=== PATIENT | female | born 1965 | race Caucasian/White ===

== ENCOUNTER 2016-02-23 12:15 | Outpatient (CLI) | payer MEDICAID | END 2016-02-23 12:16 | disposition home or self-care (01) | DX: N39.0 Urinary tract infection, site not specified (principal) ==

== ENCOUNTER 2016-03-12 09:00 | Outpatient (CLI) | payer MEDICAID | END 2016-03-12 09:01 | disposition home or self-care (01) | DX: R19.7 Diarrhea, unspecified (principal) ==

== ENCOUNTER 2016-03-29 09:50 | Outpatient (CLI) | payer MEDICAID | END 2016-03-29 09:51 | disposition home or self-care (01) | DX: R19.7 Diarrhea, unspecified (principal) ==

== ENCOUNTER 2016-04-09 | Outpatient (CLI) | payer MEDICAID | END 2016-04-09 16:16 | disposition home or self-care (01) ==

== ENCOUNTER 2016-05-24 15:11 | Outpatient (CLI) | payer MEDICAID | END 2016-05-24 15:12 | disposition critical access hospital (66) | DX: M54.5 Low back pain (principal) | CPT/HCPCS: A0425; A0427 ==

== ENCOUNTER 2016-05-24 15:50 | Emergency (ER) | payer MEDICAID ==
[2016-05-24] MEDS ORDERED: SODIUM CHLORIDE 0.9% 1,000 ML IV ONE (16:23)
[2016-05-24] MEDS ORDERED: HYDROmorphone 1 MG/ML SYRINGE IVP STA ×2 (16:37→18:06)
[2016-05-24] MEDS ORDERED: HYDROmorphone 1 MG/ML SYRINGE ONE ×2 (16:57→18:11)
[2016-05-24] MEDS ORDERED: IOPAMIDOL-300 100 ML VIAL IVP ONE (17:47)
== END 2016-05-24 19:57 | disposition home or self-care (01) ==
DX: M54.5 Low back pain (principal); G89.29 Other chronic pain; I10 Essential (primary) hypertension; E78.00 Pure hypercholesterolemia, unspecified; Z86.718 Personal history of other venous thrombosis and embolism; I48.92 Unspecified atrial flutter; J45.909 Unspecified asthma, uncomplicated; G47.30 Sleep apnea, unspecified; E11.9 Type 2 diabetes mellitus without complications; Z79.4 Long term (current) use of insulin; E03.9 Hypothyroidism, unspecified; M79.7 Fibromyalgia; Z79.82 Long term (current) use of aspirin; Z87.891 Personal history of nicotine dependence
CPT/HCPCS: 36415; 74177; 80053; 81001; 83605; 83690; 85025; 87077; 87086; 87181; 96374; 96376; 99284; J1170; Q9967

== ENCOUNTER 2016-05-24 19:57 | Outpatient (CLI) | payer MEDICAID | END 2016-05-24 19:58 | disposition home or self-care (01) | DX: Z74.01 Bed confinement status (principal) | CPT/HCPCS: A0425; A0428 ==

== ENCOUNTER 2016-06-04 15:45 | Outpatient (CLI) | payer MEDICAID | END 2016-06-04 15:46 | disposition home or self-care (01) | DX: Z51.5 Encounter for palliative care (principal); N39.0 Urinary tract infection, site not specified; B95.62 Methicillin resistant Staphylococcus aureus infection as the cause of diseases classified elsewhere; R21 Rash and other nonspecific skin eruption; G89.29 Other chronic pain; M54.89 Other dorsalgia; M35.9 Systemic involvement of connective tissue, unspecified; E24.2 Drug-induced Cushing's syndrome; T38.0X5S Adverse effect of glucocorticoids and synthetic analogues, sequela; M19.90 Unspecified osteoarthritis, unspecified site; N31.9 Neuromuscular dysfunction of bladder, unspecified; N30.90 Cystitis, unspecified without hematuria; Z93.3 Colostomy status; H91.90 Unspecified hearing loss, unspecified ear; R06.02 Shortness of breath; Z99.81 Dependence on supplemental oxygen; F32.9 Major depressive disorder, single episode, unspecified; F41.9 Anxiety disorder, unspecified; Z66 Do not resuscitate; Z79.891 Long term (current) use of opiate analgesic ==

== ENCOUNTER 2016-06-22 15:25 | Outpatient (CLI) | payer MEDICAID | END 2016-06-22 15:26 | disposition home or self-care (01) | DX: R19.7 Diarrhea, unspecified (principal); Z86.19 Personal history of other infectious and parasitic diseases ==

== ENCOUNTER 2016-06-26 13:29 | Outpatient (CLI) | payer MEDICAID | END 2016-06-26 13:30 | disposition critical access hospital (66) | LOC: EMS 13:29 | PROVIDERS: ATTEND Surgery | DX: R41.0 Disorientation, unspecified (principal); R53.81 Other malaise | CPT/HCPCS: A0425; A0427 ==

== ENCOUNTER 2016-06-26 14:08 | Emergency (ER) | payer MEDICAID ==
[2016-06-26] MEDS ORDERED: ONDANSETRON 4 MG/2 ML VIAL IVP STA (14:31)
[2016-06-26] MEDS ORDERED: SODIUM CHLORIDE 0.9% 1,000 ML IV ONE (14:31)
[2016-06-26] MEDS ORDERED: HYDROmorphone 1 MG/ML SYRINGE IVP STA (14:31)
[2016-06-26] MEDS ORDERED: HYDROmorphone 1 MG/ML SYRINGE ONE (14:42)
[2016-06-26] MEDS ORDERED: ONDANSETRON 4 MG/2 ML VIAL ONE (14:42)
[2016-06-26] MEDS ORDERED: IOPAMIDOL-300 100 ML VIAL IVP ONE (16:10)
== END 2016-06-26 18:39 | disposition home or self-care (01) ==
DX: A04.7 Enterocolitis due to Clostridium difficile (principal); M35.9 Systemic involvement of connective tissue, unspecified; T78.3XXA Angioneurotic edema, initial encounter; Z93.3 Colostomy status; Z90.49 Acquired absence of other specified parts of digestive tract; Z86.14 Personal history of Methicillin resistant Staphylococcus aureus infection; R19.09 Other intra-abdominal and pelvic swelling, mass and lump; R03.0 Elevated blood-pressure reading, without diagnosis of hypertension; E78.00 Pure hypercholesterolemia, unspecified; E11.9 Type 2 diabetes mellitus without complications; Z79.4 Long term (current) use of insulin; Z86.718 Personal history of other venous thrombosis and embolism; I48.92 Unspecified atrial flutter; J45.909 Unspecified asthma, uncomplicated; M54.9 Dorsalgia, unspecified; G89.29 Other chronic pain; Z74.01 Bed confinement status; Z79.52 Long term (current) use of systemic steroids; Z79.82 Long term (current) use of aspirin; Z87.891 Personal history of nicotine dependence
CPT/HCPCS: 74177; 80053; 83605; 83690; 85025; 96374; 96375; 99283; 99284; J1170; Q9967

== ENCOUNTER 2016-06-26 18:41 | Outpatient (CLI) | payer MEDICAID | END 2016-06-26 18:42 | disposition home or self-care (01) | LOC: EMS 18:41 | PROVIDERS: ATTEND Surgery | DX: R53.81 Other malaise (principal); R11.0 Nausea; Z74.01 Bed confinement status | CPT/HCPCS: A0425; A0428 ==

== ENCOUNTER 2016-07-21 06:40 | Outpatient (CLI) | payer MEDICAID | END 2016-07-21 06:41 | disposition critical access hospital (66) | LOC: EMS 06:40 | PROVIDERS: ATTEND Surgery | DX: R06.02 Shortness of breath (principal) | CPT/HCPCS: A0425; A0429 ==

== ENCOUNTER 2016-07-21 07:10 | Inpatient (IN) | payer MEDICAID ==
--- NOTE | 2016-07-21 07:15 | ED Physician Documentation ---
PD HPI DYSPNEA - Stated complaint Stated Complaint: SOA, ? PNA - History obtained from History obtained from: Patient, Family, EMS - History of Present Illness Timing - onset: Yesterday Timing - duration: Days (started with cough and dyspnea yesterday and is worse today, with thicker sputum. She is bedbound due to back fractures and thus has difficulty clearing sputum as is lying on back. She felt dypsnea with wheezing this morning and called EMS. Had nebulizer enroute and is breathing easier though still with congested cough, wheezing, and has sats at 88-89% RA. Prior records show sats of 97-99%.) Timing - details: Gradual onset, Still present Inciting event(s): URI (has had cough for past couple days, worsening.) Improved by: Inhaler/neb Associated symptoms: Cough Similar symptoms before: Has not had sx before Recently seen: Not recently seen Review of Systems Constitutional: denies: Fever, Chills Nose: denies: Rhinorrhea / runny nose, Congestion Throat: denies: Sore throat Cardiac: denies: Chest pain / pressure Respiratory: reports: Dyspnea, Cough, Wheezing GI: denies: Vomiting, Diarrhea : reports: Other (has indwelling nunes which is draining thick cloudy white.) Musculoskeletal: reports: Back pain (chronic, and is bedbound or wheelchair due to it. Has lift at home.). 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 LINE INSTALLER: section, Hysterectomy - Present Medications Home Medications: Ambulatory Orders Medication Instructions Recorded Confirmed Fenofibrate 160 mg PO DAILY 07/09/12 01/19/16 Levothyroxine [Synthroid] 100 mcg PO QDAC 07/09/12 01/19/16 Albuterol Sulfate 1 vial NEB Q6HR PRN 04/13/15 01/19/16 Aspirin [Aspir-Low] 81 mg ORAL DAILY 04/13/15 01/19/16 Atorvastatin Calcium 20 mg ORAL DAILY 04/13/15 01/19/16 Epinephrine [Epipen 2-Zachary] 1 syr IM ONCE PRN 04/13/15 01/19/16 Escitalopram Oxalate [Lexapro] 20 mg ORAL DAILY 04/13/15 01/19/16 Magnesium Oxide [Mag Ox] 400 mg ORAL QPM PRN 04/13/15 01/20/16 Methadone HCl 12.5 mg ORAL QID 04/13/15 01/19/16 Metoprolol Tartrate 25 mg ORAL BID 04/13/15 01/20/16 Oxycodone HCl 30 mg ORAL Q3HR PRN MDD 9 ml 04/13/15 01/19/16 Tolterodine [Detrol LA] 2 mg PO BID 04/13/15 01/19/16 Vitamin B Complex Vit C No.4 1 tab ORAL DAILY 04/13/15 01/19/16 [Super B Complex] Acetaminophen [Tylenol Extra 1,000 mg PO Q4H PRN 12/29/15 01/19/16 Strength] Albuterol Sulfate [Proair Hfa 2 puffs INH QID PRN 12/29/15 01/19/16 Inhaler] Calcium Carbonate [Tums (Calcium 750 mg PO QID tablet 12/29/15 01/19/16 Carbonate 500mg)] Diphenhydramine HCl 25 - 75 mg PO QPM PRN 12/29/15 01/20/16 Docusate Sodium 100 mg PO DAILY 12/29/15 01/19/16 Fluticasone [Flonase] 1 sprays AVIS BID 12/29/15 01/19/16 Insulin Lispro [Humalog] 2 unit SUBQ TIDWM 12/29/15 01/20/16 Metoclopramide [Reglan] 10 mg PO QID PRN 12/29/15 01/19/16 Multivitamin [Multiple Vitamins] 1 tab PO DAILY 12/29/15 01/19/16 Nystatin [Nystop] 1 applic TOP BID #15 bottle 12/29/15 01/19/16 Saccharomyces Boulardii [Florastor] 250 mg PO BID #20 capsule 12/29/15 01/19/16 Simethicone 180 mg PO DAILY 12/29/15 01/19/16 Sodium Chloride [Saline Mist] 1 spray NS TID PRN 12/29/15 01/19/16 Sumatriptan Succinate [Imitrex] 50 mg PO Q2H PRN MDD 100 MG 12/29/15 01/19/16 raNITIdine [Zantac] 300 mg PO QPM 01/20/16 01/20/16 Cetirizine [ZyrTEC] 20 mg PO DAILY tablet 01/21/16 Fluticasone [Flonase] 1 sprays AVIS BID bottle 01/21/16 Levofloxacin [Levaquin] 500 mg PO 10 #10 tablet 01/21/16 Pseudoephedrine [Sudafed] 30 mg PO BID #20 tablet 01/21/16 - Allergies Allergies/Adverse Reactions: Allergies Allergy/AdvReac Type Severity Reaction Status Date / Time latex Allergy Unknown Verified 07/21/16 07:26 nitrofurantoin AdvReac Intermediate Emesis Verified 07/21/16 07:26 macrocrystalline * [From Macrobid] - Social History Does the pt smoke?: No Smoking Status: Former smoker Does the pt drink ETOH?: Yes Does the pt have substance abuse?: No - Family History Family history: reports: Non contributory - Immunizations Immunizations are current?: Yes - POLST Patient has POLST: No PD ED PE NORMAL - Vitals Vital signs reviewed: Yes - General General: Alert and oriented X 3, Well developed/nourished - HEENT HEENT: Atraumatic, Ears normal, Pharynx benign - Neck Neck: Supple, no meningeal sign, No adenopathy, No JVD - Cardiac Cardiac: RRR (mild tachycardia), No murmur - Respiratory Respiratory: No: Clear bilaterally (diffuse mod wheezing but able to converse in sentences. No accessory muscle use. Some coarse sounds right side. ) - Abdomen Abdomen: Soft, Non tender, Other (colostomy right side draining normal appearing output. No redness of the skin. ) - Female Female : Deferred - Rectal Rectal: Deferred - Derm Derm: Normal color, Warm and dry - Extremities Extremities: No tenderness to palpate, No edema, No calf tenderness / cord - Neuro Neuro: Alert and oriented X 3, No motor deficit, No sensory deficit, Normal speech - Psych Psych: Normal mood Results - Vitals Vitals: Vital Signs - 24 hr 07/21/16 07/21/16 07/21/16 07:19 07:50 09:15 Temperature 36.7 C Heart Rate 108 H 95 94 Respiratory 18 16 15 Rate Blood Pressure 140/103 H O2 Saturation 89 L 07/21/16 09:26 Temperature Heart Rate Respiratory Rate Blood Pressure 129/86 H O2 Saturation Oxygen O2 Source Room air Oxygen Flow Rate 3 - Labs Labs: Laboratory Tests 07/21/16 07/21/16 07/21/16 07:33 07:45 07:45 WBC 12.2 H RBC 3.03 L Hgb 8.7 L Hct 28.2 L MCV 93.2 MCH 28.7 MCHC 30.8 L RDW 16.6 H Plt Count 290 MPV 9.0 Neut # 9.7 H Lymph # 1.5 [place]olls # 0.6 Eos # 0.3 Baso # 0.1 Absolute Nucleated RBC 0.00 Nucleated RBCs 0.0 Sodium 142 Potassium 4.2 Chloride 93 L Carbon Dioxide 40 H* Anion Gap 8.0 BUN 5 L Creatinine < 0.3 L Estimated GFR (MDRD) 234 Glucose 118 H Lactic Acid Calcium 9.2 Magnesium 1.7 Total Bilirubin 0.2 AST 34 ALT 34 Alkaline Phosphatase 38 L B-Natriuretic Peptide 53 Total Protein 5.6 L Albumin 2.8 L Globulin 2.8 Albumin/Globulin Ratio 1.0 Lipase 18 L Urine Color Urine Clarity Urine pH Ur Specific [place] Urine Protein Urine Glucose (UA) Urine Ketones Urine Occult Blood Urine Nitrite Urine Bilirubin Urine Urobilinogen Ur Leukocyte Esterase Urine RBC Urine WBC Urine WBC Clumps Ur Squamous Epith Cells Urine Bacteria Ur Microscopic Review Urine Culture Comments 07/21/16 07/21/16 07:45 08:43 WBC RBC Hgb Hct MCV MCH MCHC RDW Plt Count MPV Neut # Lymph # [place] # Eos # Baso # Absolute Nucleated RBC Nucleated RBCs Sodium Potassium Chloride Carbon Dioxide Anion Gap BUN Creatinine Estimated GFR (MDRD) Glucose Lactic Acid 1.3 Calcium Magnesium Total Bilirubin AST ALT Alkaline Phosphatase B-Natriuretic Peptide Total Protein Albumin Globulin Albumin/Globulin Ratio Lipase Urine Color YELLOW Urine Clarity CLOUDY Urine pH 6.5 Ur Specific [place] 1.020 Urine Protein TRACE Urine Glucose (UA) NEGATIVE Urine Ketones NEGATIVE Urine Occult Blood MODERATE H Urine Nitrite NEGATIVE Urine Bilirubin NEGATIVE Urine Urobilinogen 0.2 (NORMAL) Ur Leukocyte Esterase LARGE H Urine RBC 6-10 H Urine WBC >25 H Urine WBC Clumps PRESENT Ur Squamous Epith Cells NONE SEEN Urine Bacteria Many H Ur Microscopic Review INDICATED Urine Culture Comments INDICATED PD MEDICAL DECISION MAKING - ED course Complexity details: reviewed old records (recent c-diff but she says colostomy output is normal now. ), reviewed results, re-evaluated patient (after nebs, sats are 92% RA, still coarse sounds on right, mild wheezing. She feels less laboring breathing, and looks more relaxed breathing. Has yellowish sputum. I am concerned for sounding early pneumonia clinically, in steroid dependent woman , who is bedbound with comorbidities. ), considered differential (bedbound much of the time, with cough and wheeze. Concern for pneumonia, and consider aspiration. ), d/w patient, d/w organizational development consultant (Dr. Garcia) Departure - Departure Disposition: 66 [facility] DC/Xfer Clinical Impression: Steroid dependent, Hypoxemia Pneumonia Qualifiers: Pneumonia type: due to unspecified organism Laterality: right Lung location: unspecified part of lung Qualified Code(s): J18.9 - Pneumonia, unspecified organism Dyspnea Qualifiers: Dyspnea type: shortness of breath Qualified Code(s): R06.02 - Shortness of breath Condition: Stable Record reviewed to determine appropriate education?: Yes
[2016-07-21] MEDS ORDERED: SODIUM CHLORIDE 0.9% 1,000 ML IV ONE (07:33)
[2016-07-21] MEDS ORDERED: IPRATROPIUM/ALBUTEROL 3 ML NEB INH STA (07:33)
[2016-07-21] MEDS ORDERED: IPRATROPIUM/ALBUTEROL 3 ML NEB INH ONE (07:44)
--- NOTE | 2016-07-21 08:25 | XRAY Preliminary Report ---
Exam: XR Chest 1 View IMPRESSION: 1. Low inspiratory volume portable film without focal consolidation or airspace pulmonary edema. 2. Mediastinal prominence and nonspecific vascular and interstitial prominence are slightly increased . Vascular congestion not excluded. Limited mediastinal and cardiac assessment on portable chest x-ra bernadine ESCOBAR SITE ID: [id number]
--- NOTE | 2016-07-21 08:28 | XRAY Report ---
EXAM: CHEST RADIOGRAPHY EXAM DATE: 07/21/2016 08:09 AM. CLINICAL HISTORY: Cough/congestion. COMPARISON: 12/22/2015. TECHNIQUE: 1 view. FINDINGS: Lungs/Pleura: Low inspiratory volume. Mild bilateral nonspecific vascular and interstitial prominence . No focal opacities evident. No pleural effusion. No pneumothorax. Mediastinum: Unchanged prominence of cardiomediastinal silhouette. Low inspiratory volume, portable t echnique and patient body habitus may contribute to this prominence. Cardiomegaly and adenopathy or m ediastinal mass is not excluded. Other: None. IMPRESSION: 1. Low inspiratory volume portable film without focal consolidation or airspace pulmonary edema. 2. Mediastinal prominence and nonspecific vascular and interstitial prominence are slightly increased . Vascular congestion not excluded. Limited mediastinal and cardiac assessment on portable chest x-ra bernadine ESCOBAR Referring Provider Line: [phone] SITE ID: [id number]
[2016-07-21 08:33] LABS: BILIRUBIN,URINE NEGATIVE (NEGATIVE); PH,URINE 6.5 PH (5.0-7.5)
[2016-07-21 08:34] LABS: BASOPHILS # (AUTO) 0.1 10^3/uL (0.0-0.1); BASOPHILS % (AUTO) 0.6 %; EOSINOPHILS # (AUTO) 0.3 10^3/uL (0.0-0.7); EOSINOPHILS % (AUTO) 2.8 %; HCT - HEMATOCRIT 28.2 % (37.0-47.0); HGB - HEMOGLOBIN 8.7 g/dL (12.0-16.0); LYMPHOCYTES # (AUTO) 1.5 10^3/uL (1.5-3.5); LYMPHOCYTES % (AUTO) 12.3 %; MEAN CORPUSCULAR HEMOGLOBIN 28.7 pg (27.0-31.0); MEAN CORPUSCULAR HGB CONC 30.8 g/dL (32.0-36.0); MEAN CORPUSCULAR VOLUME 93.2 fL (81.0-99.0); MONOCYTES # (AUTO) 0.6 10^3/uL (0.0-1.0); MONOCYTES % (AUTO) 4.8 %; NEUTROPHILS # (AUTO) 9.7 10^3/uL (1.5-6.6); NEUTROPHILS % (AUTO) 79.5 %; RED BLOOD COUNT 3.03 10^6/uL (4.20-5.40); RED CELL DISTRIBUTION WIDTH 16.6 % (12.0-15.0); UNCORRECTED WHITE BLOOD COUNT 12.2 x10^3/uL; WHITE BLOOD COUNT 12.2 x10^3/uL (4.8-10.8)
[2016-07-21 08:35] LABS: UA w/ MICROSCOPIC CHARGE YES
[2016-07-21 08:57] LABS: BILIRUBIN,TOTAL 0.2 mg/dL (0.2-1.0); BUN - BLOOD UREA NITROGEN 5 mg/dL (6-20); CALCIUM 9.2 mg/dL (8.5-10.3); CARBON DIOXIDE - CO2 40 mmol/L (21-32); CHLORIDE 93 mmol/L (101-111); GLUCOSE 118 mg/dL (70-100); LIPASE 18 U/L (22-51); MAGNESIUM 1.7 mg/dL (1.7-2.8); POTASSIUM 4.2 mmol/L (3.5-5.0); SODIUM 142 mmol/L (135-145); TOTAL PROTEIN 5.6 g/dL (6.7-8.2)
[2016-07-21] MEDS ORDERED: ALBUTEROL NEB 2.5 MG/3 ML INH STA (08:57)
[2016-07-21 09:02] LABS: UR CULTURE IF IND INDICATED; WBC,URINE >25 /HPF (0-5)
[2016-07-21 09:09] LABS: CREATININE < 0.3 mg/dL (0.4-1.0); GFR - MDRD 234 (>89)
[2016-07-21] MEDS ORDERED: ALBUTEROL NEB 2.5 MG/3 ML INH ONE (09:14)
[2016-07-21] MEDS ORDERED: PIPERACILLIN/TAZOBACTAM 4.5 GM in SODIUM CHLORIDE 0.9% MINIBAG 100 ML IV STA (09:23)
[2016-07-21] MEDS ORDERED: methylPREDNISolone SUCCINATE 125 MG/2 ML VIAL IVP STA (09:23)
[2016-07-21] MEDS ORDERED: methylPREDNISolone SUCCINATE 125 MG/2 ML VIAL IVP ONE (09:49)
[2016-07-21 10:16] LABS: ABG ANALYSIS TIME 1015; ABG BASE EXCESS 11.9 mmol/L (-2.0-3.0); ABG HCO3 38.4 mmol/L (22.0-26.0); ABG PO2 73 mmHg (80-100)
[2016-07-21 10:17] LABS: ABG O2 DEVICE NASAL CANNULA; ABG OXYGEN SATURATION 95 % (94-98); ABG SITE OF DRAW RIGHT RADIAL; ALLEN TEST POSITIVE
[2016-07-21 10:25] LABS: ABG PCO2 63 mmHg (34-45); ABG TCO2 40.3 MMOL/L (21.0-29.0)
[2016-07-21] MEDS ORDERED: ACETAMINOPHEN 325 MG TABLET PO PRN (11:42)
[2016-07-21] MEDS ORDERED: ONDANSETRON 4 MG/2 ML VIAL IVP PRN (11:42)
[2016-07-21] MEDS ORDERED: SODIUM CHLORIDE 0.65% NASAL SPRAY NAS PRN (11:47)
[2016-07-21] MEDS ORDERED: CYANOCOBALAMIN 1,000 MCG/ML VIAL IM SCH (12:15)
[2016-07-21] MEDS: oxyCODONE 10 MG/0.5 ML SYRINGE PO PRN ×4 (12:35→22:21)
[2016-07-21 12:48] LABS: GLUCOSE,FASTING 111 mg/dL (70-100); IRON 14 ug/dL (28-170); TOTAL IRON BINDING CAPACITY 295 ug/dL (250-450); TRANSFERRIN 211 mg/dL (192-382)
[2016-07-21] MEDS ORDERED: METHADONE 5 MG TABLET PO SCH (13:00)
[2016-07-21 13:02] LABS: FERRITIN 13.6 ng/mL (11.0-306.8)
[2016-07-21 13:23] LABS: IMMATURE RETIC FRACTION 0.56; RED BLOOD COUNT 2.85 10^6/uL (4.20-5.40)
[2016-07-21] MEDS: SODIUM CHLORIDE 0.9% 1,000 ML IV SCH (13:45)
[2016-07-21] MEDS: ENOXAPARIN 40 MG/0.4 ML SYRINGE SUBQ SCH (13:47)
[2016-07-21] MEDS: MULTIVITAMIN TABLET PO SCH (13:48)
[2016-07-21] MEDS: SACCHAROMYCES BOULARDII 250 MG CAPSULE PO SCH ×2 (13:48→20:44)
[2016-07-21] MEDS: TOLTERODINE LA 2 MG CAPSULE PO SCH ×2 (13:48→20:45)
[2016-07-21] MEDS: CALCIUM CARBONATE CHEW 500 MG TABLET PO SCH ×3 (13:49→20:45)
[2016-07-21] MEDS: INSULIN ASPART 300 UNIT/3 ML PEN SUBQ SCH ×5 (13:49→20:43)
[2016-07-21] MEDS ORDERED: MAGNESIUM SULFATE 2 GRAM 50 ML IV SCH (14:00)
[2016-07-21] MEDS: SODIUM CHLORIDE FLUSH 0.9% 10 ML SYRINGE IVP SCH ×2 (14:06→18:33)
[2016-07-21] MEDS: VANCOMYCIN 125 MG CAPSULE PO SCH ×2 (14:50→19:35)
[2016-07-21] MEDS: methylPREDNISolone SUCCINATE 40 MG/ML VIAL IVP SCH ×2 (14:51→20:43)
[2016-07-21] MEDS ORDERED: IRON SUCROSE 200 MG in SODIUM CHLORIDE 0.9% 100ML 100 ML IV ONE (15:00)
[2016-07-21] MEDS: IPRATROPIUM/ALBUTEROL 3 ML NEB INH PRN ×2 (15:51→23:33)
[2016-07-21] MEDS: PANTOPRAZOLE 40 MG VIAL IVP SCH (17:09)
[2016-07-21] MEDS: diphenhydrAMINE 25 MG CAPSULE PO SCH ×2 (17:10→20:45)
--- NOTE | 2016-07-21 18:23 | HISTORY & PHYSICAL EXAMINATION ---
DATE OF ADMISSION: 07/21/2016 PRIMARY CARE PROVIDER: Dr. Haylee Rosario. CHIEF COMPLAINT: Shortness of breath, cough, and upper chest pain. HISTORY OF PRESENT ILLNESS: The patient is a 51-year-old morbidly obese female with multiple significant comorbidities with unspecified autoimmune connective tissue disorder with recurrent angioedema, [place] type syndrome from steroids, morbid obesity, chronic back pain, bilateral mastoiditis, severe osteoarthritis , neurogenic bladder with interstitial cystitis, colostomy, who presented with shortness of breath and generalized weakness and malaise and possible aspiration pneumonia. The patient states that the cough and shortness of breath started to worsen yesterday and today the symptoms have become severe with much thicker sputum. Since the patient is bedbound due to multiple back fractures, she has difficulty cleaning her sputum while lying on her back. She stated she had shortness of breath and heard herself wheezing this morning, so she called EMS. She did receive nebulizer treatments with EMS on the way to the ER. Her sats were noted to be between 88 and 89% on room air. The patient states she has been using her inhaler and home nebs as prescribed with no resolution. She states the cough has become worse. She has continued to eat her meals while laying down even though she continues to have a significant cough. She states that the pain in her chest feels like someone is stabbing her with a knife which goes straight through the middle of her back when she coughs. She denies fever or chills, sore throat, chest pain or pressure. She reports wheezing, productive cough and shortness of breath with a cough. She has had no vomiting or diarrhea. She does have an indwelling Oseguera catheter that is draining thick, cloudy and white. She states her back pain has been chronic. She is bed bound and wheelchair bound. She does have a home lift. She has a colostomy bag which was placed yesterday, new bag that has noted stool. She was just recently diagnosed with C difficile. She is on a special diet due to her autoimmune disorder. She is not allowed to have gluten or dairy. She takes multiple medications at home. Upon evaluation in the ER, she was found to be significantly congested, did have mild wheezing with expiration. She states she had been around her nephew recently who was sick with an upper respiratory infection, but was not sure whether he had been formally diagnosed. She was tachycardic and oxygen saturation was 89% on room air. She was afebrile. She will be admitted for further evaluation for shortness of breath and possible aspiration pneumonia. ALLERGIES 1. LATEX. 2. NITROFURANTOIN. 3. MACROCRYSTALLINE. MEDICATIONS 1. Fenofibrate. 2. Synthroid. 3. Albuterol. 4. Aspirin 81 mg. 5. Atorvastatin. 6. Calcium 20 mg. 7. EpiPen 2 pack. 8. Lexapro 20 mg daily. 9. Magnesium oxide 400 mg at night. 10. Methadone HCL 12.5 mg q.i.d. 11. Metoprolol tartrate 25 mg oral b.i.d. 12. Oxycodone HCL 30 mg q.3h. p.r.n.. 13. Detrol-LA 2 mg p.o. b.i.d. 14. Vitamin B complex with vitamin C. 15. Tylenol Extra Strength q.4h. p.r.n. 16. ProAir HFA inhaler two puffs q.i.d. p.r.n. 17. Tums 750 mg p.o. q.i.d. 19. Colace 100 mg p.o. daily. 20. Flonase. 21. Insulin lispro, Humalog 2 units subcutaneously 3 times a day with meals. 22. Reglan 10 mg p.o. q.i.d. p.r.n. 23. Multivitamin 1 tab p.o. daily. 24. Nystatin. 25. Florastor 250 mg p.o. b.i.d.. 26. Simethicone 180 mg p.o. daily. 27. Imitrex 50 mg p.o. q.2h. p.r.n. for migraines. 28. Zantac. 29. Zyrtec. 30. Flonase. 31. Sudafed. PAST MEDICAL HISTORY: Hypertension, high cholesterol, history of deep venous thromboses, atrial flutter, murmur, asthma, type 2 diabetes, hypothyroidism, GERD, indwelling Oseguera catheter with chronic bladder infections, chronic hearing loss and history of depression, anxiety, PTSD, claustrophobia, eating disorder, OCD, chronic back pain, fibromyalgia, osteoporosis, diverticulitis, headache, migraines, sleep apnea with CPAP use, colonoscopy, osteoporosis. PAST SURGICAL HISTORY: , colostomy bag, spine surgery, cholecystectomy , hysterectomy and indwelling Oseguera catheter. FAMILY HISTORY: The patient has hypertension and diabetes on both sides of her family. She also has autoimmune disorders. PAST SOCIAL HISTORY: The patient does have alcohol periodically. She is a former smoker, does not use illicit drugs, but is on methadone and chronic pain medication. Her daughter Meron is her POA. REVIEW OF SYSTEMS: The 10 systems have been reviewed and is negative with exception as discussed in the HPI prior. PHYSICAL EXAMINATION CONSTITUTIONAL: The patient is alert, no acute distress. EYES: Pupils equal, round and react to light and accommodation. Conjunctivae and sclerae was nonicteric, not injected. ENT: Nares are patent, oropharynx with no masses, exudates or lesions. Mucous membranes are moist. The patient does present with a productive cough. NECK: Supple. No thyromegaly. No adenopathy. RESPIRATORY: Breath sounds are clear with diffuse moderate wheezing but able to converse in sentences, coarse sounds on the right side, otherwise no retractions or nasal flaring. CARDIOVASCULAR: Tachycardic rate. No gallops, murmurs or rubs. Normal PMI. No JVD. GASTROINTESTINAL: Abdomen is obese, soft. Colostomy to the right side draining normal brown stool. SKIN: Dry, intact. No guarding or rebound. GENITOURINARY: Indwelling Oseguera noted, otherwise no CVA tenderness or masses palpated. NEUROLOGICAL: She is alert, GCS 15. No sensory deficit. Normal speech. PSYCHIATRIC: Flat affect, cooperative and no suicide ideation. MUSCULOSKELETAL AND EXTREMITIES: No cyanosis. Pulses are palpable on bilateral lower extremities. No edema to lower extremities, no calf tenderness. SKIN: Normal color, warm, dry, intact. HEMATOLOGIC: No active bleeding. She is hemodynamically stable. LYMPHATICS: No cervical or axillary lymphadenopathy noted. LABORATORY DATA: I personally reviewed all laboratory and diagnostic data in the medical records and the results are as follows for 07/21/2016. Sodium 142, potassium is 4.2, chloride is 93, carbon dioxide 40, BUN 5, creatinine less than 0.3, glucose is 118, calcium 9.2, magnesium 1.7, total protein 5.6. BNP is 53, alkaline phosphatase is 36. Lipase 18. WBC is 12.2, hemoglobin 8.7, hematocrit 28.2, urinalysis is positive for leukocyte esterase, moderate occult blood, negative nitrites, trace of protein, multiple bacteria and white blood cells. DIAGNOSTICS: Personally reviewed the chest x-ray for 07/21/2016/. Impression shows low inspiratory volume on a portable film without focal consolidation or airspace pulmonary edema, possibility for aspiration pneumonia; however, no confirmed infiltrate, vascular congestion is not excluded. ASSESSMENT AND PLAN 1. Acute dyspnea with productive cough secondary to possible aspiration pneumonia with autoimmune angioedema. 2. Morbid obesity with BMI greater than 40, with chronic steroid usage. 3. Type 2 diabetes with complications. 4. Mixed hyperlipidemia with type 2 diabetes. 5. Obstructive sleep apnea with CPAP use. 6. Chronic back pain secondary to osteoporosis with chronic multiple fractures of the spinal column. 7. Chronic Fibromyalgia. 8. Hypertensive heart disease without congestive heart failure. 9. Hypothyroidism, acquired. 10. Gastroesophageal reflux disease. 11. Chronic bladder infection with retention and chronic indwelling Oseguera catheter. 12. Right-sided colostomy with recent diagnosis of c.dif. PLAN 1. Admit the patient inpatient with respiratory therapy support. The patient was given antibiotic Levaquin in the ER. Sputum culture requested, supplemental oxygen at 2 liters nasal cannula, steroids to continue. The patient does take steroids at home on a daily basis; however, unsure of the amounts. At this time she was placed on methylprednisolone 40 mg t.i.d. Continue with DuoNeb treatments p.r.n. q.4h. We will encourage coughing and deep breathing with incentive spirometry. The head of the bed elevated at 30 degrees if the patient can tolerate. continue methadone and give Fentanyl q.4h IV prn for pain. Continue on p.r.n. pain medication of oxycodone oral 2. Continue on Synthroid medication. Thyroid panel has been requested. 3. Continue on atorvastatin for hyperlipidemia. Lipid profile requested. 4. Continue on his Lexapro for depression and monitor mental health status. 5. Hold Magnesium oxide. The patient was given IV magnesium sulfate. Will continue to monitor electrolytes. 6. Continue metoprolol tartrate for hypertension. Telemetry monitoring. 7. Continue on Tylenol for fever. Continue on Benadryl at night for sleep and insomnia. 8. Continue on Humalog on sliding scale insulin for diabetes management with diabetic diet. The patient does have a diet that is gluten and dairy free, to continue. 9. Continue multivitamin for supplemental nutritional support. 10. Continue on Reglan for nausea. 11. Continue on Zyrtec and Flonase for inflammation and nasal congestion. 12. Continue on Imitrex p.r.n. for migraines as needed. 13. Continue on aspirin therapy home dosage for cardiac support. 14. Continue on fenofibrate for hyperlipidemia. 15. Physical and occupational therapy support to help with moving and sitting up in bed. The patient does use wheelchair at home; however, due to her size will be difficult to get her up and at least sitting in a wheelchair for part of the day. We will continue to monitor for pain and treat as needed. The patient has been counseled on the importance of sitting up when eating to avoid worsening lung compliance and to avoid aspiration. 16. Deep venous thrombosis prophylaxis with Lovenox and SCDs. Time spent on the admission assessment and education was approximately 60 minutes. STATUS: The patient is a FULL CODE STATUS with request for no extra ordinary measures with POLST present; per past notes she did have a POLST form on file, which was DO NOT ATTEMPT RESUSCITATION, BUT FULL TREATMENT IF she has any angioedema or in anaphylactic shock. This was discussed at bedside with the patient. She does request that all measures to be taken to help bring her angioedema under control; however, does not want any extravagant means taken should she be intubated. She does have a durable power of estate attorney, which is her daughter, Meron, who is her main caregiver at home. JOB #: [id number] EXT JOB #:[id number] DARA
[2016-07-21] MEDS: fentaNYL 100 MCG/2 ML VIAL IVP PRN ×2 (18:31→21:04)
[2016-07-21] MEDS: ALPRAZolam 0.25 MG TABLET PO PRN (18:32)
[2016-07-21] MEDS: diazePAM 5 MG TABLET PO PRN (19:35)
[2016-07-21] MEDS ORDERED: SUMAtriptan 6 MG/0.5 ML VIAL SUBQ ONE ×2 (19:51→20:15)
[2016-07-21] MEDS: NYSTATIN POWDER 15 GM TOP SCH (20:42)
[2016-07-21] MEDS: FLUTICASONE NASAL SPRAY NAS SCH (20:42)
[2016-07-21] MEDS: PSEUDOEPHEDRINE 30 MG TABLET PO SCH (20:45)
[2016-07-21] MEDS: METOPROLOL TARTRATE 25 MG TABLET PO SCH (20:46)
[2016-07-21] MEDS: DOXEPIN 25 MG CAPSULE PO SCH (20:46)
[2016-07-21] MEDS: guaiFENesin 600 MG TABLET PO SCH (20:46)
[2016-07-21] MEDS ORDERED: LORazepam 2 MG/ML SYRINGE IVP SCH (23:21)
[2016-07-21] MEDS ORDERED: ZOLPIDEM 5 MG TABLET PO PRN (23:21)
[2016-07-22] MEDS: METHADONE 5 MG TABLET PO SCH ×5 (00:49→20:05)
[2016-07-22] MEDS: SODIUM CHLORIDE 0.9% 1,000 ML IV SCH ×2 (00:50→09:38)
[2016-07-22] MEDS: VANCOMYCIN 125 MG CAPSULE PO SCH ×4 (02:18→20:06)
[2016-07-22] MEDS: oxyCODONE 10 MG/0.5 ML SYRINGE PO PRN ×5 (02:31→20:07)
[2016-07-22] MEDS: LEVOTHYROXINE 100 MCG TABLET PO SCH (06:28)
[2016-07-22] MEDS: SODIUM CHLORIDE FLUSH 0.9% 10 ML SYRINGE IVP SCH ×3 (06:28→20:13)
[2016-07-22] MEDS: PANTOPRAZOLE 40 MG VIAL IVP SCH ×2 (06:28→15:59)
[2016-07-22] MEDS: methylPREDNISolone SUCCINATE 40 MG/ML VIAL IVP SCH ×3 (06:28→21:21)
[2016-07-22 06:30] LABS: BILIRUBIN,TOTAL < 0.2 mg/dL (0.2-1.0); BUN - BLOOD UREA NITROGEN 6 mg/dL (6-20); CALCIUM 8.3 mg/dL (8.5-10.3); CARBON DIOXIDE - CO2 31 mmol/L (21-32); CHLORIDE 99 mmol/L (101-111); CREATININE 0.3 mg/dL (0.4-1.0); GFR - MDRD 234 (>89); GLUCOSE 157 mg/dL (70-100); INR 1.1 (0.8-1.2); POTASSIUM 3.3 mmol/L (3.5-5.0); PT - PROTHROMBIN TIME 12.7 secs (9.9-12.6); SODIUM 138 mmol/L (135-145); TOTAL PROTEIN 5.1 g/dL (6.7-8.2)
[2016-07-22 06:36] LABS: CHOL/HDL RATIO 3.4 (<4.4); CHOLESTEROL 144 mg/dL; HDL CHOLESTEROL 42 mg/dL; LDL/HDL RATIO 1.7 (<4.4); TRIGLYCERIDES 148 mg/dL; VLDL CHOLESTEROL 30 mg/dL
--- NOTE | 2016-07-22 08:04 | PROVIDER PROGRESS NOTE ---
Assessment/Plan - Problem List (1) Dyspnea and respiratory abnormalities Assessment/Plan: ACute with hypoxemia and hypercarbia with compensation and with underlying autoimmune angioedema. continue on RT treatments and supplemental oxygen as prescribed. monitor oxygen saturation. ABG daily and continue on home respratory therapy treatments. encourage cough and pulmonary toilet daily (2) Hypokalemia due to loss of potassium Assessment/Plan: acute. continue with potassium supplmentation and recheck electrolytes with daily lab draw. (3) Elevated C-reactive protein (CRP) Assessment/Plan: acute. continue with steroids IV and monitor for additinal edema and wheezing in lungs. (4) Clostridium difficile colitis Assessment/Plan: acute. patient has colostomy bag and receiving vanco PO and to continue. contact precautions (5) Morbid obesity with BMI of 40.0-44.9, adult Assessment/Plan: chronic. probably due to steroid usage and underlying autoimmune disease. continue with lowfat and low calorie diabetic diet. 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 continue with methadone and oxycontin home dosage. patient had significant last night and was given fentanyl IV. will continue as needed. PT and OT assistance daily (7) Colostomy care Assessment/Plan: chronic. nursing to assist for colostomy care and drainage. patient has been taught how to care for bag at home. C Diff precautions (8) Anemia due to chronic illness Assessment/Plan: chronic. will get iron studies and treat. continue to monitor hemoglobin with daily lab draws. continue on supplemental oxygen. iron level was 14. gave venofer IV - Current Meds Current Meds: Current Medications Generic Name Dose Route Start Last Admin Trade Name Freq PRN Reason Stop Dose Admin Acetaminophen 650 mg 07/21/16 11:42 07/21/16 14:50 Tylenol PO 650 mg Q4HR PRN Administration Pain 1 to 4 Albuterol/Ipratropium 3 ml 07/21/16 12:06 07/21/16 23:33 Duoneb INH 3 ml RTQID PRN Administration Shortness of Air/Wheezing Alprazolam 0.5 mg 07/21/16 17:59 07/21/16 18:32 Xanax PO 0.5 mg BID PRN Administration Anxiety Calcium Carbonate/Glycine 750 mg 07/21/16 13:00 07/21/16 20:45 Tums PO 750 mg QID JAVIER Administration Diazepam 5 mg 07/21/16 18:00 07/21/16 19:35 Valium PO 5 mg QID PRN Administration Spasms Diphenhydramine HCl 50 mg 07/21/16 17:00 07/21/16 20:45 Benadryl PO 50 mg HS JAVIER Administration Doxepin HCl 25 mg 07/21/16 21:00 07/21/16 20:46 Sinequan PO 25 mg QPM JAVIER Administration Enoxaparin Sodium 40 mg 07/21/16 12:00 07/21/16 13:47 Lovenox SUBQ 40 mg DAILY JAVIER Administration Fluticasone Propionate 1 sprays 07/21/16 21:00 07/21/16 20:42 Flonase AVIS 1 spr BID JAVIER Administration Guaifenesin 600 mg 07/21/16 21:00 07/21/16 20:46 Mucinex PO 600 mg BID JAVIER Administration Levofloxacin 150 mls @ 100 mls/hr 07/21/16 11:00 07/21/16 13:47 Levaquin 750 Mg/150 Ml IV 100 mls/hr Q24H JAVIER Administration Sodium Chloride 1,000 mls @ 100 mls/hr 07/21/16 12:00 07/22/16 00:50 Normal Saline 0.9% IV 100 mls/hr .Q10H JAVIER Administration Insulin Aspart 2 unit 07/21/16 12:00 07/21/16 17:11 Novolog SUBQ 2 unit TIDWM JAVIER Administration Insulin Aspart 1 - 5 unit 07/21/16 12:00 07/21/16 20:43 Novolog SUBQ 1 unit 0800,1200,1700,2100 JAVIER Administration Protocol Levothyroxine Sodium 100 mcg 07/22/16 07:00 07/22/16 06:28 Synthroid PO 100 mcg QDAC JAVIER Administration Methadone HCl 12.5 mg 07/21/16 23:45 07/22/16 00:49 PO 12.5 mg QID JAVIER Administration Methylprednisolone 40 mg 07/21/16 14:00 07/22/16 06:28 Solu-Medrol (40mg Vial) IVP 40 mg TID JAVIER Administration Metoprolol Tartrate 25 mg 07/21/16 21:00 07/21/16 20:46 Lopressor PO 25 mg BID JAVIER Administration Multivitamins 1 tab 07/21/16 13:00 07/21/16 13:48 Theragran PO 1 tab DAILYWM JAVIER Administration Nystatin 1 applic 07/21/16 21:00 07/21/16 20:42 Nystop TOP 1 applic BID JAVIER Administration Oxycodone HCl 30 mg 07/21/16 11:47 07/22/16 06:29 Roxicodone Oral Soln PO 30 mg Q3HR PRN Administration breakthrough pain Pantoprazole Sodium 40 mg 07/21/16 16:00 07/22/16 06:28 Protonix IVP 40 mg BIDAC JAVIER Administration Pseudoephedrine HCl 30 mg 07/21/16 21:00 07/21/16 20:45 Sudafed PO 30 mg BID JAVIER Administration Ranitidine HCl 300 mg 07/21/16 21:00 07/21/16 20:45 Zantac PO 300 mg QPM JAVIER Administration Saccharomyces Boulardii 250 mg 07/21/16 12:00 07/21/16 20:44 Florastor PO 250 mg BID JAVIER Administration Sodium Chloride 10 ml 07/21/16 14:00 07/22/16 06:28 Normal Saline Flush 0.9% IVP 10 ml Q8HR JAVIER Administration Tolterodine Tartrate 2 mg 07/21/16 12:00 07/21/16 20:45 Detrol La PO 2 mg BID JAVIER Administration Vancomycin HCl 125 mg 07/21/16 14:00 07/22/16 02:18 Vancocin PO 125 mg Q6H JAVIER Administration - Lab Result Lab results reviewed: Yes Fish Bone Diagrams: 07/21/16 07:45 07/22/16 05:55 Other Lab Results: Abnormal Lab Results 07/21/16 07/21/16 07/21/16 07:45 07:45 07:45 WBC 12.2 x10^3/uL H x10^3/uL (4.8-10.8) RBC 3.03 10^6/uL L 10^6/uL (4.20-5.40) Hgb 8.7 g/dL L g/dL (12.0-16.0) Hct 28.2 % L % (37.0-47.0) MCHC 30.8 g/dL L g/dL (32.0-36.0) RDW 16.6 % H % (12.0-15.0) Neut # 9.7 10^3/uL H 10^3/uL (1.5-6.6) PT ABG pCO2 ABG pO2 ABG HCO3 ABG Total CO2 ABG Base Excess Potassium Chloride 93 mmol/L L mmol/L (101-111) Carbon Dioxide 40 mmol/L H* mmol/L (21-32) BUN 5 mg/dL L mg/dL (6-20) Creatinine < 0.3 mg/dL L mg/dL (0.4-1.0) Glucose 118 mg/dL H mg/dL (70-100) Fasting Glucose Calcium Iron % Saturation Total Bilirubin Alkaline Phosphatase 38 IU/L L IU/L (42-121) C-Reactive Protein Total Protein 5.6 g/dL L g/dL (6.7-8.2) Albumin 2.8 g/dL L g/dL (3.2-5.5) HDL Cholesterol Lipase 18 U/L L U/L (22-51) Urine Occult Blood MODERATE H (NEGATIVE) Ur Leukocyte Esterase LARGE H (NEGATIVE) Urine RBC 6-10 /HPF H /HPF (0-5) Urine WBC >25 /HPF H /HPF (0-5) Urine Bacteria Many /HPF H /HPF (None Seen) 07/21/16 07/21/16 07/21/16 07:45 10:05 13:05 WBC RBC 2.85 10^6/uL L 10^6/uL (4.20-5.40) Hgb Hct MCHC RDW Neut # PT ABG pCO2 63 mmHg H* mmHg (34-45) ABG pO2 73 mmHg L mmHg (80-100) ABG HCO3 38.4 mmol/L H mmol/L (22.0-26.0) ABG Total CO2 40.3 MMOL/L H* MMOL/L (21.0-29.0) ABG Base Excess 11.9 mmol/L H mmol/L (-2.0-3.0) Potassium Chloride Carbon Dioxide BUN Creatinine Glucose Fasting Glucose 111 mg/dL H mg/dL (70-100) Calcium Iron 14 ug/dL L ug/dL (28-170) % Saturation 5 % L % (20-50) Total Bilirubin Alkaline Phosphatase C-Reactive Protein Total Protein Albumin HDL Cholesterol Lipase Urine Occult Blood Ur Leukocyte Esterase Urine RBC Urine WBC Urine Bacteria 07/21/16 07/22/16 07/22/16 16:45 05:55 05:55 WBC RBC Hgb Hct MCHC RDW Neut # PT 12.7 secs H secs (9.9-12.6) ABG pCO2 ABG pO2 ABG HCO3 ABG Total CO2 ABG Base Excess Potassium 3.3 mmol/L L mmol/L (3.5-5.0) Chloride 99 mmol/L L mmol/L (101-111) Carbon Dioxide BUN Creatinine 0.3 mg/dL L mg/dL (0.4-1.0) Glucose 157 mg/dL H mg/dL (70-100) Fasting Glucose Calcium 8.3 mg/dL L mg/dL (8.5-10.3) Iron % Saturation Total Bilirubin < 0.2 mg/dL L mg/dL (0.2-1.0) Alkaline Phosphatase 32 IU/L L IU/L (42-121) C-Reactive Protein 19.6 mg/dL H mg/dL (0-1.0) Total Protein 5.1 g/dL L g/dL (6.7-8.2) Albumin 2.5 g/dL L g/dL (3.2-5.5) HDL Cholesterol Lipase Urine Occult Blood Ur Leukocyte Esterase Urine RBC Urine WBC Urine Bacteria 07/22/16 05:55 WBC RBC Hgb Hct MCHC RDW Neut # PT ABG pCO2 ABG pO2 ABG HCO3 ABG Total CO2 ABG Base Excess Potassium Chloride Carbon Dioxide BUN Creatinine Glucose Fasting Glucose Calcium Iron % Saturation Total Bilirubin Alkaline Phosphatase C-Reactive Protein Total Protein Albumin HDL Cholesterol 42 mg/dL L mg/dL (60 - ) Lipase Urine Occult Blood Ur Leukocyte Esterase Urine RBC Urine WBC Urine Bacteria - EKG Results EKG Interpreted Independently: No - Additional Planning Condition/Complexity: Improved My Orders: My Active Orders 07/21/16 11:00 levoFLOXacin 750 MG/150 ML [Levaquin 750 mg/150 ml] 150 ml IV Q24H 07/21/16 11:42 Acetaminophen [Tylenol] 650 mg PO Q4HR PRN Ondansetron Inj [Zofran Inj] 4 mg IVP Q6HR PRN Sodium Chloride Flush 0.9% [Normal Saline Flush 0.9%] 10 ml IVP PRN PRN 07/21/16 11:43 Activity Orders [RC] Routine IO [RC] IOSHIFT Initiate Bowel Care Protocol [RC] QSHIFT Initiate Flu Vaccine Screening [RC] .once Initiate Line Care Protocol [RC] QSHIFT Initiate Personal Care Protoco [RC] QSHIFT Initiate Pneumonia Vaccine Scr [RC] .once Oxygen Therapy [RC] Routine Vital Signs [RC] Q8HR Code Status [OTHERS] Routine Condition of Patient [OTHERS] Routine DVT Prophylaxis [OTHERS] Routine 07/21/16 11:45 Telemetry- [RC] Routine Nutrition Consult [CONS] Routine 07/21/16 11:46 SCDs [RC] QSHIFT Evaluate and Treat OT [OT] Routine Evaluate and Treat PT [PT] Routine 07/21/16 11:47 Sodium Chloride 0.65% [[place]] 1 sprays AVIS TID PRN oxyCODONE ORAL SOLN [Roxicodone Oral Soln] 30 mg PO Q3HR PRN 07/21/16 11:54 Blood Glucose Checks - Eating [RC] 0800,1200,1700,2100 Initiate Hypoglycemia Protocol [RC] .protocol Initiate Hypoglycemia Protocol [RC] .protocol 07/21/16 11:57 GRAM STAIN [RM] Routine 07/21/16 12:00 Enoxaparin [Lovenox] 40 mg SUBQ DAILY Insulin Aspart [NovoLOG] 1 - 5 unit SUBQ 0800,1200,1700,2100 Insulin Aspart [NovoLOG] 2 unit SUBQ TIDWM Saccharomyces Boulardii [Florastor] 250 mg PO BID Sodium Chloride 0.9% [Normal Saline 0.9%] 1,000 ml IV 100 mls/hr Tolterodine [Detrol LA] 2 mg PO BID 07/21/16 12:01 Arterial Blood Gases - RT [RC] .ONCE 07/21/16 12:06 Nebulizer/MDI Tx. [RC] .qidprn Ipratropium/Albuterol [Duoneb] 3 ml INH RTQID PRN 07/21/16 13:00 Calcium Carbonate [Tums] 750 mg PO QID Multivitamin [Theragran] 1 tab PO DAILYWM 07/21/16 13:05 CULTURE, BLOOD (NOTE DRAW #) [RM] Routine 07/21/16 14:00 Sodium Chloride Flush 0.9% [Normal Saline Flush 0.9%] 10 ml IVP Q8HR Vancomycin [Vancocin] 125 mg PO Q6H methylPREDNISolone SUCCINATE [SOLU-Medrol (40MG VIAL)] 40 mg IVP TID 07/21/16 16:00 Pantoprazole [Protonix] 40 mg IVP BIDAC 07/21/16 17:00 diphenhydrAMINE [Benadryl] 50 mg PO HS 07/21/16 17:59 ALPRAZolam [Xanax] 0.5 mg PO BID PRN 07/21/16 18:00 diazePAM [Valium] 5 mg PO QID PRN 07/21/16 21:00 Doxepin [SINEquan] 25 mg PO QPM Fluticasone [Flonase] 1 sprays AVIS BID Metoprolol Tartrate [Lopressor] 25 mg PO BID Nystatin [Nystop] 1 applic TOP BID Pseudoephedrine [Sudafed] 30 mg PO BID guaiFENesin [Mucinex] 600 mg PO BID raNITIdine [Zantac] 300 mg PO QPM 07/21/16 Dinner Carb-controlled Diet [DIET] 07/22/16 05:00 CUL, RESPIRATORY [RM] 07/22/16 06:05 ABG - ARTERIAL BLOOD GAS [BG] DAILYLAB 07/22/16 07:00 Levothyroxine [Synthroid] 100 mcg PO QDAC 07/22/16 08:00 MAGNESIUM [CHEM] Stat 07/22/16 09:00 Aspirin Chewable [[place] Aspirin] 81 mg PO DAILY Cetirizine [ZyrTEC] 20 mg PO DAILY Escitalopram [Lexapro] 20 mg PO DAILY Fenofibrate [Tricor] 144 mg PO DAILY Polyethylene Glycol 3350 [Miralax] 17 gm PO DAILY Potassium Chloride [K-Dur] 40 meq PO DAILYWM hydrOXYzine PAMOATE [Vistaril] 100 mg PO DAILY 07/23/16 05:00 PHOSPHORUS [CHEM] DAILYLAB 07/24/16 05:00 CBC - COMP BLD CT W/AUTO DIFF [HEME] DAILYLAB Consult/Specialty: OT, PT Plan Discussed with:: Patient, Case Management Time Spent: 31-60 minutes Additional Planning Notes: Patient will need an additional 24-48 hours of treatment inpatient since she is needing IV medications with high risk for toxicity. She is needing respiratory therapy support and pallative care consultation has been ordered. Subjective - Subjective Patient Reports: Resting Comfortably, No Complaints (patient states shortness of breath better and willing to sit up more with pain medications and valium for anxiety), Shortness of Breath Nursing Reports: Pain, Shortness of Breath Objective Vital Signs: Vital Signs - 24 hr 07/21/16 07/21/16 07/21/16 10:58 12:15 15:39 Temperature 37.2 C 37.5 C Heart Rate 90 Heart Rate [ 87 Brachial] Heart Rate [ 88 Radial] Respiratory 20 17 Rate Blood Pressure 114/72 Blood Pressure 109/74 154/73 H [Right Radial artery] O2 Saturation 93 96 98 07/21/16 07/21/16 07/21/16 16:00 20:46 21:24 Temperature 36.9 C Heart Rate 96 Heart Rate [ 86 Brachial] Heart Rate [ Radial] Respiratory 20 18 Rate Blood Pressure 122/72 Blood Pressure 115/67 [Right Radial artery] O2 Saturation 97 07/21/16 07/22/16 07/22/16 23:35 00:08 07:40 Temperature 36.8 C 36.7 C Heart Rate 76 Heart Rate [ 72 64 Brachial] Heart Rate [ Radial] Respiratory 18 18 18 Rate Blood Pressure Blood Pressure 132/78 H 127/73 [Right Radial artery] O2 Saturation 93 93 Oxygen O2 Source CPAP I&O (Last 24 Hrs): Intake and Output Totals x24h 07/20/16 07/21/16 07/22/16 23:59 23:59 23:59 Intake Total 1277 200 Output Total 2200 1200 Balance -923 -1000 General: Alert, Oriented x3, Cooperative, No acute distress HEENT: PERRLA, Mucous membr. moist/pink Neck: Supple, No JVD, No thyromegaly Lymphatic: no adenopathy Neuro: Alert, CN 2-12 Grossly Intact, Oriented Times 3 Cardiovascular: Regular rate, Normal S1, Normal S2, No murmurs Respiratory: Chest non-tender, No respiratory distress, Other (diminished with mild bronchial in upper lobes) Abdomen: Normal bowel sounds, No tenderness, No masses Genitourinary: No Bleeding Rectal: Stool - Heme NEG Extremities: No clubbing, No cyanosis, Normal pulses Skin: No rashes, No breakdown, No significant lesion - Results Results: Laboratory Results WBC 12.2 x10^3/uL (4.8-10.8) H 07/21/16 07:45 RBC 2.85 10^6/uL (4.20-5.40) L 07/21/16 13:05 Hgb 8.7 g/dL (12.0-16.0) L 07/21/16 07:45 Hct 28.2 % (37.0-47.0) L 07/21/16 07:45 MCV 93.2 fL (81.0-99.0) 07/21/16 07:45 MCH 28.7 pg (27.0-31.0) 07/21/16 07:45 MCHC 30.8 g/dL (32.0-36.0) L 07/21/16 07:45 RDW 16.6 % (12.0-15.0) H 07/21/16 07:45 Plt Count 290 10^3/uL (130-450) 07/21/16 07:45 MPV 9.0 fL (7.9-10.8) 07/21/16 07:45 Reticulocyte % (Auto) 2.25 % (0.5-2.3) 07/21/16 13:05 Neut # 9.7 10^3/uL (1.5-6.6) H 07/21/16 07:45 Lymph # 1.5 10^3/uL (1.5-3.5) 07/21/16 07:45 [place] # 0.6 10^3/uL (0.0-1.0) 07/21/16 07:45 Eos # 0.3 10^3/uL (0.0-0.7) 07/21/16 07:45 Baso # 0.1 10^3/uL (0.0-0.1) 07/21/16 07:45 Absolute Nucleated RBC 0.00 x10^3/uL 07/21/16 07:45 Nucleated RBCs 0.0 /100WBC 07/21/16 07:45 ESR 28 mm/Hr (0-30) 07/21/16 16:45 Absolute Retic 0.064 10^6/uL (0.020-0.110) 07/21/16 13:05 PT 12.7 secs (9.9-12.6) H 07/22/16 05:55 INR 1.1 (0.8-1.2) 07/22/16 05:55 Bld Gas Analysis Time 1015 07/21/16 10:05 Sample Site RIGHT RADIAL 07/21/16 10:05 ABG pH 7.40 (7.35-7.45) 07/21/16 10:05 ABG pCO2 63 mmHg (34-45) H* 07/21/16 10:05 ABG pO2 73 mmHg (80-100) L 07/21/16 10:05 ABG HCO3 38.4 mmol/L (22.0-26.0) H 07/21/16 10:05 ABG Total CO2 40.3 MMOL/L (21.0-29.0) H* 07/21/16 10:05 ABG O2 Saturation 95 % (94-98) 07/21/16 10:05 ABG Base Excess 11.9 mmol/L (-2.0-3.0) H 07/21/16 10:05 Babar Test POSITIVE 07/21/16 10:05 O2 Delivery Device NASAL CANNULA 07/21/16 10:05 O2 Liters/Min 2.00 LPM 07/21/16 10:05 Sodium 138 mmol/L (135-145) 07/22/16 05:55 Potassium 3.3 mmol/L (3.5-5.0) L 07/22/16 05:55 Chloride 99 mmol/L (101-111) L 07/22/16 05:55 Carbon Dioxide 31 mmol/L (21-32) 07/22/16 05:55 Anion Gap 8.0 (6-13) 07/22/16 05:55 BUN 6 mg/dL (6-20) 07/22/16 05:55 Creatinine 0.3 mg/dL (0.4-1.0) L 07/22/16 05:55 Estimated GFR (MDRD) 234 (>89) 07/22/16 05:55 Glucose 157 mg/dL (70-100) H 07/22/16 05:55 Fasting Glucose 111 mg/dL (70-100) H 07/21/16 07:45 Lactic Acid 1.3 mmol/L (0.5-2.2) 07/21/16 08:43 Calcium 8.3 mg/dL (8.5-10.3) L 07/22/16 05:55 Magnesium 1.7 mg/dL (1.7-2.8) 07/21/16 07:45 Iron 14 ug/dL (28-170) L 07/21/16 07:45 TIBC 295 ug/dL (250-450) 07/21/16 07:45 % Saturation 5 % (20-50) L 07/21/16 07:45 Transferrin 211 mg/dL (192-382) 07/21/16 07:45 Ferritin 13.6 ng/mL (11.0-306.8) 07/21/16 07:45 Total Bilirubin < 0.2 mg/dL (0.2-1.0) L 07/22/16 05:55 AST 25 IU/L (10-42) 07/22/16 05:55 ALT 31 IU/L (10-60) 07/22/16 05:55 Alkaline Phosphatase 32 IU/L (42-121) L 07/22/16 05:55 Lactate Dehydrogenase 164 IU/L (91-225) 07/21/16 07:45 C-Reactive Protein 19.6 mg/dL (0-1.0) H 07/21/16 16:45 B-Natriuretic Peptide 53 pg/mL (5-100) 07/21/16 07:33 Total Protein 5.1 g/dL (6.7-8.2) L 07/22/16 05:55 Albumin 2.5 g/dL (3.2-5.5) L 07/22/16 05:55 Globulin 2.6 g/dL (2.1-4.2) 07/22/16 05:55 Albumin/Globulin Ratio 1.0 (1.0-2.2) 07/22/16 05:55 Triglycerides 148 mg/dL (-149) 07/22/16 05:55 Cholesterol 144 mg/dL (-199) 07/22/16 05:55 LDL Cholesterol, Calc 72 mg/dL (-129) 07/22/16 05:55 VLDL Cholesterol 30 mg/dL 07/22/16 05:55 HDL Cholesterol 42 mg/dL (60-) L 07/22/16 05:55 LDL/HDL Ratio 1.7 (<4.4) 07/22/16 05:55 Cholesterol/HDL Ratio 3.4 (<4.4) 07/22/16 05:55 Lipase 18 U/L (22-51) L 07/21/16 07:45 Vitamin B12 470 pg/mL (180-914) 07/21/16 07:45 TSH 0.60 uIU/mL (0.34-5.60) 07/21/16 16:45 Urine Color YELLOW 07/21/16 07:45 Urine Clarity CLOUDY (CLEAR) 07/21/16 07:45 Urine pH 6.5 PH (5.0-7.5) 07/21/16 07:45 Ur Specific [place] 1.020 (1.002-1.030) 07/21/16 07:45 Urine Protein TRACE mg/dL (NEGATIVE) 07/21/16 07:45 Urine Glucose (UA) NEGATIVE mg/dL (NEGATIVE) 07/21/16 07:45 Urine Ketones NEGATIVE mg/dL (NEGATIVE) 07/21/16 07:45 Urine Occult Blood MODERATE (NEGATIVE) H 07/21/16 07:45 Urine Nitrite NEGATIVE (NEGATIVE) 07/21/16 07:45 Urine Bilirubin NEGATIVE (NEGATIVE) 07/21/16 07:45 Urine Urobilinogen 0.2 (NORMAL) E.U./dL (NORMAL) 07/21/16 07:45 Ur Leukocyte Esterase LARGE (NEGATIVE) H 07/21/16 07:45 Urine RBC 6-10 /HPF (0-5) H 07/21/16 07:45 Urine WBC >25 /HPF (0-5) H 07/21/16 07:45 Urine WBC Clumps PRESENT 07/21/16 07:45 Ur Squamous Epith Cells NONE SEEN (<= Few) 07/21/16 07:45 Urine Bacteria Many /HPF (None Seen) H 07/21/16 07:45 Ur Microscopic Review INDICATED 07/21/16 07:45 Urine Culture Comments INDICATED 07/21/16 07:45 Influenza A (Rapid) Negative (Negative) 07/21/16 10:37 Influenza B (Rapid) Negative (Negative) 07/21/16 10:37 Influenza Types A,B Ag - 07/21/16 10:37 - Procedures Procedures: Procedures INSERTION OF INFUSION DEV INTO INF VENA CAVA, PERC APPROACH (12/22/15) TRANSFUSE NONAUT RED BLOOD CELLS IN PERIPH VEIN, PERC (12/22/15)
[2016-07-22] MEDS: hydrOXYzine PAMOATE 25 MG CAPSULE PO SCH (09:00)
[2016-07-22] MEDS: ESCITALOPRAM 10 MG TABLET PO SCH (09:03)
[2016-07-22] MEDS: ALPRAZolam 0.25 MG TABLET PO PRN (09:05)
[2016-07-22] MEDS: TOLTERODINE LA 2 MG CAPSULE PO SCH ×2 (09:05→20:06)
[2016-07-22] MEDS: ASPIRIN CHEW 81 MG TABLET PO SCH (09:06)
[2016-07-22] MEDS: CETIRIZINE 10 MG TABLET PO SCH (09:08)
[2016-07-22] MEDS: METOPROLOL TARTRATE 25 MG TABLET PO SCH ×2 (09:10→20:06)
[2016-07-22] MEDS: FENOFIBRATE 48 MG TABLET PO SCH (09:11)
[2016-07-22] MEDS: PSEUDOEPHEDRINE 30 MG TABLET PO SCH ×2 (09:12→20:06)
[2016-07-22] MEDS: guaiFENesin 600 MG TABLET PO SCH ×2 (09:12→20:06)
[2016-07-22] MEDS: MULTIVITAMIN TABLET PO SCH (09:12)
[2016-07-22] MEDS: POTASSIUM CHLORIDE 20 MEQ TABLET PO SCH (09:13)
[2016-07-22] MEDS: SACCHAROMYCES BOULARDII 250 MG CAPSULE PO SCH ×2 (09:14→20:05)
[2016-07-22] MEDS: CALCIUM CARBONATE CHEW 500 MG TABLET PO SCH ×4 (09:14→20:12)
[2016-07-22] MEDS: FLUTICASONE NASAL SPRAY NAS SCH ×2 (09:15→20:08)
[2016-07-22] MEDS: ENOXAPARIN 40 MG/0.4 ML SYRINGE SUBQ SCH (09:16)
[2016-07-22] MEDS: INSULIN ASPART 300 UNIT/3 ML PEN SUBQ SCH ×7 (09:18→20:10)
[2016-07-22] MEDS: POLYETHYLENE GLYCOL 3350 17 GM PACKET PO SCH (09:19)
[2016-07-22 09:22] LABS: ABG BASE EXCESS 4.2 mmol/L (-2.0-3.0); ABG HCO3 28.6 mmol/L (22.0-26.0); ABG OXYGEN SATURATION 90 % (94-98); ABG PCO2 42 mmHg (34-45); ABG PH 7.45 (7.35-7.45); ABG PO2 57 mmHg (80-100); ABG SITE OF DRAW RIGHT RADIAL; ABG TCO2 29.9 MMOL/L (21.0-29.0); ALLEN TEST POSITIVE
[2016-07-22 09:23] LABS: ABG ROOM AIR YES
[2016-07-22] MEDS: NYSTATIN POWDER 15 GM TOP SCH ×2 (09:23→20:08)
[2016-07-22] MEDS: IPRATROPIUM/ALBUTEROL 3 ML NEB INH PRN (09:27)
[2016-07-22] MEDS ORDERED: oxyCODONE 30 MG TABLET PO PRN (10:51)
[2016-07-22] MEDS ORDERED: fentaNYL 100 MCG/2 ML VIAL IVP SCH (11:33)
[2016-07-22] MEDS ORDERED: diazePAM INJ 5 MG/ML SYRINGE IVP ONE (11:35)
[2016-07-22 11:59] LABS: BASOPHILS % (AUTO) 1.7 %; HCT - HEMATOCRIT 24.1 % (37.0-47.0); HGB - HEMOGLOBIN 7.7 g/dL (12.0-16.0); LYMPHOCYTES % (AUTO) 5.1 %; MEAN CORPUSCULAR HEMOGLOBIN 29.1 pg (27.0-31.0); MEAN CORPUSCULAR HGB CONC 31.8 g/dL (32.0-36.0); MEAN CORPUSCULAR VOLUME 91.6 fL (81.0-99.0); MEAN PLATELET VOLUME 9.5 fL (7.9-10.8); MONOCYTES % (AUTO) 5.2 %; RED BLOOD COUNT 2.63 10^6/uL (4.20-5.40); RED CELL DISTRIBUTION WIDTH 16.3 % (12.0-15.0)
[2016-07-22 12:40] LABS: BAND NEUTROPHILS % (MANUAL) 8 %; LYMPHOCYTES % (MANUAL) 5 %; NEUTROPHILS % (MANUAL) 77 %
[2016-07-22 12:41] LABS: NP AUTO DIFFERENTIAL? YES; NP MAN DIFFERENTIAL? NO; PLATELET MORPHOLOGY 1+ GIANT PLATELETS (NORMAL)
[2016-07-22] MEDS ORDERED: FUROSEMIDE 20 MG/2 ML VIAL IVP PRN (12:56)
[2016-07-22] MEDS ORDERED: diphenhydrAMINE INJ 50 MG/ML VIAL IVP ONE (12:57)
[2016-07-22] MEDS: cefTRIAXone 2 GM in SODIUM CHLORIDE 0.9% MINIBAG 100 ML IV SCH (14:24)
[2016-07-22] MEDS ORDERED: diphenhydrAMINE INJ 50 MG/ML VIAL IVP SCH (16:00)
[2016-07-22] MEDS: diphenhydrAMINE 25 MG CAPSULE PO SCH (20:05)
[2016-07-22] MEDS: DOXEPIN 25 MG CAPSULE PO SCH (20:06)
[2016-07-22 23:33] LABS: HCT - HEMATOCRIT 32.3 % (37.0-47.0); HGB - HEMOGLOBIN 10.3 g/dL (12.0-16.0)
[2016-07-23] MEDS: oxyCODONE 10 MG/0.5 ML SYRINGE PO PRN ×4 (00:41→20:04)
[2016-07-23] MEDS: VANCOMYCIN 125 MG CAPSULE PO SCH ×4 (02:30→20:05)
[2016-07-23] MEDS: SODIUM CHLORIDE 0.9% 1,000 ML IV SCH ×3 (02:30→23:34)
[2016-07-23 05:52] LABS: BILIRUBIN,TOTAL 0.6 mg/dL (0.2-1.0); CALCIUM 8.9 mg/dL (8.5-10.3); CREATININE 0.4 mg/dL (0.4-1.0); POTASSIUM 3.7 mmol/L (3.5-5.0); TOTAL PROTEIN 5.5 g/dL (6.7-8.2)
[2016-07-23] MEDS: LEVOTHYROXINE 100 MCG TABLET PO SCH (06:19)
[2016-07-23] MEDS: methylPREDNISolone SUCCINATE 40 MG/ML VIAL IVP SCH ×3 (06:19→16:13)
[2016-07-23] MEDS: PANTOPRAZOLE 40 MG VIAL IVP SCH ×2 (06:19→16:12)
[2016-07-23] MEDS: SODIUM CHLORIDE FLUSH 0.9% 10 ML SYRINGE IVP SCH ×3 (06:19→20:39)
[2016-07-23] MEDS: INSULIN ASPART 300 UNIT/3 ML PEN SUBQ SCH ×7 (07:55→20:32)
[2016-07-23] MEDS: cefTRIAXone 2 GM in SODIUM CHLORIDE 0.9% MINIBAG 100 ML IV SCH (07:55)
[2016-07-23] MEDS: METHADONE 5 MG TABLET PO SCH ×4 (07:57→20:04)
[2016-07-23] MEDS: ESCITALOPRAM 10 MG TABLET PO SCH (07:58)
[2016-07-23] MEDS: FENOFIBRATE 48 MG TABLET PO SCH (07:59)
[2016-07-23] MEDS: METOPROLOL TARTRATE 25 MG TABLET PO SCH ×2 (07:59→20:05)
[2016-07-23] MEDS: hydrOXYzine PAMOATE 25 MG CAPSULE PO SCH (08:00)
[2016-07-23] MEDS: PSEUDOEPHEDRINE 30 MG TABLET PO SCH ×2 (08:01→20:05)
[2016-07-23] MEDS: CETIRIZINE 10 MG TABLET PO SCH (08:02)
[2016-07-23] MEDS: MULTIVITAMIN TABLET PO SCH (08:02)
[2016-07-23] MEDS: TOLTERODINE LA 2 MG CAPSULE PO SCH ×2 (08:02→20:06)
[2016-07-23] MEDS: ASPIRIN CHEW 81 MG TABLET PO SCH (08:02)
[2016-07-23] MEDS: POTASSIUM CHLORIDE 20 MEQ TABLET PO SCH (08:03)
[2016-07-23] MEDS: SACCHAROMYCES BOULARDII 250 MG CAPSULE PO SCH ×2 (08:03→20:05)
[2016-07-23] MEDS: guaiFENesin 600 MG TABLET PO SCH ×2 (08:03→20:08)
[2016-07-23] MEDS: CALCIUM CARBONATE CHEW 500 MG TABLET PO SCH ×4 (08:04→20:04)
[2016-07-23] MEDS: FLUTICASONE NASAL SPRAY NAS SCH ×2 (08:04→20:06)
[2016-07-23] MEDS: NYSTATIN POWDER 15 GM TOP SCH ×2 (08:06→20:09)
[2016-07-23] MEDS: ENOXAPARIN 40 MG/0.4 ML SYRINGE SUBQ SCH (08:08)
[2016-07-23] MEDS: POLYETHYLENE GLYCOL 3350 17 GM PACKET PO SCH (08:08)
--- NOTE | 2016-07-23 08:42 | PROVIDER PROGRESS NOTE ---
Assessment/Plan - Problem List (1) Staph aureus infection Assessment/Plan: acute. Respiratory sputum grew out staph aureus. 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 patient did have a small spike in the WBC last night. This could be from infection as well as from the transfusion. will treat with Zyvox IV empirically and monitor WBC tomorrow. monitor for fever and changes in status (2) Anemia due to chronic illness Assessment/Plan: improving. patient hemoglobin now at 10.3. will continue to monitor CBC with daily labs. will start on ferrous sulfate 325mg po BID. (3) Dyspnea and respiratory abnormalities Assessment/Plan: ongoing, improving. continue with respiratory therapy treatments and taper steroids today to oral. patient will hope to go home in morning. continue with supplemental oxygen (4) Hypokalemia due to loss of potassium Assessment/Plan: resolved. continue to monitor electrolytes with daily lab draws (5) Elevated C-reactive protein (CRP) Assessment/Plan: improving. continue with steroids but taper and transition to oral (6) Clostridium difficile colitis Assessment/Plan: stable.continue with oral vanco. (7) Morbid obesity with BMI of 40.0-44.9, adult Assessment/Plan: chronic. continue with low calorie and low fat carb diet. encourage ambulation (8) Chronic pain disorder Assessment/Plan: chronic. stable. continue with home dosing of methadone and oxycodone with fentanyl PRN (9) Colostomy care Assessment/Plan: stable. continue with care and education for patient provided as needed - Current Meds Current Meds: Current Medications Generic Name Dose Route Start Last Admin Trade Name Freq PRN Reason Stop Dose Admin Acetaminophen 650 mg 07/21/16 11:42 07/21/16 14:50 Tylenol PO 650 mg Q4HR PRN Administration Pain 1 to 4 Albuterol/Ipratropium 3 ml 07/21/16 12:06 07/22/16 09:27 Duoneb INH 3 ml RTQID PRN Administration Shortness of Air/Wheezing Alprazolam 0.5 mg 07/21/16 17:59 07/22/16 09:05 Xanax PO 0.5 mg BID PRN Administration Anxiety Aspirin 81 mg 07/22/16 09:00 07/23/16 08:02 [facility] Aspirin PO 81 mg DAILY JAVIER Administration Calcium Carbonate/Glycine 750 mg 07/21/16 13:00 07/23/16 08:04 Tums PO 750 mg QID JAVIER Administration Cetirizine HCl 20 mg 07/22/16 09:00 07/23/16 08:02 Zyrtec PO 20 mg DAILY JAVIER Administration Diazepam 5 mg 07/21/16 18:00 07/21/16 19:35 Valium PO 5 mg QID PRN Administration Spasms Diphenhydramine HCl 50 mg 07/21/16 17:00 07/22/16 20:05 Benadryl PO 50 mg HS JAVIER Administration Doxepin HCl 25 mg 07/21/16 21:00 07/22/16 20:06 Sinequan PO 25 mg QPM JAVIER Administration Enoxaparin Sodium 40 mg 07/21/16 12:00 07/23/16 08:08 Lovenox SUBQ 40 mg DAILY JAVIER Administration Escitalopram Oxalate 20 mg 07/22/16 09:00 07/23/16 07:58 Lexapro PO 20 mg DAILY JAVIER Administration Fenofibrate 144 mg 07/22/16 09:00 07/23/16 07:59 Tricor PO 144 mg DAILY JAVIER Administration Fluticasone Propionate 1 sprays 07/21/16 21:00 07/23/16 08:04 Flonase AVIS 1 spr BID JAVIER Administration Furosemide 20 mg 07/22/16 12:56 07/22/16 19:03 Lasix Inj 20mg Vial IVP 07/23/16 19:00 20 mg ONCE PRN Administration Between units Guaifenesin 600 mg 07/21/16 21:00 07/23/16 08:03 Mucinex PO 600 mg BID JAVIER Administration Hydroxyzine Pamoate 100 mg 07/22/16 09:00 07/23/16 08:00 Vistaril PO 100 mg DAILY JAVIER Administration Levofloxacin 150 mls @ 100 mls/hr 07/21/16 11:00 07/22/16 11:54 Levaquin 750 Mg/150 Ml IV 100 mls/hr Q24H JAVIER Administration Sodium Chloride 1,000 mls @ 100 mls/hr 07/21/16 12:00 07/23/16 02:30 Normal Saline 0.9% IV 100 mls/hr .Q10H JAVIER Administration Ceftriaxone Sodium 2 gm/ 100 mls @ 200 mls/hr 07/22/16 13:19 07/23/16 07:55 Sodium Chloride IV 200 mls/hr DAILY JAVIER Administration Insulin Aspart 2 unit 07/21/16 12:00 07/23/16 07:55 Novolog SUBQ 2 unit TIDWM JAVIER Administration Insulin Aspart 1 - 5 unit 07/21/16 12:00 07/23/16 08:08 Novolog SUBQ Not Given 0800,1200,1700,2100 [facility] Protocol Levothyroxine Sodium 100 mcg 07/22/16 07:00 07/23/16 06:19 Synthroid PO 100 mcg QDAC JAVIER Administration Methadone HCl 12.5 mg 07/21/16 23:45 07/23/16 07:57 PO 12.5 mg QID JAVIER Administration Methylprednisolone 40 mg 07/21/16 14:00 07/23/16 06:19 Solu-Medrol (40mg Vial) IVP 40 mg TID JAVIER Administration Metoprolol Tartrate 25 mg 07/21/16 21:00 07/23/16 07:59 Lopressor PO 25 mg BID JAVIER Administration Multivitamins 1 tab 07/21/16 13:00 07/23/16 08:02 Theragran PO 1 tab DAILYWM JAVIER Administration Nystatin 1 applic 07/21/16 21:00 07/23/16 08:06 Nystop TOP 1 applic BID JAVIER Administration Oxycodone HCl 30 mg 07/21/16 11:47 07/23/16 06:37 Roxicodone Oral Soln PO 30 mg Q3HR PRN Administration breakthrough pain Pantoprazole Sodium 40 mg 07/21/16 16:00 07/23/16 06:19 Protonix IVP 40 mg BIDAC JAVIER Administration Polyethylene Glycol 17 gm 07/22/16 09:00 07/23/16 08:08 Miralax PO Not Given DAILY JAVIER Potassium Chloride 40 meq 07/22/16 09:00 07/23/16 08:03 K-Dur PO 40 meq DAILYWM JAVIER Administration Pseudoephedrine HCl 30 mg 07/21/16 21:00 07/23/16 08:01 Sudafed PO 30 mg BID JAVIER Administration Ranitidine HCl 300 mg 07/21/16 21:00 07/22/16 20:05 Zantac PO 300 mg QPM JAVIER Administration Saccharomyces Boulardii 250 mg 07/21/16 12:00 07/23/16 08:03 Florastor PO 250 mg BID JAVIER Administration Sodium Chloride 10 ml 07/21/16 14:00 07/23/16 06:19 Normal Saline Flush 0.9% IVP 10 ml Q8HR JAVIER Administration Tolterodine Tartrate 2 mg 07/21/16 12:00 07/23/16 08:02 Detrol La PO 2 mg BID JAVIER Administration Vancomycin HCl 125 mg 07/21/16 14:00 07/23/16 08:03 Vancocin PO 125 mg Q6H JAVIER Administration - Lab Result Lab results reviewed: Yes Fish Bone Diagrams: 07/23/16 12:05 07/23/16 05:05 Other Lab Results: Abnormal Lab Results 07/21/16 07/21/16 07/21/16 07:45 07:45 07:45 WBC 12.2 x10^3/uL H x10^3/uL (4.8-10.8) RBC 3.03 10^6/uL L 10^6/uL (4.20-5.40) Hgb 8.7 g/dL L g/dL (12.0-16.0) Hct 28.2 % L % (37.0-47.0) MCHC 30.8 g/dL L g/dL (32.0-36.0) RDW 16.6 % H % (12.0-15.0) Neut # 9.7 10^3/uL H 10^3/uL (1.5-6.6) Metamyelocytes % Myelocytes % Neutrophils # (Manual) Lymphocytes # (Manual) PT ABG pCO2 ABG pO2 ABG HCO3 ABG Total CO2 ABG O2 Saturation ABG Base Excess Potassium Chloride 93 mmol/L L mmol/L (101-111) Carbon Dioxide 40 mmol/L H* mmol/L (21-32) BUN 5 mg/dL L mg/dL (6-20) Creatinine < 0.3 mg/dL L mg/dL (0.4-1.0) Glucose 118 mg/dL H mg/dL (70-100) Fasting Glucose Calcium Iron % Saturation Total Bilirubin Alkaline Phosphatase 38 IU/L L IU/L (42-121) C-Reactive Protein Total Protein 5.6 g/dL L g/dL (6.7-8.2) Albumin 2.8 g/dL L g/dL (3.2-5.5) HDL Cholesterol Lipase 18 U/L L U/L (22-51) Urine Occult Blood MODERATE H (NEGATIVE) Ur Leukocyte Esterase LARGE H (NEGATIVE) Urine RBC 6-10 /HPF H /HPF (0-5) Urine WBC >25 /HPF H /HPF (0-5) Urine Bacteria Many /HPF H /HPF (None Seen) Crossmatch IS Only 07/21/16 07/21/16 07/21/16 07:45 10:05 13:05 WBC RBC 2.85 10^6/uL L 10^6/uL (4.20-5.40) Hgb Hct MCHC RDW Neut # Metamyelocytes % Myelocytes % Neutrophils # (Manual) Lymphocytes # (Manual) PT ABG pCO2 63 mmHg H* mmHg (34-45) ABG pO2 73 mmHg L mmHg (80-100) ABG HCO3 38.4 mmol/L H mmol/L (22.0-26.0) ABG Total CO2 40.3 MMOL/L H* MMOL/L (21.0-29.0) ABG O2 Saturation ABG Base Excess 11.9 mmol/L H mmol/L (-2.0-3.0) Potassium Chloride Carbon Dioxide BUN Creatinine Glucose Fasting Glucose 111 mg/dL H mg/dL (70-100) Calcium Iron 14 ug/dL L ug/dL (28-170) % Saturation 5 % L % (20-50) Total Bilirubin Alkaline Phosphatase C-Reactive Protein Total Protein Albumin HDL Cholesterol Lipase Urine Occult Blood Ur Leukocyte Esterase Urine RBC Urine WBC Urine Bacteria Crossmatch IS Only 07/21/16 07/22/16 07/22/16 16:45 05:52 05:55 WBC 11.0 x10^3/uL H x10^3/uL (4.8-10.8) RBC 2.63 10^6/uL L 10^6/uL (4.20-5.40) Hgb 7.7 g/dL L g/dL (12.0-16.0) Hct 24.1 % L % (37.0-47.0) MCHC 31.8 g/dL L g/dL (32.0-36.0) RDW 16.3 % H % (12.0-15.0) Neut # Metamyelocytes % 2 % H % ( - 0) Myelocytes % 3 % H % ( - 0) Neutrophils # (Manual) 9.4 10^3/uL H 10^3/uL (1.5-6.6) Lymphocytes # (Manual) 0.6 10^3/uL L 10^3/uL (1.5-3.5) PT ABG pCO2 ABG pO2 ABG HCO3 ABG Total CO2 ABG O2 Saturation ABG Base Excess Potassium 3.3 mmol/L L mmol/L (3.5-5.0) Chloride 99 mmol/L L mmol/L (101-111) Carbon Dioxide BUN Creatinine 0.3 mg/dL L mg/dL (0.4-1.0) Glucose 157 mg/dL H mg/dL (70-100) Fasting Glucose Calcium 8.3 mg/dL L mg/dL (8.5-10.3) Iron % Saturation Total Bilirubin < 0.2 mg/dL L mg/dL (0.2-1.0) Alkaline Phosphatase 32 IU/L L IU/L (42-121) C-Reactive Protein 19.6 mg/dL H mg/dL (0-1.0) Total Protein 5.1 g/dL L g/dL (6.7-8.2) Albumin 2.5 g/dL L g/dL (3.2-5.5) HDL Cholesterol Lipase Urine Occult Blood Ur Leukocyte Esterase Urine RBC Urine WBC Urine Bacteria Crossmatch IS Only 07/22/16 07/22/16 07/22/16 05:55 05:55 09:08 WBC RBC Hgb Hct MCHC RDW Neut # Metamyelocytes % Myelocytes % Neutrophils # (Manual) Lymphocytes # (Manual) PT 12.7 secs H secs (9.9-12.6) ABG pCO2 ABG pO2 57 mmHg L mmHg (80-100) ABG HCO3 28.6 mmol/L H mmol/L (22.0-26.0) ABG Total CO2 29.9 MMOL/L H MMOL/L (21.0-29.0) ABG O2 Saturation 90 % L % (94-98) ABG Base Excess 4.2 mmol/L H mmol/L (-2.0-3.0) Potassium Chloride Carbon Dioxide BUN Creatinine Glucose Fasting Glucose Calcium Iron % Saturation Total Bilirubin Alkaline Phosphatase C-Reactive Protein Total Protein Albumin HDL Cholesterol 42 mg/dL L mg/dL (60 - ) Lipase Urine Occult Blood Ur Leukocyte Esterase Urine RBC Urine WBC Urine Bacteria Crossmatch IS Only 07/22/16 07/22/16 07/23/16 13:57 23:24 05:05 WBC RBC Hgb 10.3 g/dL L g/dL (12.0-16.0) Hct 32.3 % L % (37.0-47.0) MCHC RDW Neut # Metamyelocytes % Myelocytes % Neutrophils # (Manual) Lymphocytes # (Manual) PT ABG pCO2 ABG pO2 ABG HCO3 ABG Total CO2 ABG O2 Saturation ABG Base Excess Potassium Chloride Carbon Dioxide 34 mmol/L H mmol/L (21-32) BUN Creatinine Glucose 126 mg/dL H mg/dL (70-100) Fasting Glucose Calcium Iron % Saturation Total Bilirubin Alkaline Phosphatase 37 IU/L L IU/L (42-121) C-Reactive Protein Total Protein 5.5 g/dL L g/dL (6.7-8.2) Albumin 2.7 g/dL L g/dL (3.2-5.5) HDL Cholesterol Lipase Urine Occult Blood Ur Leukocyte Esterase Urine RBC Urine WBC Urine Bacteria Crossmatch IS Only See Detail - EKG Results EKG Interpreted Independently: No - Additional Planning Condition/Complexity: Improved My Orders: My Active Orders 07/22/16 09:00 Aspirin Chewable [[place] Aspirin] 81 mg PO DAILY Cetirizine [ZyrTEC] 20 mg PO DAILY Escitalopram [Lexapro] 20 mg PO DAILY Fenofibrate [Tricor] 144 mg PO DAILY Polyethylene Glycol 3350 [Miralax] 17 gm PO DAILY Potassium Chloride [K-Dur] 40 meq PO DAILYWM hydrOXYzine PAMOATE [Vistaril] 100 mg PO DAILY 07/22/16 09:57 CUL, RESPIRATORY [RM] 07/22/16 10:51 oxyCODONE [Roxicodone] 30 mg PO Q3HR PRN 07/22/16 11:36 Message to Nursing [RC] QSHIFT 07/22/16 12:56 Transfuse RBCs Leukoreduced [RC] ONCE FUROSEMIDE INJ 20mg VIAL [LASIX INJ 20mg VIAL] 20 mg IVP ONCE PRN 07/22/16 13:19 cefTRIAXone [Rocephin] 2 gm Sodium Chloride 0.9% Minibag [Normal Saline 0.9% Minibag] 100 ml IV DAILY 07/22/16 13:57 RBC, LEUKOREDUCED Stat TYPE AND SCREEN Stat 07/24/16 05:00 CBC - COMP BLD CT W/AUTO DIFF [HEME] DAILYLAB Consult/Specialty: OT, PT, Pulmonary Plan Discussed with:: Patient, Case Management (Patient will plan to go home tomorrow. She was seen by Haylee Rosario for pallative care today. She will stay one more night since she had a bump in her WBC and respiratory culture grew out staph aureus. waiting on S/S. She is high risk due to her comorbid conditions and still requiring IV medications with risk for toxicity) Time Spent: 31-60 minutes Subjective - Subjective Patient Reports: Feeling Better, Resting Comfortably, No Complaints Nursing Reports: Pain (in back with some spasms when sitting up to eat) Objective Vital Signs: Vital Signs - 24 hr 07/22/16 07/22/16 07/22/16 09:29 16:30 20:23 Temperature 36.8 C 36.4 C L Heart Rate 78 Heart Rate [ Brachial] Heart Rate [ 75 63 Radial] Respiratory 22 24 16 Rate Blood Pressure 149/71 H 152/80 H [Right Radial artery] O2 Saturation 95 95 07/23/16 07/23/16 07/23/16 00:37 02:07 05:35 Temperature 36.7 C 36.7 C Heart Rate 61 Heart Rate [ 66 91 Brachial] Heart Rate [ Radial] Respiratory 18 16 16 Rate Blood Pressure 143/75 H 134/78 H [Right Radial artery] O2 Saturation 94 94 Oxygen O2 Source Nasal cannula I&O (Last 24 Hrs): Intake and Output Totals x24h 07/21/16 07/22/16 07/23/16 23:59 23:59 23:59 Intake Total 1277 4230 200 Output Total 2200 5650 1400 Balance -923 -1420 -1200 General: Alert, Oriented x3, Cooperative, No acute distress HEENT: PERRLA, Mucous membr. moist/pink Neck: Supple, No JVD, No thyromegaly Lymphatic: no adenopathy Neuro: Alert, CN 2-12 Grossly Intact Cardiovascular: Normal S1, Normal S2, No murmurs Respiratory: Chest non-tender, No respiratory distress, Other (diminished in bases otherwise clear) Abdomen: Soft, No tenderness, No hepatospenomegaly, No masses Extremities: No clubbing, No cyanosis, No edema, Normal pulses, No tenderness/ swelling Skin: No rashes, No breakdown, No significant lesion - Results Results: Laboratory Results WBC 11.0 x10^3/uL (4.8-10.8) H 07/22/16 05:52 RBC 2.63 10^6/uL (4.20-5.40) L 07/22/16 05:52 Hgb 10.3 g/dL (12.0-16.0) L 07/22/16 23:24 Hct 32.3 % (37.0-47.0) L 07/22/16 23:24 MCV 91.6 fL (81.0-99.0) 07/22/16 05:52 MCH 29.1 pg (27.0-31.0) 07/22/16 05:52 MCHC 31.8 g/dL (32.0-36.0) L 07/22/16 05:52 RDW 16.3 % (12.0-15.0) H 07/22/16 05:52 Plt Count 276 10^3/uL (130-450) 07/22/16 05:52 MPV 9.5 fL (7.9-10.8) 07/22/16 05:52 Reticulocyte % (Auto) 2.25 % (0.5-2.3) 07/21/16 13:05 Neut # Not Reportable 07/22/16 05:52 Lymph # Not Reportable 07/22/16 05:52 [place] # Not Reportable 07/22/16 05:52 Eos # Not Reportable 07/22/16 05:52 Baso # Not Reportable 07/22/16 05:52 Absolute Nucleated RBC Not Reportable 07/22/16 05:52 Band Neuts % (Manual) 8 % (0-10) 07/22/16 05:52 Metamyelocytes % 2 % (-0) H 07/22/16 05:52 Myelocytes % 3 % (-0) H 07/22/16 05:52 Neutrophils # (Manual) 9.4 10^3/uL (1.5-6.6) H 07/22/16 05:52 Lymphocytes # (Manual) 0.6 10^3/uL (1.5-3.5) L 07/22/16 05:52 Monocytes # (Manual) 0.6 10^3/uL (0.0-1.0) 07/22/16 05:52 Nucleated RBCs 1 % 07/22/16 05:52 Platelet Morphology 1+ GIANT PLATELETS (NORMAL) 07/22/16 05:52 RBC Morph Micro Appear 1+ ANISOCYTOSIS (NORMAL) 1+ POLYCHROMASIA (NORMAL) 07/22/16 05:52 RBC Morph Micro Appear 1+ ANISOCYTOSIS (NORMAL) 1+ POLYCHROMASIA (NORMAL) 07/22/16 05:52 ESR 28 mm/Hr (0-30) 07/21/16 16:45 Absolute Retic 0.064 10^6/uL (0.020-0.110) 07/21/16 13:05 PT 12.7 secs (9.9-12.6) H 07/22/16 05:55 INR 1.1 (0.8-1.2) 07/22/16 05:55 Bld Gas Analysis Time 0907/22/16 09:08 Sample Site RIGHT RADIAL 07/22/16 09:08 ABG pH 7.45 (7.35-7.45) 07/22/16 09:08 ABG pCO2 42 mmHg (34-45) 07/22/16 09:08 ABG pO2 57 mmHg (80-100) L 07/22/16 09:08 ABG HCO3 28.6 mmol/L (22.0-26.0) H 07/22/16 09:08 ABG Total CO2 29.9 MMOL/L (21.0-29.0) H 07/22/16 09:08 ABG O2 Saturation 90 % (94-98) L 07/22/16 09:08 ABG Base Excess 4.2 mmol/L (-2.0-3.0) H 07/22/16 09:08 Babar Test POSITIVE 07/22/16 09:08 Room Air YES 07/22/16 09:08 O2 Delivery Device NASAL CANNULA 07/21/16 10:05 O2 Liters/Min 2.00 LPM 07/21/16 10:05 Sodium 145 mmol/L (135-145) 07/23/16 05:05 Potassium 3.7 mmol/L (3.5-5.0) 07/23/16 05:05 Chloride 105 mmol/L (101-111) 07/23/16 05:05 Carbon Dioxide 34 mmol/L (21-32) H 07/23/16 05:05 Anion Gap 6.0 (6-13) 07/23/16 05:05 BUN 8 mg/dL (6-20) 07/23/16 05:05 Creatinine 0.4 mg/dL (0.4-1.0) 07/23/16 05:05 Estimated GFR (MDRD) 168 (>89) 07/23/16 05:05 Glucose 126 mg/dL (70-100) H 07/23/16 05:05 Fasting Glucose 111 mg/dL (70-100) H 07/21/16 07:45 Lactic Acid 1.3 mmol/L (0.5-2.2) 07/21/16 08:43 Calcium 8.9 mg/dL (8.5-10.3) 07/23/16 05:05 Phosphorus 3.0 mg/dL (2.5-4.6) 07/23/16 05:05 Magnesium 1.9 mg/dL (1.7-2.8) 07/22/16 05:52 Iron 14 ug/dL (28-170) L 07/21/16 07:45 TIBC 295 ug/dL (250-450) 07/21/16 07:45 % Saturation 5 % (20-50) L 07/21/16 07:45 Transferrin 211 mg/dL (192-382) 07/21/16 07:45 Ferritin 13.6 ng/mL (11.0-306.8) 07/21/16 07:45 Total Bilirubin 0.6 mg/dL (0.2-1.0) 07/23/16 05:05 AST 25 IU/L (10-42) 07/23/16 05:05 ALT 34 IU/L (10-60) 07/23/16 05:05 Alkaline Phosphatase 37 IU/L (42-121) L 07/23/16 05:05 Lactate Dehydrogenase 164 IU/L (91-225) 07/21/16 07:45 C-Reactive Protein 19.6 mg/dL (0-1.0) H 07/21/16 16:45 B-Natriuretic Peptide 53 pg/mL (5-100) 07/21/16 07:33 Total Protein 5.5 g/dL (6.7-8.2) L 07/23/16 05:05 Albumin 2.7 g/dL (3.2-5.5) L 07/23/16 05:05 Globulin 2.8 g/dL (2.1-4.2) 07/23/16 05:05 Albumin/Globulin Ratio 1.0 (1.0-2.2) 07/23/16 05:05 Triglycerides 148 mg/dL (-149) 07/22/16 05:55 Cholesterol 144 mg/dL (-199) 07/22/16 05:55 LDL Cholesterol, Calc 72 mg/dL (-129) 07/22/16 05:55 VLDL Cholesterol 30 mg/dL 07/22/16 05:55 HDL Cholesterol 42 mg/dL (60-) L 07/22/16 05:55 LDL/HDL Ratio 1.7 (<4.4) 07/22/16 05:55 Cholesterol/HDL Ratio 3.4 (<4.4) 07/22/16 05:55 Lipase 18 U/L (22-51) L 07/21/16 07:45 Vitamin B12 470 pg/mL (180-914) 07/21/16 07:45 TSH 0.60 uIU/mL (0.34-5.60) 07/21/16 16:45 Urine Color YELLOW 07/21/16 07:45 Urine Clarity CLOUDY (CLEAR) 07/21/16 07:45 Urine pH 6.5 PH (5.0-7.5) 07/21/16 07:45 Ur Specific [place] 1.020 (1.002-1.030) 07/21/16 07:45 Urine Protein TRACE mg/dL (NEGATIVE) 07/21/16 07:45 Urine Glucose (UA) NEGATIVE mg/dL (NEGATIVE) 07/21/16 07:45 Urine Ketones NEGATIVE mg/dL (NEGATIVE) 07/21/16 07:45 Urine Occult Blood MODERATE (NEGATIVE) H 07/21/16 07:45 Urine Nitrite NEGATIVE (NEGATIVE) 07/21/16 07:45 Urine Bilirubin NEGATIVE (NEGATIVE) 07/21/16 07:45 Urine Urobilinogen 0.2 (NORMAL) E.U./dL (NORMAL) 07/21/16 07:45 Ur Leukocyte Esterase LARGE (NEGATIVE) H 07/21/16 07:45 Urine RBC 6-10 /HPF (0-5) H 07/21/16 07:45 Urine WBC >25 /HPF (0-5) H 07/21/16 07:45 Urine WBC Clumps PRESENT 07/21/16 07:45 Ur Squamous Epith Cells NONE SEEN (<= Few) 07/21/16 07:45 Urine Bacteria Many /HPF (None Seen) H 07/21/16 07:45 Ur Microscopic Review INDICATED 07/21/16 07:45 Urine Culture Comments INDICATED 07/21/16 07:45 Influenza A (Rapid) Negative (Negative) 07/21/16 10:37 Influenza B (Rapid) Negative (Negative) 07/21/16 10:37 Influenza Types A,B Ag - 07/21/16 10:37 Blood Type A POSITIVE 07/22/16 13:57 Antibody Screen NEGATIVE 07/22/16 13:57 Crossmatch IS Only See Detail 07/22/16 13:57 - Procedures Procedures: Procedures INSERTION OF INFUSION DEV INTO INF VENA CAVA, PERC APPROACH (12/22/15) TRANSFUSE NONAUT RED BLOOD CELLS IN PERIPH VEIN, PERC (12/22/15)
[2016-07-23 12:17] LABS: BASOPHILS % (AUTO) 0.4 %; HCT - HEMATOCRIT 32.1 % (37.0-47.0); HGB - HEMOGLOBIN 10.2 g/dL (12.0-16.0); LYMPHOCYTES % (AUTO) 6.6 %; MEAN CORPUSCULAR HEMOGLOBIN 28.7 pg (27.0-31.0); MEAN CORPUSCULAR HGB CONC 31.7 g/dL (32.0-36.0); MEAN CORPUSCULAR VOLUME 90.5 fL (81.0-99.0); MEAN PLATELET VOLUME 8.8 fL (7.9-10.8); MONOCYTES % (AUTO) 5.5 %; NEUTROPHILS % (AUTO) 87.5 %; RED BLOOD COUNT 3.55 10^6/uL (4.20-5.40); RED CELL DISTRIBUTION WIDTH 16.4 % (12.0-15.0); UNCORRECTED WHITE BLOOD COUNT 13.5 x10^3/uL; WHITE BLOOD COUNT 13.5 x10^3/uL (4.8-10.8)
[2016-07-23 12:52] LABS: BAND NEUTROPHILS % (MANUAL) 3 %; LYMPHOCYTES % (MANUAL) 8 %; NEUTROPHILS % (MANUAL) 79 %; NP AUTO DIFFERENTIAL? YES; NP MAN DIFFERENTIAL? NO; PLATELET ESTIMATE, MANUAL NORMAL (130-450,000) (NORMAL); PLATELET MORPHOLOGY NORMAL APPEARANCE (NORMAL); TOTAL CELLS COUNTED 100
[2016-07-23] MEDS ORDERED: VANCOMYCIN INJ 2 GM in SODIUM CHLORIDE 0.9% 500 ML IV SCH (16:00)
[2016-07-23] MEDS: LINEZOLID 600 MG/300 ML 300 ML IV SCH (16:09)
[2016-07-23] MEDS: SODIUM CHLORIDE FLUSH 0.9% 10 ML SYRINGE IVP PRN (16:13)
[2016-07-23] MEDS: diazePAM 5 MG TABLET PO PRN (16:13)
[2016-07-23] MEDS: DOXEPIN 25 MG CAPSULE PO SCH (20:05)
[2016-07-23] MEDS: diphenhydrAMINE 25 MG CAPSULE PO SCH (20:05)
[2016-07-24] MEDS: VANCOMYCIN 125 MG CAPSULE PO SCH ×3 (01:21→13:14)
[2016-07-24] MEDS: oxyCODONE 10 MG/0.5 ML SYRINGE PO PRN ×3 (01:22→13:13)
[2016-07-24] MEDS: SODIUM CHLORIDE 0.9% 1,000 ML IV SCH ×2 (01:26→10:55)
[2016-07-24] MEDS: diazePAM 5 MG TABLET PO PRN ×2 (01:33→08:13)
[2016-07-24] MEDS: methylPREDNISolone SUCCINATE 40 MG/ML VIAL IVP SCH ×2 (06:04→13:14)
[2016-07-24] MEDS: SODIUM CHLORIDE FLUSH 0.9% 10 ML SYRINGE IVP SCH ×2 (06:04→13:14)
[2016-07-24] MEDS: PANTOPRAZOLE 40 MG VIAL IVP SCH (06:04)
[2016-07-24] MEDS: LINEZOLID 600 MG/300 ML 300 ML IV SCH (06:04)
[2016-07-24] MEDS: SODIUM CHLORIDE FLUSH 0.9% 10 ML SYRINGE IVP PRN (06:08)
[2016-07-24] MEDS: LEVOTHYROXINE 100 MCG TABLET PO SCH (06:21)
[2016-07-24 06:37] LABS: BASOPHILS % (AUTO) 0.4 %; HCT - HEMATOCRIT 33.6 % (37.0-47.0); HGB - HEMOGLOBIN 10.7 g/dL (12.0-16.0); LYMPHOCYTES % (AUTO) 10.5 %; MEAN CORPUSCULAR HGB CONC 31.8 g/dL (32.0-36.0); MEAN CORPUSCULAR VOLUME 91.1 fL (81.0-99.0); MEAN PLATELET VOLUME 8.5 fL (7.9-10.8); MONOCYTES % (AUTO) 8.4 %; NEUTROPHILS % (AUTO) 80.7 %; RED BLOOD COUNT 3.69 10^6/uL (4.20-5.40); UNCORRECTED WHITE BLOOD COUNT 13.1 x10^3/uL; WHITE BLOOD COUNT 13.1 x10^3/uL (4.8-10.8)
[2016-07-24 06:51] LABS: BILIRUBIN,TOTAL 0.3 mg/dL (0.2-1.0); CALCIUM 8.9 mg/dL (8.5-10.3); CREATININE 0.3 mg/dL (0.4-1.0); POTASSIUM 3.7 mmol/L (3.5-5.0); TOTAL PROTEIN 5.3 g/dL (6.7-8.2)
[2016-07-24 06:59] LABS: BAND NEUTROPHILS % (MANUAL) 7 %; LYMPHOCYTES % (MANUAL) 7 %; NEUTROPHILS % (MANUAL) 78 %; TOTAL CELLS COUNTED 100
[2016-07-24 07:00] LABS: NP AUTO DIFFERENTIAL? YES; NP MAN DIFFERENTIAL? NO; PLATELET ESTIMATE, MANUAL NORMAL (130-450,000) (NORMAL); PLATELET MORPHOLOGY NORMAL APPEARANCE (NORMAL)
[2016-07-24] MEDS: POTASSIUM CHLORIDE 20 MEQ TABLET PO SCH (08:07)
[2016-07-24] MEDS: hydrOXYzine PAMOATE 25 MG CAPSULE PO SCH (08:07)
[2016-07-24] MEDS: PSEUDOEPHEDRINE 30 MG TABLET PO SCH (08:08)
[2016-07-24] MEDS: CALCIUM CARBONATE CHEW 500 MG TABLET PO SCH ×2 (08:08→13:14)
[2016-07-24] MEDS: SACCHAROMYCES BOULARDII 250 MG CAPSULE PO SCH (08:09)
[2016-07-24] MEDS: CETIRIZINE 10 MG TABLET PO SCH (08:09)
[2016-07-24] MEDS: TOLTERODINE LA 2 MG CAPSULE PO SCH (08:09)
[2016-07-24] MEDS: ESCITALOPRAM 10 MG TABLET PO SCH (08:09)
[2016-07-24] MEDS: FENOFIBRATE 48 MG TABLET PO SCH (08:09)
[2016-07-24] MEDS: ASPIRIN CHEW 81 MG TABLET PO SCH (08:09)
[2016-07-24] MEDS: METHADONE 5 MG TABLET PO SCH ×2 (08:10→13:13)
[2016-07-24] MEDS: MULTIVITAMIN TABLET PO SCH (08:10)
[2016-07-24] MEDS: guaiFENesin 600 MG TABLET PO SCH (08:10)
[2016-07-24] MEDS: FLUTICASONE NASAL SPRAY NAS SCH (08:11)
[2016-07-24] MEDS: METOPROLOL TARTRATE 25 MG TABLET PO SCH (08:12)
[2016-07-24] MEDS: NYSTATIN POWDER 15 GM TOP SCH (08:14)
[2016-07-24] MEDS: POLYETHYLENE GLYCOL 3350 17 GM PACKET PO SCH (08:14)
[2016-07-24] MEDS: ENOXAPARIN 40 MG/0.4 ML SYRINGE SUBQ SCH (08:14)
[2016-07-24] MEDS: INSULIN ASPART 300 UNIT/3 ML PEN SUBQ SCH ×4 (08:18→13:14)
--- NOTE | 2016-07-24 13:26 | Discharge Plan ---
Discharge Plan Disposition: Home Health Service Condition: Stable Prescriptions: Levofloxacin [Levaquin] 500 mg PO DAILY #5 tablet diazePAM [Valium] 5 mg PO QID PRN #10 tablet PRN Reason: Spasms Linezolid [Zyvox] 600 mg PO BID #20 tablet Diet: Diabetic Activity Restrictions: Activity as Tolerated Shower Restrictions: No Driving Restrictions: No Assistance Devices: Wheelchair Weight Bearing: as tolerated Instruction Topics: Protection Respiratory Why Need, Pneumonia Additional Instructions or Follow Up instructions: Please followup with your primary care provider within 1 week of discharge. Take all home medication as prescribed and make changes with your PCP. You have been given a prescription for Zyvox and Levaquin antibiotics. Take as prescribed and finish course of treatment. Continue to eat a heart healthy diabetic diet and limit caffeine. drink alot of water. Sit upright as much as possible so you do not aspirate when eating and drinking. Activity should be as tolerated. Please get out of bed as you can tolerate. moving will help your mood and depression and lessen your pain Take pain medications as needed Get sleep at night 7-8 hours and use your CPAP. Return to the ER if your symptoms worsen or you become more short of breath or have chest pain Follow-Up Care: Home Health - PT, Home Health - OT No Smoking: If you smoke, Please STOP! Call for help.
--- NOTE | 2016-07-24 14:38 | DISCHARGE SUMMARY ---
DATE OF ADMISSION: 07/21/2016 DATE OF DISCHARGE: 07/24/2016 DISCHARGING PROVIDER: Stacey Estrada APRN ADMITTING DIAGNOSIS: Acute hypoxia with possible pneumonia, unspecified organism. DISCHARGE DIAGNOSES 1. Acute respiratory failure with hypoxia secondary to methicillin-resistant staph aureus pneumonia of bilateral lower lobes of the lung. 2. Morbid obesity with body mass index greater than 40. 3. [place] syndrome with excessive steroid usage. 4. Anemia due to chronic illness. 5. Hypokalemia, due to loss of potassium. 6. Elevated C-reactive protein with steroid usage. 7. Clostridium difficile colitis. 8. Chronic pain disorder with multiple fractures to the spinal column. 9. Colostomy care. PROCEDURES: Chest x-ray, which shows vascular edema and no infiltrates. CONSULTATIONS: Physical and Occupational Therapy. HOSPITAL COURSE AND TREATMENT: The patient is a 51-year-old morbidly obese female who presented to the ER with a cough and shortness of breath that she had for several days that worsened and became thick with sputum. The patient has chronic back fractures and is not able to sit up or ambulate. She is bed- bound. She has been eating most of her meals lying down and started to have worsening of symptoms after eating breakfast one day. The patient is also homebound, taken care of by her daughter. The patient had significant wheezing at the time of evaluation in the ER. Her oxygen saturation was at 88% to 89% room air. She had similar symptoms before in the past and has been seen by palliative care with Haylee Rosario. She has had multiple upper respiratory infections as well as productive cough recently over the last several days. The patient was evaluated at bedside on request of the ER provider for possible admission for possible aspiration pneumonia. She does have a chronic history of MRSA as well and needed to be ruled out for possible MRSA infection. The patient did admit to overall general malaise and weakness, fever and some chills. She was admitted with possible sepsis, respiratory failure with hypoxia , with pneumonia to the lower bases. The patient was a former smoker, which could have contributed to this as well. Over the course of her treatment, she was provided care by Physical and Occupational Therapy to help to get the patient up out of bed into her motorized wheelchair. The patient was encouraged to sit up as much as possible in order to eat, so as to not continue to have problems with her breathing nor to aspirate. She is on multiple medications, specifically for pain, including methadone and OxyContin. She did have hyperglycemia and was put on insulin and diabetic diet because of the steroid usage. She continued on the majority of her home medications that have been prescribed. She is on a probiotic, Florastor , which continued. She is on Synthroid for her hypothyroidism, which did continue. She is on supplements, vitamin B and C, which continued. She continued on her inhalers by Respiratory Therapy, and also was placed on CPAP at night for her sleep apnea. For her hypertension, she continued on metoprolol. For her hyperlipidemia, she continued on fenofibrate, aspirin therapy and atorvastatin. For her incontinence of urine, she continued on Detrol. She was also given diazepam and Benadryl to help with sleep and anxiety. She was given IV magnesium for low magnesium level, which was improved on the day of discharge. She continued on steroid treatment for the upper respiratory illness and for her autoimmune angioedema. She continued on Reglan and Zofran for nausea. SHE HAS MULTIPLE ALLERGIES INCLUDING SEASONAL, and she did continue on Zyrtec and Flonase. She was found to have a sputum that grew out methicillin-resistant staphylococcus aureus, she was placed on Zyvox, given it IV for the first day and then continued on oral after that. She grew out pseudomonas in her urine, which she does have a Oseguera, and she continued on Levaquin. She also has a colostomy bag to the right upper quadrant of her abdomen in which she tested positive for C difficile recently and did continue on vancomycin oral. She will be discharged home with family, breathing much better, vital signs were stable. She will be going home with S unit. Her vital signs at discharge were 36.9, heart rate 86, blood pressure 102/64, respirations are 18. She was satting 96% on 2 liters nasal cannula. She does use oxygen at home. AMBULATORY MEDICATIONS AT TIME OF DISCHARGE 1. OxyContin. 2. Acyclovir. 3. Aspirin. 4. Atorvastatin. 5. Calcium. 6. Benadryl. 7. Detrol-LA. 8. Diazepam. 9. Colace. 10. Epi-Pen. 11. Doxepin. 12. Fenofibrate. 13. Guaifenesin. 14. Hydroxyzine pamoate. 15. Imitrex. 16. Imodium. 17. Magnesium oxide. 18. Lexapro. 19. Methadone. 20. Methylprednisolone. 21. Metoprolol. 22. Multivitamin. 23. Nexium. 24. Potassium. 25. Albuterol sulfate. 26. Reglan. 27. Simethicone. 28. B complex. 29. Synthroid. 30. Tylenol Extra Strength. 31. Vancomycin p.o. 125 q.6h. 32. Zantac. 33. DuoNebs. 34. Flonase. 35. Florastor. 36. Levaquin 500 mg p.o. daily. 37. Nystatin. 38. Calcium carbonate. 39. Tums. 40. Sudafed. 41. Zyrtec. 42. Zyvox 600 mg p.o. b.i.d. PHYSICAL EXAMINATION CONSTITUTIONAL: The patient was alert, in no acute distress. EYES: Pupils are equal, round and react to light and accommodation. Conjunctivae and sclerae was nonicteric, not injected. ENT: Nares are patent. No nasal discharge. Oropharynx with no masses, exudates or lesions. Mucous membranes were moist. NECK: Enlarged but supple. No thyromegaly. CARDIOVASCULAR: S1, S2 noted. No gallops, murmurs or rubs. RESPIRATORY: Breath sounds were diminished at bases but no wheezes, rhonchi, or crackles noted. NEUROLOGIC: She was alert. Cranial nerves 2 through 7 grossly intact. Sensory was intact. SKIN: Warm, dry, intact noted with some redness and erythema around the base of the neck and on the pannus. Colostomy bag noted on abdomen. GASTROINTESTINAL: Abdomen was obese with colostomy bag. Otherwise no guarding or rebound. Bowel sounds noted. MUSCULOSKELETAL/EXTREMITIES: No cyanosis. Pulses were palpable. She was able to move upper and lower extremities. Slight tremor noted, which is chronic. PSYCHIATRIC: Pleasant mood. Behavior was appropriate. She had a normal affect. HEMATOLOGIC: No active bleeding. The patient was hemodynamically stable. LYMPHATICS: No cervical, axillary or supraclavicular lymphadenopathy was noted. INSTRUCTIONS FOR DISCHARGE AND FOLLOWUP 1. Activity: To be as tolerated. She is bed-bound, encouraged to get up into the motorized wheelchair as much as possible. This will help improve her mood and decrease depression. She understands she is to get 7-8 hours of sleep at night and take rest breaks as needed. Continue to use CPAP at night. 2. Diet: The patient is to follow a cardiac, noninflammatory diet. She verbally understood that she is to avoid sodas and drink more water throughout the day. She is to decrease her carbohydrate intake and continue to follow a noninflammatory diet with no gluten and no dairy. 3. Followup: The patient verbally understood she is to follow up with her primary care provider within 1 week of discharge. She understands she is to take all home medications that have been prescribed to her. She understands she is to return to the ER if symptoms worsen or she develops chest pain or shortness of breath, and she is to call 911. The patient is to go home with S with daughter. The patient verbally understood all instructions that were given to her by nursing and hospitalist staff, and she will be safely discharged home with family. Vital signs were stable at time of discharge. 4. Status: The patient remains an ATTEMPT RESUSCITATION status. Time spent on discharge instructions, planning and education was 50 minutes. JOB #: [id number] EXT JOB #:[id number] DARA
[2016-07-24 17:38] VITALS: BP 146/74
== END 2016-07-24 15:30 | disposition home health service (06) | DRG 189 ==
LOC: EDUNIT# → ED 07:10 → MS 10:37
PROVIDERS: ADMIT Nurse Practitioner; ATTEND Nurse Practitioner
PROC: 30233N1 Transfusion of Nonautologous Red Blood Cells into Peripheral Vein, Percutaneous Approach (ICD-10-PCS; principal; 2016-07-22)
DX: J96.01 Acute respiratory failure with hypoxia (principal); J15.212 Pneumonia due to Methicillin resistant Staphylococcus aureus; Z68.41 Body mass index [BMI] 40.0-44.9, adult; E24.9 Cushing's syndrome, unspecified; A04.7 Enterocolitis due to Clostridium difficile; M35.8 Other specified systemic involvement of connective tissue; I48.92 Unspecified atrial flutter; N39.0 Urinary tract infection, site not specified; B96.5 Pseudomonas (aeruginosa) (mallei) (pseudomallei) as the cause of diseases classified elsewhere; E66.01 Morbid (severe) obesity due to excess calories; D63.8 Anemia in other chronic diseases classified elsewhere; E09.40 Drug or chemical induced diabetes mellitus with neurological complications with diabetic neuropathy, unspecified; E87.6 Hypokalemia; R79.82 Elevated C-reactive protein (CRP); N31.9 Neuromuscular dysfunction of bladder, unspecified; N39.498 Other specified urinary incontinence; G89.29 Other chronic pain; F41.9 Anxiety disorder, unspecified; F32.9 Major depressive disorder, single episode, unspecified; E83.42 Hypomagnesemia; I10 Essential (primary) hypertension; H70.93 Unspecified mastoiditis, bilateral; M19.90 Unspecified osteoarthritis, unspecified site; J45.909 Unspecified asthma, uncomplicated; K21.9 Gastro-esophageal reflux disease without esophagitis; E03.9 Hypothyroidism, unspecified; G47.00 Insomnia, unspecified; H91.90 Unspecified hearing loss, unspecified ear; F43.10 Post-traumatic stress disorder, unspecified; F50.9 Eating disorder, unspecified; F40.240 Claustrophobia; F42.9 Obsessive-compulsive disorder, unspecified; M79.7 Fibromyalgia; M81.0 Age-related osteoporosis without current pathological fracture; G43.909 Migraine, unspecified, not intractable, without status migrainosus; G47.33 Obstructive sleep apnea (adult) (pediatric); E78.2 Mixed hyperlipidemia; Z93.3 Colostomy status; Z74.01 Bed confinement status; Z87.891 Personal history of nicotine dependence; T38.0X5D Adverse effect of glucocorticoids and synthetic analogues, subsequent encounter; Z87.440 Personal history of urinary (tract) infections; Z86.718 Personal history of other venous thrombosis and embolism; Z87.828 Personal history of other (healed) physical injury and trauma; Z79.4 Long term (current) use of insulin; Z79.891 Long term (current) use of opiate analgesic; Z79.51 Long term (current) use of inhaled steroids; Z79.82 Long term (current) use of aspirin; Z79.899 Other long term (current) drug therapy
CPT/HCPCS: 36415; 36600; 71010; 80053; 80061; 81001; 81003; 82607; 82728; 82803; 82947; 83540; 83605; 83615; 83690; 83735; 83880; 84100; 84443; 84466; 85014; 85018; 85025; 85044; 85610; 85651; 86140; 86850; 86900; 86901; 86920; 87040; 87070; 87077; 87086; 87205; 87275; 87276; 94640; 96361; 96365; 96366; 96375; 99284

== ENCOUNTER 2016-07-24 16:22 | Outpatient (CLI) | payer MEDICAID | END 2016-07-24 16:23 | disposition home or self-care (01) | LOC: EMS 16:22 | PROVIDERS: ATTEND Surgery | DX: J96.01 Acute respiratory failure with hypoxia (principal) | CPT/HCPCS: A0425; A0428 ==

== ENCOUNTER 2016-07-31 15:30 | Outpatient (CLI) | payer MEDICAID ==
--- NOTE | 2016-08-01 06:44 | CONSULTATION NOTE ---
DATE OF CONSULTATION: 07/31/2016 00:00:00 REQUESTING PROVIDER: Janes Galarza. TIME OF VISIT: 15:30 to 16:15. The patient is seen in her home setting secondary to considerable and taxing effort for the patient t o leave the home as she is mostly bedbound. She is at times able to be transported in her wheelchair via van, though this is often with an exacerbation of pain. EXAM LIMITATIONS: Currently daughter is not available for visit. BRIEF HISTORY OF PRESENT ILLNESS: This is a 51-year-old woman has a long and complex medical history including autoimmune disorders, connective tissue disease, acquired angioedema and fibromyalgia who h as been on high-dose steroids for decades with the sequela of [place] syndrome, severe osteoarthritis , multiple recurring vertebral compression fractures. She does have a neurogenic bladder with a diagn osis of interstitial cystitis and an ongoing indwelling catheter. Recent hospitalization on 7 to 07/24/2016 for her acute respiratory failure with hypoxia secondary to methicillin resistant sta ph aureus pneumonia of bilateral lower lobes of the lung. She was started on Zyvox which she was cont inued on at home though with a few day delays secondary to insurance issues. She also had anemia and received 2 units of blood and hypokalemic with potassium replacement. Previously on 07/17/2016 she wa s started on vancomycin after she had suspected C difficile and was unable to tolerate Flagyl over previous weekend. The patient presents today actually as looking fairly well. She reports that antibiotics seems to hav e helped her sinusitis, her mastoiditis, her ear pain. She is breathing well. Her lungs are diminishe d but clear, no further cough. She did have some difficulty with her recent catheterization change. I suspect it may be because of the size of the catheter. Her urine looks clear, dark yellow in color. Her bowel output his firmed up from her colostomy, it is back to baseline, which is somewhat of a timmy porsha paste and no signs or symptoms of bleeding, but still is somewhat dark in color related to iron s upplementation, but again this is her baseline. No tarry or concern for bleeding. She did go ahead an d followup for her Rituxan yesterday at [facility]. She is feeling some fatigue both fr om her trip and her treatment. Her biggest side effects with this is some low grade fever, chills, an d nausea. SYMPTOM BURDEN: She continues to have chronic pain related to degeneration of her spine. She identifi es it as a thick band across her mid thoracic area. She also has pain and pressure up around her neck attributed to her Tompkins hump and she has ongoing spasms radiating down her lower back and hip area . She continues to rate her pain at a 10/10. She does best with her breakthrough pain medication sche duled on a regular basis, and does feel at this point in time though she is still quite painful, it i s acceptable in the context of weighing the benefits of confusion and sedation and pain relief. She i s using a total of 50 methadone in 24 hours, as well as her oxycodone a total of 9 mLs. She is presen ting with some mild nausea today. No vomiting. She does have overwhelming fatigue. Her depression is improved. She does have intermittent anxiety though this appears to be improved as well and continues to worry about her current quality of life, as well as being a burden on others. MEDICATION ALLERGIES: 1. MACROBID. 2. LATEX. 3. GLUTENS. MEDICATION LIST: 1. Lidocaine 2% topical jelly 1 Application with each urinary catheterization change. 2. Loperamide 2 mg 1-2 tabs p.r.n. up to 8 tabs in 24 hours. 3. Vitamin D3 2000 units daily. 4. Super B complex plus C 150 mg. 1 tab daily. 5. Detrol long-acting 2 mg extended release 1 capsule b.i.d. 6. Simethicone 180 mg capsules, 1 tab daily p.r.n. 7. Oxycodone 30 mg/mL 1.5 mL up to 9 mL in 24 hours. 8. Multivitamin with iron daily. 9. Metoprolol tartrate 25 mg half tab b.i.d. 10. Reglan 10 mg. 1 tab up to four times a day. 11. Magnesium oxide 400 mg daily. 12. Synthroid 100 mcg daily. 13. Hydroxyzine pamoate 100 mg 1 cap daily. 14. Flonase allergy relief 50 mcg. 1 spray b.i.d.. 15. Ferrous fumarate 89 mg. 1 tab daily. 16. Fenofibrate 160 mg daily. 17. Lexapro 20 mg daily. 18. EpiPen injected as needed for angioedema. 19. Doxepin 25 mg daily. 20. Docusate sodium 100 mg daily p.r.n. 21. Diazepam 5 mg every 6 hours as needed for muscle spasm. 22. Cinnamon bark 1000 mg daily. 23. Atorvastatin 20 mg daily. 24. Aspirin 81 mg daily. 25. Albuterol sulfate 90 mcg 2 puffs q.4h. p.r.n.. 26. Acyclovir 200 mg 1 tab b.i.d. 27. Methylprednisolone 4 mg titrate angioedema symptoms. 28. Calcium carbonate 500 mg four times a day. 29. Diphenhydramine 25 mg 4 tabs at bedtime p.r.n.. 30. Imitrex 50 mg up to 9 times a month. 31. Guaifenesin 400 mg 1 tab b.i.d. p.r.n. 32. Potassium gluconate 1 tab daily. 33. Methadone 10 mg 1-1/4 tab 4 times a day. 34. Vancomycin 125 mg capsule 1 capsule by mouth every 6 hours 4 times a day. 35. Zyvox 600 mg b.i.d. for 10 days. 36. Zyrtec 10 mg 2 tabs daily. 37. Florastor 250 mg 1 capsule b.i.d.. 38. Pantoprazole 40 mg 1 tab b.i.d. 39. Nystatin 1000 grams powder 1 application b.i.d.. CODE STATUS: POLST FORM DO NOT ATTEMPT RESUSCITATION, BUT FULL TREATMENT IF SHE HAS ANGIOEDEMA OR ROMMEL PHYLACTIC SHOCK SHE WANTS SYMPTOMS TO BE UNDER CONTROL, AT END OF LIFE SHE WANTS TO FOCUS ON COMFO RT MEASURES AND HAVE A PEACEFUL . HER DURABLE POWER OF RAILWAYS ASSISTANT IS MERON ROSAS, HER DAUGHTER, HER CELL PHONE IS [phone]. PLEASE SEE PALLIATIVE CARE DISCUSSION. SOCIAL HISTORY: Continues to have significant financial stressors. Her daughter, Meron, who is a [employer] worker, as well as the DPOA, there is also a grandson in the home. She is currently finishing [employer] for [employer] so the patient has been home for longer periods of time by herself. She does have [employer] . REVIEW OF SYSTEMS: GENERAL: Overall, she is easily overwhelmed. Her symptom burden continues to increase. She does have some intermittent confusion. She does recognize her decline. HEENT today, her hearing is much improved. She had never followed up with ENT. She has known mastitis and intermittent infusions. She is unable to lay flat and is unable to sit up and does eat and drink lying down. CARDIOVASCULAR: She has been using her CPAP. She has not had any further atrial flutter or chest disc omfort. RESPIRATORY: She is on continuous oxygen. Denies increased shortness of breath, or cough. GENITOURINARY: She has an indwelling catheter. Reports increased pain with changing the last few time s. She thinks they use an 18-Moz[place]ican. I will followup and have them use a smaller catheter. I did tell her she may have some leaking in transitioning. MUSCULOSKELETAL: Continues to have spasms back, neck, hands and feet. SKIN: She does have residual hematoma on her left "love handle." Her skin is dry and concern about ba thing. Does complain of increased itchiness and dry skin and sweating on her back. NEUROLOGIC: She does have numbness and tingling in both her upper and lower extremities. She reports increasing difficulty with short-term memory, some of her old memories are starting to fade, as well. She does recognize she has some intermittent confusion, but feels like this has improved since [facility] admits. She continues to have intermittent migraines and perceives herself as having inter mittent fibromyalgia flares that impact her neurologic status. GASTROINTESTINAL: The patient continues to have low-grade nausea, attributes this to her Rituxan dos ing. She has had no vomiting. Her colostomy output is gelling up, is darker color with her iron suppl ements. Hoping to clear her of C. difficile. PSYCHIATRIC: She does struggle with depression, though, she feels this is better, that she is finding more moments of estefany and does have intermittent anxiety. ENDOCRINE: She has a history of diabetes. HEMATOLOGIC/IMMUNOLOGIC: She did receive blood transfusions on her latest admit. Her last labs on dis charge included a hematocrit of 33.6, and her white count remained elevated at 13.1. She continues to have recurrent pneumonia and recognizes that is likely her demise, as far as ongoing infections. PHYSICAL EXAMINATION: GENERAL APPEARANCE: She has better color today, has a severe cushingoid appearance. HEENT: She has new glasses. No oral candidiasis. Her hearing is improved today. RESPIRATORY: Breath sounds are clear. She does have some difficulty taking deep breaths related to he r habitus. She is wearing her oxygen. CARDIOVASCULAR: Her pulse is 77. Her blood pressure 102/64. ABDOMEN: Quite flat. Active bowel tones. Does have multiple layers of skin folds. SKIN: As noted above. She does have a hematoma on her left side about the size of a hand print. She h as multiple keratoses and darkened skin spots on her back. No bleeding. EXTREMITIES: She is much more comfortable with her legs propped on her pillow. She does have limited range of motion. We were able to turn her back and forth to remove the sling, though it does cause he r increased pain and distress. She does have contractures in her shoulders, hips and ankles and feet. WHO IS PRESENT, PALLIATIVE CARE DISCUSSION: Myself, the patient, Jaleesa Ramon , the other nurse olesyati ta. She is able to reflect that she is feeling much more vulnerable particularly after latest hos pitalization and getting sick as she is, she does recognize that most likely her end of life event wi ll be infections. She recognizes this year has been with much more complications and that she is gett ing close to end of life and is very curious about how best to create a good legacy for her children as far as facing it front on. She is both hopeful that she would be able to at home with the supp ort of hospice, but is aware that given the acuity of her and complexity of her autoimmune system and comorbidities, that she may end up dying in the hospital. When she can no longer recognize her famil y or is perceived to be in prolonging suffering, she would like to be let go. We did discuss what tong sotomayor would bring to the table as far as support, visiting nurses, increased bathing support, able to support Meron as far as "being the 911," but it would need to be when her goals aligned as far as no further return to the hospital and focusing on comfort measures only, and not on prolonging quantity of life, but improving quality of life. She does feel like she is getting closer to this decision, b ut remains quite hesitant, as she wants to be there for her daughter. She also finds herself reflectalysa avery on the responsibility of keeping at home and a house over her head. IMPRESSION: This remains again a very complex 51-year-old woman with progressive autoimmune disease w ith increasing sequela related to her Clyde's, compression fractures, recurrent pneumonia and recur rent anemia of chronic disease. She is starting to recognize her ongoing decline and ways best to man age this in the future to meet her goals. RECOMMENDATIONS/COUNSELING DONE: 1. Methicillin resistant staph aureus pneumonia bilateral lower lobes of the lung. She has improved f airly dramatically on the Zyvox. She still has a few days left yet. She is tolerating it with just so me mild nausea though she has had chemotherapy, the Rituxan, as well. She is not showing any signs of candidiasis, which is her normal, and is pleased with resolution of her sinus infection and ear infe ction. 2. Interstitial cystitis: Does appear that she is quite sensitive to her current size of Oseguera cathet er. Will followup with home health and encourage them to use a smaller size [place]. The patient is pu shing fluids, as her urine looks good. 3. Clostridium difficile, currently on treatment. In discussing her situation previous to her hospita l admit, the agreement had been to recheck her Clostridium difficile after she finished treatment and antibiotics after 2-3 weeks. 4. Acute on chronic pain. Her acute pain from her travels is somewhat improved, but continues with he r chronic pain syndrome secondary to sequela of her compression fractures. Reviewed weighing benefits and burdens of further titration and at this point in time she wants to stay focused and to discuss in the future if she continues to decline that the home health nurse would help them adjust medicatio ns appropriately and she certainly would be able to titrate up without the concern of finding a adi ce. ADVANCED CARE PLANNING: It remains quite a difficult situation both for her daughter and the patient herself. She is starting to reflect on how she might want things to go as her end of life nears. Coun seling done as far as providing information on hospice, goals of care and resources available. TIME SPENT: Forty-five minutes with greater than 50% of this done in counseling and coordination of c are, weighing benefits and burdens of her current opioid use, looking towards the future as far as go als of care, treatment or no treatment, transitioning to hospice and considering a in the home setting. 17:9:00 JOB #: [id number] EXT JOB #:[id number]
== END 2016-07-31 15:31 | disposition home or self-care (01) ==
LOC: PC 15:30
PROVIDERS: ATTEND Nurse Practitioner Adult Health
DX: Z51.5 Encounter for palliative care (principal); J15.212 Pneumonia due to Methicillin resistant Staphylococcus aureus; N30.10 Interstitial cystitis (chronic) without hematuria; B96.89 Other specified bacterial agents as the cause of diseases classified elsewhere; G89.4 Chronic pain syndrome; M79.7 Fibromyalgia; Z87.828 Personal history of other (healed) physical injury and trauma; M35.8 Other specified systemic involvement of connective tissue; Z74.01 Bed confinement status; N31.9 Neuromuscular dysfunction of bladder, unspecified; Z93.3 Colostomy status; E24.2 Drug-induced Cushing's syndrome; T38.0X5S Adverse effect of glucocorticoids and synthetic analogues, sequela; M47.9 Spondylosis, unspecified; M40.202 Unspecified kyphosis, cervical region; Z66 Do not resuscitate
CPT/HCPCS: 99349

== ENCOUNTER 2016-08-24 11:30 | Outpatient (CLI) | payer MEDICAID ==
[2016-08-24 13:33] LABS: BILIRUBIN,URINE NEGATIVE (NEGATIVE)
[2016-08-24 14:14] LABS: UR CULTURE IF IND INDICATED; WBC,URINE >25 /HPF (0-5)
== END 2016-08-24 11:31 | disposition home or self-care (01) ==
LOC: LAB.R 11:30
PROVIDERS: ATTEND Family Medicine
DX: N39.0 Urinary tract infection, site not specified (principal)
CPT/HCPCS: 81001; 87077; 87086

== ENCOUNTER 2016-08-28 12:20 | Outpatient (CLI) | payer MEDICAID | END 2016-08-28 12:21 | disposition critical access hospital (66) | LOC: EMS 12:20 | PROVIDERS: ATTEND Surgery | DX: R50.9 Fever, unspecified (principal); R53.1 Weakness | CPT/HCPCS: A0425; A0427 ==

== ENCOUNTER 2016-08-28 12:44 | Inpatient (IN) | payer MEDICAID ==
[2016-08-28 13:34] LABS: BASOPHILS % (AUTO) 0.8 %; EOSINOPHILS % (AUTO) 2.4 %; HCT - HEMATOCRIT 33.7 % (37.0-47.0); HGB - HEMOGLOBIN 10.7 g/dL (12.0-16.0); LYMPHOCYTES % (AUTO) 17.3 %; MEAN CORPUSCULAR HEMOGLOBIN 30.3 pg (27.0-31.0); MEAN CORPUSCULAR HGB CONC 31.8 g/dL (32.0-36.0); MEAN CORPUSCULAR VOLUME 95.3 fL (81.0-99.0); MEAN PLATELET VOLUME 8.9 fL (7.9-10.8); MONOCYTES % (AUTO) 11.4 %; NEUTROPHILS % (AUTO) 68.1 %; RED BLOOD COUNT 3.54 10^6/uL (4.20-5.40); RED CELL DISTRIBUTION WIDTH 17.2 % (12.0-15.0); UNCORRECTED WHITE BLOOD COUNT 9.5 x10^3/uL; WHITE BLOOD COUNT 9.5 x10^3/uL (4.8-10.8)
--- NOTE | 2016-08-28 13:44 | ED Physician Documentation ---
History of Present Illness - Stated complaint Stated Complaint: LETHARGIC - Chief complaint Chief Complaint: General - History obtained from History obtained from: Patient (unable to give history), Family (daughter), EMS - History of Present Illness Timing: Today - Additonal information Additional information: has been on abx for UTI (cipro) for 4 days. Increasing weakness over the past 24 hours. Family states that she has not been eating and drinking very much for the past 2-3 days. Has not been able to use her lift at home. Is fully bedbound. Family states that she has not had fevers. Review of Systems Unable to obtain: AMS Constitutional: denies: Fever GI: denies: Vomiting, Diarrhea Skin: denies: Rash Neurologic: denies: Seizure PD PAST MEDICAL HISTORY - Past Medical History Cardiovascular: Arrhythmia, Other Respiratory: Asthma, Pneumonia, Sleep apnea, CPAP use Neuro: TIA, Seizure disorder Endocrine/Autoimmune: Type 2 diabetes, HyPOthyroidism, Other GI: Other SHAFT TENDER: None : Retention, Chronic bladder infection, Indwelling catheter HEENT: Chronic hearing loss Psych: Depression, Anxiety Musculoskeletal: Osteoporosis Derm: Other - Past Surgical History Past Surgical History: Yes General: Cholecystectomy Ortho: Spine surgery, Other /SHAFT TENDER: section, Hysterectomy - Present Medications Home Medications: Ambulatory Orders Medication Instructions Recorded Confirmed Fenofibrate 160 mg PO DAILY 07/09/12 08/28/16 Aspirin [Aspir-Low] 81 mg ORAL DAILY 04/13/15 08/28/16 Atorvastatin Calcium 20 mg PO QPM 04/13/15 08/28/16 Epinephrine [Epipen 2-Zachary] 1 syr IM ONCE PRN 04/13/15 08/28/16 Escitalopram Oxalate [Lexapro] 20 mg PO DAILY 04/13/15 08/28/16 Methadone HCl 12.5 mg PO QID 04/13/15 08/28/16 Metoprolol Tartrate 12.5 mg ORAL BID 04/13/15 08/28/16 Oxycodone HCl 30 mg ORAL Q3HR PRN MDD 9 ml 04/13/15 08/28/16 Tolterodine [Detrol LA] 2 mg PO BID 04/13/15 08/28/16 Vitamin B Complex Vit C No.4 1 tab ORAL DAILY 04/13/15 08/28/16 [Super B Complex] Acetaminophen [Tylenol Extra 1,000 mg PO Q4H PRN 12/29/15 08/28/16 Strength] Albuterol Sulfate [Proair Hfa 2 puffs INH Q6H PRN 12/29/15 08/28/16 Inhaler] Calcium Carbonate [Tums (Calcium 750 mg PO QID tablet 12/29/15 08/28/16 Carbonate 500mg)] Diphenhydramine HCl 25 - 75 mg PO PRN PRN 12/29/15 08/28/16 Docusate Sodium 100 mg PO DAILY PRN 12/29/15 08/28/16 Insulin Lispro [Humalog] 2 unit SUBQ PRN PRN 12/29/15 08/28/16 Metoclopramide [Reglan] 10 mg PO QID PRN 12/29/15 08/28/16 Multivitamin [Multiple Vitamins] 1 tab PO DAILY 12/29/15 08/28/16 Simethicone 180 mg PO DAILY 12/29/15 08/28/16 Sodium Chloride [Saline Mist] 1 spray NS TID PRN 12/29/15 08/28/16 Sumatriptan Succinate [Imitrex] 50 mg PO Q2H PRN MDD 100 MG 12/29/15 08/28/16 Cetirizine [ZyrTEC] 20 mg PO DAILY tablet 01/21/16 08/28/16 Acyclovir 200 mg PO BID 07/21/16 08/28/16 Diazepam [Diazepam] 5 mg PO QID PRN 07/21/16 08/28/16 Doxepin HCl 25 mg PO QPM 07/21/16 08/28/16 Esomeprazole Magnesium [Nexium] 40 mg PO QDAC 07/21/16 08/28/16 Guaifenesin 400 mg PO QID 07/21/16 08/28/16 Hydroxyzine Pamoate 100 mg PO DAILY 07/21/16 08/28/16 Loperamide [Imodium] 2 - 4 mg PO PRN PRN MDD 16 MG 07/21/16 08/28/16 Magnesium Oxide [Mag Ox] 400 mg PO DAILY 07/21/16 08/28/16 Methylprednisolone 4 mg PO BIDWM 07/21/16 08/28/16 Potassium Gluconate 99 mg PO DAILY 07/21/16 08/28/16 Vancomycin HCl 125 mg PO Q6H 07/21/16 08/28/16 diphenhydrAMINE [Benadryl] 50 mg PO HS 07/21/16 08/28/16 Albuterol 2.5 mg INH Q6H PRN 08/28/16 08/28/16 Fluticasone [Flonase] 1 sprays AVIS BID 08/28/16 08/28/16 Naproxen Sodium [Aleve] 440 mg PO QID 08/28/16 08/28/16 Nystatin [Nystop] 1 applic TOP BID 08/28/16 08/28/16 Ranitidine HCl [Zantac] 300 mg PO BID 08/28/16 08/28/16 - Allergies Allergies/Adverse Reactions: Allergies Allergy/AdvReac Type Severity Reaction Status Date / Time latex Allergy Unknown Verified 07/21/16 07:26 nitrofurantoin AdvReac Intermediate Emesis Verified 07/21/16 07:26 macrocrystalline * [From Macrobid] - Social History Does the pt smoke?: No Smoking Status: Never smoker Does the pt drink ETOH?: Yes Does the pt have substance abuse?: No - Immunizations Immunizations are current?: Yes - POLST Patient has POLST: No PD ED PE NORMAL - Vitals Vital signs reviewed: Yes - General General: Other (obese female) - HEENT HEENT: PERRL, Moist mucous membranes - Neck Neck: Supple, no meningeal sign - Cardiac Cardiac: RRR - Respiratory Respiratory: No respiratory distress, Clear bilaterally - Abdomen Abdomen: Soft, Other (diffusely TTP. no peritoneal signs. no signs of infection around the ostomy) - Derm Derm: Warm and dry - Neuro Neuro: Other (follows commands) Results - Vitals Vitals: Vital Signs - 24 hr 08/28/16 08/28/16 08/28/16 12:54 13:04 14:36 Temperature 36.7 C Heart Rate 87 87 76 Respiratory 18 18 18 Rate Blood Pressure 109/80 115/69 111/66 O2 Saturation 95 93 93 Oxygen O2 Source Nasal cannula - Labs Labs: Laboratory Tests 08/28/16 08/28/16 08/28/16 13:07 13:07 13:07 WBC 9.5 RBC 3.54 L Hgb 10.7 L Hct 33.7 L MCV 95.3 MCH 30.3 MCHC 31.8 L RDW 17.2 H Plt Count 301 MPV 8.9 Neut # Not Reportable Lymph # Not Reportable [facility] # Not Reportable Eos # Not Reportable Baso # Not Reportable Absolute Nucleated RBC Not Reportable Total Counted 100 Band Neuts % (Manual) 9 Metamyelocytes % 2 H Neutrophils # (Manual) 6.7 H Lymphocytes # (Manual) 1.5 Monocytes # (Manual) 0.8 Eosinophils # (Manual) 0.3 Nucleated RBCs Not Reportable Differential Comment MANUAL DIFFERENTIAL WBC Morphology 1+ VACUOLATION Platelet Estimate NORMAL (130-450,000) Platelet Morphology NORMAL APPEARANCE RBC Morph Micro Appear 1+ HYPOCHROMASIA Sodium 145 Potassium 3.4 L Chloride 97 L Carbon Dioxide 40 H* Anion Gap 8.0 BUN 9 Creatinine 0.3 L Estimated GFR (MDRD) 234 Glucose 84 Glycated Hemoglobin Estim Average Glucose Lactic Acid 0.8 Calcium 8.4 L Total Bilirubin 0.4 AST 61 H ALT 71 H Alkaline Phosphatase 35 L Total Protein 5.7 L Albumin 3.3 Globulin 2.4 Albumin/Globulin Ratio 1.4 Lipase 16 L Urine Color Urine Clarity Urine pH Ur Specific [place] Urine Protein Urine Glucose (UA) Urine Ketones Urine Occult Blood Urine Nitrite Urine Bilirubin Urine Urobilinogen Ur Leukocyte Esterase Urine RBC Urine WBC Urine WBC Clumps Ur Squamous Epith Cells Urine Bacteria Urine Casts Urine Mucus Ur Microscopic Review Urine Culture Comments 08/28/16 08/28/16 13:17 14:05 WBC RBC Hgb Hct MCV MCH MCHC RDW Plt Count MPV Neut # Lymph # [place] # Eos # Baso # Absolute Nucleated RBC Total Counted Band Neuts % (Manual) Metamyelocytes % Neutrophils # (Manual) Lymphocytes # (Manual) Monocytes # (Manual) Eosinophils # (Manual) Nucleated RBCs Differential Comment WBC Morphology Platelet Estimate Platelet Morphology RBC Morph Micro Appear Sodium Potassium Chloride Carbon Dioxide Anion Gap BUN Creatinine Estimated GFR (MDRD) Glucose Glycated Hemoglobin 5.3 Estim Average Glucose 105 H Lactic Acid Calcium Total Bilirubin AST ALT Alkaline Phosphatase Total Protein Albumin Globulin Albumin/Globulin Ratio Lipase Urine Color YELLOW Urine Clarity CLEAR Urine pH 7.0 Ur Specific [place] >=1.030 H Urine Protein TRACE Urine Glucose (UA) NEGATIVE Urine Ketones TRACE Urine Occult Blood TRACE-INTA Urine Nitrite NEGATIVE Urine Bilirubin NEGATIVE Urine Urobilinogen 0.2 (NORMAL) Ur Leukocyte Esterase TRACE H Urine RBC 0-5 Urine WBC >25 H Urine WBC Clumps PRESENT Ur Squamous Epith Cells RARE Squamous Urine Bacteria Few Urine Casts 0-2 Fine Granular Urine Mucus Marked Strands Ur Microscopic Review INDICATED Urine Culture Comments INDICATED - Rads (name of study) cxr Radiology: Prelim report reviewed, EMP read contemporaneously, See rad report ( Limited examination secondary to patient body habitus. There is no cardiomegaly. Pulmonary vasculature is plethoric. No obvious focal infiltrate. No evidence of pneumothorax. ) CT abd/pelvis Radiology: Prelim report reviewed, EMP read contemporaneously, See rad report ( Stable mild cardiomegaly. Cholelithiasis. . Stable nonspecific wall thickening medial cecum with a stable 1.8 x 1.5 x 1.2 cm spiculated lesion/node in the adjacent mesentery. Differential is between malignant versus inflammatory process. ) PD MEDICAL DECISION MAKING - ED course Complexity details: reviewed old records, reviewed results, re-evaluated patient , considered differential, d/w family, d/w call center support consultant ED course: Patient is a 51-year-old female who presents to the emergency department with increasing weakness and altered mental status over the past few days. Has been being treated with ciprofloxacin for a UTI, does have a chronic catheter in place, unclear if this is colonization? No fever or white blood cell count elevation here. She does appear dehydrated and was given IV fluids. Did have some abdominal tenderness on examination today CT scan was performed without acute findings, though there does appear to be a spiculated mass that is stable from May and June of this year. Patient is also on palliative care at this time, they are discussing hospice. Given her change in mental status, I feel it is reasonable to place her in the hospital for further care to see if she improves and is able to return home. Discussed the case with Dr. Benitez, hospitalist who accepts This document was made in part using voice recognition software. While efforts are made to proofread this document, sound alike and grammatical errors may occur. Departure - Departure Disposition: 66 [facility] DC/Xfer Clinical Impression: Dehydration Altered mental status Qualifiers: Altered mental status type: unspecified Qualified Code(s): R41.82 - Altered mental status, unspecified Condition: Stable Discharge Date/Time: 08/28/16 16:31
[2016-08-28] MEDS ORDERED: SODIUM CHLORIDE 0.9% 1,000 ML IV ONE ×2 (13:45)
[2016-08-28 13:55] LABS: BAND NEUTROPHILS % (MANUAL) 9 %; EOSINOPHILS % (MANUAL) 3 %; LYMPHOCYTES % (MANUAL) 16 %; NEUTROPHILS % (MANUAL) 62 %; TOTAL CELLS COUNTED 100
[2016-08-28 13:57] LABS: NP AUTO DIFFERENTIAL? YES; NP MAN DIFFERENTIAL? NO; PLATELET ESTIMATE, MANUAL NORMAL (130-450,000) (NORMAL); PLATELET MORPHOLOGY NORMAL APPEARANCE (NORMAL); WBC MORPHOLOGY (MULTIPLE) 1+ VACUOLATION (NORMAL)
[2016-08-28 14:09] LABS: ALBUMIN/GLOBULIN RATIO 1.4 (1.0-2.2); BILIRUBIN,TOTAL 0.4 mg/dL (0.2-1.0); CALCIUM 8.4 mg/dL (8.5-10.3); CREATININE 0.3 mg/dL (0.4-1.0); POTASSIUM 3.4 mmol/L (3.5-5.0); TOTAL PROTEIN 5.7 g/dL (6.7-8.2)
[2016-08-28 14:18] LABS: BILIRUBIN,URINE NEGATIVE (NEGATIVE); UA w/ MICROSCOPIC CHARGE YES
[2016-08-28 14:26] LABS: UR CULTURE IF IND INDICATED; WBC,URINE >25 /HPF (0-5)
--- NOTE | 2016-08-28 15:39 | XRAY Report ---
EXAM: CHEST RADIOGRAPHY EXAM DATE: 08/28/2016 03:08 PM. CLINICAL HISTORY: Confusion. COMPARISON: 12/22/2015. TECHNIQUE: 1 view. FINDINGS: Lungs/Pleura: Lung volumes are low. Pulmonary vasculature is plethoric. No clear evidence of focal in filtrate. No large effusion or pneumothorax. Mediastinum: There is cardiomegaly. Superior mediastinal opacity may reflect prominent cervical vascu lature accentuated on this lordotic film. Other: None. IMPRESSION: Limited examination secondary to patient body habitus. There is no cardiomegaly. Pulmonar y vasculature is plethoric. No obvious focal infiltrate. No evidence of pneumothorax. [facility] Referring Provider Line: [phone] SITE ID: [id number]
--- NOTE | 2016-08-28 15:39 | XRAY Preliminary Report ---
Exam: XR Chest 1 View IMPRESSION: Limited examination secondary to patient body habitus. There is cardiomegaly. Pulmonary v asculature is plethoric. No obvious focal infiltrate. No evidence of pneumothorax. [facility] SITE ID: [id number]
[2016-08-28] MEDS ORDERED: diphenhydrAMINE 25 MG CAPSULE PO PRN (15:49)
[2016-08-28] MEDS ORDERED: PROCHLORPERAZINE 10 MG/2 ML VIAL IVP PRN (15:59)
--- NOTE | 2016-08-28 16:51 | CT Preliminary Report ---
Exam: CT Abdomen/Pelvis W/ IMPRESSION: 1. Stable mild primary. 2. Cholelithiasis. 3. Stable nonspecific wall thickening medial cecum with a stable 1.8 x 1.5 x 1.2 cm spiculated lesion /node in the adjacent mesentery. Differential is between malignant versus inflammatory process. [facility] SITE ID: [id number]
[2016-08-28 16:56] LABS: VBG PH 7.338 (7.31-7.41)
--- NOTE | 2016-08-28 17:02 | CT Report ---
EXAM: CT ABDOMEN AND PELVIS EXAM DATE: 08/28/2016 04:07 PM. CLINICAL HISTORY: Abdominal pain. COMPARISONS: 06/26/2016. 05/24/2016. TECHNIQUE: Routine helical CT imaging was performed through the abdomen and pelvis. IV contrast: 100 mL Isovue 300. Enteric contrast: No. Reconstructions: Coronal and sagittal. In accordance with CT protocol optimization, one or more of the following dose reduction techniques w ere utilized for this exam: automated exposure control, adjustment of mA and/or KV based on patient s ize, or use of iterative reconstructive technique. FINDINGS: Lung Bases: Stable mild cardiomegaly. Liver: Fatty infiltration. Gallbladder/Bile Ducts: Tiny gallstones. Normal caliber gallbladder. No biliary duct dilatation. Spleen: Normal. Pancreas: Normal. Adrenal Glands: Normal. Kidneys: Normal. No masses or hydronephrosis. Peritoneal Cavity/Bowel: Partial colectomy with right lower quadrant colostomy. Large and small bowel normal caliber. Diverticula off the colon. Stable 1.8 x 1.5 x 1.2 cm intermediate density spiculated lesion anterior to the cecum and terminal i leum, axial image 69 coronal image 23. Stable 8-15 mm nodular wall thickening medial aspect of the ce cum. Appendix not visualized. No free air nor free fluid. Pelvic Organs: No free fluid. Oseguera catheter within the decompressed urinary bladder. No adnexal mass lesions. Vasculature: No aneurysms or other significant abnormality. Bones: No significant abnormality. Other: None. IMPRESSION: 1. Stable mild cardiomegaly. 2. Cholelithiasis. 3. Stable nonspecific wall thickening medial cecum with a stable 1.8 x 1.5 x 1.2 cm spiculated lesion /node in the adjacent mesentery. Differential is between malignant versus inflammatory process. [facility] Referring Provider Line: [phone] SITE ID: [id number]
--- NOTE | 2016-08-28 17:20 | HISTORY & PHYSICAL EXAMINATION ---
Chief Complaint - Chief Complaint Chief Complaint: generalized weakness History of Present Illness - Admitted From Admitted From:: emergency department - History Obtained From Records Reviewed: yes History obtained from: patient and patient's daughter Exam Limitations: none - History of Present Illness HPI Comment/Other: Patient is a 51-year-old female with a past medical history significant for unspecified autoimmune connective tissue disorder that results in recurrent angioedema, morbid obesity, Clyde's syndrome, type II diabetes, hyperlipidemia , GERD, osteoporosis, multiple compression fractions with an acute pain, fibromyalgia, neurogenic bladder with chronic indwelling Nunes catheter, recurrent UTIs, colostomy placed for complications of diverticulitis and small bowel obstruction, migraines, depression, anxiety, OCD, claustrophobia, obstructive sleep apnea on CPAP at home oxygen, asthma, hypothyroidism, chronic anemia and history of DVT who presented to the emergency department with a chief complaint of generalized weakness. The patient was hospitalized here at [facility] just one month earlier she was discharged on 2016 after hospitalization for acute respiratory failure with hypoxia secondary to MRSA pneumonia of the bilateral lower lobes and C. difficile colitis. The patient has since been home and continue treatment for C. difficile which she states she's continued on vancomycin since the hospitalization. The patient states that she was in her normal state of health until just a few days ago when she began having increasing generalized weakness, fevers, decreased by mouth intake and increasing abdominal pain. She states that she thought she was just getting the flu however today her daughter called 911 as the patient was becoming increasingly lethargic and was barely able to get out of bed. The patient states the abdominal pain is mostly in right side near her colostomy she denies any increased output from the colostomy bag, diarrhea or nausea and vomiting. The patient denies any chest pain, shortness of air, orthopnea or PND. The patient was seen by her primary care physician 4 days ago and was diagnosed with a UTI at that time her urinalysis revealed Pseudomonas and she was placed on ciprofloxacin. The patient however has not had any improvement in symptoms despite being on Cipro for the last 3 days. On presentation to the emergency department the patient was afebrile, blood pressure was borderline low and vital signs were otherwise within normal limits. Initially the patient was quite lethargic and difficult to arouse but after she received some IV fluids and antibiotics she became more alert and was able to answer most of my questions although she would dose off at times. The patient's lab work did not reveal any leukocytosis she had a mild hypokalemia and mildly elevated liver enzymes otherwise her labs were within normal limits. The patient's urinalysis continued to show leukocyte Estrace and greater than 25 WBCs with a few bacteria. The patient was quite tender on examination of her abdomen therefore the emergency room physician ordered a CT of her abdomen and pelvis which revealed cholelithiasis with a stable nonspecific wall thickening of the medial cecum which was concerning for malignancy versus inflammatory process. The patient was admitted to the hospital for acute encephalopathy likely secondary to worsening urinary tract infection. Review of Systems - Constitutional Constitutional: reports: Fatigue, Fever, Chills, Weakness, Poor appetite. denies: Diaphoresis, Night sweats, Weight gain, Weight loss - Eyes Eyes: denies: Pain, Irritation, Amaurosis, Blurred vision, Spots in vision, Vision loss, Dipolpia - Ears, Nose & Throat Ears, Nose & Throat: denies: Ear pain, Hearing loss, Hearing aids, Tinnitus, Vertigo, Nasal pain, Nasal discharge, Nasal obstruction, Nasal congestion, Sore throat, Hoarseness - Cardiovascular Cariovascular: denies: Irregular heart rate, Palpitations, Chest pain, Lightheadedness, Syncope, Exertional dyspnea, Decr. exercise tolerance, Orthopnea - Respiratory Respiratory: denies: Cough, Sputum production, Wheezing, Orthopnea, SOB at rest , SOB with exertion, Pleuritic pain - Gastrointestinal Gastrointestinal: reports: Abdominal pain, Poor appetite. denies: Abdominal distention, Constipation, Diarrhea, Change in bowel habits, Black stools, Bloody stools, Nausea, Vomiting, Bile emesis, Oliver blood emesis, Coffee grounds emesis - Genitourinary Genitourinary: denies: Dysuria, Frequency, Urgency, Flank pain - Musculoskeletal Musculoskeletal: reports: Back pain. denies: Muscle pain, Muscle aches, Stiffness, Limited range of motion, Muscle weakness, Joint pain, Joint swelling - Integumentary Integumentary: denies: Rash, Pruritis, Lesions, Dryness, Nail changes - Neurological Neurological: reports: General weakness. denies: Focal weakness, Headache, Dizziness, Numbness, Slurred speech - Psychiatric Psychiatric: denies: Depression, Anxiety - Endocrine Endocrine: denies: Polyuria, Polydypsia, Intolerance to cold, Intolerance to heat - Hematologic/Lymphatic Hematologic/Lymphatic: reports: Recurrent infections. denies: Lymphadenopathy History - Past Medical History Cardiovascular: reports: Arrhythmia, Other Respiratory: reports: Asthma, Pneumonia, Sleep apnea, CPAP use Neuro: reports: TIA, Seizure disorder Endocrine/Autoimmune: reports: Type 2 diabetes, HyPOthyroidism, Other GI: reports: Other BANK VAULT ATTENDANT: reports: None : reports: Retention, Chronic bladder infection, Indwelling catheter HEENT: reports: Chronic hearing loss Psych: reports: Depression, Anxiety Musculoskeletal: reports: Osteoporosis Derm: reports: Other MRSA Hx?: Yes Other Past Medical History: unspecified autoimmune connective tissue disorder that results in recurrent angioedema, morbid obesity, Sumner's syndrome, type II diabetes, hyperlipidemia, GERD, osteoporosis, multiple compression fractions with an acute pain, fibromyalgia, neurogenic bladder with chronic indwelling Nunes catheter, recurrent UTIs, colostomy placed for complications of diverticulitis and small bowel obstruction, migraines, depression, anxiety, OCD , claustrophobia, obstructive sleep apnea on CPAP at home oxygen, asthma, hypothyroidism, chronic anemia and history of DVT - Past Surgical History General: reports: Cholecystectomy Ortho: reports: Spine surgery, Other /BANK VAULT ATTENDANT: reports: section, Hysterectomy - Family & Social History Family History Comment/Other: Both her parents have of unknown illnesses. Both of her sons have behavioral health issues. Her daughter is healthy and she has one sister who is healthy. There is no family history of autoimmune disease, diabetes, cancer. Living arrangement: At home Living Situation: With family Social History Notes: The patient is and is on disability. The patient lives with her daughter who is detrained audie provider. She has 2 sons that live nearby. Patient is not smoke tobacco drink alcohol or use any illicit drug. - Substance History Use: Uses substance without health or social issues: NONE Abuse: Recurrent use of substance despite neg consequences: NONE Dependence: Experiences withdrawal or developed tolerances: NONE - POLST Patient has POLST: No POLST Status: DNR Meds/Allgy - Home Medications Home Medications: Ambulatory Orders Medication Instructions Recorded Confirmed Fenofibrate 160 mg PO DAILY 07/09/12 08/28/16 Aspirin [Aspir-Low] 81 mg ORAL DAILY 04/13/15 08/28/16 Atorvastatin Calcium 20 mg PO QPM 04/13/15 08/28/16 Epinephrine [Epipen 2-Zachary] 1 syr IM ONCE PRN 04/13/15 08/28/16 Escitalopram Oxalate [Lexapro] 20 mg PO DAILY 04/13/15 08/28/16 Methadone HCl 12.5 mg PO QID 04/13/15 08/28/16 Metoprolol Tartrate 12.5 mg ORAL BID 04/13/15 08/28/16 Oxycodone HCl 30 mg ORAL Q3HR PRN MDD 9 ml 04/13/15 08/28/16 Tolterodine [Detrol LA] 2 mg PO BID 04/13/15 08/28/16 Vitamin B Complex Vit C No.4 1 tab ORAL DAILY 04/13/15 08/28/16 [Super B Complex] Acetaminophen [Tylenol Extra 1,000 mg PO Q4H PRN 12/29/15 08/28/16 Strength] Albuterol Sulfate [Proair Hfa 2 puffs INH Q6H PRN 12/29/15 08/28/16 Inhaler] Calcium Carbonate [Tums (Calcium 750 mg PO QID tablet 12/29/15 08/28/16 Carbonate 500mg)] Diphenhydramine HCl 25 - 75 mg PO PRN PRN 12/29/15 08/28/16 Docusate Sodium 100 mg PO DAILY PRN 12/29/15 08/28/16 Insulin Lispro [Humalog] 2 unit SUBQ PRN PRN 12/29/15 08/28/16 Metoclopramide [Reglan] 10 mg PO QID PRN 12/29/15 08/28/16 Multivitamin [Multiple Vitamins] 1 tab PO DAILY 12/29/15 08/28/16 Simethicone 180 mg PO DAILY 12/29/15 08/28/16 Sodium Chloride [Saline Mist] 1 spray NS TID PRN 12/29/15 08/28/16 Sumatriptan Succinate [Imitrex] 50 mg PO Q2H PRN MDD 100 MG 12/29/15 08/28/16 Cetirizine [ZyrTEC] 20 mg PO DAILY tablet 01/21/16 08/28/16 Acyclovir 200 mg PO BID 07/21/16 08/28/16 Diazepam [Diazepam] 5 mg PO QID PRN 07/21/16 08/28/16 Doxepin HCl 25 mg PO QPM 07/21/16 08/28/16 Esomeprazole Magnesium [Nexium] 40 mg PO QDAC 07/21/16 08/28/16 Guaifenesin 400 mg PO QID 07/21/16 08/28/16 Hydroxyzine Pamoate 100 mg PO DAILY 07/21/16 08/28/16 Loperamide [Imodium] 2 - 4 mg PO PRN PRN MDD 16 MG 07/21/16 08/28/16 Magnesium Oxide [Mag Ox] 400 mg PO DAILY 07/21/16 08/28/16 Methylprednisolone 4 mg PO BIDWM 07/21/16 08/28/16 Potassium Gluconate 99 mg PO DAILY 07/21/16 08/28/16 Vancomycin HCl 125 mg PO Q6H 07/21/16 08/28/16 diphenhydrAMINE [Benadryl] 50 mg PO HS 07/21/16 08/28/16 Albuterol 2.5 mg INH Q6H PRN 08/28/16 08/28/16 Fluticasone [Flonase] 1 sprays AVIS BID 08/28/16 08/28/16 Naproxen Sodium [Aleve] 440 mg PO QID 08/28/16 08/28/16 Nystatin [Nystop] 1 applic TOP BID 08/28/16 08/28/16 Ranitidine HCl [Zantac] 300 mg PO BID 08/28/16 08/28/16 - Allergies Allergies/Adverse Reactions: Allergies Allergy/AdvReac Type Severity Reaction Status Date / Time latex Allergy Unknown Verified 07/21/16 07:26 nitrofurantoin AdvReac Intermediate Emesis Verified 07/21/16 07:26 macrocrystalline * [From Macrobid] Exam - Vital Signs Reviewed Vital Signs: Yes Vital Signs: Vital Signs x48h Temp Pulse Resp BP Pulse Ox 08/28/16 16:53 37.2 C 81 16 107/75 92 - Physical Exam General Appearance: positive: Lethargic (Easily arousable), Other (Morbidly obese) Eyes Bilateral: positive: Normal inspection, PERRL, EOMI, No lid inflammation, Conjunctivae nml, No scleral icterus ENT: positive: ENT inspection nml, Pharynx nml, Dry mucous membranes. negative : Purulent nasal drainage, Pharyngeal erythema, Oral lesions Neck: positive: Nml inspection, Thyroid nml, No JVD, Trachea midline. negative : Thyromegaly, Lymphadenopathy (R), Lymphadenopathy (L), Carotid bruit, Tracheal deviation Respiratory: positive: Chest non-tender, No respiratory distress, Breath sounds nml. negative: Wheezes, Rales, Rhonchi Cardiovascular: positive: Regular rate & rhythm, No murmur, No gallop Peripheral Pulses: positive: 2+ Abdomen: positive: Tenderness (Diffuse, with guarding, no rebound.), Guarding, Other (Colostomy bag with formed stools). negative: Rebound, Hepatomegaly, Mass Back: positive: Nml inspection. negative: CVA tenderness (R), CVA tenderness (L ) Skin: positive: No rash, Warm. negative: Cyanosis, Pallor Extremities: positive: Non-tender, Full ROM, Nml appearance, Pedal edema. negative: Joint swelling Neurologic/Psychiatric: positive: Oriented x3, CN's nml (2-12), Motor nml, Sensation nml, Other (Drowsy) Conclusion/Plan - Problem List (1) Acute encephalopathy Conclusion/Plan: Likely secondary to UTI but could also be contribution from opioids as patient is on methadone and oxycodone at home, she could also have hypercapnea given the opioids in conjunction with history of JALYN and likely OHS. Will get ABG and hold opioids from now Treat UTI with IV abx and IVFs Monitor closely (2) UTI (urinary tract infection) Conclusion/Plan: Patient has indwelling nunes catheter with recurrent UTIs Presented with generalized weakness, fevers, chills, decreased appetite, abdominal pain and lethargy Was placed on cipro as an outpatient for pseudomonas UTI (cipro can also cause encephalopathy) Does not appear to be improving with cipro and was getting worse UA still positive Plan: Change nunes catheter IV cefepime Await repeat cx IVFs Qualifiers: Urinary tract infection type: site unspecified Hematuria presence: without hematuria Qualified Code(s): N39.0 - Urinary tract infection, site not specified (3) Abdominal pain Conclusion/Plan: Mostly tenderness which is diffuse CT abd pelvis negative aside from chronic finding of medial cecum wall thickening which is non specific and could represent inflammation vs malignancy Unlikely to be cause of pain Likely pain from UTI Patient has formed stools in colostomy Does not appear to have active signs of c diff Will monitor closely Give pain meds once mentation is better (4) Hypokalemia Conclusion/Plan: Replace K Chronic (5) Chronic pain Conclusion/Plan: Patient has chronic compression fx secondary to osteoporosis from chronic steroids and is on methadone and oxycodone at home Given her presentation with encephalopathy will hold narcotics till encehpalopathy clears before restarting Restart home meds once more alert and awake Qualifiers: Chronic pain type: chronic pain syndrome Qualified Code(s): G89.4 - Chronic pain syndrome (6) Clostridium difficile colitis Conclusion/Plan: She has been treated with PO vanco for over 1 month now and was still taking vanco at home does not know her stop date She appears to have well formed stools and no longer has signs of c diff Will stop vancomycin (7) Diabetes Conclusion/Plan: History of diabetes likely secondary to medical terminologist steroid use Place on sliding scale insulin Check HbA1C DM diet Qualifiers: Diabetes mellitus type: type 2 (8) JALYN on CPAP Conclusion/Plan: Continue home CPAP Get ABG to rule out possible hypercapnea as cause of encephalopathy (9) Prophylactic use of low molecular weight heparin for venous thromboembolism Conclusion/Plan: Place on lovenox while hospitalized - Lab Results Lab results reviewed: Yes Fish Bones: 08/28/16 13:07 08/28/16 13:07 Other Lab Results: Laboratory Results WBC 9.5 x10^3/uL (4.8-10.8) 08/28/16 13:07 RBC 3.54 10^6/uL (4.20-5.40) L 08/28/16 13:07 Hgb 10.7 g/dL (12.0-16.0) L 08/28/16 13:07 Hct 33.7 % (37.0-47.0) L 08/28/16 13:07 MCV 95.3 fL (81.0-99.0) 08/28/16 13:07 MCH 30.3 pg (27.0-31.0) 08/28/16 13:07 MCHC 31.8 g/dL (32.0-36.0) L 08/28/16 13:07 RDW 17.2 % (12.0-15.0) H 08/28/16 13:07 Plt Count 301 10^3/uL (130-450) 08/28/16 13:07 MPV 8.9 fL (7.9-10.8) 08/28/16 13:07 Neut # Not Reportable 08/28/16 13:07 Lymph # Not Reportable 08/28/16 13:07 Edgar # Not Reportable 08/28/16 13:07 Eos # Not Reportable 08/28/16 13:07 Baso # Not Reportable 08/28/16 13:07 Absolute Nucleated RBC Not Reportable 08/28/16 13:07 Total Counted 100 08/28/16 13:07 Band Neuts % (Manual) 9 % (0-10) 08/28/16 13:07 Metamyelocytes % 2 % (-0) H 08/28/16 13:07 Neutrophils # (Manual) 6.7 10^3/uL (1.5-6.6) H 08/28/16 13:07 Lymphocytes # (Manual) 1.5 10^3/uL (1.5-3.5) 08/28/16 13:07 Monocytes # (Manual) 0.8 10^3/uL (0.0-1.0) 08/28/16 13:07 Eosinophils # (Manual) 0.3 10^3/uL (0-0.7) 08/28/16 13:07 Nucleated RBCs Not Reportable 08/28/16 13:07 Differential Comment MANUAL DIFFERENTIAL 08/28/16 13:07 WBC Morphology 1+ VACUOLATION (NORMAL) 08/28/16 13:07 Platelet Estimate NORMAL (130-450,000) (NORMAL) 08/28/16 13:07 Platelet Morphology NORMAL APPEARANCE (NORMAL) 08/28/16 13:07 RBC Morph Micro Appear 2+ STOMATOCYTES (NORMAL) 1+ ANISOCYTOSIS (NORMAL) 1+ POLYCHROMASIA (NORMAL) 1+ BASO STIPPLING (NORMAL) 1+ HYPOCHROMASIA (NORMAL) 08/28/16 13:07 RBC Morph Micro Appear 2+ STOMATOCYTES (NORMAL) 1+ ANISOCYTOSIS (NORMAL) 1+ POLYCHROMASIA (NORMAL) 1+ BASO STIPPLING (NORMAL) 1+ HYPOCHROMASIA (NORMAL) 08/28/16 13:07 RBC Morph Micro Appear 2+ STOMATOCYTES (NORMAL) 1+ ANISOCYTOSIS (NORMAL) 1+ POLYCHROMASIA (NORMAL) 1+ BASO STIPPLING (NORMAL) 1+ HYPOCHROMASIA (NORMAL) 08/28/16 13:07 RBC Morph Micro Appear 2+ STOMATOCYTES (NORMAL) 1+ ANISOCYTOSIS (NORMAL) 1+ POLYCHROMASIA (NORMAL) 1+ BASO STIPPLING (NORMAL) 1+ HYPOCHROMASIA (NORMAL) 08/28/16 13:07 RBC Morph Micro Appear 2+ STOMATOCYTES (NORMAL) 1+ ANISOCYTOSIS (NORMAL) 1+ POLYCHROMASIA (NORMAL) 1+ BASO STIPPLING (NORMAL) 1+ HYPOCHROMASIA (NORMAL) 08/28/16 13:07 VBG pH 7.338 (7.31-7.41) 08/28/16 16:12 VBG pCO2 77.4 mmHg (41-51) H 08/28/16 16:12 VBG pO2 200.0 mmHg (25-47) H 08/28/16 16:12 VBG HCO3 41.6 mmol/L (23-28) H 08/28/16 16:12 VBG Total CO2 44.0 mmol/L (24-29) H 08/28/16 16:12 VBG O2 Saturation 100.0 % (60-80) H 08/28/16 16:12 VBG Base Excess 16.0 mmol/L (-2 - +2) H 08/28/16 16:12 Sodium 145 mmol/L (135-145) 08/28/16 13:07 Potassium 3.4 mmol/L (3.5-5.0) L 08/28/16 13:07 Chloride 97 mmol/L (101-111) L 08/28/16 13:07 Carbon Dioxide 40 mmol/L (21-32) H* 08/28/16 13:07 Anion Gap 8.0 (6-13) 08/28/16 13:07 BUN 9 mg/dL (6-20) 08/28/16 13:07 Creatinine 0.3 mg/dL (0.4-1.0) L 08/28/16 13:07 Estimated GFR (MDRD) 234 (>89) 08/28/16 13:07 Glucose 84 mg/dL (70-100) 08/28/16 13:07 Lactic Acid 0.8 mmol/L (0.5-2.2) 08/28/16 13:07 Calcium 8.4 mg/dL (8.5-10.3) L 08/28/16 13:07 Total Bilirubin 0.4 mg/dL (0.2-1.0) 08/28/16 13:07 AST 61 IU/L (10-42) H 08/28/16 13:07 ALT 71 IU/L (10-60) H 08/28/16 13:07 Alkaline Phosphatase 35 IU/L (42-121) L 08/28/16 13:07 Total Protein 5.7 g/dL (6.7-8.2) L 08/28/16 13:07 Albumin 3.3 g/dL (3.2-5.5) 08/28/16 13:07 Globulin 2.4 g/dL (2.1-4.2) 08/28/16 13:07 Albumin/Globulin Ratio 1.4 (1.0-2.2) 08/28/16 13:07 Lipase 16 U/L (22-51) L 08/28/16 13:07 Urine Color YELLOW 08/28/16 14:05 Urine Clarity CLEAR (CLEAR) 08/28/16 14:05 Urine pH 7.0 PH (5.0-7.5) 08/28/16 14:05 Ur Specific [place] >=1.030 (1.002-1.030) H 08/28/16 14:05 Urine Protein TRACE mg/dL (NEGATIVE) 08/28/16 14:05 Urine Glucose (UA) NEGATIVE mg/dL (NEGATIVE) 08/28/16 14:05 Urine Ketones TRACE mg/dL (NEGATIVE) 08/28/16 14:05 Urine Occult Blood TRACE-INTA (NEGATIVE) 08/28/16 14:05 Urine Nitrite NEGATIVE (NEGATIVE) 08/28/16 14:05 Urine Bilirubin NEGATIVE (NEGATIVE) 08/28/16 14:05 Urine Urobilinogen 0.2 (NORMAL) E.U./dL (NORMAL) 08/28/16 14:05 Ur Leukocyte Esterase TRACE (NEGATIVE) H 08/28/16 14:05 Urine RBC 0-5 /HPF (0-5) 08/28/16 14:05 Urine WBC >25 /HPF (0-5) H 08/28/16 14:05 Urine WBC Clumps PRESENT 08/28/16 14:05 Ur Squamous Epith Cells RARE Squamous (<= Few) 08/28/16 14:05 Urine Bacteria Few /HPF (None Seen) 08/28/16 14:05 Urine Casts 0-2 Fine Granular /LPF 08/28/16 14:05 Urine Mucus Marked Strands 08/28/16 14:05 Ur Microscopic Review INDICATED 08/28/16 14:05 Urine Culture Comments INDICATED 08/28/16 14:05 - Diagnostic Imaging Results Diagnostic Imaging Results: positive: Final report reviewed - EKG Results EKG Interpreted Independently: Yes Issues/Core Measures - Anticipated LOS Anticipated Stay Length: 2 or more midnights - DVT/VTE - Prophylaxis VTE/DVT Prophylaxis med ordered at admit?: Yes
[2016-08-28] MEDS: INSULIN ASPART 300 UNIT/3 ML PEN SUBQ SCH ×2 (17:36→20:56)
[2016-08-28 18:31] LABS: ABG ANALYSIS TIME 1755; ABG PH 7.39 (7.35-7.45)
[2016-08-28 18:32] LABS: ABG HCO3 40.9 mmol/L (22.0-26.0)
[2016-08-28 18:33] LABS: ABG O2 DEVICE NASAL CANNULA; ABG SITE OF DRAW LEFT BRACHIAL; ALLEN TEST POSITIVE
[2016-08-28 18:35] LABS: ABG PCO2 68 mmHg (34-45)
[2016-08-28] MEDS: CALCIUM CARBONATE CHEW 500 MG TABLET PO SCH ×2 (18:52→20:58)
[2016-08-28] MEDS: methylPREDNISolone 4 MG TABLET PO SCH (18:52)
[2016-08-28] MEDS: CEFEPIME 2 GM in SODIUM CHLORIDE 0.9% MINIBAG 100 ML IV SCH (18:52)
[2016-08-28 19:17] LABS: HEMOGLOBIN A1C 0.39 g/dL
[2016-08-28] MEDS ORDERED: HALOPERIDOL 5 MG/ML VIAL IM ONE (19:51)
[2016-08-28] MEDS ORDERED: HALOPERIDOL 5 MG/ML VIAL ONE (19:53)
[2016-08-28] MEDS ORDERED: HALOPERIDOL 5 MG/ML VIAL IM SCH ×2 (20:08→20:51)
[2016-08-28] MEDS ORDERED: HALOPERIDOL 5 MG/ML VIAL IM STA (20:28)
[2016-08-28] MEDS: NYSTATIN POWDER 15 GM TOP SCH (20:57)
[2016-08-28] MEDS: SODIUM CHLORIDE FLUSH 0.9% 10 ML SYRINGE IVP SCH (20:57)
[2016-08-28] MEDS: METOPROLOL TARTRATE 25 MG TABLET PO SCH (20:58)
[2016-08-28] MEDS: ATORVASTATIN 10 MG TABLET PO SCH (20:58)
[2016-08-28] MEDS: TOLTERODINE LA 2 MG CAPSULE PO SCH (20:58)
[2016-08-28] MEDS: FLUTICASONE NASAL SPRAY NAS SCH (20:58)
[2016-08-28] MEDS: ACYCLOVIR 200 MG CAPSULE PO SCH (20:58)
[2016-08-28] MEDS: FAMOTIDINE 20 MG/50 ML 50 ML IV SCH (22:51)
[2016-08-28] MEDS: SODIUM CHLORIDE 0.9% 1,000 ML IV SCH (22:51)
[2016-08-28] MEDS: ACETAMINOPHEN 325 MG TABLET PO PRN (23:57)
[2016-08-29] MEDS: diazePAM 5 MG TABLET PO PRN ×2 (01:33→08:23)
[2016-08-29] MEDS: CEFEPIME 2 GM in SODIUM CHLORIDE 0.9% MINIBAG 100 ML IV SCH ×2 (05:39→19:01)
[2016-08-29] MEDS: SODIUM CHLORIDE FLUSH 0.9% 10 ML SYRINGE IVP SCH ×3 (05:52→20:56)
[2016-08-29 06:28] LABS: BASOPHILS # (AUTO) 0.1 10^3/uL (0.0-0.1); BASOPHILS % (AUTO) 0.6 %; EOSINOPHILS # (AUTO) 0.2 10^3/uL (0.0-0.7); EOSINOPHILS % (AUTO) 2.1 %; HCT - HEMATOCRIT 29.7 % (37.0-47.0); HGB - HEMOGLOBIN 9.5 g/dL (12.0-16.0); LYMPHOCYTES # (AUTO) 1.5 10^3/uL (1.5-3.5); LYMPHOCYTES % (AUTO) 15.8 %; MEAN CORPUSCULAR HEMOGLOBIN 30.5 pg (27.0-31.0); MEAN CORPUSCULAR HGB CONC 32.1 g/dL (32.0-36.0); MEAN CORPUSCULAR VOLUME 95.2 fL (81.0-99.0); MEAN PLATELET VOLUME 8.7 fL (7.9-10.8); MONOCYTES # (AUTO) 0.8 10^3/uL (0.0-1.0); MONOCYTES % (AUTO) 8.6 %; NEUTROPHILS % (AUTO) 72.9 %; RED BLOOD COUNT 3.12 10^6/uL (4.20-5.40); RED CELL DISTRIBUTION WIDTH 16.7 % (12.0-15.0); UNCORRECTED WHITE BLOOD COUNT 9.6 x10^3/uL; WHITE BLOOD COUNT 9.6 x10^3/uL (4.8-10.8)
[2016-08-29 06:43] LABS: ALBUMIN/GLOBULIN RATIO 1.4 (1.0-2.2); BILIRUBIN,TOTAL 0.5 mg/dL (0.2-1.0); BUN - BLOOD UREA NITROGEN 7 mg/dL (6-20); CALCIUM 8.3 mg/dL (8.5-10.3); CARBON DIOXIDE - CO2 30 mmol/L (21-32); CHLORIDE 102 mmol/L (101-111); CREATININE 0.3 mg/dL (0.4-1.0); GFR - MDRD 234 (>89); GLUCOSE 85 mg/dL (70-100); MAGNESIUM 1.3 mg/dL (1.7-2.8); POTASSIUM 2.8 mmol/L (3.5-5.0); SODIUM 140 mmol/L (135-145); TOTAL PROTEIN 5.2 g/dL (6.7-8.2)
[2016-08-29 06:44] LABS: PHOSPHORUS < 1.0 mg/dL (2.5-4.6)
[2016-08-29 06:59] LABS: NP AUTO DIFFERENTIAL? NO; NP MAN DIFFERENTIAL? YES; PLATELET ESTIMATE, MANUAL NORMAL (130-450,000) (NORMAL); PLATELET MORPHOLOGY NORMAL APPEARANCE (NORMAL)
[2016-08-29] MEDS: INSULIN ASPART 300 UNIT/3 ML PEN SUBQ SCH ×3 (08:48→16:53)
[2016-08-29] MEDS: FAMOTIDINE 20 MG/50 ML 50 ML IV SCH ×2 (09:04→20:52)
[2016-08-29] MEDS ORDERED: MAGNESIUM SULFATE 2 GRAM 50 ML IV ONE (09:30)
[2016-08-29] MEDS ORDERED: POTASSIUM PHOSPHATE 21 MMOL in SODIUM CHLORIDE 0.9% 250 ML IV ONE (09:30)
[2016-08-29] MEDS: HYDROmorphone 1 MG/ML CARPUJECT IVP PRN ×2 (09:55→12:46)
[2016-08-29] MEDS: POTASSIUM CHLOR 10 MEQ/100 ML 100 ML IV SCH ×6 (10:48→16:54)
[2016-08-29] MEDS: TOLTERODINE LA 2 MG CAPSULE PO SCH ×2 (11:15→20:52)
[2016-08-29] MEDS: METHADONE 5 MG TABLET PO SCH ×4 (11:15→20:53)
[2016-08-29] MEDS: ESCITALOPRAM 10 MG TABLET PO SCH (11:16)
[2016-08-29] MEDS: ACYCLOVIR 200 MG CAPSULE PO SCH ×2 (11:16→20:52)
[2016-08-29] MEDS: SIMETHICONE CHEW 80 MG TABLET PO SCH (11:16)
[2016-08-29] MEDS: METOPROLOL TARTRATE 25 MG TABLET PO SCH ×2 (11:17→20:53)
[2016-08-29] MEDS: methylPREDNISolone 4 MG TABLET PO SCH ×2 (11:17→16:47)
[2016-08-29] MEDS: MULTIVITAMIN TABLET PO SCH (11:17)
[2016-08-29] MEDS: FENOFIBRATE 48 MG TABLET PO SCH (11:18)
[2016-08-29] MEDS: FLUTICASONE NASAL SPRAY NAS SCH ×2 (11:19→20:55)
[2016-08-29] MEDS: CALCIUM CARBONATE CHEW 500 MG TABLET PO SCH ×4 (11:19→20:52)
[2016-08-29] MEDS: ASPIRIN EC 81 MG TABLET PO SCH (11:19)
[2016-08-29] MEDS: POLYETHYLENE GLYCOL 3350 17 GM PACKET PO SCH (11:20)
[2016-08-29] MEDS: NYSTATIN POWDER 15 GM TOP SCH ×2 (11:20→20:56)
[2016-08-29] MEDS: ENOXAPARIN 40 MG/0.4 ML SYRINGE SUBQ SCH (13:54)
[2016-08-29] MEDS: LORazepam 2 MG/ML SYRINGE IVP PRN (14:04)
[2016-08-29] MEDS: SODIUM CHLORIDE 0.9% 1,000 ML IV SCH (15:46)
[2016-08-29] MEDS: oxyCODONE 10 MG/0.5 ML SYRINGE PO PRN ×2 (16:46→23:15)
[2016-08-29] MEDS ORDERED: POTASSIUM CHLOR 10 MEQ/100 ML 100 ML IV ONE (17:07)
--- NOTE | 2016-08-29 18:32 | PROVIDER PROGRESS NOTE ---
Assessment/Plan - Problem List (1) Acute encephalopathy Assessment/Plan: Appears to be secondary to UTI Improving slowly with IVFs and IV abx CT head negative for acute stroke or mass and showed stable mastoid effusion and sphenoid sinusitis ABG showed chronic hypercapnia (2) UTI (urinary tract infection) Conclusion/Plan: Patient has indwelling nunes catheter with recurrent UTIs Presented with generalized weakness, fevers, chills, decreased appetite, abdominal pain and lethargy Was placed on cipro as an outpatient for pseudomonas UTI (cipro can also cause encephalopathy) Repeat UA positive Urine cx pending Continue IV cefepime Mental status improving slowly Qualifiers: Urinary tract infection type: site unspecified Hematuria presence: without hematuria Qualified Code(s): N39.0 - Urinary tract infection, site not specified (3) Abdominal pain Conclusion/Plan: Mostly tenderness which is diffuse CT abd pelvis negative aside from chronic finding of medial cecum wall thickening which is non specific and could represent inflammation vs malignancy Unlikely to be cause of pain Likely pain from UTI Patient initially had formed stools in colostomy now stools are less formed and she has electrolyte disturbances Will check for C diff and stool cx Will monitor closely (4) Hypokalemia Conclusion/Plan: K is 2.8 this am Replace K with K riders (5) Hypophosphatemia Conclusion/Plan: Replace IV Phos (6) Hypomagnesemia Conclusion/Plan: Replace IV Mag (7) Chronic pain Conclusion/Plan: Restarted home methadone and oxycodone this am Dilaudid for breakthrough pain Qualifiers: Chronic pain type: chronic pain syndrome Qualified Code(s): G89.4 - Chronic pain syndrome (8) Clostridium difficile colitis Conclusion/Plan: She has been treated with PO vanco for over 1 month now and was still taking vanco at home does not know her stop date Stools were initially well formed so PO vanco stopped This afternoon stools less formed Will recheck c diff pcr if still positive will restart PO vanco (9) Diabetes Conclusion/Plan: History of diabetes likely secondary to fdc steroid use HbA1C is 5.3 Stop DM diet and SS insulin Qualifiers: Diabetes mellitus type: type 2 (10) JALYN on CPAP Conclusion/Plan: Continue home CPAP Chronic hypercapnia (11) Prophylactic use of low molecular weight heparin for venous thromboembolism Conclusion/Plan: Place on lovenox while hospitalized - Current Meds Current Meds: Current Medications Generic Name Dose Route Start Last Admin Trade Name Freq PRN Reason Stop Dose Admin Acetaminophen 650 mg 08/28/16 15:59 08/28/16 23:57 Tylenol PO 650 mg Q4HR PRN Administration Pain 1 to 4 Acyclovir 200 mg 08/28/16 21:00 08/29/16 11:16 Zovirax PO 200 mg BID JAVIER Administration Aspirin 81 mg 08/29/16 09:00 08/29/16 11:19 Ecotrin PO 81 mg DAILY JAVIER Administration Atorvastatin Calcium 20 mg 08/28/16 21:00 08/28/16 20:58 Lipitor PO Not Given QPM JAVIER Calcium Carbonate/Glycine 750 mg 08/28/16 17:00 08/29/16 16:46 Tums PO 750 mg QID JAVIER Administration Diazepam 5 mg 08/28/16 15:49 08/29/16 08:23 Valium PO 5 mg QID PRN Administration Spasms Enoxaparin Sodium 40 mg 08/29/16 09:00 08/29/16 13:54 Lovenox SUBQ 40 mg DAILY JAVIER Administration Escitalopram Oxalate 20 mg 08/29/16 09:00 08/29/16 11:16 Lexapro PO 20 mg DAILY JAVIER Administration Fenofibrate 144 mg 08/29/16 09:00 08/29/16 11:18 Tricor PO 144 mg DAILY JAVIER Administration Fluticasone Propionate 1 sprays 08/28/16 21:00 08/29/16 11:19 Flonase AVIS 1 spr BID JAVIER Administration Hydromorphone HCl 1 mg 08/29/16 09:47 08/29/16 12:46 Dilaudid Inj IVP 1 mg Q2HR PRN Administration PAIN Sodium Chloride 1,000 mls @ 100 mls/hr 08/28/16 17:00 08/29/16 15:46 Normal Saline 0.9% IV Not Given .Q10H JAVIER Cefepime HCl 2 gm/ Sodium 100 mls @ 200 mls/hr 08/28/16 18:00 08/29/16 05:39 Chloride IV 200 mls/hr Q12H JAVIER Administration Famotidine 50 mls @ 100 mls/hr 08/28/16 21:00 08/29/16 09:04 Pepcid 20 Mg/50 Ml IV 100 mls/hr BID JAVIER Administration Insulin Aspart 1 - 5 unit 08/28/16 17:00 08/29/16 16:53 Novolog SUBQ Not Given 0800,1200,1700,2100 [facility] Protocol Lorazepam 1 mg 08/29/16 12:48 08/29/16 14:04 Ativan Inj IVP 1 mg Q2HR PRN Administration Anxiety Methadone HCl 12.5 mg 08/29/16 10:00 08/29/16 16:48 PO 12.5 mg QID JAVIER Administration Methylprednisolone 4 mg 08/28/16 17:00 08/29/16 16:47 Medrol PO 4 mg BIDWM JAVIER Administration Metoprolol Tartrate 12.5 mg 08/28/16 21:00 08/29/16 11:17 Lopressor PO 12.5 mg BID JAVIER Administration Multivitamins 1 tab 08/29/16 08:00 08/29/16 11:17 Theragran PO 1 tab DAILYWM JAVIER Administration Nystatin 1 applic 08/28/16 21:00 08/29/16 11:20 Nystop TOP 1 applic BID JAVIER Administration Oxycodone HCl 30 mg 08/29/16 09:47 08/29/16 16:46 Roxicodone Oral Soln PO 30 mg Q3HR PRN Administration breakthrough pain Polyethylene Glycol 17 gm 08/29/16 09:00 08/29/16 11:20 Miralax PO Not Given DAILY JAVIER Prochlorperazine Edisylate 10 mg 08/28/16 15:59 08/29/16 10:48 Compazine Inj IVP 10 mg Q6HR PRN Administration Nausea / Vomiting Simethicone 160 mg 08/29/16 09:00 08/29/16 11:16 Mylicon PO 160 mg DAILY JAVIER Administration Sodium Chloride 10 ml 08/28/16 22:00 08/29/16 13:38 Normal Saline Flush 0.9% IVP Not Given Q8HR JAVIER Tolterodine Tartrate 2 mg 08/28/16 21:00 08/29/16 11:15 Detrol La PO 2 mg BID JAVIER Administration - Lab Result Lab results reviewed: Yes Fish Bone Diagrams: 08/29/16 06:18 08/29/16 06:18 - EKG Results EKG Interpreted Independently: Yes - Diagnostic Imaging Results Diagnostic Imaging Results: Final report reviewed - Additional Planning Condition/Complexity: Guarded My Orders: My Active Orders 08/28/16 18:00 Cefepime 2 gm Sodium Chloride 0.9% Minibag [Normal Saline 0.9% Minibag] 100 ml IV Q12H 08/28/16 20:28 Restraints [RC] Q24H 08/29/16 Palliative Care Consult [CONS] Routine C. DIFF BY PCR [RAPID] Urgent CULTURE, STOOL [RM] Urgent FECAL LEUKOCYTES (EZ CALEB) Urgent 08/29/16 09:00 Simethicone [Mylicon] 160 mg PO DAILY 08/29/16 09:47 HYDROmorphone INJ [Dilaudid Inj] 1 mg IVP Q2HR PRN oxyCODONE ORAL SOLN [Roxicodone Oral Soln] 30 mg PO Q3HR PRN 08/29/16 10:00 Methadone 12.5 mg PO QID 08/29/16 12:48 LORazepam INJ [Ativan Inj] 1 mg IVP Q2HR PRN Consult/Specialty: Other (Palliative) Plan Discussed with:: Patient, Family Time Spent: 31-60 minutes Subjective - Subjective Patient Reports: Other (Patient more awake this am and less combative or agitated. She can tell me her name and later in afternoon could also tell me that she is in the hospital. She is slowly improving. Continues to have back pain. Denies any fevers.) Nursing Reports: No Complaints Objective Vital Signs: Vital Signs - 24 hr 08/28/16 08/29/16 08/29/16 23:34 08:24 15:35 Temperature 37.1 C 36.7 C 37.3 C Heart Rate [ 75 Brachial] Heart Rate [ 67 80 Radial] Respiratory 18 18 18 Rate Blood Pressure 148/73 H 131/76 H 154/84 H [Right Radial artery] O2 Saturation 95 96 94 Oxygen O2 Source Nasal cannula I&O (Last 24 Hrs): Intake and Output Totals x24h 08/27/16 08/28/16 08/29/16 23:59 23:59 23:59 Intake Total 1008 1466 Output Total 825 1950 Balance 183 -484 General: Alert, Mild distress (Drowsy but arousable and knows her name and where she is, slow to process and answer questions), Other (Morbidly obese) HEENT: Atraumatic, PERRLA, EOMI, Other (dry mucus membranes) Neck: Supple, No JVD, +2 carotid pulse wo bruit, No LAD Lymphatic: no adenopathy Neuro: Alert, Disoriented, Non Focal, CN 2-12 Grossly Intact, Other (A&Ox2) Cardiovascular: Regular rate, Normal S1, Normal S2, No murmurs Respiratory: Chest non-tender, No respiratory distress Abdomen: Soft, No hepatospenomegaly, Other (Mild tenderness, diffuse) Extremities: No clubbing, No cyanosis, Normal pulses, Other (Bilateral edema) Skin: No rashes, No breakdown - Results Results: Laboratory Results WBC 9.6 x10^3/uL (4.8-10.8) 08/29/16 06:18 RBC 3.12 10^6/uL (4.20-5.40) L 08/29/16 06:18 Hgb 9.5 g/dL (12.0-16.0) L 08/29/16 06:18 Hct 29.7 % (37.0-47.0) L 08/29/16 06:18 MCV 95.2 fL (81.0-99.0) 08/29/16 06:18 MCH 30.5 pg (27.0-31.0) 08/29/16 06:18 MCHC 32.1 g/dL (32.0-36.0) 08/29/16 06:18 RDW 16.7 % (12.0-15.0) H 08/29/16 06:18 Plt Count 220 10^3/uL (130-450) 08/29/16 06:18 MPV 8.7 fL (7.9-10.8) 08/29/16 06:18 Neut # 7.0 10^3/uL (1.5-6.6) H 08/29/16 06:18 Lymph # 1.5 10^3/uL (1.5-3.5) 08/29/16 06:18 Citrus # 0.8 10^3/uL (0.0-1.0) 08/29/16 06:18 Eos # 0.2 10^3/uL (0.0-0.7) 08/29/16 06:18 Baso # 0.1 10^3/uL (0.0-0.1) 08/29/16 06:18 Absolute Nucleated RBC 0.00 x10^3/uL 08/29/16 06:18 Total Counted 100 08/28/16 13:07 Band Neuts % (Manual) Not Reportable 08/29/16 06:18 Metamyelocytes % 2 % (-0) H 08/28/16 13:07 Neutrophils # (Manual) 6.7 10^3/uL (1.5-6.6) H 08/28/16 13:07 Lymphocytes # (Manual) 1.5 10^3/uL (1.5-3.5) 08/28/16 13:07 Monocytes # (Manual) 0.8 10^3/uL (0.0-1.0) 08/28/16 13:07 Eosinophils # (Manual) 0.3 10^3/uL (0-0.7) 08/28/16 13:07 Nucleated RBCs 0.0 /100WBC 08/29/16 06:18 Differential Comment MANUAL=AUTO DIFF 08/29/16 06:18 WBC Morphology 1+ VACUOLATION (NORMAL) 08/28/16 13:07 Platelet Estimate NORMAL (130-450,000) (NORMAL) 08/29/16 06:18 Platelet Morphology NORMAL APPEARANCE (NORMAL) 08/29/16 06:18 RBC Morph Micro Appear 2+ STOMATOCYTES (NORMAL) 1+ ANISOCYTOSIS (NORMAL) 1+ POLYCHROMASIA (NORMAL) 1+ BASO STIPPLING (NORMAL) 1+ HYPOCHROMASIA (NORMAL) 08/28/16 13:07 RBC Morph Micro Appear 2+ STOMATOCYTES (NORMAL) 1+ ANISOCYTOSIS (NORMAL) 1+ POLYCHROMASIA (NORMAL) 1+ BASO STIPPLING (NORMAL) 1+ HYPOCHROMASIA (NORMAL) 08/28/16 13:07 RBC Morph Micro Appear 2+ STOMATOCYTES (NORMAL) 1+ ANISOCYTOSIS (NORMAL) 1+ POLYCHROMASIA (NORMAL) 1+ BASO STIPPLING (NORMAL) 1+ HYPOCHROMASIA (NORMAL) 08/28/16 13:07 RBC Morph Micro Appear 2+ STOMATOCYTES (NORMAL) 1+ ANISOCYTOSIS (NORMAL) 1+ POLYCHROMASIA (NORMAL) 1+ BASO STIPPLING (NORMAL) 1+ HYPOCHROMASIA (NORMAL) 08/28/16 13:07 RBC Morph Micro Appear NORMAL APPEARANCE (NORMAL) 08/29/16 06:18 Bld Gas Analysis Time 1755 08/28/16 17:50 Sample Site LEFT BRACHIAL 08/28/16 17:50 ABG pH 7.39 (7.35-7.45) 08/28/16 17:50 ABG pCO2 68 mmHg (34-45) H* 08/28/16 17:50 ABG pO2 mmHg (80-100) 08/28/16 17:50 ABG HCO3 40.9 mmol/L (22.0-26.0) H 08/28/16 17:50 ABG Total CO2 43.0 MMOL/L (21.0-29.0) H* 08/28/16 17:50 ABG O2 Saturation % (94-98) 08/28/16 17:50 ABG Base Excess 16.0 mmol/L (-2.0-3.0) H 08/28/16 17:50 Babar Test POSITIVE 08/28/16 17:50 VBG pH 7.338 (7.31-7.41) 08/28/16 16:12 VBG pCO2 77.4 mmHg (41-51) H 08/28/16 16:12 VBG pO2 200.0 mmHg (25-47) H 08/28/16 16:12 VBG HCO3 41.6 mmol/L (23-28) H 08/28/16 16:12 VBG Total CO2 44.0 mmol/L (24-29) H 08/28/16 16:12 VBG O2 Saturation 100.0 % (60-80) H 08/28/16 16:12 VBG Base Excess 16.0 mmol/L (-2 - +2) H 08/28/16 16:12 O2 Delivery Device NASAL CANNULA 08/28/16 17:50 O2 Liters/Min 3.50 LPM 08/28/16 17:50 Sodium 140 mmol/L (135-145) 08/29/16 06:18 Potassium 2.8 mmol/L (3.5-5.0) L 08/29/16 06:18 Chloride 102 mmol/L (101-111) 08/29/16 06:18 Carbon Dioxide 30 mmol/L (21-32) 08/29/16 06:18 Anion Gap 8.0 (6-13) 08/29/16 06:18 BUN 7 mg/dL (6-20) 08/29/16 06:18 Creatinine 0.3 mg/dL (0.4-1.0) L 08/29/16 06:18 Estimated GFR (MDRD) 234 (>89) 08/29/16 06:18 Glucose 85 mg/dL (70-100) 08/29/16 06:18 Glycated Hemoglobin 5.3 % (4.6-6.2) 08/28/16 13:17 Estim Average Glucose 105 (70-100) H 08/28/16 13:17 Lactic Acid 0.9 mmol/L (0.5-2.2) 08/29/16 06:18 Calcium 8.3 mg/dL (8.5-10.3) L 08/29/16 06:18 Phosphorus < 1.0 mg/dL (2.5-4.6) L* 08/29/16 06:18 Magnesium 1.3 mg/dL (1.7-2.8) L 08/29/16 06:18 Total Bilirubin 0.5 mg/dL (0.2-1.0) 08/29/16 06:18 AST 55 IU/L (10-42) H 08/29/16 06:18 ALT 63 IU/L (10-60) H 08/29/16 06:18 Alkaline Phosphatase 29 IU/L (42-121) L 08/29/16 06:18 Total Protein 5.2 g/dL (6.7-8.2) L 08/29/16 06:18 Albumin 3.0 g/dL (3.2-5.5) L 08/29/16 06:18 Globulin 2.2 g/dL (2.1-4.2) 08/29/16 06:18 Albumin/Globulin Ratio 1.4 (1.0-2.2) 08/29/16 06:18 Lipase 16 U/L (22-51) L 08/28/16 13:07 TSH 1.55 uIU/mL (0.34-5.60) 08/29/16 06:18 Urine Color YELLOW 08/28/16 14:05 Urine Clarity CLEAR (CLEAR) 08/28/16 14:05 Urine pH 7.0 PH (5.0-7.5) 08/28/16 14:05 Ur Specific [place] >=1.030 (1.002-1.030) H 08/28/16 14:05 Urine Protein TRACE mg/dL (NEGATIVE) 08/28/16 14:05 Urine Glucose (UA) NEGATIVE mg/dL (NEGATIVE) 08/28/16 14:05 Urine Ketones TRACE mg/dL (NEGATIVE) 08/28/16 14:05 Urine Occult Blood TRACE-INTA (NEGATIVE) 08/28/16 14:05 Urine Nitrite NEGATIVE (NEGATIVE) 08/28/16 14:05 Urine Bilirubin NEGATIVE (NEGATIVE) 08/28/16 14:05 Urine Urobilinogen 0.2 (NORMAL) E.U./dL (NORMAL) 08/28/16 14:05 Ur Leukocyte Esterase TRACE (NEGATIVE) H 08/28/16 14:05 Urine RBC 0-5 /HPF (0-5) 08/28/16 14:05 Urine WBC >25 /HPF (0-5) H 08/28/16 14:05 Urine WBC Clumps PRESENT 08/28/16 14:05 Ur Squamous Epith Cells RARE Squamous (<= Few) 08/28/16 14:05 Urine Bacteria Few /HPF (None Seen) 08/28/16 14:05 Urine Casts 0-2 Fine Granular /LPF 08/28/16 14:05 Urine Mucus Marked Strands 08/28/16 14:05 Ur Microscopic Review INDICATED 08/28/16 14:05 Urine Culture Comments INDICATED 08/28/16 14:05 - Procedures Procedures: Procedures INSERTION OF INFUSION DEV INTO INF VENA CAVA, PERC APPROACH (12/22/15) TRANSFUSE NONAUT RED BLOOD CELLS IN PERIPH VEIN, PERC (07/21/16)
--- NOTE | 2016-08-29 18:47 | CT Report ---
CT BRAIN WITHOUT CONTRAST: 08/29/2016 CLINICAL INDICATION: Altered mental status. Axial CT images of the brain were obtained without intravenous contrast. In accordance with CT protocol optimization, one or more of the following dose reduction techniques w ere utilized for this exam: automated exposure control, adjustment of mA and/or KV based on patient size, or use of iterative reconstructive technique. COMPARISON: 12/22/2015 The ventricles and sulci again demonstrate symmetric enlargement, compatible with atrophy. The basil ar cisterns are patent. There is no evidence of hemorrhage, mass effect, or midline shift. Diffuse mastoid opacification is stable from previous. Air-fluid levels are again seen in the sphenoid sinus , compatible with sinusitis. IMPRESSION: STABLE ATROPHY. NO EVIDENCE OF HEMORRHAGE OR MASS EFFECT. STABLE MASTOID EFFUSIONS AND SPHENOID SINUS DISEASE. JOB #: [id number] EXT JOB #:[id number]
[2016-08-29] MEDS: ATORVASTATIN 10 MG TABLET PO SCH (20:52)
[2016-08-30] MEDS: SODIUM CHLORIDE FLUSH 0.9% 10 ML SYRINGE IVP SCH ×3 (05:54→20:22)
[2016-08-30] MEDS: CEFEPIME 2 GM in SODIUM CHLORIDE 0.9% MINIBAG 100 ML IV SCH ×2 (05:54→20:13)
[2016-08-30 06:24] LABS: BASOPHILS % (AUTO) 0.5 %; HCT - HEMATOCRIT 34.4 % (37.0-47.0); HGB - HEMOGLOBIN 10.8 g/dL (12.0-16.0); LYMPHOCYTES % (AUTO) 19.1 %; MEAN CORPUSCULAR HEMOGLOBIN 29.6 pg (27.0-31.0); MEAN CORPUSCULAR HGB CONC 31.2 g/dL (32.0-36.0); MEAN CORPUSCULAR VOLUME 94.6 fL (81.0-99.0); MEAN PLATELET VOLUME 8.8 fL (7.9-10.8); MONOCYTES % (AUTO) 9.5 %; NEUTROPHILS % (AUTO) 65.9 %; RED BLOOD COUNT 3.64 10^6/uL (4.20-5.40); RED CELL DISTRIBUTION WIDTH 17.1 % (12.0-15.0)
[2016-08-30 06:38] LABS: ALBUMIN/GLOBULIN RATIO 1.3 (1.0-2.2); BILIRUBIN,TOTAL 0.3 mg/dL (0.2-1.0); BUN - BLOOD UREA NITROGEN < 5 mg/dL (6-20); CALCIUM 8.8 mg/dL (8.5-10.3); CARBON DIOXIDE - CO2 31 mmol/L (21-32); CHLORIDE 104 mmol/L (101-111); CREATININE 0.3 mg/dL (0.4-1.0); GFR - MDRD 234 (>89); GLUCOSE 93 mg/dL (70-100); MAGNESIUM 1.8 mg/dL (1.7-2.8); PHOSPHORUS 3.6 mg/dL (2.5-4.6); POTASSIUM 3.4 mmol/L (3.5-5.0); SODIUM 144 mmol/L (135-145); TOTAL PROTEIN 5.8 g/dL (6.7-8.2)
[2016-08-30] MEDS: SODIUM CHLORIDE FLUSH 0.9% 10 ML SYRINGE IVP PRN (06:56)
[2016-08-30 07:00] LABS: BAND NEUTROPHILS % (MANUAL) 3 %; EOSINOPHILS % (MANUAL) 7 %; LYMPHOCYTES % (MANUAL) 9 %; NEUTROPHILS % (MANUAL) 72 %; NP AUTO DIFFERENTIAL? YES; NP MAN DIFFERENTIAL? NO; PLATELET ESTIMATE, MANUAL NORMAL (130-450,000) (NORMAL); TOTAL CELLS COUNTED 100
[2016-08-30] MEDS ORDERED: POTASSIUM CHLOR 10 MEQ/100 ML 100 ML IV SCH (08:00)
[2016-08-30] MEDS: ENOXAPARIN 40 MG/0.4 ML SYRINGE SUBQ SCH (09:45)
[2016-08-30] MEDS: FAMOTIDINE 20 MG/50 ML 50 ML IV SCH ×2 (09:45→20:22)
[2016-08-30] MEDS: CALCIUM CARBONATE CHEW 500 MG TABLET PO SCH ×4 (11:04→20:19)
[2016-08-30] MEDS: METHADONE 5 MG TABLET PO SCH ×4 (11:05→20:13)
[2016-08-30] MEDS: methylPREDNISolone 4 MG TABLET PO SCH ×2 (11:36→16:00)
[2016-08-30] MEDS: MULTIVITAMIN TABLET PO SCH (11:37)
[2016-08-30] MEDS: POTASSIUM CHLORIDE 20 MEQ/15 ML UDC PO SCH ×2 (11:37→15:00)
[2016-08-30] MEDS: TOLTERODINE LA 2 MG CAPSULE PO SCH ×2 (11:37→20:16)
[2016-08-30] MEDS: ASPIRIN EC 81 MG TABLET PO SCH (11:38)
[2016-08-30] MEDS: FENOFIBRATE 48 MG TABLET PO SCH (11:38)
[2016-08-30] MEDS: ESCITALOPRAM 10 MG TABLET PO SCH (11:38)
[2016-08-30] MEDS: FLUTICASONE NASAL SPRAY NAS SCH ×2 (11:39→20:18)
[2016-08-30] MEDS: NYSTATIN POWDER 15 GM TOP SCH ×2 (11:39→20:18)
[2016-08-30] MEDS: SIMETHICONE CHEW 80 MG TABLET PO SCH (11:39)
[2016-08-30] MEDS: METOPROLOL TARTRATE 25 MG TABLET PO SCH ×2 (11:39→20:13)
[2016-08-30] MEDS: POLYETHYLENE GLYCOL 3350 17 GM PACKET PO SCH (11:40)
[2016-08-30] MEDS: ACYCLOVIR 200 MG CAPSULE PO SCH ×2 (11:40→20:15)
[2016-08-30] MEDS: CLINDAMYCIN 600 MG/50 ML 50 ML IV SCH ×3 (11:43→23:01)
[2016-08-30] MEDS: ONDANSETRON 4 MG/2 ML VIAL IVP PRN (14:41)
[2016-08-30] MEDS ORDERED: POTASSIUM CHLORIDE 20 MEQ TABLET PO SCH (15:15)
[2016-08-30] MEDS: diazePAM 5 MG TABLET PO PRN (16:01)
[2016-08-30] MEDS: oxyCODONE 30 MG TABLET PO PRN (16:01)
--- NOTE | 2016-08-30 16:52 | PROVIDER PROGRESS NOTE ---
Assessment/Plan - Problem List (1) Acute encephalopathy Assessment/Plan: Appears to be secondary to UTI Improving slowly with IVFs and IV abx CT head negative for acute stroke or mass and showed stable mastoid effusion and sphenoid sinusitis ABG showed chronic hypercapnia Today patient seems to be more cognizant and appears to be improving slowly (2) UTI (urinary tract infection) Conclusion/Plan: Patient has indwelling nunes catheter with recurrent UTIs Presented with generalized weakness, fevers, chills, decreased appetite, abdominal pain and lethargy Was placed on cipro as an outpatient for pseudomonas UTI (cipro can also cause encephalopathy) Repeat UA positive Urine cx growing stap epi susceptible to clinda Continue IV cefepime and add IV clinda will descalate to PO abx once patients mental status at baseline and ready to go home Mental status improving slowly Qualifiers: Urinary tract infection type: site unspecified Hematuria presence: without hematuria Qualified Code(s): N39.0 - Urinary tract infection, site not specified (3) Abdominal pain Conclusion/Plan: Mostly tenderness which is diffuse CT abd pelvis negative aside from chronic finding of medial cecum wall thickening which is non specific and could represent inflammation vs malignancy Unlikely to be cause of pain Likely pain from UTI Pain is improved today (4) Hypokalemia Conclusion/Plan: K is 3.4 this am Replace K with PO potassium (5) Hypophosphatemia Conclusion/Plan: Resolved (6) Hypomagnesemia Conclusion/Plan: Resolved (7) Chronic pain Conclusion/Plan: Restarted home methadone and oxycodone this am Dilaudid for breakthrough pain Pain controlled Qualifiers: Chronic pain type: chronic pain syndrome Qualified Code(s): G89.4 - Chronic pain syndrome (8) Clostridium difficile colitis Conclusion/Plan: She has been treated with PO vanco for over 1 month now and was still taking vanco at home does not know her stop date Stools were initially well formed so PO vanco stopped C. Diff PCR was negative (9) Diabetes Conclusion/Plan: History of diabetes likely secondary to nursing home steroid use HbA1C is 5.3 Stopped DM diet and SS insulin Qualifiers: Diabetes mellitus type: type 2 (10) JALYN on CPAP Conclusion/Plan: Continue home CPAP Chronic hypercapnia (11) Prophylactic use of low molecular weight heparin for venous thromboembolism Conclusion/Plan: Place on lovenox while hospitalized - Current Meds Current Meds: Current Medications Generic Name Dose Route Start Last Admin Trade Name Freq PRN Reason Stop Dose Admin Acetaminophen 650 mg 08/28/16 15:59 08/28/16 23:57 Tylenol PO 650 mg Q4HR PRN Administration Pain 1 to 4 Acyclovir 200 mg 08/28/16 21:00 08/30/16 11:40 Zovirax PO 200 mg BID JAVIER Administration Aspirin 81 mg 08/29/16 09:00 08/30/16 11:38 Ecotrin PO 81 mg DAILY JAVIER Administration Atorvastatin Calcium 20 mg 08/28/16 21:00 08/29/16 20:52 Lipitor PO 20 mg QPM JAVIER Administration Calcium Carbonate/Glycine 750 mg 08/28/16 17:00 08/30/16 16:00 Tums PO 750 mg QID JAVIER Administration Diazepam 5 mg 08/28/16 15:49 08/30/16 16:01 Valium PO 5 mg QID PRN Administration Spasms Enoxaparin Sodium 40 mg 08/29/16 09:00 08/30/16 09:45 Lovenox SUBQ 40 mg DAILY JAVIER Administration Escitalopram Oxalate 20 mg 08/29/16 09:00 08/30/16 11:38 Lexapro PO 20 mg DAILY JAVIER Administration Fenofibrate 144 mg 08/29/16 09:00 08/30/16 11:38 Tricor PO 144 mg DAILY JAVIER Administration Fluticasone Propionate 1 sprays 08/28/16 21:00 08/30/16 11:39 Flonase AVIS 2 spr BID JAVIER Administration Hydromorphone HCl 1 mg 08/29/16 09:47 08/29/16 12:46 Dilaudid Inj IVP 1 mg Q2HR PRN Administration PAIN Cefepime HCl 2 gm/ Sodium 100 mls @ 200 mls/hr 08/28/16 18:00 08/30/16 05:54 Chloride IV 200 mls/hr Q12H JAVIER Administration Famotidine 50 mls @ 100 mls/hr 08/28/16 21:00 08/30/16 09:45 Pepcid 20 Mg/50 Ml IV 100 mls/hr BID JAVIER Administration Clindamycin Phosphate 50 mls @ 100 mls/hr 08/30/16 11:00 08/30/16 16:01 Cleocin 600 Mg/50 Ml IV 100 mls/hr Q6H JAVIER Administration Lorazepam 1 mg 08/29/16 12:48 08/29/16 14:04 Ativan Inj IVP 1 mg Q2HR PRN Administration Anxiety Methadone HCl 12.5 mg 08/29/16 10:00 08/30/16 16:01 PO 12.5 mg QID JAVIER Administration Methylprednisolone 4 mg 08/28/16 17:00 08/30/16 16:00 Medrol PO 4 mg BIDWM JAVIER Administration Metoprolol Tartrate 12.5 mg 08/28/16 21:00 08/30/16 11:39 Lopressor PO 12.5 mg BID JAVIER Administration Multivitamins 1 tab 08/29/16 08:00 08/30/16 11:37 Theragran PO 1 tab DAILYWM JAVIER Administration Nystatin 1 applic 08/28/16 21:00 08/30/16 11:39 Nystop TOP 1 applic BID JAVIER Administration Ondansetron HCl 4 mg 08/28/16 15:59 08/30/16 14:41 Zofran Inj IVP 4 mg Q6HR PRN Administration Nausea / Vomiting Oxycodone HCl 30 mg 08/30/16 13:28 08/30/16 16:01 Roxicodone PO 30 mg Q3HR PRN Administration breakthrough pain Polyethylene Glycol 17 gm 08/29/16 09:00 08/30/16 11:40 Miralax PO Not Given DAILY JAVIER Potassium Chloride 20 meq 08/30/16 15:15 08/30/16 16:00 K-Dur PO 08/30/16 17:00 20 meq ONCE JAVIER Administration Prochlorperazine Edisylate 10 mg 08/28/16 15:59 08/29/16 10:48 Compazine Inj IVP 10 mg Q6HR PRN Administration Nausea / Vomiting Simethicone 160 mg 08/29/16 09:00 08/30/16 11:39 Mylicon PO Not Given DAILY JAVIER Sodium Chloride 10 ml 08/28/16 15:59 08/30/16 06:56 Normal Saline Flush 0.9% IVP 10 ml PRN PRN Administration NEEDED PER PROVIDER ORDERS Sodium Chloride 10 ml 08/28/16 22:00 08/30/16 14:41 Normal Saline Flush 0.9% IVP 10 ml Q8HR JAVIER Administration Tolterodine Tartrate 2 mg 08/28/16 21:00 08/30/16 11:37 Detrol La PO 2 mg BID JAVIER Administration - Lab Result Lab results reviewed: Yes Fish Bone Diagrams: 08/30/16 06:05 08/30/16 06:05 - EKG Results EKG Interpreted Independently: Yes - Diagnostic Imaging Results Diagnostic Imaging Results: Final report reviewed - Additional Planning Condition/Complexity: Guarded My Orders: My Active Orders 08/29/16 18:40 CULTURE, STOOL [RM] Urgent 08/30/16 11:00 Clindamycin 600 mg/50 ml [Cleocin 600 mg/50 ml] 50 ml IV Q6H 08/30/16 13:28 oxyCODONE [Roxicodone] 30 mg PO Q3HR PRN 08/30/16 15:15 Potassium Chloride [K-Dur] 20 meq PO ONCE 08/30/16 Breakfast Regular Diet [DIET] Consult/Specialty: PT Plan Discussed with:: Patient Time Spent: 31-60 minutes Subjective - Subjective Patient Reports: Other (She is more alert this morning. Able to answer some simple questions. She still get drowsy. She denies any pain this morning. Complaining of bladder spasms.) Nursing Reports: Confused Objective Vital Signs: Vital Signs - 24 hr 08/29/16 08/30/16 08/30/16 20:53 00:00 08:34 Temperature 36.8 C 36.7 C Heart Rate [ 68 80 Brachial] Heart Rate [ Radial] Respiratory 18 20 Rate Blood Pressure 160/80 H Blood Pressure 120/79 148/79 H [Right Brachial artery] Blood Pressure [Right Radial artery] O2 Saturation 98 94 08/30/16 16:04 Temperature 36.9 C Heart Rate [ Brachial] Heart Rate [ 86 Radial] Respiratory 16 Rate Blood Pressure Blood Pressure [Right Brachial artery] Blood Pressure 128/84 H [Right Radial artery] O2 Saturation 94 Oxygen O2 Source Nasal cannula I&O (Last 24 Hrs): Intake and Output Totals x24h 08/28/16 08/29/16 08/30/16 23:59 23:59 23:59 Intake Total 1008 2071 347 Output Total 825 4400 1825 Balance 183 -7810 -7137 General: Cooperative, No acute distress, Other (Morbidly obese, A&Ox2, drowsy) HEENT: Atraumatic, PERRLA, EOMI, Mucous membr. moist/pink Neck: Supple, No JVD, No thyromegaly, +2 carotid pulse wo bruit, No LAD Lymphatic: no adenopathy Neuro: Disoriented, Non Focal, CN 2-12 Grossly Intact, Other (drowsy) Cardiovascular: Regular rate, Normal S1, Normal S2, No murmurs Respiratory: Chest non-tender, No respiratory distress, Breath sounds nml Abdomen: Normal bowel sounds, Soft, No hepatospenomegaly, Other (Suprapubic tenderness) Extremities: No clubbing, No cyanosis, Normal pulses, Other (Edema) Skin: No rashes, No breakdown - Results Results: Laboratory Results WBC 8.0 x10^3/uL (4.8-10.8) 08/30/16 06:05 RBC 3.64 10^6/uL (4.20-5.40) L 08/30/16 06:05 Hgb 10.8 g/dL (12.0-16.0) L 08/30/16 06:05 Hct 34.4 % (37.0-47.0) L 08/30/16 06:05 MCV 94.6 fL (81.0-99.0) 08/30/16 06:05 MCH 29.6 pg (27.0-31.0) 08/30/16 06:05 MCHC 31.2 g/dL (32.0-36.0) L 08/30/16 06:05 RDW 17.1 % (12.0-15.0) H 08/30/16 06:05 Plt Count 258 10^3/uL (130-450) 08/30/16 06:05 MPV 8.8 fL (7.9-10.8) 08/30/16 06:05 Neut # Not Reportable 08/30/16 06:05 Lymph # Not Reportable 08/30/16 06:05 [place] # Not Reportable 08/30/16 06:05 Eos # Not Reportable 08/30/16 06:05 Baso # Not Reportable 08/30/16 06:05 Absolute Nucleated RBC Not Reportable 08/30/16 06:05 Total Counted 100 08/30/16 06:05 Band Neuts % (Manual) 3 % (0-10) 08/30/16 06:05 Metamyelocytes % 1 % (-0) H 08/30/16 06:05 Myelocytes % 1 % (-0) H 08/30/16 06:05 Neutrophils # (Manual) 6.0 10^3/uL (1.5-6.6) 08/30/16 06:05 Lymphocytes # (Manual) 0.7 10^3/uL (1.5-3.5) L 08/30/16 06:05 Monocytes # (Manual) 0.6 10^3/uL (0.0-1.0) 08/30/16 06:05 Eosinophils # (Manual) 0.6 10^3/uL (0-0.7) 08/30/16 06:05 Nucleated RBCs Not Reportable 08/30/16 06:05 Differential Comment MANUAL DIFFERENTIAL 08/30/16 06:05 WBC Morphology 1+ VACUOLATION (NORMAL) 08/28/16 13:07 Platelet Estimate NORMAL (130-450,000) (NORMAL) 08/30/16 06:05 Platelet Morphology NORMAL APPEARANCE (NORMAL) 08/29/16 06:18 RBC Morph Micro Appear 2+ STOMATOCYTES (NORMAL) 1+ ANISOCYTOSIS (NORMAL) 1+ POLYCHROMASIA (NORMAL) 1+ BASO STIPPLING (NORMAL) 1+ HYPOCHROMASIA (NORMAL) 08/28/16 13:07 RBC Morph Micro Appear 2+ STOMATOCYTES (NORMAL) 1+ ANISOCYTOSIS (NORMAL) 1+ POLYCHROMASIA (NORMAL) 1+ BASO STIPPLING (NORMAL) 1+ HYPOCHROMASIA (NORMAL) 08/28/16 13:07 RBC Morph Micro Appear 2+ STOMATOCYTES (NORMAL) 1+ ANISOCYTOSIS (NORMAL) 1+ POLYCHROMASIA (NORMAL) 1+ BASO STIPPLING (NORMAL) 1+ HYPOCHROMASIA (NORMAL) 08/28/16 13:07 RBC Morph Micro Appear NORMAL APPEARANCE (NORMAL) 08/29/16 06:18 RBC Morph Micro Appear NORMAL APPEARANCE (NORMAL) 08/30/16 06:05 Bld Gas Analysis Time 1755 08/28/16 17:50 Sample Site LEFT BRACHIAL 08/28/16 17:50 ABG pH 7.39 (7.35-7.45) 08/28/16 17:50 ABG pCO2 68 mmHg (34-45) H* 08/28/16 17:50 ABG pO2 mmHg (80-100) 08/28/16 17:50 ABG HCO3 40.9 mmol/L (22.0-26.0) H 08/28/16 17:50 ABG Total CO2 43.0 MMOL/L (21.0-29.0) H* 08/28/16 17:50 ABG O2 Saturation % (94-98) 08/28/16 17:50 ABG Base Excess 16.0 mmol/L (-2.0-3.0) H 08/28/16 17:50 Babar Test POSITIVE 08/28/16 17:50 VBG pH 7.338 (7.31-7.41) 08/28/16 16:12 VBG pCO2 77.4 mmHg (41-51) H 08/28/16 16:12 VBG pO2 200.0 mmHg (25-47) H 08/28/16 16:12 VBG HCO3 41.6 mmol/L (23-28) H 08/28/16 16:12 VBG Total CO2 44.0 mmol/L (24-29) H 08/28/16 16:12 VBG O2 Saturation 100.0 % (60-80) H 08/28/16 16:12 VBG Base Excess 16.0 mmol/L (-2 - +2) H 08/28/16 16:12 O2 Delivery Device NASAL CANNULA 08/28/16 17:50 O2 Liters/Min 3.50 LPM 08/28/16 17:50 Sodium 144 mmol/L (135-145) 08/30/16 06:05 Potassium 3.4 mmol/L (3.5-5.0) L 08/30/16 06:05 Chloride 104 mmol/L (101-111) 08/30/16 06:05 Carbon Dioxide 31 mmol/L (21-32) 08/30/16 06:05 Anion Gap 9.0 (6-13) 08/30/16 06:05 BUN < 5 mg/dL (6-20) L 08/30/16 06:05 Creatinine 0.3 mg/dL (0.4-1.0) L 08/30/16 06:05 Estimated GFR (MDRD) 234 (>89) 08/30/16 06:05 Glucose 93 mg/dL (70-100) 08/30/16 06:05 POC Whole Bld Glucose 98 mg/dL (70 - 100) 08/29/16 16:51 Glycated Hemoglobin 5.3 % (4.6-6.2) 08/28/16 13:17 Estim Average Glucose 105 (70-100) H 08/28/16 13:17 Lactic Acid 0.9 mmol/L (0.5-2.2) 08/29/16 06:18 Calcium 8.8 mg/dL (8.5-10.3) 08/30/16 06:05 Phosphorus 3.6 mg/dL (2.5-4.6) 08/30/16 06:05 Magnesium 1.8 mg/dL (1.7-2.8) 08/30/16 06:05 Total Bilirubin 0.3 mg/dL (0.2-1.0) 08/30/16 06:05 AST 49 IU/L (10-42) H 08/30/16 06:05 ALT 64 IU/L (10-60) H 08/30/16 06:05 Alkaline Phosphatase 36 IU/L (42-121) L 08/30/16 06:05 Total Protein 5.8 g/dL (6.7-8.2) L 08/30/16 06:05 Albumin 3.3 g/dL (3.2-5.5) 08/30/16 06:05 Globulin 2.5 g/dL (2.1-4.2) 08/30/16 06:05 Albumin/Globulin Ratio 1.3 (1.0-2.2) 08/30/16 06:05 Lipase 16 U/L (22-51) L 08/28/16 13:07 TSH 1.55 uIU/mL (0.34-5.60) 08/29/16 06:18 Urine Color YELLOW 08/28/16 14:05 Urine Clarity CLEAR (CLEAR) 08/28/16 14:05 Urine pH 7.0 PH (5.0-7.5) 08/28/16 14:05 Ur Specific [place] >=1.030 (1.002-1.030) H 08/28/16 14:05 Urine Protein TRACE mg/dL (NEGATIVE) 08/28/16 14:05 Urine Glucose (UA) NEGATIVE mg/dL (NEGATIVE) 08/28/16 14:05 Urine Ketones TRACE mg/dL (NEGATIVE) 08/28/16 14:05 Urine Occult Blood TRACE-INTA (NEGATIVE) 08/28/16 14:05 Urine Nitrite NEGATIVE (NEGATIVE) 08/28/16 14:05 Urine Bilirubin NEGATIVE (NEGATIVE) 08/28/16 14:05 Urine Urobilinogen 0.2 (NORMAL) E.U./dL (NORMAL) 08/28/16 14:05 Ur Leukocyte Esterase TRACE (NEGATIVE) H 08/28/16 14:05 Urine RBC 0-5 /HPF (0-5) 08/28/16 14:05 Urine WBC >25 /HPF (0-5) H 08/28/16 14:05 Urine WBC Clumps PRESENT 08/28/16 14:05 Ur Squamous Epith Cells RARE Squamous (<= Few) 08/28/16 14:05 Urine Bacteria Few /HPF (None Seen) 08/28/16 14:05 Urine Casts 0-2 Fine Granular /LPF 08/28/16 14:05 Urine Mucus Marked Strands 08/28/16 14:05 Ur Microscopic Review INDICATED 08/28/16 14:05 Urine Culture Comments INDICATED 08/28/16 14:05 Stool Leukocytes, Qual POSITIVE (Negative) 08/29/16 18:40 - Procedures Procedures: Procedures INSERTION OF INFUSION DEV INTO INF VENA CAVA, PERC APPROACH (12/22/15) TRANSFUSE NONAUT RED BLOOD CELLS IN PERIPH VEIN, PERC (07/21/16)
[2016-08-30] MEDS: ATORVASTATIN 10 MG TABLET PO SCH (20:14)
--- NOTE | 2016-08-30 20:45 | PROVIDER PROGRESS NOTE ---
Palliative Care Follow Up - Referral Referring Provider: Dr. Benitez Time of Visit: 2216-3904 Referral setting: Hospitalized patient Referral Reason: Goals of Care - Information Sources Records Reviewed: RN notes reviewed, Old records reviewed History obtained from: Patient, Caregiver Exam limitations: Clinical condition (Patient remains with altered mentation, improved today but not at baseline) - History of Present Illness Update Brief HPI Update: Patient well known to me from home setting. She is 51 year old woman with long and complex medical history including autoimmune dx, recently received Rituxin at [facility] through Dr. Cabrera, connective tissue disease, acquired angioedema, fibromyalgia. She has been on high dose steroids for decades that has resulted in severe [place] syndrome with multiple compression fractures secondary to osteoporosis, has neurogenic bladder needing nunes catheter support. Has had multiple hospitalizations, ED visits, and ongoing AB exposure with resulting C. Diff infections. Most recently finished course last Saturday, so off less than a week. She has been experiencing less time off AB, more resistent organisms, and over all decline in quality of life. She has severe pain as a result of the compression fracturse, fibromyalgia, anand syndrome/stria, interstitial cystitis. She experiences spasms. She also has underlying major depressive disorder, OCD, grief and loss, and high anxiety. She always feels very vulnerable in the hospital. Most likely underlying infection cause of acute delerium, though the severity was more significant than in past. She has been drowsy through the day and not eating, continues with some delusions and hallucinations but able to orient her more easily today. Social History - Living Situation Living arrangement: At home Living Situation: With family (Daughter MARIA VICTORIA Chance caregiver, has baby in home as well. Care needs have been increasing. Concern about being able to manage her in current condition, coming for visit this afternoon.) Medications/Allergies - Medications Active Medication List: Active Medications Acetaminophen (Tylenol) 650 mg PO Q4HR PRN PRN Reason: Pain 1 to 4 Last Admin: 08/28/16 23:57 Dose: 650 mg Acyclovir (Zovirax) 200 mg PO BID [facility] Last Admin: 08/30/16 20:15 Dose: 200 mg Aspirin (Ecotrin) 81 mg PO DAILY [facility] Last Admin: 08/30/16 11:38 Dose: 81 mg Atorvastatin Calcium (Lipitor) 20 mg PO QPM [facility] Last Admin: 08/30/16 20:14 Dose: 20 mg Calcium Carbonate/Glycine (Tums) 750 mg PO QID [facility] Last Admin: 08/30/16 20:19 Dose: Not Given Diazepam (Valium) 5 mg PO QID PRN PRN Reason: Spasms Last Admin: 08/30/16 16:01 Dose: 5 mg Diphenhydramine HCl (Benadryl) 25 mg PO Q6H PRN PRN Reason: Angioedema Enoxaparin Sodium (Lovenox) 40 mg SUBQ DAILY [facility] Last Admin: 08/30/16 09:45 Dose: 40 mg Escitalopram Oxalate (Lexapro) 20 mg PO DAILY [facility] Last Admin: 08/30/16 11:38 Dose: 20 mg Fenofibrate (Tricor) 144 mg PO DAILY [facility] Last Admin: 08/30/16 11:38 Dose: 144 mg Fluticasone Propionate (Flonase) 1 sprays AVIS BID [facility] Last Admin: 08/30/16 20:18 Dose: 1 spr Hydromorphone HCl (Dilaudid Inj) 1 mg IVP Q2HR PRN PRN Reason: PAIN Last Admin: 08/29/16 12:46 Dose: 1 mg Cefepime HCl 2 gm/ Sodium (Chloride) 100 mls @ 200 mls/hr IV Q12H [facility] Last Admin: 08/30/16 20:13 Dose: 200 mls/hr Famotidine (Pepcid 20 Mg/50 Ml) 50 mls @ 100 mls/hr IV BID [facility] Last Admin: 08/30/16 20:22 Dose: 100 mls/hr Clindamycin Phosphate (Cleocin 600 Mg/50 Ml) 50 mls @ 100 mls/hr IV Q6H [facility] Last Admin: 08/30/16 16:01 Dose: 100 mls/hr Lorazepam (Ativan Inj) 1 mg IVP Q2HR PRN PRN Reason: Anxiety Last Admin: 08/29/16 14:04 Dose: 1 mg Methadone HCl () 12.5 mg PO QID [facility] Last Admin: 08/30/16 20:13 Dose: 12.5 mg Methylprednisolone (Medrol) 4 mg PO BIDWM [facility] Last Admin: 08/30/16 16:00 Dose: 4 mg Metoprolol Tartrate (Lopressor) 12.5 mg PO BID [facility] Last Admin: 08/30/16 20:13 Dose: 12.5 mg Multivitamins (Theragran) 1 tab PO DAILYWM [facility] Last Admin: 08/30/16 11:37 Dose: 1 tab Nystatin (Nystop) 1 applic TOP BID [facility] Last Admin: 08/30/16 20:18 Dose: 1 applic Ondansetron HCl (Zofran Inj) 4 mg IVP Q6HR PRN PRN Reason: Nausea / Vomiting Last Admin: 08/30/16 14:41 Dose: 4 mg Oxycodone HCl (Roxicodone) 30 mg PO Q3HR PRN PRN Reason: breakthrough pain Last Admin: 08/30/16 16:01 Dose: 30 mg Polyethylene Glycol (Miralax) 17 gm PO DAILY [facility] Last Admin: 08/30/16 11:40 Dose: Not Given Prochlorperazine Edisylate (Compazine Inj) 10 mg IVP Q6HR PRN PRN Reason: Nausea / Vomiting Last Admin: 08/29/16 10:48 Dose: 10 mg Simethicone (Mylicon) 160 mg PO DAILY [facility] Last Admin: 08/30/16 11:39 Dose: Not Given Sodium Chloride (Normal Saline Flush 0.9%) 10 ml IVP PRN PRN PRN Reason: NEEDED PER PROVIDER ORDERS Last Admin: 08/30/16 06:56 Dose: 10 ml Sodium Chloride (Normal Saline Flush 0.9%) 10 ml IVP Q8HR [facility] Last Admin: 08/30/16 20:22 Dose: Not Given Tolterodine Tartrate (Detrol La) 2 mg PO BID [facility] Last Admin: 08/30/16 20:16 Dose: 2 mg Fenofibrate 160 mg PO DAILY 07/09/12 Aspirin [Aspir-Low] 81 mg ORAL DAILY 04/13/15 Atorvastatin Calcium 20 mg PO QPM 04/13/15 Epinephrine [Epipen 2-Zachary] 1 syr IM ONCE PRN 04/13/15 Escitalopram Oxalate [Lexapro] 20 mg PO DAILY 04/13/15 Methadone HCl 12.5 mg PO QID 04/13/15 Metoprolol Tartrate 12.5 mg ORAL BID 04/13/15 Oxycodone HCl 30 mg ORAL Q3HR PRN MDD 9 ml 04/13/15 Tolterodine [Detrol LA] 2 mg PO BID 04/13/15 Vitamin B Complex Vit C No.4 [Super B Complex] 1 tab ORAL DAILY 04/13/15 Acetaminophen [Tylenol Extra Strength] 1,000 mg PO Q4H PRN 12/29/15 Albuterol Sulfate [Proair Hfa Inhaler] 2 puffs INH Q6H PRN 12/29/15 Diphenhydramine HCl 25 - 75 mg PO PRN PRN 12/29/15 Docusate Sodium 100 mg PO DAILY PRN 12/29/15 Insulin Lispro [Humalog] 2 unit SUBQ PRN PRN 12/29/15 Metoclopramide [Reglan] 10 mg PO QID PRN 12/29/15 Multivitamin [Multiple Vitamins] 1 tab PO DAILY 12/29/15 Simethicone 180 mg PO DAILY 12/29/15 Sodium Chloride [Saline Mist] 1 spray NS TID PRN 12/29/15 Sumatriptan Succinate [Imitrex] 50 mg PO Q2H PRN MDD 100 MG 12/29/15 Acyclovir 200 mg PO BID 07/21/16 Diazepam [Diazepam] 5 mg PO QID PRN 07/21/16 Doxepin HCl 25 mg PO QPM 07/21/16 Esomeprazole Magnesium [Nexium] 40 mg PO QDAC 07/21/16 Guaifenesin 400 mg PO QID 07/21/16 Hydroxyzine Pamoate 100 mg PO DAILY 07/21/16 Loperamide [Imodium] 2 - 4 mg PO PRN PRN MDD 16 MG 07/21/16 Magnesium Oxide [Mag Ox] 400 mg PO DAILY 07/21/16 Methylprednisolone 4 mg PO BIDWM 07/21/16 Potassium Gluconate 99 mg PO DAILY 07/21/16 Vancomycin HCl 125 mg PO Q6H 07/21/16 diphenhydrAMINE [Benadryl] 50 mg PO HS 07/21/16 Albuterol 2.5 mg INH Q6H PRN 08/28/16 Fluticasone [Flonase] 1 sprays AVIS BID 08/28/16 Naproxen Sodium [Aleve] 440 mg PO QID 08/28/16 Nystatin [Nystop] 1 applic TOP BID 08/28/16 Ranitidine HCl [Zantac] 300 mg PO BID 08/28/16 - Allergies Allergies/Adverse Reactions: Allergies Allergy/AdvReac Type Severity Reaction Status Date / Time latex Allergy Unknown Verified 07/21/16 07:26 nitrofurantoin AdvReac Intermediate Emesis Verified 07/21/16 07:26 macrocrystalline * [From Macrobid] Review of Systems - Constitutional Constitutional: reports: Fatigue, Weakness, Poor appetite, Weight loss - Eyes Eyes: reports: Blurred vision - Ears, Nose & Throat Ears, Nose & Throat: reports: Hearing loss, Hoarseness - Cardiovascular Cariovascular: denies: Chest pain - Respiratory Respiratory: reports: Other (Refusing CPAP, very sensitive to smells and has some delusions with describing "why" she cant' use it.). denies: Cough, Wheezing - Gastrointestinal Gastrointestinal: reports: Diarrhea (More firm than yesterday, not quite a baseline. C diff currently negative). denies: Abdominal pain - Genitourinary Genitourinary: reports: Other (jail catheter for retention, has baseline interstitial cystitis, feels pain somewhat less today) - Musculoskeletal Musculoskeletal: reports: Back pain, Limited range of motion, Muscle weakness, Other (Intermittent spasms) - Integumentary Integumentary: reports: Dryness, Other (candidiasis in skin folds, stria from cushings) - Neurological Neurological: reports: General weakness, Memory problems, Incoordination, Slurred speech - Psychiatric Psychiatric: reports: Anxiety, Delusions, Hallucinations - Endocrine Endocrine: denies: Intolerance to cold, Intolerance to heat - Hematologic/Lymphatic Hematologic/Lymphatic: reports: Anemia, Recurrent infections - All Other Systems All Other Systems: reports: Reviewed and negative Physical Examination - Vital Signs Vital Signs: Vital Signs x48h Temp Pulse Resp BP Pulse Ox 08/30/16 16:04 36.9 C 86 16 128/84 H 94 - Physical Exam General Appearance: positive: Mild distress Eyes Bilateral: positive: Normal inspection ENT: positive: Other (thickened neck with cushings syndrome makes difficult at times to swallow, gave water no choking noted) Neck: positive: Trachea midline, Swelling/bruising Respiratory: negative: Wheezes (listened anteriorly only) Cardiovascular: positive: Regular rate & rhythm Abdomen: positive: Non-tender, Nml bowel sounds, Other (colostomy with dark brown watery stool present) Skin: positive: Dryness, Other (Strai) Extremities: positive: Other (Poor ROM, unable to assist with bed mobility, baseline can) Neurologic/Psychiatric: positive: Disoriented to place, Disoriented to time, Slurred/abnml speech Palliative Care - POLST Patient has POLST: Yes POLST Status: DNR Pain: Pain unchanged, Location (mid back, sharp shooting down extremities), Severity (Though drowsy reports pain mod/severe), Pattern (Constant, spasms intermittent, worsening with turning and moving) Drowsiness: Moderate (4-6) (Difficult to arouse, but when did "I just am so tired", aware of drowsiness) Nausea: Moderate (4-6) (Requested medication from RN) Anxiety: Moderate (4-6) (Worsened with realization back in hospital, no recall of last week) Dyspnea: None Anorexia: Severe (7-10) (Reports no appetitie, willing to try some jello NOT GREEN) Insomnia: Other (Difficult night with delusions/hallucinations) Constipation: No Feelings of wellbeing/Perceived Quality of Life: Worsening Performance Status: patient bedbound at home, able to feed self, assist some with bed mobility, occasionally can get up in electric wheelchair for MD appointments. - Palliative Care Discussion: Patient after finally getting awake, had several delusions before able to orientate. Recognized in hospital, not able to process current severity of her illness. Goal for patient to return home, discussed this won't happen if she doesn't make attempt to eat and drink. Report nausea and severe fatigue barriers. Spoke with daughter Meron, remains concerned at the severity of delerium, worried about her current needs, wants her home but wants to make sure she is well enough. Patient tends to want to get home as soon as possible as she feels very vulnerable in hospital environment. Currently with delusions is distressed but worked with her to try and get through it. Results - Lab Results Lab results reviewed: Yes Fish Bones: 08/30/16 06:05 08/30/16 06:05 Lab and Imaging Results: Lab Results x24hrs 08/30/16 08/30/16 08/29/16 Range/Units 06:05 06:05 16:51 WBC 8.0 (4.8-10.8) x10^3/uL RBC 3.64 L (4.20-5.40) 10^6/uL Hgb 10.8 L (12.0-16.0) g/dL Hct 34.4 L (37.0-47.0) % MCV 94.6 (81.0-99.0) fL MCH 29.6 (27.0-31.0) pg MCHC 31.2 L (32.0-36.0) g/dL RDW 17.1 H (12.0-15.0) % Plt Count 258 (130-450) 10^3/uL MPV 8.8 (7.9-10.8) fL Neut # Not Reportable Lymph # Not Reportable Hill # Not Reportable Eos # Not Reportable Baso # Not Reportable Absolute Nucleated RBC Not Reportable Total Counted 100 Band Neuts % (Manual) 3 (0 - 10) % Metamyelocytes % 1 H ( - 0) % Myelocytes % 1 H ( - 0) % Neutrophils # (Manual) 6.0 (1.5-6.6) 10^3/uL Lymphocytes # (Manual) 0.7 L (1.5-3.5) 10^3/uL Monocytes # (Manual) 0.6 (0.0-1.0) 10^3/uL Eosinophils # (Manual) 0.6 (0-0.7) 10^3/uL Nucleated RBCs Not Reportable Differential Comment MANUAL DIFFERENTIAL Platelet Estimate NORMAL (130-450,000) (NORMAL) RBC Morph Micro Appear NORMAL APPEARANCE (NORMAL) Sodium 144 (135-145) mmol/L Potassium 3.4 L (3.5-5.0) mmol/L Chloride 104 (101-111) mmol/L Carbon Dioxide 31 (21-32) mmol/L Anion Gap 9.0 (6-13) BUN < 5 L (6-20) mg/dL Creatinine 0.3 L (0.4-1.0) mg/dL Estimated GFR (MDRD) 234 (>89) Glucose 93 (70-100) mg/dL POC Whole Bld Glucose 98 (70 - 100) mg/dL Calcium 8.8 (8.5-10.3) mg/dL Phosphorus 3.6 (2.5-4.6) mg/dL Magnesium 1.8 (1.7-2.8) mg/dL Total Bilirubin 0.3 (0.2-1.0) mg/dL AST 49 H (10-42) IU/L ALT 64 H (10-60) IU/L Alkaline Phosphatase 36 L (42-121) IU/L Total Protein 5.8 L (6.7-8.2) g/dL Albumin 3.3 (3.2-5.5) g/dL Globulin 2.5 (2.1-4.2) g/dL Albumin/Globulin Ratio 1.3 (1.0-2.2) 08/29/16 08/29/16 08/28/16 Range/Units 11:42 07:58 20:51 WBC (4.8-10.8) x10^3/uL RBC (4.20-5.40) 10^6/uL Hgb (12.0-16.0) g/dL Hct (37.0-47.0) % MCV (81.0-99.0) fL MCH (27.0-31.0) pg MCHC (32.0-36.0) g/dL RDW (12.0-15.0) % Plt Count (130-450) 10^3/uL MPV (7.9-10.8) fL Neut # Lymph # Hill # Eos # Baso # Absolute Nucleated RBC Total Counted Band Neuts % (Manual) (0 - 10) % Metamyelocytes % ( - 0) % Myelocytes % ( - 0) % Neutrophils # (Manual) (1.5-6.6) 10^3/uL Lymphocytes # (Manual) (1.5-3.5) 10^3/uL Monocytes # (Manual) (0.0-1.0) 10^3/uL Eosinophils # (Manual) (0-0.7) 10^3/uL Nucleated RBCs Differential Comment Platelet Estimate (NORMAL) RBC Morph Micro Appear (NORMAL) Sodium (135-145) mmol/L Potassium (3.5-5.0) mmol/L Chloride (101-111) mmol/L Carbon Dioxide (21-32) mmol/L Anion Gap (6-13) BUN (6-20) mg/dL Creatinine (0.4-1.0) mg/dL Estimated GFR (MDRD) (>89) Glucose (70-100) mg/dL POC Whole Bld Glucose 78 73 107 H (70 - 100) mg/dL Calcium (8.5-10.3) mg/dL Phosphorus (2.5-4.6) mg/dL Magnesium (1.7-2.8) mg/dL Total Bilirubin (0.2-1.0) mg/dL AST (10-42) IU/L ALT (10-60) IU/L Alkaline Phosphatase (42-121) IU/L Total Protein (6.7-8.2) g/dL Albumin (3.2-5.5) g/dL Globulin (2.1-4.2) g/dL Albumin/Globulin Ratio (1.0-2.2) 08/28/16 Range/Units 16:43 WBC (4.8-10.8) x10^3/uL RBC (4.20-5.40) 10^6/uL Hgb (12.0-16.0) g/dL Hct (37.0-47.0) % MCV (81.0-99.0) fL MCH (27.0-31.0) pg MCHC (32.0-36.0) g/dL RDW (12.0-15.0) % Plt Count (130-450) 10^3/uL MPV (7.9-10.8) fL Neut # Lymph # Hill # Eos # Baso # Absolute Nucleated RBC Total Counted Band Neuts % (Manual) (0 - 10) % Metamyelocytes % ( - 0) % Myelocytes % ( - 0) % Neutrophils # (Manual) (1.5-6.6) 10^3/uL Lymphocytes # (Manual) (1.5-3.5) 10^3/uL Monocytes # (Manual) (0.0-1.0) 10^3/uL Eosinophils # (Manual) (0-0.7) 10^3/uL Nucleated RBCs Differential Comment Platelet Estimate (NORMAL) RBC Morph Micro Appear (NORMAL) Sodium (135-145) mmol/L Potassium (3.5-5.0) mmol/L Chloride (101-111) mmol/L Carbon Dioxide (21-32) mmol/L Anion Gap (6-13) BUN (6-20) mg/dL Creatinine (0.4-1.0) mg/dL Estimated GFR (MDRD) (>89) Glucose (70-100) mg/dL POC Whole Bld Glucose 123 H (70 - 100) mg/dL Calcium (8.5-10.3) mg/dL Phosphorus (2.5-4.6) mg/dL Magnesium (1.7-2.8) mg/dL Total Bilirubin (0.2-1.0) mg/dL AST (10-42) IU/L ALT (10-60) IU/L Alkaline Phosphatase (42-121) IU/L Total Protein (6.7-8.2) g/dL Albumin (3.2-5.5) g/dL Globulin (2.1-4.2) g/dL Albumin/Globulin Ratio (1.0-2.2) Impression and Recommendations - Palliative Care Impression: Patient 51 year old woman with complex medical history and current situation. Now admitted with another infection, continues with high symptom burden, and tentative social situation. Has been conversing in home setting about goals of care, currently unable to participate in conversation. Daughter concerned about being able to meet her needs, but would like her to return home when ready. Recommendations/Counseling Done: 1. Anorexia. Aggressively manage her nausea, often with AB does poorly with intake secondary to taste changes and all diet limitations. Recommend if patient more alert to work with civil designer (familiar with her from past) to encourage better nutrition. 2. Delerium, improved. Patient not back to baseline but more easily re-oriented today. 3. Chronic Pain Syndrome. Needs frequent repositioning, bed is problematic for patient. High risk for skin breakdown related to her inabililty to tolerate laying on side. 4. Advanced care planning. Patient's current goal is to return home, and to able to "not feel stupid", gaining some awareness of situation. Patient has poor STM at baseline, often gives answers that thinks people want to hear, but then does not recall information given to her. Her daugther Meron needs to be kept "in the loop",her availablity is limited to be at the hospital because she has a young child to care for but very much wants to be involved. Time Spent: 30 mintues with 50% done in counseling and coordination of care, follow up with hospitalist/daughter.
[2016-08-31] MEDS: oxyCODONE 30 MG TABLET PO PRN (00:11)
[2016-08-31] MEDS: CLINDAMYCIN 600 MG/50 ML 50 ML IV SCH ×4 (04:00→22:18)
[2016-08-31] MEDS: SODIUM CHLORIDE FLUSH 0.9% 10 ML SYRINGE IVP PRN ×5 (04:01→22:18)
[2016-08-31] MEDS: CEFEPIME 2 GM in SODIUM CHLORIDE 0.9% MINIBAG 100 ML IV SCH ×2 (05:01→17:06)
[2016-08-31] MEDS: SODIUM CHLORIDE FLUSH 0.9% 10 ML SYRINGE IVP SCH ×3 (05:28→20:37)
[2016-08-31 05:46] LABS: BASOPHILS % (AUTO) 0.5 %; HCT - HEMATOCRIT 35.9 % (37.0-47.0); HGB - HEMOGLOBIN 11.5 g/dL (12.0-16.0); LYMPHOCYTES % (AUTO) 16.6 %; MEAN CORPUSCULAR HEMOGLOBIN 30.4 pg (27.0-31.0); MEAN CORPUSCULAR HGB CONC 32.1 g/dL (32.0-36.0); MEAN CORPUSCULAR VOLUME 94.9 fL (81.0-99.0); MEAN PLATELET VOLUME 9.1 fL (7.9-10.8); MONOCYTES % (AUTO) 11.6 %; NEUTROPHILS % (AUTO) 68.3 %; RED BLOOD COUNT 3.78 10^6/uL (4.20-5.40); RED CELL DISTRIBUTION WIDTH 17.5 % (12.0-15.0); UNCORRECTED WHITE BLOOD COUNT 9.8 x10^3/uL; WHITE BLOOD COUNT 9.8 x10^3/uL (4.8-10.8)
[2016-08-31 06:02] LABS: ALBUMIN/GLOBULIN RATIO 1.3 (1.0-2.2); BILIRUBIN,TOTAL 0.5 mg/dL (0.2-1.0); CALCIUM 9.1 mg/dL (8.5-10.3); CREATININE 0.4 mg/dL (0.4-1.0); MAGNESIUM 1.6 mg/dL (1.7-2.8); PHOSPHORUS 4.8 mg/dL (2.5-4.6); POTASSIUM 3.9 mmol/L (3.5-5.0); TOTAL PROTEIN 6.1 g/dL (6.7-8.2)
[2016-08-31 06:11] LABS: BAND NEUTROPHILS % (MANUAL) 7 %; EOSINOPHILS % (MANUAL) 6 %; LYMPHOCYTES % (MANUAL) 14 %; NEUTROPHILS % (MANUAL) 62 %; PLATELET ESTIMATE, MANUAL NORMAL (130-450,000) (NORMAL); TOTAL CELLS COUNTED 100
[2016-08-31 06:12] LABS: NP AUTO DIFFERENTIAL? YES; NP MAN DIFFERENTIAL? NO
[2016-08-31] MEDS ORDERED: POTASSIUM PHOSPHATE 21 MMOL in SODIUM CHLORIDE 0.9% 250 ML IV ONE (07:55)
[2016-08-31] MEDS: POLYETHYLENE GLYCOL 3350 17 GM PACKET PO SCH (09:21)
[2016-08-31] MEDS: METHADONE 5 MG TABLET PO SCH (09:23)
[2016-08-31] MEDS: methylPREDNISolone 4 MG TABLET PO SCH (09:24)
[2016-08-31] MEDS: TOLTERODINE LA 2 MG CAPSULE PO SCH ×2 (09:24→20:35)
[2016-08-31] MEDS: SIMETHICONE CHEW 80 MG TABLET PO SCH (09:24)
[2016-08-31] MEDS: ACYCLOVIR 200 MG CAPSULE PO SCH ×2 (09:25→20:15)
[2016-08-31] MEDS: FENOFIBRATE 48 MG TABLET PO SCH (09:25)
[2016-08-31] MEDS: ASPIRIN EC 81 MG TABLET PO SCH (09:25)
[2016-08-31] MEDS: MAGNESIUM OXIDE 400 MG TABLET PO SCH (09:25)
[2016-08-31] MEDS: MULTIVITAMIN TABLET PO SCH (09:26)
[2016-08-31] MEDS: METOPROLOL TARTRATE 25 MG TABLET PO SCH ×2 (09:28→20:16)
[2016-08-31] MEDS: ESCITALOPRAM 10 MG TABLET PO SCH (09:28)
[2016-08-31] MEDS: CALCIUM CARBONATE CHEW 500 MG TABLET PO SCH ×4 (09:30→20:15)
[2016-08-31] MEDS: FAMOTIDINE 20 MG/50 ML 50 ML IV SCH ×2 (09:31→20:16)
[2016-08-31] MEDS: ENOXAPARIN 40 MG/0.4 ML SYRINGE SUBQ SCH (09:34)
[2016-08-31] MEDS: FLUTICASONE NASAL SPRAY NAS SCH ×2 (09:34→20:16)
[2016-08-31] MEDS: NYSTATIN POWDER 15 GM TOP SCH ×2 (09:38→20:17)
[2016-08-31 10:36] LABS: ABG HCO3 37.5 mmol/L (22.0-26.0); ABG OXYGEN SATURATION 91 % (94-98); ABG PH 7.25 (7.35-7.45); ABG PO2 75 mmHg (80-100); ALLEN TEST POSITIVE
[2016-08-31 10:37] LABS: ABG O2 DEVICE NASAL CANNULA; ABG SATURATION PULSE OXIMETRY% 95 %; ABG SITE OF DRAW LEFT RADIAL
[2016-08-31 10:39] LABS: ABG PCO2 86 mmHg (34-45)
[2016-08-31] MEDS ORDERED: ALBUTEROL NEB 2.5 MG/3 ML INH PRN (10:40)
[2016-08-31] MEDS: LORazepam 2 MG/ML SYRINGE IVP PRN ×5 (11:57→22:17)
[2016-08-31 13:21] LABS: ABG ANALYSIS TIME 1313; ABG PH 7.22 (7.35-7.45)
[2016-08-31 13:22] LABS: ABG BASE EXCESS 3.2 mmol/L (-2.0-3.0); ABG HCO3 32.9 mmol/L (22.0-26.0); ABG OXYGEN SATURATION 97 % (94-98); ABG PO2 97 mmHg (80-100); ABG TCO2 35.5 MMOL/L (21.0-29.0); ALLEN TEST POSITIVE
[2016-08-31 13:23] LABS: ABG EXPIRATORY POS AIRWAY P 6 cmH2O; ABG INSPIRATORY POS AIRWAY P 12 cmH2O; ABG MODE OF VENTILATION SYNCHRONOUS/TIMES; ABG O2 DEVICE BiPAP; ABG PRESSURE SUPPORT VENT 6 cmH2O; ABG RESPIRATORY RATE 16 b/min; ABG SATURATION PULSE OXIMETRY% 99 %; ABG SITE OF DRAW LEFT RADIAL
[2016-08-31 13:26] LABS: ABG PCO2 82 mmHg (34-45)
[2016-08-31 16:10] LABS: ABG ANALYSIS TIME 1606; ABG BASE EXCESS 6.2 mmol/L (-2.0-3.0); ABG HCO3 35.2 mmol/L (22.0-26.0); ABG OXYGEN SATURATION 98 % (94-98); ABG PH 7.27 (7.35-7.45); ABG PO2 123 mmHg (80-100); ABG SITE OF DRAW LEFT RADIAL; ABG TCO2 37.6 MMOL/L (21.0-29.0); ALLEN TEST POSITIVE
[2016-08-31 16:11] LABS: ABG EXPIRATORY POS AIRWAY P 6 cmH2O; ABG INSPIRATORY POS AIRWAY P 17 cmH2O; ABG MODE OF VENTILATION SYNCHRONOUS/TIMES; ABG O2 DEVICE BiPAP; ABG PRESSURE SUPPORT VENT 11 cmH2O; ABG RESPIRATORY RATE 16 b/min; ABG SATURATION PULSE OXIMETRY% 100 %
[2016-08-31 16:15] LABS: ABG PCO2 78 mmHg (34-45)
--- NOTE | 2016-08-31 16:46 | PROVIDER PROGRESS NOTE ---
Assessment/Plan - Problem List (1) Acute respiratory failure with hypercapnia Assessment/Plan: Patient was very lethargic this morning after she seemed to be improving yesterday Patient was not on CPAP and had taken her O2 off ABG was ordered and she was found to have PCO2 of 86 with pH of 7.25 consistent with hypercapnic respiratory failure with respiratory acidosis Patient transferred to ICU and placed on BiPAP Repeat ABG showed PCO2 of 82 then 78 Patient improving slowly Her mentation is improving with BiPAP Likely cause of hypercapnia is decreased respiratory drive secondary to pain medication in conjunction with JALYN and OHS (2) Acute encephalopathy Assessment/Plan: Appears to be secondary to UTI and now hypercapnic respiratory failure Was improving slowly with IVFs and IV abx but worsened this morning and patient found to have hypercapnic respiratory failure CT head negative for acute stroke or mass and showed stable mastoid effusion and sphenoid sinusitis ABG showed acute respiratory acidosis with hypercapnia this am Transferred to ICU and placed on BiPAP (3) UTI (urinary tract infection) Conclusion/Plan: Patient has indwelling nunes catheter with recurrent UTIs Presented with generalized weakness, fevers, chills, decreased appetite, abdominal pain and lethargy Was placed on cipro as an outpatient for pseudomonas UTI (cipro can also cause encephalopathy) Repeat UA positive Urine cx growing stap epi susceptible to clinda Continue IV cefepime day 4 and IV clinda day 2 will descalate to PO abx once patients mental status at baseline and ready to go home Mental status improving slowly Qualifiers: Urinary tract infection type: site unspecified Hematuria presence: without hematuria Qualified Code(s): N39.0 - Urinary tract infection, site not specified (4) Abdominal pain Conclusion/Plan: Mostly tenderness which is diffuse CT abd pelvis negative aside from chronic finding of medial cecum wall thickening which is non specific and could represent inflammation vs malignancy Unlikely to be cause of pain Likely pain from UTI Resolved (5) Hypokalemia Conclusion/Plan: Resolved (6) Hypophosphatemia Conclusion/Plan: Resolved (7) Hypomagnesemia Conclusion/Plan: Mg 1.6 Replace (8) Chronic pain Conclusion/Plan: Restarted home methadone and oxycodone Dilaudid for breakthrough pain Pain medications discontinued secondary to hypercapnic respiratory failure as it was thought to be due to decreased respiratory drive from opioids Monitor for withdrawal symptoms and pain Patients pain meds may need to be restarted it is a very fine balance Qualifiers: Chronic pain type: chronic pain syndrome Qualified Code(s): G89.4 - Chronic pain syndrome (9) Clostridium difficile colitis Conclusion/Plan: She has been treated with PO vanco for over 1 month now and was still taking vanco at home does not know her stop date Stools were initially well formed so PO vanco stopped C. Diff PCR was negative (10) Diabetes Conclusion/Plan: History of diabetes likely secondary to long-term steroid use HbA1C is 5.3 Stopped DM diet and SS insulin Qualifiers: Diabetes mellitus type: type 2 (11) JALYN on CPAP Conclusion/Plan: On BiPAP in ICU (12) Prophylactic use of low molecular weight heparin for venous thromboembolism Conclusion/Plan: Place on lovenox while hospitalized - Current Meds Current Meds: Current Medications Generic Name Dose Route Start Last Admin Trade Name Freq PRN Reason Stop Dose Admin Acetaminophen 650 mg 08/28/16 15:59 08/28/16 23:57 Tylenol PO 650 mg Q4HR PRN Administration Pain 1 to 4 Acyclovir 200 mg 08/28/16 21:00 08/31/16 09:25 Zovirax PO 200 mg BID JAVIER Administration Aspirin 81 mg 08/29/16 09:00 08/31/16 09:25 Ecotrin PO 81 mg DAILY JAVIER Administration Atorvastatin Calcium 20 mg 08/28/16 21:00 08/30/16 20:14 Lipitor PO 20 mg QPM JAVIER Administration Calcium Carbonate/Glycine 750 mg 08/28/16 17:00 08/31/16 13:47 Tums PO Not Given QID JAVIER Diazepam 5 mg 08/28/16 15:49 08/30/16 16:01 Valium PO 5 mg QID PRN Administration Spasms Enoxaparin Sodium 40 mg 08/29/16 09:00 08/31/16 09:34 Lovenox SUBQ 40 mg DAILY JAVIER Administration Escitalopram Oxalate 20 mg 08/29/16 09:00 08/31/16 09:28 Lexapro PO 20 mg DAILY JAVIER Administration Fenofibrate 144 mg 08/29/16 09:00 08/31/16 09:25 Tricor PO 144 mg DAILY JAVIER Administration Fluticasone Propionate 1 sprays 08/28/16 21:00 08/31/16 09:34 Flonase AVIS 1 spr BID JAVIER Administration Cefepime HCl 2 gm/ Sodium 100 mls @ 200 mls/hr 08/28/16 18:00 08/31/16 05:01 Chloride IV 200 mls/hr Q12H JAVIER Administration Famotidine 50 mls @ 100 mls/hr 08/28/16 21:00 08/31/16 09:31 Pepcid 20 Mg/50 Ml IV 100 mls/hr BID JAVIER Administration Clindamycin Phosphate 50 mls @ 100 mls/hr 08/30/16 11:00 08/31/16 10:35 Cleocin 600 Mg/50 Ml IV 100 mls/hr Q6H JAVIER Administration Lorazepam 1 mg 08/29/16 12:48 08/31/16 16:04 Ativan Inj IVP 1 mg Q2HR PRN Administration Anxiety Magnesium Oxide 400 mg 08/31/16 09:00 08/31/16 09:25 Mag Ox PO 400 mg DAILYWM JAVIER Administration Methylprednisolone 4 mg 08/28/16 17:00 08/31/16 09:24 Medrol PO 4 mg BIDWM JAVIER Administration Metoprolol Tartrate 12.5 mg 08/28/16 21:00 08/31/16 09:28 Lopressor PO 12.5 mg BID JAVIER Administration Multivitamins 1 tab 08/29/16 08:00 08/31/16 09:26 Theragran PO 1 tab DAILYWM JAVIER Administration Nystatin 1 applic 08/28/16 21:00 08/31/16 09:38 Nystop TOP 1 applic BID JAVIER Administration Ondansetron HCl 4 mg 08/28/16 15:59 08/30/16 14:41 Zofran Inj IVP 4 mg Q6HR PRN Administration Nausea / Vomiting Polyethylene Glycol 17 gm 08/29/16 09:00 08/31/16 09:21 Miralax PO 17 gm DAILY JAVIER Administration Prochlorperazine Edisylate 10 mg 08/28/16 15:59 08/29/16 10:48 Compazine Inj IVP 10 mg Q6HR PRN Administration Nausea / Vomiting Simethicone 160 mg 08/29/16 09:00 08/31/16 09:24 Mylicon PO 160 mg DAILY JAVIER Administration Sodium Chloride 10 ml 08/28/16 15:59 08/31/16 16:08 Normal Saline Flush 0.9% IVP 10 ml PRN PRN Administration NEEDED PER PROVIDER ORDERS Sodium Chloride 10 ml 08/28/16 22:00 08/31/16 09:34 Normal Saline Flush 0.9% IVP 10 ml Q8HR JAVIER Administration Tolterodine Tartrate 2 mg 08/28/16 21:00 08/31/16 09:24 Detrol La PO 2 mg BID JAVIER Administration - Lab Result Lab results reviewed: Yes Fish Bone Diagrams: 08/31/16 05:00 08/31/16 05:00 Other Lab Results: Laboratory Results WBC 9.8 x10^3/uL (4.8-10.8) 08/31/16 05:00 RBC 3.78 10^6/uL (4.20-5.40) L 08/31/16 05:00 Hgb 11.5 g/dL (12.0-16.0) L 08/31/16 05:00 Hct 35.9 % (37.0-47.0) L 08/31/16 05:00 MCV 94.9 fL (81.0-99.0) 08/31/16 05:00 MCH 30.4 pg (27.0-31.0) 08/31/16 05:00 MCHC 32.1 g/dL (32.0-36.0) 08/31/16 05:00 RDW 17.5 % (12.0-15.0) H 08/31/16 05:00 Plt Count 322 10^3/uL (130-450) 08/31/16 05:00 MPV 9.1 fL (7.9-10.8) 08/31/16 05:00 Neut # Not Reportable 08/31/16 05:00 Lymph # Not Reportable 08/31/16 05:00 Juncos # Not Reportable 08/31/16 05:00 Eos # Not Reportable 08/31/16 05:00 Baso # Not Reportable 08/31/16 05:00 Absolute Nucleated RBC Not Reportable 08/31/16 05:00 Total Counted 100 08/31/16 05:00 Band Neuts % (Manual) 7 % (0-10) 08/31/16 05:00 Metamyelocytes % 2 % (-0) H 08/31/16 05:00 Myelocytes % 2 % (-0) H 08/31/16 05:00 Neutrophils # (Manual) 6.8 10^3/uL (1.5-6.6) H 08/31/16 05:00 Lymphocytes # (Manual) 1.4 10^3/uL (1.5-3.5) L 08/31/16 05:00 Monocytes # (Manual) 0.7 10^3/uL (0.0-1.0) 08/31/16 05:00 Eosinophils # (Manual) 0.6 10^3/uL (0-0.7) 08/31/16 05:00 Nucleated RBCs Not Reportable 08/31/16 05:00 Differential Comment MANUAL DIFFERENTIAL 08/31/16 05:00 WBC Morphology 1+ VACUOLATION (NORMAL) 08/28/16 13:07 Platelet Estimate NORMAL (130-450,000) (NORMAL) 08/31/16 05:00 Platelet Morphology NORMAL APPEARANCE (NORMAL) 08/29/16 06:18 RBC Morph Micro Appear 2+ STOMATOCYTES (NORMAL) 1+ ANISOCYTOSIS (NORMAL) 1+ POLYCHROMASIA (NORMAL) 1+ BASO STIPPLING (NORMAL) 1+ HYPOCHROMASIA (NORMAL) 08/28/16 13:07 RBC Morph Micro Appear 2+ STOMATOCYTES (NORMAL) 1+ ANISOCYTOSIS (NORMAL) 1+ POLYCHROMASIA (NORMAL) 1+ BASO STIPPLING (NORMAL) 1+ HYPOCHROMASIA (NORMAL) 08/28/16 13:07 RBC Morph Micro Appear NORMAL APPEARANCE (NORMAL) 08/29/16 06:18 RBC Morph Micro Appear NORMAL APPEARANCE (NORMAL) 08/30/16 06:05 RBC Morph Micro Appear NORMAL APPEARANCE (NORMAL) 08/31/16 05:00 Bld Gas Analysis Time 1606 08/31/16 15:52 Sample Site LEFT RADIAL 08/31/16 15:52 ABG pH 7.27 (7.35-7.45) L 08/31/16 15:52 ABG pCO2 78 mmHg (34-45) H* 08/31/16 15:52 ABG pO2 123 mmHg (80-100) H 08/31/16 15:52 ABG HCO3 35.2 mmol/L (22.0-26.0) H 08/31/16 15:52 ABG Total CO2 37.6 MMOL/L (21.0-29.0) H 08/31/16 15:52 ABG O2 Saturation 98 % (94-98) 08/31/16 15:52 ABG Oximetry Spot Check 100 % 08/31/16 15:52 ABG Base Excess 6.2 mmol/L (-2.0-3.0) H 08/31/16 15:52 Babar Test POSITIVE 08/31/16 15:52 VBG pH 7.338 (7.31-7.41) 08/28/16 16:12 VBG pCO2 77.4 mmHg (41-51) H 08/28/16 16:12 VBG pO2 200.0 mmHg (25-47) H 08/28/16 16:12 VBG HCO3 41.6 mmol/L (23-28) H 08/28/16 16:12 VBG Total CO2 44.0 mmol/L (24-29) H 08/28/16 16:12 VBG O2 Saturation 100.0 % (60-80) H 08/28/16 16:12 VBG Base Excess 16.0 mmol/L (-2 - +2) H 08/28/16 16:12 Respiration Rate 16 b/min 08/31/16 15:52 O2 Delivery Device BiPAP 08/31/16 15:52 O2 Liters/Min 2.00 LPM 08/31/16 10:22 Vent Mode SYNCHRONOUS/TIMES 08/31/16 15:52 FiO2 50.00 08/31/16 15:52 Pressure Support Vent 11 cmH2O 08/31/16 15:52 EPAP 6 cmH2O 08/31/16 15:52 IPAP 17 cmH2O 08/31/16 15:52 Sodium 146 mmol/L (135-145) H 08/31/16 05:00 Potassium 3.9 mmol/L (3.5-5.0) 08/31/16 05:00 Chloride 101 mmol/L (101-111) 08/31/16 05:00 Carbon Dioxide 37 mmol/L (21-32) H 08/31/16 05:00 Anion Gap 8.0 (6-13) 08/31/16 05:00 BUN 5 mg/dL (6-20) L 08/31/16 05:00 Creatinine 0.4 mg/dL (0.4-1.0) 08/31/16 05:00 Estimated GFR (MDRD) 168 (>89) 08/31/16 05:00 Glucose 93 mg/dL (70-100) 08/31/16 05:00 POC Whole Bld Glucose 98 mg/dL (70 - 100) 08/29/16 16:51 Glycated Hemoglobin 5.3 % (4.6-6.2) 08/28/16 13:17 Estim Average Glucose 105 (70-100) H 08/28/16 13:17 Lactic Acid 0.9 mmol/L (0.5-2.2) 08/29/16 06:18 Calcium 9.1 mg/dL (8.5-10.3) 08/31/16 05:00 Phosphorus 4.8 mg/dL (2.5-4.6) H 08/31/16 05:00 Magnesium 1.6 mg/dL (1.7-2.8) L 08/31/16 05:00 Total Bilirubin 0.5 mg/dL (0.2-1.0) 08/31/16 05:00 AST 72 IU/L (10-42) H 08/31/16 05:00 ALT 90 IU/L (10-60) H 08/31/16 05:00 Alkaline Phosphatase 37 IU/L (42-121) L 08/31/16 05:00 Total Protein 6.1 g/dL (6.7-8.2) L 08/31/16 05:00 Albumin 3.4 g/dL (3.2-5.5) 08/31/16 05:00 Globulin 2.7 g/dL (2.1-4.2) 08/31/16 05:00 Albumin/Globulin Ratio 1.3 (1.0-2.2) 08/31/16 05:00 Lipase 16 U/L (22-51) L 08/28/16 13:07 TSH 1.55 uIU/mL (0.34-5.60) 08/29/16 06:18 Urine Color YELLOW 08/28/16 14:05 Urine Clarity CLEAR (CLEAR) 08/28/16 14:05 Urine pH 7.0 PH (5.0-7.5) 08/28/16 14:05 Ur Specific Whiting >=1.030 (1.002-1.030) H 08/28/16 14:05 Urine Protein TRACE mg/dL (NEGATIVE) 08/28/16 14:05 Urine Glucose (UA) NEGATIVE mg/dL (NEGATIVE) 08/28/16 14:05 Urine Ketones TRACE mg/dL (NEGATIVE) 08/28/16 14:05 Urine Occult Blood TRACE-INTA (NEGATIVE) 08/28/16 14:05 Urine Nitrite NEGATIVE (NEGATIVE) 08/28/16 14:05 Urine Bilirubin NEGATIVE (NEGATIVE) 08/28/16 14:05 Urine Urobilinogen 0.2 (NORMAL) E.U./dL (NORMAL) 08/28/16 14:05 Ur Leukocyte Esterase TRACE (NEGATIVE) H 08/28/16 14:05 Urine RBC 0-5 /HPF (0-5) 08/28/16 14:05 Urine WBC >25 /HPF (0-5) H 08/28/16 14:05 Urine WBC Clumps PRESENT 08/28/16 14:05 Ur Squamous Epith Cells RARE Squamous (<= Few) 08/28/16 14:05 Urine Bacteria Few /HPF (None Seen) 08/28/16 14:05 Urine Casts 0-2 Fine Granular /LPF 08/28/16 14:05 Urine Mucus Marked Strands 08/28/16 14:05 Ur Microscopic Review INDICATED 08/28/16 14:05 Urine Culture Comments INDICATED 08/28/16 14:05 Stool Leukocytes, Qual POSITIVE (Negative) 08/29/16 18:40 - EKG Results EKG Interpreted Independently: Yes - Diagnostic Imaging Results Diagnostic Imaging Results: Final report reviewed - Additional Planning Condition/Complexity: Critical My Orders: My Active Orders 08/31/16 09:00 Magnesium Oxide [Mag Ox] 400 mg PO DAILYWM 08/31/16 10:40 BiPAP/CPAP [RC] .ONCE Daily Weight [RC] 0600 Elevate HOB 30 - 45 degrees [RC] .ONCE IO [RC] Q1HR Initiate Flu Vaccine Screening [RC] ONCE Initiate ICU Electrolyte Prot. [RC] .protocol Initiate Pneumonia Vaccine Scr [RC] ONCE Oral Care - Nursing [RC] Q2HR Vital Signs [RC] Q1HR Albuterol 2.5 mg INH Q4HR PRN 08/31/16 13:18 Arterial Blood Gases - RT [RC] .ONCE 08/31/16 14:36 MRSA PCR, CCU ADMIT [RAPID] Routine 08/31/16 16:01 Arterial Blood Gases - RT [RC] .ONCE 08/31/16 21:00 Chlorhexidine [Peridex] 15 ml PO BID 08/31/16 Dinner Regular Diet [DIET] 09/01/16 07:00 Pantoprazole [Protonix] 40 mg IVP QDAC 09/01/16 09:00 Chest 1 View [XR] Daily ABG - ARTERIAL BLOOD GAS [BG] DAILY 09/02/16 09:00 Chest 1 View [XR] Daily ABG - ARTERIAL BLOOD GAS [BG] DAILY 09/03/16 09:00 Chest 1 View [XR] Daily ABG - ARTERIAL BLOOD GAS [BG] DAILY 09/04/16 09:00 ABG - ARTERIAL BLOOD GAS [BG] DAILY 09/05/16 09:00 ABG - ARTERIAL BLOOD GAS [BG] DAILY 09/06/16 09:00 ABG - ARTERIAL BLOOD GAS [BG] DAILY Plan Discussed with:: Patient, Family Time Spent: Greater than 60 minutes Subjective - Subjective Patient Reports: Other (Very lethargic this morning, barely opening her eyes and then falling back asleep. Decreased respirations. No cough, no fevers.) Nursing Reports: No Complaints Objective Vital Signs: Vital Signs - 24 hr 08/30/16 08/31/16 08/31/16 23:55 07:16 11:00 Temperature 37.1 C 37.2 C Heart Rate Heart Rate [ 86 Brachial] Heart Rate [ 89 Monitoring electrodes] Heart Rate [ 105 H Radial] Respiratory 16 14 14 Rate Blood Pressure 133/80 H [Right Brachial artery] Blood Pressure 126/76 136/72 H [Right Radial artery] O2 Saturation 95 90 L 80 L 08/31/16 08/31/16 08/31/16 12:00 12:30 13:00 Temperature 36.8 C Heart Rate 76 Heart Rate [ Brachial] Heart Rate [ 82 83 Monitoring electrodes] Heart Rate [ Radial] Respiratory 16 16 Rate Blood Pressure 128/83 H [Right Brachial artery] Blood Pressure 139/87 H 131/62 H [Right Radial artery] O2 Saturation 100 100 08/31/16 08/31/16 08/31/16 13:30 14:00 15:00 Temperature 37 C Heart Rate 86 Heart Rate [ Brachial] Heart Rate [ 81 84 Monitoring electrodes] Heart Rate [ Radial] Respiratory 14 14 Rate Blood Pressure [Right Brachial artery] Blood Pressure 120/70 102/57 L [Right Radial artery] O2 Saturation 99 99 08/31/16 08/31/16 08/31/16 15:50 15:56 16:14 Temperature 36 C L Heart Rate 86 Heart Rate [ Brachial] Heart Rate [ 90 Monitoring electrodes] Heart Rate [ Radial] Respiratory 18 Rate Blood Pressure [Right Brachial artery] Blood Pressure 103/59 L [Right Radial artery] O2 Saturation 100 Oxygen O2 Source BIPAP I&O (Last 24 Hrs): Intake and Output Totals x24h 08/29/16 08/30/16 08/31/16 23:59 23:59 23:59 Intake Total 2071 817 380 Output Total 4400 2625 670 Balance -5180 -2819 -579 General: Other (Very lethargic, barely arousable, not following commands, morbidly obese) HEENT: Atraumatic, PERRLA, EOMI, Mucous membr. moist/pink Neck: Supple, No JVD, No thyromegaly, +2 carotid pulse wo bruit, No LAD Lymphatic: no adenopathy Neuro: Non Focal, Other (lethargic) Cardiovascular: Regular rate, Normal S1, Normal S2, No murmurs Respiratory: Other (decreased respirations, diminished breath sounds) Abdomen: Normal bowel sounds, Soft, No tenderness, No hepatospenomegaly, No masses Extremities: No clubbing, No cyanosis, Normal pulses Skin: No significant lesion - Results Results: Laboratory Results WBC 9.8 x10^3/uL (4.8-10.8) 08/31/16 05:00 RBC 3.78 10^6/uL (4.20-5.40) L 08/31/16 05:00 Hgb 11.5 g/dL (12.0-16.0) L 08/31/16 05:00 Hct 35.9 % (37.0-47.0) L 08/31/16 05:00 MCV 94.9 fL (81.0-99.0) 08/31/16 05:00 MCH 30.4 pg (27.0-31.0) 08/31/16 05:00 MCHC 32.1 g/dL (32.0-36.0) 08/31/16 05:00 RDW 17.5 % (12.0-15.0) H 08/31/16 05:00 Plt Count 322 10^3/uL (130-450) 08/31/16 05:00 MPV 9.1 fL (7.9-10.8) 08/31/16 05:00 Neut # Not Reportable 08/31/16 05:00 Lymph # Not Reportable 08/31/16 05:00 Juncos # Not Reportable 08/31/16 05:00 Eos # Not Reportable 08/31/16 05:00 Baso # Not Reportable 08/31/16 05:00 Absolute Nucleated RBC Not Reportable 08/31/16 05:00 Total Counted 100 08/31/16 05:00 Band Neuts % (Manual) 7 % (0-10) 08/31/16 05:00 Metamyelocytes % 2 % (-0) H 08/31/16 05:00 Myelocytes % 2 % (-0) H 08/31/16 05:00 Neutrophils # (Manual) 6.8 10^3/uL (1.5-6.6) H 08/31/16 05:00 Lymphocytes # (Manual) 1.4 10^3/uL (1.5-3.5) L 08/31/16 05:00 Monocytes # (Manual) 0.7 10^3/uL (0.0-1.0) 08/31/16 05:00 Eosinophils # (Manual) 0.6 10^3/uL (0-0.7) 08/31/16 05:00 Nucleated RBCs Not Reportable 08/31/16 05:00 Differential Comment MANUAL DIFFERENTIAL 08/31/16 05:00 WBC Morphology 1+ VACUOLATION (NORMAL) 08/28/16 13:07 Platelet Estimate NORMAL (130-450,000) (NORMAL) 08/31/16 05:00 Platelet Morphology NORMAL APPEARANCE (NORMAL) 08/29/16 06:18 RBC Morph Micro Appear 2+ STOMATOCYTES (NORMAL) 1+ ANISOCYTOSIS (NORMAL) 1+ POLYCHROMASIA (NORMAL) 1+ BASO STIPPLING (NORMAL) 1+ HYPOCHROMASIA (NORMAL) 08/28/16 13:07 RBC Morph Micro Appear 2+ STOMATOCYTES (NORMAL) 1+ ANISOCYTOSIS (NORMAL) 1+ POLYCHROMASIA (NORMAL) 1+ BASO STIPPLING (NORMAL) 1+ HYPOCHROMASIA (NORMAL) 08/28/16 13:07 RBC Morph Micro Appear NORMAL APPEARANCE (NORMAL) 08/29/16 06:18 RBC Morph Micro Appear NORMAL APPEARANCE (NORMAL) 08/30/16 06:05 RBC Morph Micro Appear NORMAL APPEARANCE (NORMAL) 08/31/16 05:00 Bld Gas Analysis Time 1606 08/31/16 15:52 Sample Site LEFT RADIAL 08/31/16 15:52 ABG pH 7.27 (7.35-7.45) L 08/31/16 15:52 ABG pCO2 78 mmHg (34-45) H* 08/31/16 15:52 ABG pO2 123 mmHg (80-100) H 08/31/16 15:52 ABG HCO3 35.2 mmol/L (22.0-26.0) H 08/31/16 15:52 ABG Total CO2 37.6 MMOL/L (21.0-29.0) H 08/31/16 15:52 ABG O2 Saturation 98 % (94-98) 08/31/16 15:52 ABG Oximetry Spot Check 100 % 08/31/16 15:52 ABG Base Excess 6.2 mmol/L (-2.0-3.0) H 08/31/16 15:52 Babar Test POSITIVE 08/31/16 15:52 VBG pH 7.338 (7.31-7.41) 08/28/16 16:12 VBG pCO2 77.4 mmHg (41-51) H 08/28/16 16:12 VBG pO2 200.0 mmHg (25-47) H 08/28/16 16:12 VBG HCO3 41.6 mmol/L (23-28) H 08/28/16 16:12 VBG Total CO2 44.0 mmol/L (24-29) H 08/28/16 16:12 VBG O2 Saturation 100.0 % (60-80) H 08/28/16 16:12 VBG Base Excess 16.0 mmol/L (-2 - +2) H 08/28/16 16:12 Respiration Rate 16 b/min 08/31/16 15:52 O2 Delivery Device BiPAP 08/31/16 15:52 O2 Liters/Min 2.00 LPM 08/31/16 10:22 Vent Mode SYNCHRONOUS/TIMES 08/31/16 15:52 FiO2 50.00 08/31/16 15:52 Pressure Support Vent 11 cmH2O 08/31/16 15:52 EPAP 6 cmH2O 08/31/16 15:52 IPAP 17 cmH2O 08/31/16 15:52 Sodium 146 mmol/L (135-145) H 08/31/16 05:00 Potassium 3.9 mmol/L (3.5-5.0) 08/31/16 05:00 Chloride 101 mmol/L (101-111) 08/31/16 05:00 Carbon Dioxide 37 mmol/L (21-32) H 08/31/16 05:00 Anion Gap 8.0 (6-13) 08/31/16 05:00 BUN 5 mg/dL (6-20) L 08/31/16 05:00 Creatinine 0.4 mg/dL (0.4-1.0) 08/31/16 05:00 Estimated GFR (MDRD) 168 (>89) 08/31/16 05:00 Glucose 93 mg/dL (70-100) 08/31/16 05:00 POC Whole Bld Glucose 98 mg/dL (70 - 100) 08/29/16 16:51 Glycated Hemoglobin 5.3 % (4.6-6.2) 08/28/16 13:17 Estim Average Glucose 105 (70-100) H 08/28/16 13:17 Lactic Acid 0.9 mmol/L (0.5-2.2) 08/29/16 06:18 Calcium 9.1 mg/dL (8.5-10.3) 08/31/16 05:00 Phosphorus 4.8 mg/dL (2.5-4.6) H 08/31/16 05:00 Magnesium 1.6 mg/dL (1.7-2.8) L 08/31/16 05:00 Total Bilirubin 0.5 mg/dL (0.2-1.0) 08/31/16 05:00 AST 72 IU/L (10-42) H 08/31/16 05:00 ALT 90 IU/L (10-60) H 08/31/16 05:00 Alkaline Phosphatase 37 IU/L (42-121) L 08/31/16 05:00 Total Protein 6.1 g/dL (6.7-8.2) L 08/31/16 05:00 Albumin 3.4 g/dL (3.2-5.5) 08/31/16 05:00 Globulin 2.7 g/dL (2.1-4.2) 08/31/16 05:00 Albumin/Globulin Ratio 1.3 (1.0-2.2) 08/31/16 05:00 Lipase 16 U/L (22-51) L 08/28/16 13:07 TSH 1.55 uIU/mL (0.34-5.60) 08/29/16 06:18 Urine Color YELLOW 08/28/16 14:05 Urine Clarity CLEAR (CLEAR) 08/28/16 14:05 Urine pH 7.0 PH (5.0-7.5) 08/28/16 14:05 Ur Specific [place] >=1.030 (1.002-1.030) H 08/28/16 14:05 Urine Protein TRACE mg/dL (NEGATIVE) 08/28/16 14:05 Urine Glucose (UA) NEGATIVE mg/dL (NEGATIVE) 08/28/16 14:05 Urine Ketones TRACE mg/dL (NEGATIVE) 08/28/16 14:05 Urine Occult Blood TRACE-INTA (NEGATIVE) 08/28/16 14:05 Urine Nitrite NEGATIVE (NEGATIVE) 08/28/16 14:05 Urine Bilirubin NEGATIVE (NEGATIVE) 08/28/16 14:05 Urine Urobilinogen 0.2 (NORMAL) E.U./dL (NORMAL) 08/28/16 14:05 Ur Leukocyte Esterase TRACE (NEGATIVE) H 08/28/16 14:05 Urine RBC 0-5 /HPF (0-5) 08/28/16 14:05 Urine WBC >25 /HPF (0-5) H 08/28/16 14:05 Urine WBC Clumps PRESENT 08/28/16 14:05 Ur Squamous Epith Cells RARE Squamous (<= Few) 08/28/16 14:05 Urine Bacteria Few /HPF (None Seen) 08/28/16 14:05 Urine Casts 0-2 Fine Granular /LPF 08/28/16 14:05 Urine Mucus Marked Strands 08/28/16 14:05 Ur Microscopic Review INDICATED 08/28/16 14:05 Urine Culture Comments INDICATED 08/28/16 14:05 Stool Leukocytes, Qual POSITIVE (Negative) 08/29/16 18:40 - Procedures Procedures: Procedures INSERTION OF INFUSION DEV INTO INF VENA CAVA, PERC APPROACH (12/22/15) TRANSFUSE NONAUT RED BLOOD CELLS IN PERIPH VEIN, PERC (07/21/16)
[2016-08-31] MEDS ORDERED: LORazepam 2 MG/ML SYRINGE IVP ONE (17:00)
[2016-08-31] MEDS ORDERED: SODIUM CHLORIDE 0.9% 250 ML IV ONE (17:00)
[2016-08-31] MEDS ORDERED: HALOPERIDOL 5 MG/ML VIAL IM ONE (17:00)
[2016-08-31] MEDS: methylPREDNISolone SUCCINATE 40 MG/ML VIAL IVP SCH (17:30)
[2016-08-31] MEDS: HYDROmorphone 1 MG/ML CARPUJECT IVP PRN ×3 (18:36→23:49)
[2016-08-31] MEDS: ATORVASTATIN 10 MG TABLET PO SCH (20:15)
[2016-08-31] MEDS: CHLORHEXIDINE GLUCONATE 15 ML UDC PO SCH (20:16)
[2016-08-31] MEDS: HALOPERIDOL 5 MG/ML VIAL IM PRN (20:59)
[2016-08-31] MEDS ORDERED: METHADONE 5 MG TABLET PO SCH (21:00)
[2016-09-01] MEDS: LORazepam 2 MG/ML SYRINGE IVP PRN ×3 (00:02→05:09)
[2016-09-01] MEDS: HYDROmorphone 1 MG/ML CARPUJECT IVP PRN ×6 (02:28→20:16)
[2016-09-01] MEDS: CLINDAMYCIN 600 MG/50 ML 50 ML IV SCH ×4 (04:05→22:05)
[2016-09-01] MEDS: CEFEPIME 2 GM in SODIUM CHLORIDE 0.9% MINIBAG 100 ML IV SCH ×2 (05:02→17:55)
[2016-09-01] MEDS: SODIUM CHLORIDE FLUSH 0.9% 10 ML SYRINGE IVP SCH ×3 (05:02→22:05)
[2016-09-01 05:24] LABS: EOSINOPHILS % (AUTO) 0.1 %; MEAN CORPUSCULAR HEMOGLOBIN 30.6 pg (27.0-31.0); MEAN CORPUSCULAR HGB CONC 32.4 g/dL (32.0-36.0); UNCORRECTED WHITE BLOOD COUNT 10.3 x10^3/uL; WHITE BLOOD COUNT 10.3 x10^3/uL (4.8-10.8)
[2016-09-01 05:36] LABS: ALBUMIN/GLOBULIN RATIO 1.3 (1.0-2.2); BILIRUBIN,TOTAL 0.5 mg/dL (0.2-1.0); CALCIUM 9.2 mg/dL (8.5-10.3); CREATININE 0.4 mg/dL (0.4-1.0); MAGNESIUM 1.5 mg/dL (1.7-2.8); PHOSPHORUS 1.7 mg/dL (2.5-4.6); POTASSIUM 3.8 mmol/L (3.5-5.0); TOTAL PROTEIN 5.7 g/dL (6.7-8.2)
[2016-09-01 05:39] LABS: BASOPHILS % (AUTO) 0.4 %; HCT - HEMATOCRIT 31.7 % (37.0-47.0); HGB - HEMOGLOBIN 10.3 g/dL (12.0-16.0); LYMPHOCYTES # (AUTO) 1.5 10^3/uL (1.5-3.5); LYMPHOCYTES % (AUTO) 14.8 %; MEAN CORPUSCULAR VOLUME 94.4 fL (81.0-99.0); MEAN PLATELET VOLUME 9.2 fL (7.9-10.8); MONOCYTES # (AUTO) 0.8 10^3/uL (0.0-1.0); MONOCYTES % (AUTO) 7.8 %; NEUTROPHILS % (AUTO) 76.9 %; NUCLEATED RED BLOOD CELLS AUTO 0.2 /100WBC; RED BLOOD COUNT 3.35 10^6/uL (4.20-5.40); RED CELL DISTRIBUTION WIDTH 17.5 % (12.0-15.0)
[2016-09-01] MEDS ORDERED: MAGNESIUM OXIDE 400 MG TABLET PO SCH (06:00)
[2016-09-01 06:01] LABS: NP AUTO DIFFERENTIAL? NO; NP MAN DIFFERENTIAL? YES; PLATELET ESTIMATE, MANUAL NORMAL (130-450,000) (NORMAL); PLATELET MORPHOLOGY 1+ GIANT PLATELETS (NORMAL)
[2016-09-01] MEDS: NEUTRA-PHOS 250 MG TABLET PO SCH ×2 (06:06→10:44)
[2016-09-01] MEDS: PANTOPRAZOLE 40 MG VIAL IVP SCH (06:06)
--- NOTE | 2016-09-01 07:04 | XRAY Preliminary Report ---
Exam: XR Chest 1 View IMPRESSION: 1. Small lung volumes with cardiomegaly and hypoventilatory changes. [facility] SITE ID: [id number]
--- NOTE | 2016-09-01 07:06 | XRAY Report ---
EXAM: CHEST RADIOGRAPHY EXAM DATE: 09/01/2016 06:51 AM. CLINICAL HISTORY: BiPAP - respiratory failure . COMPARISON: 08/28/2016. TECHNIQUE: 1 view. FINDINGS: Lungs/Pleura: Small lung volumes with hypoventilatory changes. No significant pleural effusion seen. No pneumothorax. Mediastinum: Possible cardiomegaly. Other: None. IMPRESSION: 1. Small lung volumes with cardiomegaly and hypoventilatory changes. [facility] Referring Provider Line: [phone] SITE ID: [id number]
[2016-09-01] MEDS: FAMOTIDINE 20 MG/50 ML 50 ML IV SCH ×2 (08:57→20:14)
[2016-09-01] MEDS: ENOXAPARIN 40 MG/0.4 ML SYRINGE SUBQ SCH (09:04)
[2016-09-01] MEDS: MAGNESIUM OXIDE 400 MG TABLET PO SCH ×2 (09:06→10:52)
[2016-09-01] MEDS: MULTIVITAMIN TABLET PO SCH ×2 (09:06→10:56)
[2016-09-01] MEDS: CALCIUM CARBONATE CHEW 500 MG TABLET PO SCH ×5 (09:07→20:14)
[2016-09-01] MEDS: ACYCLOVIR 200 MG CAPSULE PO SCH ×2 (09:07→20:13)
[2016-09-01] MEDS: ASPIRIN EC 81 MG TABLET PO SCH ×2 (09:07→10:56)
[2016-09-01] MEDS: ESCITALOPRAM 10 MG TABLET PO SCH ×2 (09:08→10:56)
[2016-09-01] MEDS: CHLORHEXIDINE GLUCONATE 15 ML UDC PO SCH ×2 (09:08→20:14)
[2016-09-01] MEDS: FENOFIBRATE 48 MG TABLET PO SCH ×2 (09:09→10:57)
[2016-09-01] MEDS: FLUTICASONE NASAL SPRAY NAS SCH ×2 (09:09→20:14)
[2016-09-01] MEDS: methylPREDNISolone SUCCINATE 40 MG/ML VIAL IVP SCH (09:10)
[2016-09-01] MEDS: METOPROLOL TARTRATE 25 MG TABLET PO SCH ×3 (09:10→20:15)
[2016-09-01] MEDS: NYSTATIN POWDER 15 GM TOP SCH ×2 (09:12→20:15)
[2016-09-01] MEDS: POLYETHYLENE GLYCOL 3350 17 GM PACKET PO SCH ×2 (09:12→10:57)
[2016-09-01] MEDS: SIMETHICONE CHEW 80 MG TABLET PO SCH ×2 (09:13→10:57)
[2016-09-01] MEDS: TOLTERODINE LA 2 MG CAPSULE PO SCH ×3 (09:13→20:15)
[2016-09-01] MEDS: ACETAMINOPHEN 325 MG TABLET PO PRN ×2 (09:14→17:24)
[2016-09-01] MEDS: HALOPERIDOL 5 MG/ML VIAL IM PRN (09:15)
[2016-09-01] MEDS ORDERED: POTASSIUM PHOSPHATE 15 MMOL in SODIUM CHLORIDE 0.9% 250 ML IV ONE (11:04)
[2016-09-01] MEDS ORDERED: MAGNESIUM SULFATE 2 GRAM 50 ML IV ONE (11:04)
[2016-09-01] MEDS: ONDANSETRON 4 MG/2 ML VIAL IVP PRN (11:53)
[2016-09-01] MEDS: SODIUM CHLORIDE FLUSH 0.9% 10 ML SYRINGE IVP PRN (11:54)
[2016-09-01] MEDS: SODIUM CHLORIDE 0.9% 1,000 ML IV SCH ×2 (12:00→22:44)
--- NOTE | 2016-09-01 14:01 | PROVIDER PROGRESS NOTE ---
Assessment/Plan - Problem List (1) Acute respiratory failure with hypercapnia Assessment/Plan: Patient was very lethargic yesterday morning ABG showed PCO2 of 86 with pH of 7.25 consistent with hypercapnic respiratory failure with respiratory acidosis Patient was transferred to ICU and placed on BiPAP Likely cause of hypercapnia is decreased respiratory drive secondary to pain medication in conjunction with JALYN and OHS Repeat ABG showed PCO2 of 82 then 78 could not get ABG this morning as patient was combative Patient minimally improving with BiPAP as she continues to require sedation as she gets agitated and pain meds as she has pain therefore it is a difficult balancing act with the BiPAP and decreasing her respiratory drive Spoke with daughter this afternoon and she understands patients overall prognosis is poor and that the patient has a poor quality of life as it is so if she is not showing improvement in the next 24-48 hours we will consider changing her to comfort care (2) Acute encephalopathy Assessment/Plan: Appears to be secondary to UTI and now hypercapnic respiratory failure Was improving slowly with IVFs and IV abx but worsened yesterday and patient found to have hypercapnic respiratory failure CT head negative for acute stroke or mass and showed stable mastoid effusion and sphenoid sinusitis ABG showed acute respiratory acidosis with hypercapnia On BiPAP with minimal improvement She continues to get agitated and not cooperative with treatment therefore placed in restraints and has received haldol Will continue BiPAP for 24-48 more hours if not improving then daugther will consider comfort care (3) UTI (urinary tract infection) Conclusion/Plan: Patient has indwelling nunse catheter with recurrent UTIs Presented with generalized weakness, fevers, chills, decreased appetite, abdominal pain and lethargy Was placed on cipro as an outpatient for pseudomonas UTI (cipro can also cause encephalopathy) Repeat UA positive Urine cx growing stap epi susceptible to clinda Continue IV cefepime day 5 and IV clinda day 3 will descalate to PO abx once patients mental status at baseline and ready to go home Mental status not improving Qualifiers: Urinary tract infection type: site unspecified Hematuria presence: without hematuria Qualified Code(s): N39.0 - Urinary tract infection, site not specified (4) Abdominal pain Conclusion/Plan: Mostly tenderness which is diffuse CT abd pelvis negative aside from chronic finding of medial cecum wall thickening which is non specific and could represent inflammation vs malignancy Unlikely to be cause of pain Likely pain from UTI (5) Hypokalemia Conclusion/Plan: Resolved (6) Hypophosphatemia Conclusion/Plan: Replace Phos Phos 1.7 this am (7) Hypomagnesemia Conclusion/Plan: Mg 1.5 Replace (8) Chronic pain Conclusion/Plan: Methadone and oxycodone discontinued secondary to hypercapnic respiratory failure as it was thought to be due to decreased respiratory drive from opioids On dilaudid for breakthrough pain as we are concerned that methadone is being metabolized very slowly and causing respiratory depression Monitor for withdrawal symptoms and pain Qualifiers: Chronic pain type: chronic pain syndrome Qualified Code(s): G89.4 - Chronic pain syndrome (9) Clostridium difficile colitis Conclusion/Plan: She has been treated with PO vanco for over 1 month and was still taking vanco at home did not know her stop date Stools were initially well formed so PO vanco stopped C. Diff PCR was negative (10) Diabetes Conclusion/Plan: History of diabetes likely secondary to retirement steroid use HbA1C is 5.3 Stopped DM diet and SS insulin Qualifiers: Diabetes mellitus type: type 2 (11) JALYN on CPAP Conclusion/Plan: On BiPAP in ICU (12) Prophylactic use of low molecular weight heparin for venous thromboembolism Conclusion/Plan: Place on lovenox while hospitalized - Current Meds Current Meds: Current Medications Generic Name Dose Route Start Last Admin Trade Name Freq PRN Reason Stop Dose Admin Acetaminophen 650 mg 08/28/16 15:59 08/28/16 23:57 Tylenol PO 650 mg Q4HR PRN Administration Pain 1 to 4 Acyclovir 200 mg 08/28/16 21:00 09/01/16 09:07 Zovirax PO 200 mg BID JAVIER Administration Albuterol 2.5 mg 08/31/16 10:40 08/31/16 17:00 INH 2.5 mg Q4HR PRN Administration Wheezing Aspirin 81 mg 08/29/16 09:00 09/01/16 10:56 Ecotrin PO Not Given DAILY JAVIER Atorvastatin Calcium 20 mg 08/28/16 21:00 08/31/16 20:15 Lipitor PO 20 mg QPM JAVIER Administration Calcium Carbonate/Glycine 750 mg 08/28/16 17:00 09/01/16 13:19 Tums PO Not Given QID JAVIER Chlorhexidine Gluconate 15 ml 08/31/16 21:00 09/01/16 09:08 Peridex PO 15 ml BID JAVIER Administration Diazepam 5 mg 08/28/16 15:49 08/30/16 16:01 Valium PO 5 mg QID PRN Administration Spasms Enoxaparin Sodium 40 mg 08/29/16 09:00 09/01/16 09:04 Lovenox SUBQ 40 mg DAILY JAVIER Administration Escitalopram Oxalate 20 mg 08/29/16 09:00 09/01/16 10:56 Lexapro PO Not Given DAILY JAVIER Fenofibrate 144 mg 08/29/16 09:00 09/01/16 10:57 Tricor PO Not Given DAILY JAVIER Fluticasone Propionate 1 sprays 08/28/16 21:00 09/01/16 09:09 Flonase AVIS 1 spr BID JAVIER Administration Haloperidol 5 mg 08/31/16 20:53 08/31/16 20:59 Haldol Inj IM 5 mg Q8H PRN Administration Agitation Hydromorphone HCl 1 mg 08/31/16 16:50 09/01/16 13:15 Dilaudid Inj IVP 1 mg Q2HR PRN Administration PAIN Cefepime HCl 2 gm/ Sodium 100 mls @ 200 mls/hr 08/28/16 18:00 09/01/16 05:02 Chloride IV 200 mls/hr Q12H JAVIER Administration Famotidine 50 mls @ 100 mls/hr 08/28/16 21:00 09/01/16 08:57 Pepcid 20 Mg/50 Ml IV 100 mls/hr BID JAVIER Administration Clindamycin Phosphate 50 mls @ 100 mls/hr 08/30/16 11:00 09/01/16 12:00 Cleocin 600 Mg/50 Ml IV 100 mls/hr Q6H JAVIER Administration Sodium Chloride 1,000 mls @ 125 mls/hr 09/01/16 11:00 09/01/16 12:00 Normal Saline 0.9% IV 125 mls/hr .Q8H JAVIER Administration Potassium Phosphate 15 mmol/ 255 mls @ 63 mls/hr 09/01/16 11:04 09/01/16 13:16 Sodium Chloride IV 09/01/16 15:06 63 mls/hr ONCE ONE Administration Protocol Lorazepam 1 mg 08/29/16 12:48 09/01/16 05:09 Ativan Inj IVP 1 mg Q2HR PRN Administration Anxiety Methylprednisolone 40 mg 08/31/16 17:00 09/01/16 09:10 Solu-Medrol (40mg Vial) IVP 40 mg DAILY JAVIER Administration Metoprolol Tartrate 12.5 mg 08/28/16 21:00 09/01/16 10:53 Lopressor PO Not Given BID JAVIER Multivitamins 1 tab 08/29/16 08:00 09/01/16 10:56 Theragran PO Not Given DAILYWM JAVIER Nystatin 1 applic 08/28/16 21:00 09/01/16 09:12 Nystop TOP 1 applic BID JAVIER Administration Ondansetron HCl 4 mg 08/28/16 15:59 09/01/16 11:53 Zofran Inj IVP 4 mg Q6HR PRN Administration Nausea / Vomiting Pantoprazole Sodium 40 mg 09/01/16 07:00 09/01/16 06:06 Protonix IVP 40 mg QDAC JAVIER Administration Polyethylene Glycol 17 gm 08/29/16 09:00 09/01/16 10:57 Miralax PO Not Given DAILY JAVIER Prochlorperazine Edisylate 10 mg 08/28/16 15:59 08/29/16 10:48 Compazine Inj IVP 10 mg Q6HR PRN Administration Nausea / Vomiting Simethicone 160 mg 08/29/16 09:00 09/01/16 10:57 Mylicon PO Not Given DAILY JAVIER Sodium Chloride 10 ml 08/28/16 15:59 09/01/16 11:54 Normal Saline Flush 0.9% IVP 10 ml PRN PRN Administration NEEDED PER PROVIDER ORDERS Sodium Chloride 10 ml 08/28/16 22:00 09/01/16 05:02 Normal Saline Flush 0.9% IVP 10 ml Q8HR JAVIER Administration Tolterodine Tartrate 2 mg 08/28/16 21:00 09/01/16 10:52 Detrol La PO Not Given BID JAVIER - Lab Result Lab results reviewed: Yes Fish Bone Diagrams: 09/01/16 05:17 09/01/16 05:17 - Diagnostic Imaging Results Diagnostic Imaging Results: Final report reviewed - Additional Planning Condition/Complexity: Critical My Orders: My Active Orders 08/31/16 13:18 Arterial Blood Gases - RT [RC] .ONCE 08/31/16 14:36 MRSA PCR, CCU ADMIT [RAPID] Routine 08/31/16 16:01 Arterial Blood Gases - RT [RC] .ONCE 08/31/16 16:50 HYDROmorphone INJ [Dilaudid Inj] 1 mg IVP Q2HR PRN 08/31/16 17:00 methylPREDNISolone SUCCINATE [SOLU-Medrol (40MG VIAL)] 40 mg IVP DAILY 08/31/16 21:00 Chlorhexidine [Peridex] 15 ml PO BID 08/31/16 Dinner Regular Diet [DIET] 09/01/16 VENOUS BLOOD GAS [BG] Routine 09/01/16 07:00 Pantoprazole [Protonix] 40 mg IVP QDAC 09/01/16 09:00 ABG - ARTERIAL BLOOD GAS [BG] DAILY 09/01/16 11:00 Sodium Chloride 0.9% [Normal Saline 0.9%] 1,000 ml IV 125 mls/hr 09/01/16 11:04 Potassium Phosphate 15 mmol Sodium Chloride 0.9% [Normal Saline 0.9%] 250 ml IV ONCE 09/02/16 09:00 Chest 1 View [XR] Daily ABG - ARTERIAL BLOOD GAS [BG] DAILY 09/03/16 09:00 Chest 1 View [XR] Daily ABG - ARTERIAL BLOOD GAS [BG] DAILY 09/04/16 09:00 ABG - ARTERIAL BLOOD GAS [BG] DAILY 09/05/16 09:00 ABG - ARTERIAL BLOOD GAS [BG] DAILY 09/06/16 09:00 ABG - ARTERIAL BLOOD GAS [BG] DAILY Plan Discussed with:: Patient, Family Time Spent: 31-60 minutes Subjective - Subjective Patient Reports: Other (Does open eyes to verbal stimuli this morning but has non intelligible speech and not following commands. She was agitated throughout the night and received haldol. She denies any pain this morning.) Nursing Reports: No Complaints Objective Vital Signs: Vital Signs - 24 hr 08/31/16 08/31/16 08/31/16 14:00 15:00 15:50 Temperature 37 C Heart Rate 86 Heart Rate [ 81 84 Monitoring electrodes] Respiratory 14 14 Rate Blood Pressure Blood Pressure [Left Ankle] Blood Pressure 120/70 102/57 L [Right Radial artery] O2 Saturation 99 99 08/31/16 08/31/16 08/31/16 15:56 16:14 17:00 Temperature 36 C L Heart Rate 90 Heart Rate [ 90 91 Monitoring electrodes] Respiratory 18 19 Rate Blood Pressure Blood Pressure [Left Ankle] Blood Pressure 103/59 L 126/81 H [Right Radial artery] O2 Saturation 100 95 08/31/16 08/31/16 08/31/16 18:00 19:00 20:00 Temperature 37.2 C 36.6 C Heart Rate Heart Rate [ 90 87 81 Monitoring electrodes] Respiratory 18 15 119 H Rate Blood Pressure Blood Pressure [Left Ankle] Blood Pressure 111/59 L 116/76 119/69 [Right Radial artery] O2 Saturation 97 99 98 08/31/16 08/31/16 08/31/16 20:10 20:16 21:00 Temperature Heart Rate 79 Heart Rate [ 83 Monitoring electrodes] Respiratory 12 Rate Blood Pressure 119/69 Blood Pressure 120/69 [Left Ankle] Blood Pressure [Right Radial artery] O2 Saturation 100 08/31/16 08/31/16 08/31/16 22:00 23:00 23:50 Temperature Heart Rate 87 Heart Rate [ 92 91 Monitoring electrodes] Respiratory 14 18 Rate Blood Pressure Blood Pressure 148/88 H 155/80 H [Left Ankle] Blood Pressure [Right Radial artery] O2 Saturation 99 100 09/01/16 09/01/16 09/01/16 00:00 01:00 01:13 Temperature 37.0 C Heart Rate 90 Heart Rate [ 93 99 Monitoring electrodes] Respiratory 18 22 Rate Blood Pressure Blood Pressure 127/71 141/78 H [Left Ankle] Blood Pressure [Right Radial artery] O2 Saturation 100 100 09/01/16 09/01/16 09/01/16 02:00 03:00 03:09 Temperature Heart Rate 81 Heart Rate [ 80 85 Monitoring electrodes] Respiratory 18 20 Rate Blood Pressure Blood Pressure 138/65 H 128/71 [Left Ankle] Blood Pressure [Right Radial artery] O2 Saturation 95 97 09/01/16 09/01/16 09/01/16 04:00 05:00 05:32 Temperature 36.3 C L Heart Rate 81 Heart Rate [ 83 86 Monitoring electrodes] Respiratory 18 18 Rate Blood Pressure Blood Pressure 121/58 L 133/77 H [Left Ankle] Blood Pressure [Right Radial artery] O2 Saturation 98 99 09/01/16 09/01/16 09/01/16 06:00 06:54 07:24 Temperature Heart Rate 85 Heart Rate [ 82 100 Monitoring electrodes] Respiratory 21 18 Rate Blood Pressure Blood Pressure 122/53 L 130/78 [Left Ankle] Blood Pressure [Right Radial artery] O2 Saturation 95 99 09/01/16 09/01/16 09/01/16 08:00 09:00 10:00 Temperature 36.4 C L 36.4 C L Heart Rate Heart Rate [ 86 80 94 Monitoring electrodes] Respiratory 16 16 18 Rate Blood Pressure Blood Pressure 116/47 L 122/65 132/63 H [Left Ankle] Blood Pressure [Right Radial artery] O2 Saturation 97 96 09/01/16 09/01/16 09/01/16 10:32 11:00 12:00 Temperature 37.1 C Heart Rate 75 Heart Rate [ 75 92 Monitoring electrodes] Respiratory 17 16 Rate Blood Pressure Blood Pressure 120/70 115/56 L [Left Ankle] Blood Pressure [Right Radial artery] O2 Saturation 97 94 09/01/16 13:00 Temperature Heart Rate Heart Rate [ 86 Monitoring electrodes] Respiratory 13 Rate Blood Pressure Blood Pressure 140/74 H [Left Ankle] Blood Pressure [Right Radial artery] O2 Saturation 98 Oxygen O2 Source BIPAP I&O (Last 24 Hrs): Intake and Output Totals x24h 08/30/16 08/31/16 09/01/16 23:59 23:59 23:59 Intake Total 817 1222 385 Output Total 2625 1000 380 Balance -1808 222 5 General: Other (Lethargic, arousible, not following commands.) HEENT: Atraumatic, PERRLA, EOMI, Mucous membr. moist/pink Neck: Supple, No JVD, No thyromegaly, +2 carotid pulse wo bruit, No LAD Lymphatic: no adenopathy Neuro: Disoriented, Non Focal, Other (lethargic) Cardiovascular: Regular rate, Normal S1, Normal S2, No murmurs Respiratory: Chest non-tender, No respiratory distress, Other (Decreased breath sounds) Abdomen: Normal bowel sounds, Soft, Other (Diffusely tender) Extremities: No clubbing, No cyanosis, Normal pulses, Other (B/L LE edema) Skin: No significant lesion - Results Results: Laboratory Results WBC 10.3 x10^3/uL (4.8-10.8) 09/01/16 05:17 RBC 3.35 10^6/uL (4.20-5.40) L 09/01/16 05:17 Hgb 10.3 g/dL (12.0-16.0) L 09/01/16 05:17 Hct 31.7 % (37.0-47.0) L 09/01/16 05:17 MCV 94.4 fL (81.0-99.0) 09/01/16 05:17 MCH 30.6 pg (27.0-31.0) 09/01/16 05:17 MCHC 32.4 g/dL (32.0-36.0) 09/01/16 05:17 RDW 17.5 % (12.0-15.0) H 09/01/16 05:17 Plt Count 276 10^3/uL (130-450) 09/01/16 05:17 MPV 9.2 fL (7.9-10.8) 09/01/16 05:17 Neut # 8.0 10^3/uL (1.5-6.6) H 09/01/16 05:17 Lymph # 1.5 10^3/uL (1.5-3.5) 09/01/16 05:17 [place] # 0.8 10^3/uL (0.0-1.0) 09/01/16 05:17 Eos # 0.0 10^3/uL (0.0-0.7) 09/01/16 05:17 Baso # 0.0 10^3/uL (0.0-0.1) 09/01/16 05:17 Absolute Nucleated RBC 0.02 x10^3/uL 09/01/16 05:17 Total Counted 100 08/31/16 05:00 Band Neuts % (Manual) Not Reportable 09/01/16 05:17 Metamyelocytes % 2 % (-0) H 08/31/16 05:00 Myelocytes % 2 % (-0) H 08/31/16 05:00 Neutrophils # (Manual) 6.8 10^3/uL (1.5-6.6) H 08/31/16 05:00 Lymphocytes # (Manual) 1.4 10^3/uL (1.5-3.5) L 08/31/16 05:00 Monocytes # (Manual) 0.7 10^3/uL (0.0-1.0) 08/31/16 05:00 Eosinophils # (Manual) 0.6 10^3/uL (0-0.7) 08/31/16 05:00 Nucleated RBCs 0.2 /100WBC 09/01/16 05:17 Differential Comment MANUAL=AUTO DIFF 09/01/16 05:17 WBC Morphology 1+ VACUOLATION (NORMAL) 08/28/16 13:07 Platelet Estimate NORMAL (130-450,000) (NORMAL) 09/01/16 05:17 Platelet Morphology 1+ GIANT PLATELETS (NORMAL) 09/01/16 05:17 RBC Morph Micro Appear 2+ STOMATOCYTES (NORMAL) 1+ ANISOCYTOSIS (NORMAL) 1+ POLYCHROMASIA (NORMAL) 1+ BASO STIPPLING (NORMAL) 1+ HYPOCHROMASIA (NORMAL) 08/28/16 13:07 RBC Morph Micro Appear NORMAL APPEARANCE (NORMAL) 08/29/16 06:18 RBC Morph Micro Appear NORMAL APPEARANCE (NORMAL) 08/30/16 06:05 RBC Morph Micro Appear NORMAL APPEARANCE (NORMAL) 08/31/16 05:00 RBC Morph Micro Appear 2+ STOMATOCYTES (NORMAL) 1+ POLYCHROMASIA (NORMAL) 1+ BASO STIPPLING (NORMAL) 09/01/16 05:17 RBC Morph Micro Appear 2+ STOMATOCYTES (NORMAL) 1+ POLYCHROMASIA (NORMAL) 1+ BASO STIPPLING (NORMAL) 09/01/16 05:17 RBC Morph Micro Appear 2+ STOMATOCYTES (NORMAL) 1+ POLYCHROMASIA (NORMAL) 1+ BASO STIPPLING (NORMAL) 09/01/16 05:17 Bld Gas Analysis Time 1606 08/31/16 15:52 Sample Site LEFT RADIAL 08/31/16 15:52 ABG pH 7.27 (7.35-7.45) L 08/31/16 15:52 ABG pCO2 78 mmHg (34-45) H* 08/31/16 15:52 ABG pO2 123 mmHg (80-100) H 08/31/16 15:52 ABG HCO3 35.2 mmol/L (22.0-26.0) H 08/31/16 15:52 ABG Total CO2 37.6 MMOL/L (21.0-29.0) H 08/31/16 15:52 ABG O2 Saturation 98 % (94-98) 08/31/16 15:52 ABG Oximetry Spot Check 100 % 08/31/16 15:52 ABG Base Excess 6.2 mmol/L (-2.0-3.0) H 08/31/16 15:52 Babar Test POSITIVE 08/31/16 15:52 VBG pH 7.338 (7.31-7.41) 08/28/16 16:12 VBG pCO2 77.4 mmHg (41-51) H 08/28/16 16:12 VBG pO2 200.0 mmHg (25-47) H 08/28/16 16:12 VBG HCO3 41.6 mmol/L (23-28) H 08/28/16 16:12 VBG Total CO2 44.0 mmol/L (24-29) H 08/28/16 16:12 VBG O2 Saturation 100.0 % (60-80) H 08/28/16 16:12 VBG Base Excess 16.0 mmol/L (-2 - +2) H 08/28/16 16:12 Respiration Rate 16 b/min 08/31/16 15:52 O2 Delivery Device BiPAP 08/31/16 15:52 O2 Liters/Min 2.00 LPM 08/31/16 10:22 Vent Mode SYNCHRONOUS/TIMES 08/31/16 15:52 FiO2 50.00 08/31/16 15:52 Pressure Support Vent 11 cmH2O 08/31/16 15:52 EPAP 6 cmH2O 08/31/16 15:52 IPAP 17 cmH2O 08/31/16 15:52 Sodium 143 mmol/L (135-145) 09/01/16 05:17 Potassium 3.8 mmol/L (3.5-5.0) 09/01/16 05:17 Chloride 99 mmol/L (101-111) L 09/01/16 05:17 Carbon Dioxide 35 mmol/L (21-32) H 09/01/16 05:17 Anion Gap 9.0 (6-13) 09/01/16 05:17 BUN 5 mg/dL (6-20) L 09/01/16 05:17 Creatinine 0.4 mg/dL (0.4-1.0) 09/01/16 05:17 Estimated GFR (MDRD) 168 (>89) 09/01/16 05:17 Glucose 109 mg/dL (70-100) H 09/01/16 05:17 POC Whole Bld Glucose 98 mg/dL (70 - 100) 08/29/16 16:51 Glycated Hemoglobin 5.3 % (4.6-6.2) 08/28/16 13:17 Estim Average Glucose 105 (70-100) H 08/28/16 13:17 Lactic Acid 0.9 mmol/L (0.5-2.2) 08/29/16 06:18 Calcium 9.2 mg/dL (8.5-10.3) 09/01/16 05:17 Phosphorus 1.7 mg/dL (2.5-4.6) L 09/01/16 05:17 Magnesium 1.5 mg/dL (1.7-2.8) L 09/01/16 05:17 Total Bilirubin 0.5 mg/dL (0.2-1.0) 09/01/16 05:17 AST 43 IU/L (10-42) H 09/01/16 05:17 ALT 73 IU/L (10-60) H 09/01/16 05:17 Alkaline Phosphatase 36 IU/L (42-121) L 09/01/16 05:17 Total Protein 5.7 g/dL (6.7-8.2) L 09/01/16 05:17 Albumin 3.2 g/dL (3.2-5.5) 09/01/16 05:17 Globulin 2.5 g/dL (2.1-4.2) 09/01/16 05:17 Albumin/Globulin Ratio 1.3 (1.0-2.2) 09/01/16 05:17 Lipase 16 U/L (22-51) L 08/28/16 13:07 TSH 1.55 uIU/mL (0.34-5.60) 08/29/16 06:18 Urine Color YELLOW 08/28/16 14:05 Urine Clarity CLEAR (CLEAR) 08/28/16 14:05 Urine pH 7.0 PH (5.0-7.5) 08/28/16 14:05 Ur Specific [place] >=1.030 (1.002-1.030) H 08/28/16 14:05 Urine Protein TRACE mg/dL (NEGATIVE) 08/28/16 14:05 Urine Glucose (UA) NEGATIVE mg/dL (NEGATIVE) 08/28/16 14:05 Urine Ketones TRACE mg/dL (NEGATIVE) 08/28/16 14:05 Urine Occult Blood TRACE-INTA (NEGATIVE) 08/28/16 14:05 Urine Nitrite NEGATIVE (NEGATIVE) 08/28/16 14:05 Urine Bilirubin NEGATIVE (NEGATIVE) 08/28/16 14:05 Urine Urobilinogen 0.2 (NORMAL) E.U./dL (NORMAL) 08/28/16 14:05 Ur Leukocyte Esterase TRACE (NEGATIVE) H 08/28/16 14:05 Urine RBC 0-5 /HPF (0-5) 08/28/16 14:05 Urine WBC >25 /HPF (0-5) H 08/28/16 14:05 Urine WBC Clumps PRESENT 08/28/16 14:05 Ur Squamous Epith Cells RARE Squamous (<= Few) 08/28/16 14:05 Urine Bacteria Few /HPF (None Seen) 08/28/16 14:05 Urine Casts 0-2 Fine Granular /LPF 08/28/16 14:05 Urine Mucus Marked Strands 08/28/16 14:05 Ur Microscopic Review INDICATED 08/28/16 14:05 Urine Culture Comments INDICATED 08/28/16 14:05 Stool Leukocytes, Qual POSITIVE (Negative) 08/29/16 18:40 - Procedures Procedures: Procedures INSERTION OF INFUSION DEV INTO INF VENA CAVA, PERC APPROACH (12/22/15) TRANSFUSE NONAUT RED BLOOD CELLS IN PERIPH VEIN, PERC (07/21/16)
[2016-09-01 18:09] LABS: ABG ANALYSIS TIME 1801; ABG HCO3 31.1 mmol/L (22.0-26.0); ABG PCO2 54 mmHg (34-45); ABG PH 7.38 (7.35-7.45); ABG PO2 69 mmHg (80-100); ABG TCO2 32.7 MMOL/L (21.0-29.0)
[2016-09-01 18:10] LABS: ABG O2 DEVICE NASAL CANNULA; ABG OXYGEN SATURATION 94 % (94-98); ABG SITE OF DRAW RIGHT RADIAL; ALLEN TEST POSITIVE
[2016-09-01] MEDS: ATORVASTATIN 10 MG TABLET PO SCH (20:13)
[2016-09-02] MEDS: CLINDAMYCIN 600 MG/50 ML 50 ML IV SCH ×2 (04:01→13:22)
[2016-09-02] MEDS: SODIUM CHLORIDE FLUSH 0.9% 10 ML SYRINGE IVP SCH ×3 (04:59→21:01)
[2016-09-02] MEDS: CEFEPIME 2 GM in SODIUM CHLORIDE 0.9% MINIBAG 100 ML IV SCH (04:59)
[2016-09-02 05:17] LABS: BASOPHILS # (AUTO) 0.1 10^3/uL (0.0-0.1); BASOPHILS % (AUTO) 0.5 %; EOSINOPHILS # (AUTO) 0.1 10^3/uL (0.0-0.7); EOSINOPHILS % (AUTO) 0.9 %; HCT - HEMATOCRIT 31.2 % (37.0-47.0); LYMPHOCYTES # (AUTO) 2.4 10^3/uL (1.5-3.5); LYMPHOCYTES % (AUTO) 24.2 %; MEAN CORPUSCULAR HEMOGLOBIN 30.2 pg (27.0-31.0); MEAN CORPUSCULAR HGB CONC 32.2 g/dL (32.0-36.0); MEAN CORPUSCULAR VOLUME 93.9 fL (81.0-99.0); MEAN PLATELET VOLUME 8.3 fL (7.9-10.8); MONOCYTES # (AUTO) 0.9 10^3/uL (0.0-1.0); MONOCYTES % (AUTO) 8.9 %; NEUTROPHILS # (AUTO) 6.4 10^3/uL (1.5-6.6); NEUTROPHILS % (AUTO) 65.5 %; RED BLOOD COUNT 3.32 10^6/uL (4.20-5.40); RED CELL DISTRIBUTION WIDTH 17.8 % (12.0-15.0); UNCORRECTED WHITE BLOOD COUNT 9.7 x10^3/uL; WHITE BLOOD COUNT 9.7 x10^3/uL (4.8-10.8)
[2016-09-02 05:45] LABS: NP AUTO DIFFERENTIAL? NO; NP MAN DIFFERENTIAL? YES; PLATELET ESTIMATE, MANUAL NORMAL (130-450,000) (NORMAL); PLATELET MORPHOLOGY NORMAL APP (NORMAL)
[2016-09-02] MEDS: PANTOPRAZOLE 40 MG VIAL IVP SCH (06:04)
[2016-09-02 06:07] LABS: ALBUMIN/GLOBULIN RATIO 1.2 (1.0-2.2); BILIRUBIN,TOTAL 0.5 mg/dL (0.2-1.0); BUN - BLOOD UREA NITROGEN < 5 mg/dL (6-20); CARBON DIOXIDE - CO2 36 mmol/L (21-32); CHLORIDE 101 mmol/L (101-111); GLUCOSE 81 mg/dL (70-100); MAGNESIUM 1.6 mg/dL (1.7-2.8); POTASSIUM 3.1 mmol/L (3.5-5.0); SODIUM 145 mmol/L (135-145); TOTAL PROTEIN 5.6 g/dL (6.7-8.2)
[2016-09-02 06:08] LABS: CREATININE < 0.3 mg/dL (0.4-1.0); GFR - MDRD 234 (>89)
[2016-09-02 06:29] LABS: ABG HCO3 35.1 mmol/L (22.0-26.0); ABG PH 7.37 (7.35-7.45); ABG PO2 66 mmHg (80-100)
[2016-09-02 06:30] LABS: ABG BASE EXCESS 8.2 mmol/L (-2.0-3.0); ABG OXYGEN SATURATION 93 % (94-98); ABG PCO2 62 mmHg (34-45); ABG SITE OF DRAW RIGHT RADIAL; ALLEN TEST POSITIVE
[2016-09-02 06:31] LABS: ABG O2 DEVICE NASAL CANNULA
[2016-09-02] MEDS: SODIUM CHLORIDE 0.9% 1,000 ML IV SCH ×3 (07:37→19:43)
[2016-09-02] MEDS ORDERED: POTASSIUM CHLORIDE 20 MEQ/15 ML UDC PO SCH (08:00)
[2016-09-02] MEDS: ENOXAPARIN 40 MG/0.4 ML SYRINGE SUBQ SCH (08:47)
[2016-09-02] MEDS: TOLTERODINE LA 2 MG CAPSULE PO SCH ×2 (08:48→21:00)
[2016-09-02] MEDS: ACYCLOVIR 200 MG CAPSULE PO SCH ×2 (08:49→21:06)
[2016-09-02] MEDS: METOPROLOL TARTRATE 25 MG TABLET PO SCH ×2 (08:50→21:00)
[2016-09-02] MEDS: MAGNESIUM OXIDE 400 MG TABLET PO SCH ×2 (08:52→16:43)
[2016-09-02] MEDS: FENOFIBRATE 48 MG TABLET PO SCH (08:53)
[2016-09-02] MEDS: ESCITALOPRAM 10 MG TABLET PO SCH (08:54)
[2016-09-02] MEDS: ASPIRIN EC 81 MG TABLET PO SCH (08:55)
[2016-09-02] MEDS: CALCIUM CARBONATE CHEW 500 MG TABLET PO SCH ×4 (08:56→21:08)
[2016-09-02] MEDS: methylPREDNISolone SUCCINATE 40 MG/ML VIAL IVP SCH (08:57)
[2016-09-02] MEDS: FAMOTIDINE 20 MG/50 ML 50 ML IV SCH ×2 (08:59→20:43)
[2016-09-02] MEDS ORDERED: LIDOCAINE JELLY 2% 5 ML TUBE TOP ONE (09:50)
[2016-09-02] MEDS: SIMETHICONE CHEW 80 MG TABLET PO SCH (10:05)
[2016-09-02] MEDS: CHLORHEXIDINE GLUCONATE 15 ML UDC PO SCH ×2 (10:05→21:01)
[2016-09-02] MEDS: MULTIVITAMIN TABLET PO SCH (10:07)
[2016-09-02] MEDS: NYSTATIN POWDER 15 GM TOP SCH ×2 (10:59→21:08)
[2016-09-02] MEDS: POLYETHYLENE GLYCOL 3350 17 GM PACKET PO SCH (11:00)
[2016-09-02] MEDS ORDERED: HALOPERIDOL 5 MG/ML VIAL IM STA ×2 (11:10→13:20)
[2016-09-02] MEDS: LORazepam 2 MG/ML SYRINGE IM PRN ×3 (13:33→22:17)
[2016-09-02] MEDS: FLUTICASONE NASAL SPRAY NAS SCH ×2 (13:44→21:08)
[2016-09-02] MEDS ORDERED: OLANZapine ODT 5 MG TABLET TL ONE (16:30)
[2016-09-02] MEDS ORDERED: MAGNESIUM OXIDE 400 MG TABLET PO ONE (16:31)
[2016-09-02] MEDS ORDERED: OLANZapine 10 MG VIAL IM ONE ×4 (17:32→21:39)
--- NOTE | 2016-09-02 18:36 | PROVIDER PROGRESS NOTE ---
Assessment/Plan - Problem List (1) Acute respiratory failure with hypercapnia Assessment/Plan: Patient was very lethargic yesterday morning ABG showed PCO2 of 86 with pH of 7.25 consistent with hypercapnic respiratory failure with respiratory acidosis Patient was transferred to ICU and placed on BiPAP Likely cause of hypercapnia is decreased respiratory drive secondary to pain medication in conjunction with JALYN and OHS Repeat ABG showed PCO2 of 82 then 78 Patient minimally improving with BiPAP as she continues to require sedation as she gets agitated and pain meds as she has pain therefore it is a difficult balancing act with the BiPAP and decreasing her respiratory drive Spoke with daughter and she understands patients overall prognosis is poor and that the patient has a poor quality of life as it is so if she is not showing improvement in the next 24-48 hours we will consider changing her to comfort care Today patient off BiPAP this morning and ABG was improved but patient very agitated and very confused all day therefore had to be given sedation. She ripped out IVs and was refusing treatment therefore had to be placed in restraints. Will have to have meeting with daughter and palliative to discuss possible comfort care as patient seems to be going in a cycle without improvement. (2) Acute encephalopathy Assessment/Plan: Appears to be secondary to UTI and now hypercapnic respiratory failure Was improving slowly with IVFs and IV abx but worsened yesterday and patient found to have hypercapnic respiratory failure CT head negative for acute stroke or mass and showed stable mastoid effusion and sphenoid sinusitis ABG showed acute respiratory acidosis with hypercapnia ABG improved and off BiPAP since last night. Today patient off BiPAP this morning and ABG was improved but patient very agitated and very confused all day therefore had to be given sedation. She ripped out IVs and was refusing treatment therefore had to be placed in restraints. Will have to have meeting with daughter and palliative to discuss possible comfort care as patient seems to be going in a cycle without improvement. (3) UTI (urinary tract infection) Conclusion/Plan: Patient has indwelling nunes catheter with recurrent UTIs Presented with generalized weakness, fevers, chills, decreased appetite, abdominal pain and lethargy Was placed on cipro as an outpatient for pseudomonas UTI (cipro can also cause encephalopathy) Repeat UA positive Urine cx growing stap epi susceptible to clinda Continue IV cefepime day 6 and IV clinda day 4 change to PO clinda and cipro as patient removed her IV Qualifiers: Urinary tract infection type: site unspecified Hematuria presence: without hematuria Qualified Code(s): N39.0 - Urinary tract infection, site not specified (4) Abdominal pain Conclusion/Plan: Mostly tenderness which is diffuse CT abd pelvis negative aside from chronic finding of medial cecum wall thickening which is non specific and could represent inflammation vs malignancy Unlikely to be cause of pain Likely pain from UTI (5) Hypokalemia Conclusion/Plan: 3.1 Replace (6) Hypophosphatemia Conclusion/Plan: Resolved (7) Hypomagnesemia Conclusion/Plan: Mg 1.6 Replace (8) Chronic pain Conclusion/Plan: Methadone and oxycodone discontinued secondary to hypercapnic respiratory failure as it was thought to be due to decreased respiratory drive from opioids On dilaudid for breakthrough pain as we are concerned that methadone is being metabolized very slowly and causing respiratory depression Monitor for withdrawal symptoms and pain Very agitated but not nauseated or diaphoretic Not showing typical symptoms of withdrawal Qualifiers: Chronic pain type: chronic pain syndrome Qualified Code(s): G89.4 - Chronic pain syndrome (9) Clostridium difficile colitis Conclusion/Plan: She has been treated with PO vanco for over 1 month and was still taking vanco at home did not know her stop date Stools were initially well formed so PO vanco stopped C. 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 (12) Prophylactic use of low molecular weight heparin for venous thromboembolism Conclusion/Plan: Place on lovenox while hospitalized - Current Meds Current Meds: Current Medications Generic Name Dose Route Start Last Admin Trade Name Freq PRN Reason Stop Dose Admin Acetaminophen 650 mg 08/28/16 15:59 09/01/16 17:24 Tylenol PO 650 mg Q4HR PRN Administration Pain 1 to 4 Acyclovir 200 mg 08/28/16 21:00 09/02/16 08:49 Zovirax PO 200 mg BID JAVIER Administration Albuterol 2.5 mg 08/31/16 10:40 08/31/16 17:00 INH 2.5 mg Q4HR PRN Administration Wheezing Aspirin 81 mg 08/29/16 09:00 09/02/16 08:55 Ecotrin PO 81 mg DAILY JAVIER Administration Atorvastatin Calcium 20 mg 08/28/16 21:00 09/01/16 20:13 Lipitor PO 20 mg QPM JAVIER Administration Calcium Carbonate/Glycine 750 mg 08/28/16 17:00 09/02/16 13:46 Tums PO Not Given QID JAVIER Chlorhexidine Gluconate 15 ml 08/31/16 21:00 09/02/16 10:05 Peridex PO 15 ml BID JAVIER Administration Diazepam 5 mg 08/28/16 15:49 08/30/16 16:01 Valium PO 5 mg QID PRN Administration Spasms Enoxaparin Sodium 40 mg 08/29/16 09:00 09/02/16 08:47 Lovenox SUBQ 40 mg DAILY JAVIER Administration Escitalopram Oxalate 20 mg 08/29/16 09:00 09/02/16 08:54 Lexapro PO 20 mg DAILY JAVIER Administration Fenofibrate 144 mg 08/29/16 09:00 09/02/16 08:53 Tricor PO 144 mg DAILY JAVIER Administration Fluticasone Propionate 1 sprays 08/28/16 21:00 09/02/16 13:44 Flonase AVIS Not Given BID [facility] Haloperidol 5 mg 08/31/16 20:53 08/31/16 20:59 Haldol Inj IM 5 mg Q8H PRN Administration Agitation Hydromorphone HCl 1 mg 08/31/16 16:50 09/01/16 20:16 Dilaudid Inj IVP 1 mg Q2HR PRN Administration PAIN Famotidine 50 mls @ 100 mls/hr 08/28/16 21:00 09/02/16 08:59 Pepcid 20 Mg/50 Ml IV 100 mls/hr BID JAVIER Administration Sodium Chloride 1,000 mls @ 125 mls/hr 09/01/16 11:00 09/02/16 07:37 Normal Saline 0.9% IV 125 mls/hr .Q8H JAVIER Administration Lorazepam 1 mg 09/02/16 13:21 09/02/16 13:33 Ativan Inj IM 1 mg Q2HR PRN Administration Anxiety Metoprolol Tartrate 12.5 mg 08/28/16 21:00 09/02/16 08:50 Lopressor PO 12.5 mg BID JAVIER Administration Multivitamins 1 tab 08/29/16 08:00 09/02/16 10:07 Theragran PO 1 tab DAILYWM JAVIER Administration Nystatin 1 applic 08/28/16 21:00 09/02/16 10:59 Nystop TOP 1 applic BID JAVIER Administration Ondansetron HCl 4 mg 08/28/16 15:59 09/01/16 11:53 Zofran Inj IVP 4 mg Q6HR PRN Administration Nausea / Vomiting Pantoprazole Sodium 40 mg 09/01/16 07:00 09/02/16 06:04 Protonix IVP 40 mg QDAC JAVIER Administration Polyethylene Glycol 17 gm 08/29/16 09:00 09/02/16 11:00 Miralax PO Not Given DAILY JAVIER Prochlorperazine Edisylate 10 mg 08/28/16 15:59 08/29/16 10:48 Compazine Inj IVP 10 mg Q6HR PRN Administration Nausea / Vomiting Simethicone 160 mg 08/29/16 09:00 09/02/16 10:05 Mylicon PO 160 mg DAILY JAVIER Administration Sodium Chloride 10 ml 08/28/16 15:59 09/01/16 11:54 Normal Saline Flush 0.9% IVP 10 ml PRN PRN Administration NEEDED PER PROVIDER ORDERS Sodium Chloride 10 ml 08/28/16 22:00 09/02/16 15:41 Normal Saline Flush 0.9% IVP Not Given Q8HR JAVIER Tolterodine Tartrate 2 mg 08/28/16 21:00 09/02/16 08:48 Detrol La PO 2 mg BID JAVIER Administration - Lab Result Lab results reviewed: Yes Fish Bone Diagrams: 09/02/16 05:08 09/02/16 05:08 - EKG Results EKG Interpreted Independently: No - Diagnostic Imaging Results Diagnostic Imaging Results: Final report reviewed - Additional Planning Condition/Complexity: Critical My Orders: My Active Orders 09/02/16 13:21 LORazepam INJ [Ativan Inj] 1 mg IM Q2HR PRN 09/02/16 16:15 Restraints Safety Checks [RC] Q5MIN Restraints [RC] Q24H 09/02/16 17:00 OLANZapine ODT [ZyPREXA ODT] 5 mg TL DAILY 09/02/16 18:00 Clindamycin [Cleocin] 300 mg PO Q6HR 09/02/16 18:30 Ondansetron Odt [Zofran Odt] 4 mg TL Q4HR PRN 09/02/16 21:00 Ciprofloxacin [Cipro] 250 mg PO BID 09/03/16 09:00 Chest 1 View [XR] Daily ABG - ARTERIAL BLOOD GAS [BG] DAILY 09/04/16 09:00 ABG - ARTERIAL BLOOD GAS [BG] DAILY 09/05/16 09:00 ABG - ARTERIAL BLOOD GAS [BG] DAILY 09/06/16 09:00 ABG - ARTERIAL BLOOD GAS [BG] DAILY Plan Discussed with:: Patient, Family Time Spent: Greater than 60 minutes Subjective - Subjective Patient Reports: Other (Very confused and agitated. Refusing treatments. Ripped out IV. Combative with nurses.) Nursing Reports: Confused Objective Vital Signs: Vital Signs - 24 hr 09/01/16 09/01/16 09/01/16 19:00 20:00 20:15 Temperature 37.1 C Heart Rate [ 90 85 Monitoring electrodes] Respiratory 16 22 Rate Blood Pressure 127/72 Blood Pressure 133/77 H 127/72 [Left Radial artery] Blood Pressure [Right Ankle] O2 Saturation 93 95 09/01/16 09/01/16 09/01/16 21:00 22:00 23:00 Temperature Heart Rate [ 85 76 73 Monitoring electrodes] Respiratory 18 19 18 Rate Blood Pressure Blood Pressure 128/80 [Left Radial artery] Blood Pressure 126/60 115/63 [Right Ankle] O2 Saturation 96 95 97 09/02/16 09/02/16 09/02/16 00:00 01:00 02:00 Temperature 37 C Heart Rate [ 82 76 77 Monitoring electrodes] Respiratory 21 21 19 Rate Blood Pressure Blood Pressure [Left Radial artery] Blood Pressure 118/80 134/59 H 125/65 [Right Ankle] O2 Saturation 97 96 97 09/02/16 09/02/16 09/02/16 03:00 04:00 05:00 Temperature 36.8 C Heart Rate [ 74 77 84 Monitoring electrodes] Respiratory 21 20 18 Rate Blood Pressure Blood Pressure [Left Radial artery] Blood Pressure 118/81 H 129/64 125/49 L [Right Ankle] O2 Saturation 97 97 96 09/02/16 09/02/16 09/02/16 05:59 06:52 08:00 Temperature 36.4 C L Heart Rate [ 84 75 91 Monitoring electrodes] Respiratory 18 21 18 Rate Blood Pressure Blood Pressure [Left Radial artery] Blood Pressure 126/66 118/63 137/75 H [Right Ankle] O2 Saturation 94 95 94 09/02/16 09/02/16 09/02/16 09:00 10:00 11:00 Temperature 36.4 C L Heart Rate [ 88 90 Monitoring electrodes] Respiratory 19 19 19 Rate Blood Pressure Blood Pressure [Left Radial artery] Blood Pressure 143/70 H [Right Ankle] O2 Saturation 96 98 96 09/02/16 09/02/16 09/02/16 11:49 13:00 14:09 Temperature Heart Rate [ 80 Monitoring electrodes] Respiratory 18 18 19 Rate Blood Pressure Blood Pressure [Left Radial artery] Blood Pressure [Right Ankle] O2 Saturation 96 95 09/02/16 09/02/16 15:00 15:58 Temperature 36.6 C Heart Rate [ 88 Monitoring electrodes] Respiratory 20 18 Rate Blood Pressure Blood Pressure 131/75 H 142/87 H [Left Radial artery] Blood Pressure [Right Ankle] O2 Saturation 98 96 Oxygen O2 Source CPAP I&O (Last 24 Hrs): Intake and Output Totals x24h 08/31/16 09/01/16 09/02/16 23:59 23:59 23:59 Intake Total 1222 2395 1800 Output Total 1000 1389 3460 Balance 222 1006 -1660 General: Alert, Other (Not cooperative, combative, ripped out IVs and would not wear BiPAP) HEENT: Atraumatic, PERRLA, EOMI, Mucous membr. moist/pink Neck: Supple, No JVD, No thyromegaly, +2 carotid pulse wo bruit, No LAD Lymphatic: no adenopathy Neuro: Disoriented, Non Focal, Other (COnfused, agitated) Cardiovascular: Regular rate, Normal S1, Normal S2, No murmurs Respiratory: Chest non-tender, No respiratory distress, Breath sounds nml Abdomen: Normal bowel sounds, Soft, Other (tender) Extremities: No clubbing, No cyanosis, Normal pulses, Other (edema) Skin: No rashes - Results Results: Laboratory Results WBC 9.7 x10^3/uL (4.8-10.8) 09/02/16 05:08 RBC 3.32 10^6/uL (4.20-5.40) L 09/02/16 05:08 Hgb 10.0 g/dL (12.0-16.0) L 09/02/16 05:08 Hct 31.2 % (37.0-47.0) L 09/02/16 05:08 MCV 93.9 fL (81.0-99.0) 09/02/16 05:08 MCH 30.2 pg (27.0-31.0) 09/02/16 05:08 MCHC 32.2 g/dL (32.0-36.0) 09/02/16 05:08 RDW 17.8 % (12.0-15.0) H 09/02/16 05:08 Plt Count 276 10^3/uL (130-450) 09/02/16 05:08 MPV 8.3 fL (7.9-10.8) 09/02/16 05:08 Neut # 6.4 10^3/uL (1.5-6.6) 09/02/16 05:08 Lymph # 2.4 10^3/uL (1.5-3.5) 09/02/16 05:08 [place] # 0.9 10^3/uL (0.0-1.0) 09/02/16 05:08 Eos # 0.1 10^3/uL (0.0-0.7) 09/02/16 05:08 Baso # 0.1 10^3/uL (0.0-0.1) 09/02/16 05:08 Absolute Nucleated RBC 0.00 x10^3/uL 09/02/16 05:08 Total Counted 100 08/31/16 05:00 Band Neuts % (Manual) Not Reportable 09/02/16 05:08 Metamyelocytes % 2 % (-0) H 08/31/16 05:00 Myelocytes % 2 % (-0) H 08/31/16 05:00 Neutrophils # (Manual) 6.8 10^3/uL (1.5-6.6) H 08/31/16 05:00 Lymphocytes # (Manual) 1.4 10^3/uL (1.5-3.5) L 08/31/16 05:00 Monocytes # (Manual) 0.7 10^3/uL (0.0-1.0) 08/31/16 05:00 Eosinophils # (Manual) 0.6 10^3/uL (0-0.7) 08/31/16 05:00 Nucleated RBCs 0.0 /100WBC 09/02/16 05:08 Differential Comment MANUAL=AUTO DIFF 09/02/16 05:08 WBC Morphology 1+ VACUOLATION (NORMAL) 08/28/16 13:07 Platelet Estimate NORMAL (130-450,000) (NORMAL) 09/02/16 05:08 Platelet Morphology NORMAL KATY (NORMAL) 09/02/16 05:08 RBC Morph Micro Appear NORMAL APPEARANCE (NORMAL) 08/29/16 06:18 RBC Morph Micro Appear NORMAL APPEARANCE (NORMAL) 08/30/16 06:05 RBC Morph Micro Appear NORMAL APPEARANCE (NORMAL) 08/31/16 05:00 RBC Morph Micro Appear 2+ STOMATOCYTES (NORMAL) 1+ POLYCHROMASIA (NORMAL) 1+ BASO STIPPLING (NORMAL) 09/01/16 05:17 RBC Morph Micro Appear 2+ STOMATOCYTES (NORMAL) 1+ POLYCHROMASIA (NORMAL) 1+ BASO STIPPLING (NORMAL) 09/01/16 05:17 RBC Morph Micro Appear 2+ STOMATOCYTES (NORMAL) 1+ POLYCHROMASIA (NORMAL) 1+ BASO STIPPLING (NORMAL) 09/01/16 05:17 RBC Morph Micro Appear 1+ STOMATOCYTES (NORMAL) 1+ BASO STIPPLING (NORMAL) 09/02/16 05:08 RBC Morph Micro Appear 1+ STOMATOCYTES (NORMAL) 1+ BASO STIPPLING (NORMAL) 09/02/16 05:08 Bld Gas Analysis Time 0625 09/02/16 06:17 Sample Site RIGHT RADIAL 09/02/16 06:17 ABG pH 7.37 (7.35-7.45) 09/02/16 06:17 ABG pCO2 62 mmHg (34-45) H* 09/02/16 06:17 ABG pO2 66 mmHg (80-100) L 09/02/16 06:17 ABG HCO3 35.1 mmol/L (22.0-26.0) H 09/02/16 06:17 ABG Total CO2 37.0 MMOL/L (21.0-29.0) H 09/02/16 06:17 ABG O2 Saturation 93 % (94-98) L 09/02/16 06:17 ABG Oximetry Spot Check 100 % 08/31/16 15:52 ABG Base Excess 8.2 mmol/L (-2.0-3.0) H 09/02/16 06:17 Babar Test POSITIVE 09/02/16 06:17 VBG pH 7.338 (7.31-7.41) 08/28/16 16:12 VBG pCO2 77.4 mmHg (41-51) H 08/28/16 16:12 VBG pO2 200.0 mmHg (25-47) H 08/28/16 16:12 VBG HCO3 41.6 mmol/L (23-28) H 08/28/16 16:12 VBG Total CO2 44.0 mmol/L (24-29) H 08/28/16 16:12 VBG O2 Saturation 100.0 % (60-80) H 08/28/16 16:12 VBG Base Excess 16.0 mmol/L (-2 - +2) H 08/28/16 16:12 Respiration Rate 16 b/min 08/31/16 15:52 O2 Delivery Device NASAL CANNULA 09/02/16 06:17 O2 Liters/Min 2.50 LPM 09/02/16 06:17 Vent Mode SYNCHRONOUS/TIMES 08/31/16 15:52 FiO2 50.00 08/31/16 15:52 Pressure Support Vent 11 cmH2O 08/31/16 15:52 EPAP 6 cmH2O 08/31/16 15:52 IPAP 17 cmH2O 08/31/16 15:52 Sodium 145 mmol/L (135-145) 09/02/16 05:08 Potassium 3.1 mmol/L (3.5-5.0) L 09/02/16 05:08 Chloride 101 mmol/L (101-111) 09/02/16 05:08 Carbon Dioxide 36 mmol/L (21-32) H 09/02/16 05:08 Anion Gap 8.0 (6-13) 09/02/16 05:08 BUN < 5 mg/dL (6-20) L 09/02/16 05:08 Creatinine < 0.3 mg/dL (0.4-1.0) L 09/02/16 05:08 Estimated GFR (MDRD) 234 (>89) 09/02/16 05:08 Glucose 81 mg/dL (70-100) 09/02/16 05:08 POC Whole Bld Glucose 98 mg/dL (70 - 100) 08/29/16 16:51 Glycated Hemoglobin 5.3 % (4.6-6.2) 08/28/16 13:17 Estim Average Glucose 105 (70-100) H 08/28/16 13:17 Lactic Acid 0.9 mmol/L (0.5-2.2) 08/29/16 06:18 Calcium 8.0 mg/dL (8.5-10.3) L 09/02/16 05:08 Phosphorus 3.0 mg/dL (2.5-4.6) 09/02/16 05:08 Magnesium 1.6 mg/dL (1.7-2.8) L 09/02/16 05:08 Total Bilirubin 0.5 mg/dL (0.2-1.0) 09/02/16 05:08 AST 31 IU/L (10-42) 09/02/16 05:08 ALT 61 IU/L (10-60) H 09/02/16 05:08 Alkaline Phosphatase 32 IU/L (42-121) L 09/02/16 05:08 Total Protein 5.6 g/dL (6.7-8.2) L 09/02/16 05:08 Albumin 3.1 g/dL (3.2-5.5) L 09/02/16 05:08 Globulin 2.5 g/dL (2.1-4.2) 09/02/16 05:08 Albumin/Globulin Ratio 1.2 (1.0-2.2) 09/02/16 05:08 Lipase 16 U/L (22-51) L 08/28/16 13:07 TSH 1.55 uIU/mL (0.34-5.60) 08/29/16 06:18 Urine Color YELLOW 08/28/16 14:05 Urine Clarity CLEAR (CLEAR) 08/28/16 14:05 Urine pH 7.0 PH (5.0-7.5) 08/28/16 14:05 Ur Specific [place] >=1.030 (1.002-1.030) H 08/28/16 14:05 Urine Protein TRACE mg/dL (NEGATIVE) 08/28/16 14:05 Urine Glucose (UA) NEGATIVE mg/dL (NEGATIVE) 08/28/16 14:05 Urine Ketones TRACE mg/dL (NEGATIVE) 08/28/16 14:05 Urine Occult Blood TRACE-INTA (NEGATIVE) 08/28/16 14:05 Urine Nitrite NEGATIVE (NEGATIVE) 08/28/16 14:05 Urine Bilirubin NEGATIVE (NEGATIVE) 08/28/16 14:05 Urine Urobilinogen 0.2 (NORMAL) E.U./dL (NORMAL) 08/28/16 14:05 Ur Leukocyte Esterase TRACE (NEGATIVE) H 08/28/16 14:05 Urine RBC 0-5 /HPF (0-5) 08/28/16 14:05 Urine WBC >25 /HPF (0-5) H 08/28/16 14:05 Urine WBC Clumps PRESENT 08/28/16 14:05 Ur Squamous Epith Cells RARE Squamous (<= Few) 08/28/16 14:05 Urine Bacteria Few /HPF (None Seen) 08/28/16 14:05 Urine Casts 0-2 Fine Granular /LPF 08/28/16 14:05 Urine Mucus Marked Strands 08/28/16 14:05 Ur Microscopic Review INDICATED 08/28/16 14:05 Urine Culture Comments INDICATED 08/28/16 14:05 Stool Leukocytes, Qual POSITIVE (Negative) 08/29/16 18:40 - Procedures Procedures: Procedures INSERTION OF INFUSION DEV INTO INF VENA CAVA, PERC APPROACH (12/22/15) TRANSFUSE NONAUT RED BLOOD CELLS IN PERIPH VEIN, PERC (07/21/16)
[2016-09-02] MEDS: ONDANSETRON ODT 4 MG TABLET TL PRN ×2 (18:52→21:00)
[2016-09-02] MEDS: CLINDAMYCIN 150 MG CAPSULE PO SCH ×2 (18:53→23:30)
[2016-09-02] MEDS ORDERED: WATER FOR INJECTION,STERILE 10 ML ONE ×2 (19:00→21:39)
[2016-09-02] MEDS: CIPROFLOXACIN 250 MG TABLET PO SCH (21:00)
[2016-09-02] MEDS: ATORVASTATIN 10 MG TABLET PO SCH (21:06)
[2016-09-02] MEDS ORDERED: OLANZapine 10 MG VIAL IM SCH (22:16)
[2016-09-02] MEDS: OLANZapine ODT 5 MG TABLET TL SCH (22:24)
[2016-09-03] MEDS: SODIUM CHLORIDE 0.9% 1,000 ML IV SCH (01:56)
[2016-09-03] MEDS: SODIUM CHLORIDE FLUSH 0.9% 10 ML SYRINGE IVP SCH ×3 (05:44→22:09)
[2016-09-03] MEDS: PANTOPRAZOLE 40 MG VIAL IVP SCH (06:41)
[2016-09-03] MEDS: oxyCODONE 30 MG TABLET PO PRN ×4 (08:44→23:30)
[2016-09-03] MEDS: CLINDAMYCIN 150 MG CAPSULE PO SCH ×4 (08:44→23:30)
[2016-09-03] MEDS: ESCITALOPRAM 10 MG TABLET PO SCH (08:44)
[2016-09-03] MEDS: CALCIUM CARBONATE CHEW 500 MG TABLET PO SCH (08:44)
[2016-09-03] MEDS: TOLTERODINE LA 2 MG CAPSULE PO SCH (08:45)
[2016-09-03] MEDS: diazePAM 5 MG TABLET PO PRN ×2 (08:45→20:31)
[2016-09-03] MEDS: ASPIRIN EC 81 MG TABLET PO SCH (08:45)
[2016-09-03] MEDS: FENOFIBRATE 48 MG TABLET PO SCH (08:45)
[2016-09-03] MEDS: MULTIVITAMIN TABLET PO SCH (08:45)
[2016-09-03] MEDS: CIPROFLOXACIN 250 MG TABLET PO SCH ×2 (08:45→21:06)
[2016-09-03] MEDS: OLANZapine ODT 5 MG TABLET TL SCH (08:46)
[2016-09-03] MEDS: METHADONE 5 MG TABLET PO SCH ×3 (08:46→22:03)
[2016-09-03] MEDS: ACYCLOVIR 200 MG CAPSULE PO SCH (08:47)
[2016-09-03] MEDS: METOPROLOL TARTRATE 25 MG TABLET PO SCH ×2 (08:47→21:03)
[2016-09-03] MEDS: ENOXAPARIN 40 MG/0.4 ML SYRINGE SUBQ SCH (08:48)
[2016-09-03] MEDS: POLYETHYLENE GLYCOL 3350 17 GM PACKET PO SCH (08:48)
[2016-09-03] MEDS: CHLORHEXIDINE GLUCONATE 15 ML UDC PO SCH ×2 (08:49→21:02)
[2016-09-03] MEDS: NYSTATIN POWDER 15 GM TOP SCH ×2 (09:07→21:12)
[2016-09-03] MEDS: FLUTICASONE NASAL SPRAY NAS SCH ×2 (09:07→22:02)
[2016-09-03] MEDS: methylPREDNISolone 4 MG TABLET PO SCH ×2 (11:24→21:02)
[2016-09-03] MEDS: ACETAMINOPHEN 325 MG TABLET PO PRN (11:24)
--- NOTE | 2016-09-03 18:22 | PROVIDER PROGRESS NOTE ---
Assessment/Plan - Problem List (1) Acute respiratory failure with hypercapnia Assessment/Plan: Patient improved this morning appears close to her baseline was likely having acute ICU delerium yesterday ABG showed PCO2 of 86 with pH of 7.25 consistent with hypercapnic respiratory failure with respiratory acidosis Patient was transferred to ICU and placed on BiPAP Likely cause of hypercapnia is decreased respiratory drive secondary to pain medication in conjunction with JALYN and OHS Repeat ABG showed PCO2 of 82 then 78 but PCO2 now normal and hypercapnia resolved Patient much improved today Palliative care discussing hospice with daughter and patient will likely go home with hospice (2) Acute encephalopathy Assessment/Plan: Appears to be secondary to UTI and now hypercapnic respiratory failure Was improving slowly with IVFs and IV abx but worsened yesterday and patient found to have hypercapnic respiratory failure CT head negative for acute stroke or mass and showed stable mastoid effusion and sphenoid sinusitis ABG showed acute respiratory acidosis with hypercapnia Hypercapnia has resolved Patients encephalopathy has resolved Patients daughter and patient was home with hospice and palliative care is assisting with this process (3) UTI (urinary tract infection) Conclusion/Plan: Patient has indwelling nunes catheter with recurrent UTIs Presented with generalized weakness, fevers, chills, decreased appetite, abdominal pain and lethargy Was placed on cipro as an outpatient for pseudomonas UTI (cipro can also cause encephalopathy) Repeat UA positive Urine cx growing stap epi susceptible to clinda Continue PO clinda and cipro for 2 more days to complete treatment Qualifiers: Urinary tract infection type: site unspecified Hematuria presence: without hematuria Qualified Code(s): N39.0 - Urinary tract infection, site not specified (4) Abdominal pain Conclusion/Plan: Mostly tenderness which is diffuse CT abd pelvis negative aside from chronic finding of medial cecum wall thickening which is non specific and could represent inflammation vs malignancy Unlikely to be cause of pain Likely pain from UTI (5) Hypokalemia Conclusion/Plan: Replaced no labs today (6) Hypophosphatemia Conclusion/Plan: Resolved (7) Hypomagnesemia Conclusion/Plan: Mg 1.6 Replaced no labs today (8) Chronic pain Conclusion/Plan: Restarted methadone and oxycodone today as patients previous symptoms from yesterday may have been withdrawal Qualifiers: Chronic pain type: chronic pain syndrome Qualified Code(s): G89.4 - Chronic pain syndrome (9) Clostridium difficile colitis Conclusion/Plan: She has been treated with PO vanco for over 1 month and was still taking vanco at home did not know her stop date Stools were initially well formed so PO vanco stopped C. 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 We will keep her in ICU for one more day in case she needs BiPAP tonight. Patient and daughter want to go home with hospice. Hospice referral sent. - Current Meds Current Meds: Current Medications Generic Name Dose Route Start Last Admin Trade Name Freq PRN Reason Stop Dose Admin Acetaminophen 650 mg 08/28/16 15:59 09/03/16 11:24 Tylenol PO 650 mg Q4HR PRN Administration Pain 1 to 4 Albuterol 2.5 mg 08/31/16 10:40 08/31/16 17:00 INH 2.5 mg Q4HR PRN Administration Wheezing Chlorhexidine Gluconate 15 ml 08/31/16 21:00 09/03/16 08:49 Peridex PO 15 ml BID JAVIER Administration Ciprofloxacin 250 mg 09/02/16 21:00 09/03/16 08:45 Cipro PO 250 mg BID JAVIER Administration Clindamycin HCl 300 mg 09/02/16 18:00 09/03/16 14:50 Cleocin PO 300 mg Q6HR JAVIER Administration Diazepam 5 mg 08/28/16 15:49 09/03/16 08:45 Valium PO 5 mg QID PRN Administration Spasms Enoxaparin Sodium 40 mg 08/29/16 09:00 09/03/16 08:48 Lovenox SUBQ 40 mg DAILY JAVIER Administration Escitalopram Oxalate 20 mg 08/29/16 09:00 09/03/16 08:44 Lexapro PO 20 mg DAILY JAVIER Administration Fluticasone Propionate 1 sprays 08/28/16 21:00 09/03/16 09:07 Flonase AVIS Not Given BID JAVIER Methadone HCl 12.5 mg 09/03/16 09:00 09/03/16 14:50 PO 12.5 mg TID JAVIER Administration Methylprednisolone 4 mg 09/03/16 10:00 09/03/16 11:24 Medrol PO 4 mg BID JAVIER Administration Metoprolol Tartrate 12.5 mg 08/28/16 21:00 09/03/16 08:47 Lopressor PO 12.5 mg BID JAVIER Administration Nystatin 1 applic 08/28/16 21:00 09/03/16 09:07 Nystop TOP 15 applic BID JAVIER Administration Olanzapine 5 mg 09/02/16 17:00 09/03/16 08:46 Zyprexa Odt TL 5 mg DAILY JAVIER Administration Ondansetron HCl 4 mg 08/28/16 15:59 09/01/16 11:53 Zofran Inj IVP 4 mg Q6HR PRN Administration Nausea / Vomiting Ondansetron HCl 4 mg 09/02/16 18:30 09/02/16 21:00 Zofran Odt TL 4 mg Q4HR PRN Administration Nausea / Vomiting Oxycodone HCl 30 mg 09/03/16 09:00 09/03/16 12:30 Roxicodone PO 30 mg Q3HR PRN Administration PAIN Pantoprazole Sodium 40 mg 09/01/16 07:00 09/03/16 06:41 Protonix IVP Not Given QDAC JAVIER Polyethylene Glycol 17 gm 08/29/16 09:00 09/03/16 08:48 Miralax PO 17 gm DAILY JAVIER Administration Prochlorperazine Edisylate 10 mg 08/28/16 15:59 08/29/16 10:48 Compazine Inj IVP 10 mg Q6HR PRN Administration Nausea / Vomiting Sodium Chloride 10 ml 08/28/16 15:59 09/01/16 11:54 Normal Saline Flush 0.9% IVP 10 ml PRN PRN Administration NEEDED PER PROVIDER ORDERS Sodium Chloride 10 ml 08/28/16 22:00 09/03/16 14:47 Normal Saline Flush 0.9% IVP Not Given Q8HR JAVIER - Lab Result Lab results reviewed: Yes Fish Bone Diagrams: 09/02/16 05:08 09/02/16 05:08 - Diagnostic Imaging Results Diagnostic Imaging Results: Final report reviewed - Additional Planning Condition/Complexity: Guarded My Orders: My Active Orders 09/02/16 18:00 Clindamycin [Cleocin] 300 mg PO Q6HR 07/16/17 18:30 Ondansetron Odt [Zofran Odt] 4 mg TL Q4HR PRN 09/02/16 21:00 Ciprofloxacin [Cipro] 250 mg PO BID 09/03/16 Hospice Referral [CONS] Routine 09/03/16 09:00 ABG - ARTERIAL BLOOD GAS [BG] DAILY Methadone 12.5 mg PO TID oxyCODONE [Roxicodone] 30 mg PO Q3HR PRN 09/03/16 10:00 methylPREDNISolone [Medrol] 4 mg PO BID 09/04/16 09:00 ABG - ARTERIAL BLOOD GAS [BG] DAILY 09/05/16 09:00 ABG - ARTERIAL BLOOD GAS [BG] DAILY 09/06/16 09:00 ABG - ARTERIAL BLOOD GAS [BG] DAILY Plan Discussed with:: Patient, Family Time Spent: 31-60 minutes Subjective - Subjective Patient Reports: Feeling Better, Resting Comfortably (Awake, alert, has some back pain but very pleasant and feels better this am.) Nursing Reports: No Complaints Objective Vital Signs: Vital Signs - 24 hr 09/02/16 09/02/16 09/02/16 18:47 20:00 21:00 Temperature 37.1 C 95 C H Heart Rate [ 88 95 Monitoring electrodes] Respiratory 18 17 Rate Blood Pressure 148/80 H Blood Pressure [Left Radial artery] Blood Pressure 148/80 H [Right Ankle] Blood Pressure [Right Radial artery] O2 Saturation 98 95 09/02/16 09/03/16 09/03/16 23:33 03:35 07:00 Temperature 37.4 C 37.0 C 37 C Heart Rate [ 91 61 56 L Monitoring electrodes] Respiratory 18 20 22 Rate Blood Pressure Blood Pressure [Left Radial artery] Blood Pressure 140/89 H 157/69 H [Right Ankle] Blood Pressure 142/82 H [Right Radial artery] O2 Saturation 95 95 96 09/03/16 09/03/16 09/03/16 09:51 13:00 16:36 Temperature 36.7 C 36.8 C Heart Rate [ 87 84 Monitoring electrodes] Respiratory 22 20 20 Rate Blood Pressure Blood Pressure 106/56 L 107/64 [Left Radial artery] Blood Pressure [Right Ankle] Blood Pressure [Right Radial artery] O2 Saturation 95 96 96 Oxygen O2 Source Nasal cannula I&O (Last 24 Hrs): Intake and Output Totals x24h 09/01/16 09/02/16 09/03/16 23:59 23:59 23:59 Intake Total 2395 2000 680 Output Total 1383 8375 1380 Balance 1006 -7527 -784 General: Alert, Oriented x3, Cooperative, No acute distress, Other (morbidly obese) HEENT: Atraumatic, PERRLA, EOMI, Mucous membr. moist/pink Neck: Supple, No JVD, No thyromegaly, +2 carotid pulse wo bruit, No LAD Lymphatic: no adenopathy Neuro: Alert, Non Focal, CN 2-12 Grossly Intact, Oriented Times 3 Cardiovascular: Regular rate, Normal S1, Normal S2, No murmurs Respiratory: Chest non-tender, No respiratory distress, Other (decresaed breath sounds) Abdomen: Normal bowel sounds, Soft, No hepatospenomegaly, Other (mild tenderness ) Extremities: No clubbing, No cyanosis, Normal pulses, Other (Bilateral edema) Skin: No rashes, No breakdown - Results Results: Laboratory Results WBC 9.7 x10^3/uL (4.8-10.8) 09/02/16 05:08 RBC 3.32 10^6/uL (4.20-5.40) L 09/02/16 05:08 Hgb 10.0 g/dL (12.0-16.0) L 09/02/16 05:08 Hct 31.2 % (37.0-47.0) L 09/02/16 05:08 MCV 93.9 fL (81.0-99.0) 09/02/16 05:08 MCH 30.2 pg (27.0-31.0) 09/02/16 05:08 MCHC 32.2 g/dL (32.0-36.0) 09/02/16 05:08 RDW 17.8 % (12.0-15.0) H 09/02/16 05:08 Plt Count 276 10^3/uL (130-450) 09/02/16 05:08 MPV 8.3 fL (7.9-10.8) 09/02/16 05:08 Neut # 6.4 10^3/uL (1.5-6.6) 09/02/16 05:08 Lymph # 2.4 10^3/uL (1.5-3.5) 09/02/16 05:08 Foard # 0.9 10^3/uL (0.0-1.0) 09/02/16 05:08 Eos # 0.1 10^3/uL (0.0-0.7) 09/02/16 05:08 Baso # 0.1 10^3/uL (0.0-0.1) 09/02/16 05:08 Absolute Nucleated RBC 0.00 x10^3/uL 09/02/16 05:08 Total Counted 100 08/31/16 05:00 Band Neuts % (Manual) Not Reportable 09/02/16 05:08 Metamyelocytes % 2 % (-0) H 08/31/16 05:00 Myelocytes % 2 % (-0) H 08/31/16 05:00 Neutrophils # (Manual) 6.8 10^3/uL (1.5-6.6) H 08/31/16 05:00 Lymphocytes # (Manual) 1.4 10^3/uL (1.5-3.5) L 08/31/16 05:00 Monocytes # (Manual) 0.7 10^3/uL (0.0-1.0) 08/31/16 05:00 Eosinophils # (Manual) 0.6 10^3/uL (0-0.7) 08/31/16 05:00 Nucleated RBCs 0.0 /100WBC 09/02/16 05:08 Differential Comment MANUAL=AUTO DIFF 09/02/16 05:08 WBC Morphology 1+ VACUOLATION (NORMAL) 08/28/16 13:07 Platelet Estimate NORMAL (130-450,000) (NORMAL) 09/02/16 05:08 Platelet Morphology NORMAL KATY (NORMAL) 09/02/16 05:08 RBC Morph Micro Appear NORMAL APPEARANCE (NORMAL) 08/29/16 06:18 RBC Morph Micro Appear NORMAL APPEARANCE (NORMAL) 08/30/16 06:05 RBC Morph Micro Appear NORMAL APPEARANCE (NORMAL) 08/31/16 05:00 RBC Morph Micro Appear 2+ STOMATOCYTES (NORMAL) 1+ POLYCHROMASIA (NORMAL) 1+ BASO STIPPLING (NORMAL) 09/01/16 05:17 RBC Morph Micro Appear 2+ STOMATOCYTES (NORMAL) 1+ POLYCHROMASIA (NORMAL) 1+ BASO STIPPLING (NORMAL) 09/01/16 05:17 RBC Morph Micro Appear 2+ STOMATOCYTES (NORMAL) 1+ POLYCHROMASIA (NORMAL) 1+ BASO STIPPLING (NORMAL) 09/01/16 05:17 RBC Morph Micro Appear 1+ STOMATOCYTES (NORMAL) 1+ BASO STIPPLING (NORMAL) 09/02/16 05:08 RBC Morph Micro Appear 1+ STOMATOCYTES (NORMAL) 1+ BASO STIPPLING (NORMAL) 09/02/16 05:08 Bld Gas Analysis Time 0625 09/02/16 06:17 Sample Site RIGHT RADIAL 09/02/16 06:17 ABG pH 7.37 (7.35-7.45) 09/02/16 06:17 ABG pCO2 62 mmHg (34-45) H* 09/02/16 06:17 ABG pO2 66 mmHg (80-100) L 09/02/16 06:17 ABG HCO3 35.1 mmol/L (22.0-26.0) H 09/02/16 06:17 ABG Total CO2 37.0 MMOL/L (21.0-29.0) H 09/02/16 06:17 ABG O2 Saturation 93 % (94-98) L 09/02/16 06:17 ABG Oximetry Spot Check 100 % 08/31/16 15:52 ABG Base Excess 8.2 mmol/L (-2.0-3.0) H 09/02/16 06:17 Babar Test POSITIVE 09/02/16 06:17 VBG pH 7.338 (7.31-7.41) 08/28/16 16:12 VBG pCO2 77.4 mmHg (41-51) H 08/28/16 16:12 VBG pO2 200.0 mmHg (25-47) H 08/28/16 16:12 VBG HCO3 41.6 mmol/L (23-28) H 08/28/16 16:12 VBG Total CO2 44.0 mmol/L (24-29) H 08/28/16 16:12 VBG O2 Saturation 100.0 % (60-80) H 08/28/16 16:12 VBG Base Excess 16.0 mmol/L (-2 - +2) H 08/28/16 16:12 Respiration Rate 16 b/min 08/31/16 15:52 O2 Delivery Device NASAL CANNULA 09/02/16 06:17 O2 Liters/Min 2.50 LPM 09/02/16 06:17 Vent Mode SYNCHRONOUS/TIMES 08/31/16 15:52 FiO2 50.00 08/31/16 15:52 Pressure Support Vent 11 cmH2O 08/31/16 15:52 EPAP 6 cmH2O 08/31/16 15:52 IPAP 17 cmH2O 08/31/16 15:52 Sodium 145 mmol/L (135-145) 09/02/16 05:08 Potassium 3.1 mmol/L (3.5-5.0) L 09/02/16 05:08 Chloride 101 mmol/L (101-111) 09/02/16 05:08 Carbon Dioxide 36 mmol/L (21-32) H 09/02/16 05:08 Anion Gap 8.0 (6-13) 09/02/16 05:08 BUN < 5 mg/dL (6-20) L 09/02/16 05:08 Creatinine < 0.3 mg/dL (0.4-1.0) L 09/02/16 05:08 Estimated GFR (MDRD) 234 (>89) 09/02/16 05:08 Glucose 81 mg/dL (70-100) 09/02/16 05:08 POC Whole Bld Glucose 98 mg/dL (70 - 100) 08/29/16 16:51 Glycated Hemoglobin 5.3 % (4.6-6.2) 08/28/16 13:17 Estim Average Glucose 105 (70-100) H 08/28/16 13:17 Lactic Acid 0.9 mmol/L (0.5-2.2) 08/29/16 06:18 Calcium 8.0 mg/dL (8.5-10.3) L 09/02/16 05:08 Phosphorus 3.0 mg/dL (2.5-4.6) 09/02/16 05:08 Magnesium 1.6 mg/dL (1.7-2.8) L 09/02/16 05:08 Total Bilirubin 0.5 mg/dL (0.2-1.0) 09/02/16 05:08 AST 31 IU/L (10-42) 09/02/16 05:08 ALT 61 IU/L (10-60) H 09/02/16 05:08 Alkaline Phosphatase 32 IU/L (42-121) L 09/02/16 05:08 Total Protein 5.6 g/dL (6.7-8.2) L 09/02/16 05:08 Albumin 3.1 g/dL (3.2-5.5) L 09/02/16 05:08 Globulin 2.5 g/dL (2.1-4.2) 09/02/16 05:08 Albumin/Globulin Ratio 1.2 (1.0-2.2) 09/02/16 05:08 Lipase 16 U/L (22-51) L 08/28/16 13:07 TSH 1.55 uIU/mL (0.34-5.60) 08/29/16 06:18 Urine Color YELLOW 08/28/16 14:05 Urine Clarity CLEAR (CLEAR) 08/28/16 14:05 Urine pH 7.0 PH (5.0-7.5) 08/28/16 14:05 Ur Specific [place] >=1.030 (1.002-1.030) H 08/28/16 14:05 Urine Protein TRACE mg/dL (NEGATIVE) 08/28/16 14:05 Urine Glucose (UA) NEGATIVE mg/dL (NEGATIVE) 08/28/16 14:05 Urine Ketones TRACE mg/dL (NEGATIVE) 08/28/16 14:05 Urine Occult Blood TRACE-INTA (NEGATIVE) 08/28/16 14:05 Urine Nitrite NEGATIVE (NEGATIVE) 08/28/16 14:05 Urine Bilirubin NEGATIVE (NEGATIVE) 08/28/16 14:05 Urine Urobilinogen 0.2 (NORMAL) E.U./dL (NORMAL) 08/28/16 14:05 Ur Leukocyte Esterase TRACE (NEGATIVE) H 08/28/16 14:05 Urine RBC 0-5 /HPF (0-5) 08/28/16 14:05 Urine WBC >25 /HPF (0-5) H 08/28/16 14:05 Urine WBC Clumps PRESENT 08/28/16 14:05 Ur Squamous Epith Cells RARE Squamous (<= Few) 08/28/16 14:05 Urine Bacteria Few /HPF (None Seen) 08/28/16 14:05 Urine Casts 0-2 Fine Granular /LPF 08/28/16 14:05 Urine Mucus Marked Strands 08/28/16 14:05 Ur Microscopic Review INDICATED 08/28/16 14:05 Urine Culture Comments INDICATED 08/28/16 14:05 Stool Leukocytes, Qual POSITIVE (Negative) 08/29/16 18:40 - Procedures Procedures: Procedures INSERTION OF INFUSION DEV INTO INF VENA CAVA, PERC APPROACH (12/22/15) TRANSFUSE NONAUT RED BLOOD CELLS IN PERIPH VEIN, PERC (07/21/16)
--- NOTE | 2016-09-03 20:23 | PROVIDER PROGRESS NOTE ---
Palliative Care Follow Up - Referral Referring Provider: Dr. 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 She has had more frequent infections including UTI's, MRSA+, Cdiff, MRSA pneumonia and several recent hospitalizations. In discussing quality of life, goals of care, had initiated conversations about transitioning to hospice at home. Patient admitted with delerium, has had in past with infections, but this appeared more severe. She was finally improving up to Saturday, when she experienced hypercapnia, refusing to where CPAP and worsening again, mental status to the point she was transitioned to ICU. Patient opioid equivalent just for methadone was about 30+ IV hydromorphone, not accounting for her baseline oxycodone dosing which was usually around 180 mg. Because of her sedation/and resp. failure her methadone was held again with resulting withdrawals. Has been difficult to find the balance as her pain has been severe in the past at baseline. Restarted methadone again today to address most likely acute withdrawal symptoms as well, after conversation with daughter about focus on comfort. Patient appears to recognize me today, thinks she is at her sister's house, difficult to reorient otherwise, is getting now her pain medication, in hopes this will improve. She does report her back pain as "bad", is able to formulate sentences and answers questions even though not appropriate, but reportedly improved from yesterday. Is disliking the restraints, and responds well to encouragement. Social History - Living Situation Living arrangement: At home (Patient has been essentially bedbound for years and most acutely in last several months.) Living Situation: With family (Daughter has young son at home, Meron Abbott is DPOA and [employer] worker, has not had any respite care and patient's care needs have been increasing) Support System: Patient's mother is elderly and poor health, lives in [place]. She has a sister who I believe is a nurse, but currently is not coming. Encourage Meron to ask her to come in transition period. Patient has son who has PTSD and not involved in care, very fragile, and younger son Daniel who unfortunately was here just before her admit [place]. Medications/Allergies - Medications Active Medication List: Active Medications Acetaminophen (Tylenol) 650 mg PO Q4HR PRN PRN Reason: Pain 1 to 4 Last Admin: 09/03/16 11:24 Dose: 650 mg Albuterol () 2.5 mg INH Q4HR PRN PRN Reason: Wheezing Last Admin: 08/31/16 17:00 Dose: 2.5 mg Chlorhexidine Gluconate (Peridex) 15 ml PO BID [facility] Last Admin: 09/03/16 08:49 Dose: 15 ml Ciprofloxacin (Cipro) 250 mg PO BID [facility] Last Admin: 09/03/16 08:45 Dose: 250 mg Clindamycin HCl (Cleocin) 300 mg PO Q6HR [facility] Last Admin: 09/03/16 18:34 Dose: 300 mg Diazepam (Valium) 5 mg PO QID PRN PRN Reason: Spasms Last Admin: 09/03/16 08:45 Dose: 5 mg Diphenhydramine HCl (Benadryl) 25 mg PO Q6H PRN PRN Reason: Angioedema Enoxaparin Sodium (Lovenox) 40 mg SUBQ DAILY [facility] Last Admin: 09/03/16 08:48 Dose: 40 mg Escitalopram Oxalate (Lexapro) 20 mg PO DAILY [facility] Last Admin: 09/03/16 08:44 Dose: 20 mg Fluticasone Propionate (Flonase) 1 sprays AVIS BID [facility] Last Admin: 09/03/16 09:07 Dose: Not Given Methadone HCl () 12.5 mg PO TID [facility] Last Admin: 09/03/16 14:50 Dose: 12.5 mg Methylprednisolone (Medrol) 4 mg PO BID [facility] Last Admin: 09/03/16 11:24 Dose: 4 mg Metoprolol Tartrate (Lopressor) 12.5 mg PO BID [facility] Last Admin: 09/03/16 08:47 Dose: 12.5 mg Nystatin (Nystop) 1 applic TOP BID [facility] Last Admin: 09/03/16 09:07 Dose: 15 applic Olanzapine (Zyprexa Odt) 5 mg TL DAILY [facility] Last Admin: 09/03/16 08:46 Dose: 5 mg Ondansetron HCl (Zofran Inj) 4 mg IVP Q6HR PRN PRN Reason: Nausea / Vomiting Last Admin: 09/01/16 11:53 Dose: 4 mg Ondansetron HCl (Zofran Odt) 4 mg TL Q4HR PRN PRN Reason: Nausea / Vomiting Last Admin: 09/02/16 21:00 Dose: 4 mg Oxycodone HCl (Roxicodone) 30 mg PO Q3HR PRN PRN Reason: PAIN Last Admin: 09/03/16 18:34 Dose: 30 mg Pantoprazole Sodium (Protonix) 40 mg IVP QDAC [facility] Last Admin: 09/03/16 06:41 Dose: Not Given Polyethylene Glycol (Miralax) 17 gm PO DAILY [facility] Last Admin: 09/03/16 08:48 Dose: 17 gm Prochlorperazine Edisylate (Compazine Inj) 10 mg IVP Q6HR PRN PRN Reason: Nausea / Vomiting Last Admin: 08/29/16 10:48 Dose: 10 mg Sodium Chloride (Normal Saline Flush 0.9%) 10 ml IVP PRN PRN PRN Reason: NEEDED PER PROVIDER ORDERS Last Admin: 09/01/16 11:54 Dose: 10 ml Sodium Chloride (Normal Saline Flush 0.9%) 10 ml IVP Q8HR [facility] Last Admin: 09/03/16 14:47 Dose: Not Given Fenofibrate 160 mg PO DAILY 07/09/12 Aspirin [Aspir-Low] 81 mg ORAL DAILY 04/13/15 Atorvastatin Calcium 20 mg PO QPM 04/13/15 Epinephrine [Epipen 2-Zachary] 1 syr IM ONCE PRN 04/13/15 Escitalopram Oxalate [Lexapro] 20 mg PO DAILY 04/13/15 Methadone HCl 12.5 mg PO QID 04/13/15 Metoprolol Tartrate 12.5 mg ORAL BID 04/13/15 Oxycodone HCl 30 mg ORAL Q3HR PRN MDD 9 ml 04/13/15 Tolterodine [Detrol LA] 2 mg PO BID 04/13/15 Vitamin B Complex Vit C No.4 [Super B Complex] 1 tab ORAL DAILY 04/13/15 Acetaminophen [Tylenol Extra Strength] 1,000 mg PO Q4H PRN 12/29/15 Albuterol Sulfate [Proair Hfa Inhaler] 2 puffs INH Q6H PRN 12/29/15 Diphenhydramine HCl 25 - 75 mg PO PRN PRN 12/29/15 Docusate Sodium 100 mg PO DAILY PRN 12/29/15 Insulin Lispro [Humalog] 2 unit SUBQ PRN PRN 12/29/15 Metoclopramide [Reglan] 10 mg PO QID PRN 12/29/15 Multivitamin [Multiple Vitamins] 1 tab PO DAILY 12/29/15 Simethicone 180 mg PO DAILY 12/29/15 Sodium Chloride [Saline Mist] 1 spray NS TID PRN 12/29/15 Sumatriptan Succinate [Imitrex] 50 mg PO Q2H PRN MDD 100 MG 12/29/15 Acyclovir 200 mg PO BID 07/21/16 Diazepam [Diazepam] 5 mg PO QID PRN 07/21/16 Doxepin HCl 25 mg PO QPM 07/21/16 Esomeprazole Magnesium [Nexium] 40 mg PO QDAC 07/21/16 Guaifenesin 400 mg PO QID 07/21/16 Hydroxyzine Pamoate 100 mg PO DAILY 07/21/16 Loperamide [Imodium] 2 - 4 mg PO PRN PRN MDD 16 MG 07/21/16 Magnesium Oxide [Mag Ox] 400 mg PO DAILY 07/21/16 Methylprednisolone 4 mg PO BIDWM 07/21/16 Potassium Gluconate 99 mg PO DAILY 07/21/16 Vancomycin HCl 125 mg PO Q6H 07/21/16 diphenhydrAMINE [Benadryl] 50 mg PO HS 07/21/16 Albuterol 2.5 mg INH Q6H PRN 08/28/16 Fluticasone [Flonase] 1 sprays AVIS BID 08/28/16 Naproxen Sodium [Aleve] 440 mg PO QID 08/28/16 Nystatin [Nystop] 1 applic TOP BID 08/28/16 Ranitidine HCl [Zantac] 300 mg PO BID 08/28/16 - Allergies Allergies/Adverse Reactions: Allergies Allergy/AdvReac Type Severity Reaction Status Date / Time latex Allergy Unknown Verified 07/21/16 07:26 nitrofurantoin AdvReac Intermediate Emesis Verified 07/21/16 07:26 macrocrystalline * [From Macrobid] Review of Systems - Constitutional Constitutional: reports: Fatigue, Weakness, Poor appetite, Weight loss - Eyes Eyes: denies: Blurred vision - Ears, Nose & Throat Ears, Nose & Throat: reports: Hearing loss, Mouth lesions (Has high risk for recurrent candidiasis, suspicious today with white coating on tongue) - Cardiovascular Cariovascular: denies: Chest pain - Respiratory Respiratory: denies: Cough, SOB at rest, SOB with exertion - Gastrointestinal Gastrointestinal: reports: Nausea, Poor appetite, Other. denies: Abdominal pain (Has colostomy, hx of recurrent C diff, most recent negative) - Genitourinary Genitourinary: reports: Other (Has nunes for urinary retention, intermediate catheter with frequent UTIs) - Musculoskeletal Musculoskeletal: reports: Muscle pain, Back pain, Muscle aches, Stiffness, Limited range of motion, Muscle weakness - Integumentary Integumentary: reports: Lesions (Patient with open "cracks" in folds and under breasts) - Neurological Neurological: reports: Headache (Reports severe headache today), Memory problems , Other (Bedbound) - Psychiatric Psychiatric: reports: Depression, Anxiety, Delusions, Hallucinations - Endocrine Endocrine: reports: Intolerance to heat - Hematologic/Lymphatic Hematologic/Lymphatic: reports: Anemia, Bruising, Recurrent infections - All Other Systems All Other Systems: reports: Reviewed and negative Physical Examination - Vital Signs Vital Signs: Vital Signs x48h Temp Pulse Resp BP Pulse Ox 09/03/16 16:36 36.8 C 84 20 107/64 96 09/03/16 13:00 36.7 C 87 20 106/56 L 96 - Physical Exam General Appearance: positive: Moderate distress, Anxious Eyes Bilateral: positive: Conjunctivae nml ENT: positive: Oral lesions (tongue with white coating), Dry mucous membranes Neck: positive: Other (neck thickened from cushings) Respiratory: positive: Breath sounds nml (anteriorly) Cardiovascular: positive: Regular rate & rhythm Abdomen: positive: Nml bowel sounds, Other (colostomy with watery brown stool, some consistency to it) Skin: positive: Pallor, Bruising, Other (Cracks noted in skin folds, recommended use of interdry cloth) Extremities: positive: Other (Patient with limited ROM all extremeties) Neurologic/Psychiatric: positive: Disoriented to person, Disoriented to place, Disoriented to time, Slurred/abnml speech, Depressed mood/affect (Some noted anxiety and irritability, though was able to share a few cracks - consistent with her baseline sense of humor) Palliative Care - POLST Patient has POLST: Yes POLST Status: DNR Pain: Pain worsening, Location (Identified in her back when asked and focused on headache pain), Severity (Severe), Pattern (Persistent, though unable to elaborate with current LOC) Drowsiness: Moderate (4-6) Nausea: Mild (1-3) Anxiety: Moderate (4-6) Dyspnea: None Anorexia: Severe (7-10) (Has not been eating) Insomnia: Sleeps poorly Constipation: Yes Feelings of wellbeing/Perceived Quality of Life: Worsening Performance Status: Patient bedbound, needing assistance with feeding and bed mobility, previous level of functioning was able to assist. Needs bed bath and turning - Palliative Care Discussion: Surrogate decision maker [Meron Abbott-daughter]. Patient/Family understanding of the illness [Daughter understands she is at a precipice, and has had a very difficult weekend without much improvement]. Most important goals [Daughter's goal is for patient to return home to if possible]. Patient unable to participate in conversation regarding goals of care, had been exploring hospice at home in previous few weeks, recognizing the complexity of this with her recurrent infections and how ill she becomes. Spoke with Meron on phone at length regarding wishes for mother, feels it would be consistent with her wishes to transition her to comfort and home with hospice. Patient would need to be cooperative, or sedated for her to meet her needs even with hospice support. Agreed we would focus on simplifying regimen, addressing her pain/delerium/agitation and refer to hospice in next 24 hours. Encouraged to contact aunt to see if able to be of support in this time, has been out a few months ago and aware of pending decline and caregiver burden on daughter. Had been exploring with Ami Veloz possible transition to [facility] setting if continue to decline. If goals are to support patient for EOL care, feels can manage it in the short term. Results - Lab Results Lab results reviewed: Yes Fish Bones: 09/02/16 05:08 09/02/16 05:08 Impression and Recommendations - Palliative Care Impression: This is a 51 year old woman with complex medical history and high symptom burden. Is slightly better today, but unable to participate in goals of care conversation with confusion. Spoke with Meron, consistent with patient's goal to at home, will start transition to comfort measures and hospice discharge. Recommendations/Counseling Done: 1. Delerium, multifactorial and complex. Patient remains acutely confused, though is more cooperative, finding balance between sedation, resp. failure, and pain relief remains problematic. Spoke with hospitalist Dr. Benitez will restart methadone at lower dose, but may improve delerium as suspect withdrawal syndrome. Patient already on benzodiazipines in home setting with valium 5 mg QID for spasms, unclear if going to respond to increasing load with lorazepam. Patient reportedly did get some relief with zyprexa, given her underlying psychiatric dx, would recommend continue to use it as tool to manage escalation of behaviors. 2. Acute on Chronic pain. Patient now with headache and back pain related to ongoing recurrent compression fractures. Patient does best positioned no greater than 25-30 degrees, this is how she is managed at home, even for eating. Patient received pain medications with improvement during my visit. 3. Advanced care planning. Patients past perception, and daughters concern about ongoing suffering and deteriorating quality of life. Hoping to transition home of symptoms manageable with hospice support, counseling and conversation with daughter and relayed to hospitalist. Information relayed to director of nurses registry Samreen Langford RN to initiate contact and referral needs. Will need BLS for transfer. Recommend discontinue medications other than for comfort and support of goals of care. Time Spent: 45 minutes with greater than 50% done in counseling and coordination of care with care team/hospice and daughter.
[2016-09-03] MEDS: ONDANSETRON ODT 4 MG TABLET TL PRN (21:05)
[2016-09-04] MEDS: MAG HYDROX/AL HYDROX/SIMETH 30 ML UDC PO PRN ×2 (01:20→17:10)
[2016-09-04] MEDS: PANTOPRAZOLE 40 MG TABLET PO SCH ×2 (06:05→08:59)
[2016-09-04] MEDS: METHADONE 5 MG TABLET PO SCH ×3 (06:06→22:17)
[2016-09-04] MEDS: CLINDAMYCIN 150 MG CAPSULE PO SCH ×4 (06:06→23:30)
[2016-09-04] MEDS: SODIUM CHLORIDE FLUSH 0.9% 10 ML SYRINGE IVP SCH ×3 (06:55→22:43)
--- NOTE | 2016-09-04 08:27 | PROVIDER PROGRESS NOTE ---
Assessment/Plan - Problem List (1) Acute respiratory failure with hypercapnia Assessment/Plan: Since there has been a transition to comfort care no lab to follow. She is using her CPAP. Just monitoring her O2 sat periodically. (2) Altered mental status Qualifiers: Altered mental status type: unspecified Qualified Code(s): R41.82 - Altered mental status, unspecified Assessment/Plan: Her mental status has improved dramatically. She is now oriented and is able to track and ask and respond to questions. She was probably altered as previously indicated by the respiratory failure, and the narcotics. - Current Meds Current Meds: Current Medications Generic Name Dose Route Start Last Admin Trade Name Freq PRN Reason Stop Dose Admin Acetaminophen 650 mg 08/28/16 15:59 09/03/16 11:24 Tylenol PO 650 mg Q4HR PRN Administration Pain 1 to 4 Al Hydroxide/Mg Hydroxide 30 ml 09/04/16 01:00 09/04/16 01:20 Mylanta Plus PO 30 ml Q4HR PRN Administration INDIGESTION Albuterol 2.5 mg 08/31/16 10:40 08/31/16 17:00 INH 2.5 mg Q4HR PRN Administration Wheezing Chlorhexidine Gluconate 15 ml 08/31/16 21:00 09/03/16 21:02 Peridex PO 15 ml BID JAVIER Administration Ciprofloxacin 250 mg 09/02/16 21:00 09/03/16 21:06 Cipro PO 250 mg BID JAVIER Administration Clindamycin HCl 300 mg 09/02/16 18:00 09/04/16 06:06 Cleocin PO 300 mg Q6HR JAVIER Administration Diazepam 5 mg 08/28/16 15:49 09/03/16 20:31 Valium PO 5 mg QID PRN Administration Spasms Enoxaparin Sodium 40 mg 08/29/16 09:00 09/03/16 08:48 Lovenox SUBQ 40 mg DAILY JAVIER Administration Escitalopram Oxalate 20 mg 08/29/16 09:00 09/03/16 08:44 Lexapro PO 20 mg DAILY JAVIER Administration Fluticasone Propionate 1 sprays 08/28/16 21:00 09/03/16 22:02 Flonase AVIS 1 spr BID JAVIER Administration Methadone HCl 12.5 mg 09/03/16 09:00 09/04/16 06:06 PO 12.5 mg TID JAVIER Administration Methylprednisolone 4 mg 09/03/16 10:00 09/03/16 21:02 Medrol PO 4 mg BID JAVIER Administration Metoprolol Tartrate 12.5 mg 08/28/16 21:00 09/03/16 21:03 Lopressor PO 12.5 mg BID JAVIER Administration Nystatin 1 applic 08/28/16 21:00 09/03/16 21:12 Nystop TOP 1 applic BID JAVIER Administration Olanzapine 5 mg 09/02/16 17:00 09/03/16 08:46 Zyprexa Odt TL 5 mg DAILY JAVIER Administration Ondansetron HCl 4 mg 08/28/16 15:59 09/01/16 11:53 Zofran Inj IVP 4 mg Q6HR PRN Administration Nausea / Vomiting Ondansetron HCl 4 mg 09/02/16 18:30 09/03/16 21:05 Zofran Odt TL 4 mg Q4HR PRN Administration Nausea / Vomiting Oxycodone HCl 30 mg 09/03/16 09:00 09/03/16 23:30 Roxicodone PO 30 mg Q3HR PRN Administration PAIN Pantoprazole Sodium 40 mg 09/04/16 01:00 09/04/16 06:05 Protonix PO 40 mg QDAC JAVIER Administration Polyethylene Glycol 17 gm 08/29/16 09:00 09/03/16 08:48 Miralax PO 17 gm DAILY JAVIER Administration Prochlorperazine Edisylate 10 mg 08/28/16 15:59 08/29/16 10:48 Compazine Inj IVP 10 mg Q6HR PRN Administration Nausea / Vomiting Sodium Chloride 10 ml 08/28/16 15:59 09/01/16 11:54 Normal Saline Flush 0.9% IVP 10 ml PRN PRN Administration NEEDED PER PROVIDER ORDERS Sodium Chloride 10 ml 08/28/16 22:00 09/04/16 06:55 Normal Saline Flush 0.9% IVP Not Given Q8HR JAVIER - Lab Result Fish Bone Diagrams: 09/02/16 05:08 09/02/16 05:08 Subjective - Subjective Patient Reports: Feeling Better Nursing Reports: Other (itching) Objective Vital Signs: Vital Signs - 24 hr 09/03/16 09/03/16 09/03/16 09:51 13:00 16:36 Temperature 36.7 C 36.8 C Heart Rate [ 87 84 Monitoring electrodes] Respiratory 22 20 20 Rate Blood Pressure Blood Pressure 106/56 L 107/64 [Left Radial artery] O2 Saturation 95 96 96 09/03/16 09/03/16 09/04/16 21:00 21:03 01:00 Temperature 36.8 C 36.9 C Heart Rate [ 72 79 Monitoring electrodes] Respiratory 18 18 Rate Blood Pressure 114/65 Blood Pressure 114/65 109/53 L [Left Radial artery] O2 Saturation 92 92 09/04/16 05:00 Temperature 37 C Heart Rate [ 88 Monitoring electrodes] Respiratory 18 Rate Blood Pressure Blood Pressure 115/59 L [Left Radial artery] O2 Saturation 91 L Oxygen O2 Source Room air I&O (Last 24 Hrs): Intake and Output Totals x24h 09/02/16 09/03/16 09/04/16 23:59 23:59 23:59 Intake Total 19990 500 Output Total 3785 1880 1350 Balance -1785 300 -850 General: Alert, Cooperative HEENT: PERRLA, EOMI Neck: No JVD, No thyromegaly Neuro: Alert, Non Focal Cardiovascular: Regular rate, No murmurs Respiratory: Chest non-tender, No respiratory distress, Breath sounds nml Abdomen: Normal bowel sounds, No tenderness Extremities: No clubbing, No edema - Results Results: Laboratory Results WBC 9.7 x10^3/uL (4.8-10.8) 09/02/16 05:08 RBC 3.32 10^6/uL (4.20-5.40) L 09/02/16 05:08 Hgb 10.0 g/dL (12.0-16.0) L 09/02/16 05:08 Hct 31.2 % (37.0-47.0) L 09/02/16 05:08 MCV 93.9 fL (81.0-99.0) 09/02/16 05:08 MCH 30.2 pg (27.0-31.0) 09/02/16 05:08 MCHC 32.2 g/dL (32.0-36.0) 09/02/16 05:08 RDW 17.8 % (12.0-15.0) H 09/02/16 05:08 Plt Count 276 10^3/uL (130-450) 09/02/16 05:08 MPV 8.3 fL (7.9-10.8) 09/02/16 05:08 Neut # 6.4 10^3/uL (1.5-6.6) 09/02/16 05:08 Lymph # 2.4 10^3/uL (1.5-3.5) 09/02/16 05:08 [place] # 0.9 10^3/uL (0.0-1.0) 09/02/16 05:08 Eos # 0.1 10^3/uL (0.0-0.7) 09/02/16 05:08 Baso # 0.1 10^3/uL (0.0-0.1) 09/02/16 05:08 Absolute Nucleated RBC 0.00 x10^3/uL 09/02/16 05:08 Total Counted 100 08/31/16 05:00 Band Neuts % (Manual) Not Reportable 09/02/16 05:08 Metamyelocytes % 2 % (-0) H 08/31/16 05:00 Myelocytes % 2 % (-0) H 08/31/16 05:00 Neutrophils # (Manual) 6.8 10^3/uL (1.5-6.6) H 08/31/16 05:00 Lymphocytes # (Manual) 1.4 10^3/uL (1.5-3.5) L 08/31/16 05:00 Monocytes # (Manual) 0.7 10^3/uL (0.0-1.0) 08/31/16 05:00 Eosinophils # (Manual) 0.6 10^3/uL (0-0.7) 08/31/16 05:00 Nucleated RBCs 0.0 /100WBC 09/02/16 05:08 Differential Comment MANUAL=AUTO DIFF 09/02/16 05:08 WBC Morphology 1+ VACUOLATION (NORMAL) 08/28/16 13:07 Platelet Estimate NORMAL (130-450,000) (NORMAL) 09/02/16 05:08 Platelet Morphology NORMAL KATY (NORMAL) 09/02/16 05:08 RBC Morph Micro Appear NORMAL APPEARANCE (NORMAL) 08/29/16 06:18 RBC Morph Micro Appear NORMAL APPEARANCE (NORMAL) 08/30/16 06:05 RBC Morph Micro Appear NORMAL APPEARANCE (NORMAL) 08/31/16 05:00 RBC Morph Micro Appear 2+ STOMATOCYTES (NORMAL) 1+ POLYCHROMASIA (NORMAL) 1+ BASO STIPPLING (NORMAL) 09/01/16 05:17 RBC Morph Micro Appear 2+ STOMATOCYTES (NORMAL) 1+ POLYCHROMASIA (NORMAL) 1+ BASO STIPPLING (NORMAL) 09/01/16 05:17 RBC Morph Micro Appear 2+ STOMATOCYTES (NORMAL) 1+ POLYCHROMASIA (NORMAL) 1+ BASO STIPPLING (NORMAL) 09/01/16 05:17 RBC Morph Micro Appear 1+ STOMATOCYTES (NORMAL) 1+ BASO STIPPLING (NORMAL) 09/02/16 05:08 RBC Morph Micro Appear 1+ STOMATOCYTES (NORMAL) 1+ BASO STIPPLING (NORMAL) 09/02/16 05:08 Bld Gas Analysis Time 0625 09/02/16 06:17 Sample Site RIGHT RADIAL 09/02/16 06:17 ABG pH 7.37 (7.35-7.45) 09/02/16 06:17 ABG pCO2 62 mmHg (34-45) H* 09/02/16 06:17 ABG pO2 66 mmHg (80-100) L 09/02/16 06:17 ABG HCO3 35.1 mmol/L (22.0-26.0) H 09/02/16 06:17 ABG Total CO2 37.0 MMOL/L (21.0-29.0) H 09/02/16 06:17 ABG O2 Saturation 93 % (94-98) L 09/02/16 06:17 ABG Oximetry Spot Check 100 % 08/31/16 15:52 ABG Base Excess 8.2 mmol/L (-2.0-3.0) H 09/02/16 06:17 Babar Test POSITIVE 09/02/16 06:17 VBG pH 7.338 (7.31-7.41) 08/28/16 16:12 VBG pCO2 77.4 mmHg (41-51) H 08/28/16 16:12 VBG pO2 200.0 mmHg (25-47) H 08/28/16 16:12 VBG HCO3 41.6 mmol/L (23-28) H 08/28/16 16:12 VBG Total CO2 44.0 mmol/L (24-29) H 08/28/16 16:12 VBG O2 Saturation 100.0 % (60-80) H 08/28/16 16:12 VBG Base Excess 16.0 mmol/L (-2 - +2) H 08/28/16 16:12 Respiration Rate 16 b/min 08/31/16 15:52 O2 Delivery Device NASAL CANNULA 09/02/16 06:17 O2 Liters/Min 2.50 LPM 09/02/16 06:17 Vent Mode SYNCHRONOUS/TIMES 08/31/16 15:52 FiO2 50.00 08/31/16 15:52 Pressure Support Vent 11 cmH2O 08/31/16 15:52 EPAP 6 cmH2O 08/31/16 15:52 IPAP 17 cmH2O 08/31/16 15:52 Sodium 145 mmol/L (135-145) 09/02/16 05:08 Potassium 3.1 mmol/L (3.5-5.0) L 09/02/16 05:08 Chloride 101 mmol/L (101-111) 09/02/16 05:08 Carbon Dioxide 36 mmol/L (21-32) H 09/02/16 05:08 Anion Gap 8.0 (6-13) 09/02/16 05:08 BUN < 5 mg/dL (6-20) L 09/02/16 05:08 Creatinine < 0.3 mg/dL (0.4-1.0) L 09/02/16 05:08 Estimated GFR (MDRD) 234 (>89) 09/02/16 05:08 Glucose 81 mg/dL (70-100) 09/02/16 05:08 POC Whole Bld Glucose 98 mg/dL (70 - 100) 08/29/16 16:51 Glycated Hemoglobin 5.3 % (4.6-6.2) 08/28/16 13:17 Estim Average Glucose 105 (70-100) H 08/28/16 13:17 Lactic Acid 0.9 mmol/L (0.5-2.2) 08/29/16 06:18 Calcium 8.0 mg/dL (8.5-10.3) L 09/02/16 05:08 Phosphorus 3.0 mg/dL (2.5-4.6) 09/02/16 05:08 Magnesium 1.6 mg/dL (1.7-2.8) L 09/02/16 05:08 Total Bilirubin 0.5 mg/dL (0.2-1.0) 09/02/16 05:08 AST 31 IU/L (10-42) 09/02/16 05:08 ALT 61 IU/L (10-60) H 09/02/16 05:08 Alkaline Phosphatase 32 IU/L (42-121) L 09/02/16 05:08 Total Protein 5.6 g/dL (6.7-8.2) L 09/02/16 05:08 Albumin 3.1 g/dL (3.2-5.5) L 09/02/16 05:08 Globulin 2.5 g/dL (2.1-4.2) 09/02/16 05:08 Albumin/Globulin Ratio 1.2 (1.0-2.2) 09/02/16 05:08 Lipase 16 U/L (22-51) L 08/28/16 13:07 TSH 1.55 uIU/mL (0.34-5.60) 08/29/16 06:18 Urine Color YELLOW 08/28/16 14:05 Urine Clarity CLEAR (CLEAR) 08/28/16 14:05 Urine pH 7.0 PH (5.0-7.5) 08/28/16 14:05 Ur Specific [place] >=1.030 (1.002-1.030) H 08/28/16 14:05 Urine Protein TRACE mg/dL (NEGATIVE) 08/28/16 14:05 Urine Glucose (UA) NEGATIVE mg/dL (NEGATIVE) 08/28/16 14:05 Urine Ketones TRACE mg/dL (NEGATIVE) 08/28/16 14:05 Urine Occult Blood TRACE-INTA (NEGATIVE) 08/28/16 14:05 Urine Nitrite NEGATIVE (NEGATIVE) 08/28/16 14:05 Urine Bilirubin NEGATIVE (NEGATIVE) 08/28/16 14:05 Urine Urobilinogen 0.2 (NORMAL) E.U./dL (NORMAL) 08/28/16 14:05 Ur Leukocyte Esterase TRACE (NEGATIVE) H 08/28/16 14:05 Urine RBC 0-5 /HPF (0-5) 08/28/16 14:05 Urine WBC >25 /HPF (0-5) H 08/28/16 14:05 Urine WBC Clumps PRESENT 08/28/16 14:05 Ur Squamous Epith Cells RARE Squamous (<= Few) 08/28/16 14:05 Urine Bacteria Few /HPF (None Seen) 08/28/16 14:05 Urine Casts 0-2 Fine Granular /LPF 08/28/16 14:05 Urine Mucus Marked Strands 08/28/16 14:05 Ur Microscopic Review INDICATED 08/28/16 14:05 Urine Culture Comments INDICATED 08/28/16 14:05 Stool Leukocytes, Qual POSITIVE (Negative) 08/29/16 18:40 - Procedures Procedures: Procedures INSERTION OF INFUSION DEV INTO INF VENA CAVA, PERC APPROACH (12/22/15) TRANSFUSE NONAUT RED BLOOD CELLS IN PERIPH VEIN, PERC (07/21/16)
[2016-09-04] MEDS: ESCITALOPRAM 10 MG TABLET PO SCH (08:57)
[2016-09-04] MEDS: METOPROLOL TARTRATE 25 MG TABLET PO SCH ×2 (08:57→21:04)
[2016-09-04] MEDS: methylPREDNISolone 4 MG TABLET PO SCH ×2 (08:58→21:03)
[2016-09-04] MEDS: oxyCODONE 30 MG TABLET PO PRN ×3 (08:59→22:56)
[2016-09-04] MEDS: OLANZapine ODT 5 MG TABLET TL SCH (08:59)
[2016-09-04] MEDS: CIPROFLOXACIN 250 MG TABLET PO SCH ×2 (08:59→21:03)
[2016-09-04] MEDS: CHLORHEXIDINE GLUCONATE 15 ML UDC PO SCH ×2 (09:00→21:01)
[2016-09-04] MEDS: ENOXAPARIN 40 MG/0.4 ML SYRINGE SUBQ SCH (09:00)
[2016-09-04] MEDS: POLYETHYLENE GLYCOL 3350 17 GM PACKET PO SCH (09:00)
[2016-09-04] MEDS: FLUTICASONE NASAL SPRAY NAS SCH ×2 (09:00→21:05)
[2016-09-04] MEDS: NYSTATIN POWDER 15 GM TOP SCH ×2 (09:01→21:02)
--- NOTE | 2016-09-04 17:24 | PROVIDER PROGRESS NOTE ---
Palliative Care Follow Up - Referral Referring Provider: Dr. Benitez Time of Visit: [id number] Referral setting: Hospitalized patient Referral Reason: Goals of Care - Information Sources Records Reviewed: RN notes reviewed, Other History obtained from: Patient, Caregiver Exam limitations: Clinical condition (Patient still with some intermittent confusion but doing much better, trying to figure out for last week and what had been happening) - History of Present Illness Update Brief HPI Update: Please see previous HPI, patient well known to Palliative Care. Patient has been improving in last 24 hours, oriented to person and place. Continues to improve, intermittent sedation, confusion, but aware she is discharging home tomorrow with hospice. Signs and symptoms of infection resolved, eating small amounts. Pain "mod-severe" just had oxycodone 30 mg, reports willing to try oral pills vs. liquid as has been using here, aware methadone decreased to TID from QID, hoping with new bed will be okay. Other source of pain is "burning" reflux, felt the Mylanta Plus was the new miracle drug and to "write that down" . Social History - Living Situation Living arrangement: At home Living Situation: With family (Meron daughter, caregiver, has had caregiver fatigue. Am hopeful with hospice will feel more supported.), With caregiver(s) Medications/Allergies - Medications Active Medication List: Active Medications Acetaminophen (Tylenol) 650 mg PO Q4HR PRN PRN Reason: Pain 1 to 4 Last Admin: 09/03/16 11:24 Dose: 650 mg Al Hydroxide/Mg Hydroxide (Mylanta Plus) 30 ml PO Q4HR PRN PRN Reason: INDIGESTION Last Admin: 09/04/16 17:10 Dose: 30 ml Albuterol () 2.5 mg INH Q4HR PRN PRN Reason: Wheezing Last Admin: 08/31/16 17:00 Dose: 2.5 mg Chlorhexidine Gluconate (Peridex) 15 ml PO BID [facility] Last Admin: 09/04/16 09:00 Dose: 15 ml Ciprofloxacin (Cipro) 250 mg PO BID [facility] Last Admin: 09/04/16 08:59 Dose: 250 mg Clindamycin HCl (Cleocin) 300 mg PO Q6HR JAVIER Last Admin: 09/04/16 17:10 Dose: 300 mg Diazepam (Valium) 5 mg PO QID PRN PRN Reason: Spasms Last Admin: 09/03/16 20:31 Dose: 5 mg Diphenhydramine HCl (Benadryl) 25 mg PO Q6H PRN PRN Reason: Angioedema Enoxaparin Sodium (Lovenox) 40 mg SUBQ DAILY [facility] Last Admin: 09/04/16 09:00 Dose: 40 mg Escitalopram Oxalate (Lexapro) 20 mg PO DAILY [facility] Last Admin: 09/04/16 08:57 Dose: 20 mg Fluticasone Propionate (Flonase) 1 sprays AVIS BID [facility] Last Admin: 09/04/16 09:00 Dose: 1 spr Methadone HCl () 12.5 mg PO TID [facility] Last Admin: 09/04/16 13:47 Dose: 12.5 mg Methylprednisolone (Medrol) 4 mg PO BID [facility] Last Admin: 09/04/16 08:58 Dose: 4 mg Metoprolol Tartrate (Lopressor) 12.5 mg PO BID [facility] Last Admin: 09/04/16 08:57 Dose: 12.5 mg Nystatin (Nystop) 1 applic TOP BID [facility] Last Admin: 09/04/16 09:01 Dose: 1 applic Olanzapine (Zyprexa Odt) 5 mg TL DAILY [facility] Last Admin: 09/04/16 08:59 Dose: 5 mg Ondansetron HCl (Zofran Inj) 4 mg IVP Q6HR PRN PRN Reason: Nausea / Vomiting Last Admin: 09/01/16 11:53 Dose: 4 mg Ondansetron HCl (Zofran Odt) 4 mg TL Q4HR PRN PRN Reason: Nausea / Vomiting Last Admin: 09/03/16 21:05 Dose: 4 mg Oxycodone HCl (Roxicodone) 30 mg PO Q3HR PRN PRN Reason: PAIN Last Admin: 09/04/16 16:23 Dose: 30 mg Pantoprazole Sodium (Protonix) 40 mg PO QDAC [facility] Last Admin: 09/04/16 08:59 Dose: 40 mg Polyethylene Glycol (Miralax) 17 gm PO DAILY [facility] Last Admin: 09/04/16 09:00 Dose: 17 gm Prochlorperazine Edisylate (Compazine Inj) 10 mg IVP Q6HR PRN PRN Reason: Nausea / Vomiting Last Admin: 08/29/16 10:48 Dose: 10 mg Sodium Chloride (Normal Saline Flush 0.9%) 10 ml IVP PRN PRN PRN Reason: NEEDED PER PROVIDER ORDERS Last Admin: 09/01/16 11:54 Dose: 10 ml Sodium Chloride (Normal Saline Flush 0.9%) 10 ml IVP Q8HR [facility] Last Admin: 09/04/16 13:42 Dose: Not Given Fenofibrate 160 mg PO DAILY 07/09/12 Aspirin [Aspir-Low] 81 mg ORAL DAILY 04/13/15 Atorvastatin Calcium 20 mg PO QPM 04/13/15 Epinephrine [Epipen 2-Zachary] 1 syr IM ONCE PRN 04/13/15 Escitalopram Oxalate [Lexapro] 20 mg PO DAILY 04/13/15 Methadone HCl 12.5 mg PO QID 04/13/15 Metoprolol Tartrate 12.5 mg ORAL BID 04/13/15 Oxycodone HCl 30 mg ORAL Q3HR PRN MDD 9 ml 04/13/15 Tolterodine [Detrol LA] 2 mg PO BID 04/13/15 Vitamin B Complex Vit C No.4 [Super B Complex] 1 tab ORAL DAILY 04/13/15 Acetaminophen [Tylenol Extra Strength] 1,000 mg PO Q4H PRN 12/29/15 Albuterol Sulfate [Proair Hfa Inhaler] 2 puffs INH Q6H PRN 12/29/15 Diphenhydramine HCl 25 - 75 mg PO PRN PRN 12/29/15 Docusate Sodium 100 mg PO DAILY PRN 12/29/15 Insulin Lispro [Humalog] 2 unit SUBQ PRN PRN 12/29/15 Metoclopramide [Reglan] 10 mg PO QID PRN 12/29/15 Multivitamin [Multiple Vitamins] 1 tab PO DAILY 12/29/15 Simethicone 180 mg PO DAILY 12/29/15 Sodium Chloride [Saline Mist] 1 spray NS TID PRN 12/29/15 Sumatriptan Succinate [Imitrex] 50 mg PO Q2H PRN MDD 100 MG 12/29/15 Acyclovir 200 mg PO BID 07/21/16 Diazepam [Diazepam] 5 mg PO QID PRN 07/21/16 Doxepin HCl 25 mg PO QPM 07/21/16 Esomeprazole Magnesium [Nexium] 40 mg PO QDAC 07/21/16 Guaifenesin 400 mg PO QID 07/21/16 Hydroxyzine Pamoate 100 mg PO DAILY 07/21/16 Loperamide [Imodium] 2 - 4 mg PO PRN PRN MDD 16 MG 07/21/16 Magnesium Oxide [Mag Ox] 400 mg PO DAILY 07/21/16 Methylprednisolone 4 mg PO BIDWM 07/21/16 Potassium Gluconate 99 mg PO DAILY 07/21/16 Vancomycin HCl 125 mg PO Q6H 07/21/16 diphenhydrAMINE [Benadryl] 50 mg PO HS 07/21/16 Albuterol 2.5 mg INH Q6H PRN 08/28/16 Fluticasone [Flonase] 1 sprays AVIS BID 08/28/16 Naproxen Sodium [Aleve] 440 mg PO QID 08/28/16 Nystatin [Nystop] 1 applic TOP BID 08/28/16 Ranitidine HCl [Zantac] 300 mg PO BID 08/28/16 - Allergies Allergies/Adverse Reactions: Allergies Allergy/AdvReac Type Severity Reaction Status Date / Time latex Allergy Unknown Verified 07/21/16 07:26 nitrofurantoin AdvReac Intermediate Emesis Verified 07/21/16 07:26 macrocrystalline * [From Macrobid] Review of Systems - Constitutional Constitutional: reports: Fatigue, Weight loss - Eyes Eyes: reports: Blurred vision (not new) - Ears, Nose & Throat Ears, Nose & Throat: reports: Hearing loss, Nasal congestion - Cardiovascular Cariovascular: denies: Chest pain - Respiratory Respiratory: denies: Cough, Wheezing, SOB at rest, SOB with exertion - Gastrointestinal Gastrointestinal: reports: Reflux/heartburn, Poor appetite. denies: Abdominal pain, Nausea - Genitourinary Genitourinary: reports: Other (nunes) - Musculoskeletal Musculoskeletal: reports: Muscle pain, Back pain, Muscle aches, Stiffness, Limited range of motion, Other (Tolerates HOB up poorly) - Integumentary Integumentary: reports: Dryness, Other (Straie from cushings) - Neurological Neurological: reports: Memory problems, Other (bedbound) - Psychiatric Psychiatric: reports: Depression, Anxiety, Delusions (Still having some difficulty putting her "dreams" together), Hallucinations (aware was having them ) - Endocrine Endocrine: reports: Intolerance to heat - Hematologic/Lymphatic Hematologic/Lymphatic: reports: Anemia, Recurrent infections - All Other Systems All Other Systems: reports: Reviewed and negative Physical Examination - Vital Signs Vital Signs: Vital Signs x48h Temp Pulse Resp BP Pulse Ox 09/04/16 16:00 36.3 C L 92 20 141/84 H 93 09/04/16 12:00 36.8 C 102 H 16 135/83 H 91 L - Physical Exam General Appearance: positive: No acute distress Eyes Bilateral: positive: Normal inspection ENT: positive: No signs of dehydration Neck: positive: Other (thickened neck) Respiratory: positive: Breath sounds nml (respiratory shallow) Cardiovascular: positive: Regular rate & rhythm Abdomen: positive: Nml bowel sounds, Other (colostomy) Skin: positive: Pallor, Rash (under breasts/groins uses nystatin) Extremities: positive: No pedal edema Neurologic/Psychiatric: positive: Disoriented to time, Other (very upbeat and talkative at visit) Palliative Care - POLST Patient has POLST: Yes POLST Status: DNR, Comfort Measures Pain: Pain improved, Location (back/GERD), Severity (Mod-severe), Pattern ( intermittent at times worsens with movement) Drowsiness: Moderate (4-6) (reports sleeping, just woke up.) Nausea: None Anxiety: Mild (1-3) Dyspnea: None Anorexia: Mild (1-3) Insomnia: Sleeps well Constipation: No, Opoid induced, Managed Feelings of wellbeing/Perceived Quality of Life: Improved (Patient looking forward to going home) Performance Status: Previous level of function prior to this episode [Patient had been able to self feed, dependent for all ADLS]. Current level of functioning [Back to base line] .. - Palliative Care Discussion: Surrogate decision maker [Meron Abbott]. Met with patient to clarify goals of care as now can participate. Aware is going home with hospice, is "fine with that"". She shared she thought she wasn't afraid of dying but she is. Willing to talk and redo POLST about goals. She does NOT want to return to the hospital , what she does remember is very distressful, feeling lost, and worried she couldn't find her kids. She is hopeful she will have some time at home, that they can keep her comfortable, and at EOL wants to have a that is not "scarey". She is getting a new bed, very excited about this, aware the focus will be on keeping her comfortable and working with the hospice team at home, not calling 911, but reassured if choked or needed assistance the paramedics can still offer assistance. Patient best approached with simple terms, repeated themes, and acknowledge she has long history of anxiety and depression. POLST signed. Checked in with daughter, worried about how it is "all going to go". Hoping for the best. 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 Results - Lab Results Lab results reviewed: Yes Fish Bones: 09/02/16 05:08 09/02/16 05:08 Impression and Recommendations - Palliative Care Impression: Patient with improvement from acute delerium, infection s/s resolved. Patient in good spirits, is aware going home on hospice, has intermittent confusion but was able to verbalize goals and complete POLST. Pain currently managed, medications simplified and ready for transition home. Recommendations/Counseling Done: 1. Advanced care Planning. POLST completed, reviewed plan for discharge to hospice, congruent with previous wishes and explorations, and currently as well. Daughter aware patient has made the decision as well, had been concerned she was making the right one when initial transition decisions made. Hospice expecting to admit tomorrow at 1300. 2. Acute on Chronic Pain. Pain currently managed on the methadone 12.5 mg TID, with BTP, appears to be tolerating current regimen with less sedation and satisfied with current management. 3. GERD. Patient reports good response to Mylanta, has long time issues with reflux, needing to lay flat secondary to pain, would like to continue at home. Time Spent: 45 minutes with greater than 50% done in counseling for goals of care and transition planning.
[2016-09-04] MEDS: diazePAM 5 MG TABLET PO PRN (22:55)
[2016-09-05] MEDS: CLINDAMYCIN 150 MG CAPSULE PO SCH ×2 (05:40→11:49)
[2016-09-05] MEDS: METHADONE 5 MG TABLET PO SCH (05:41)
[2016-09-05] MEDS: SODIUM CHLORIDE FLUSH 0.9% 10 ML SYRINGE IVP SCH (05:44)
[2016-09-05] MEDS: ENOXAPARIN 40 MG/0.4 ML SYRINGE SUBQ SCH (09:05)
[2016-09-05] MEDS: FLUTICASONE NASAL SPRAY NAS SCH (09:15)
[2016-09-05] MEDS: POLYETHYLENE GLYCOL 3350 17 GM PACKET PO SCH (09:15)
[2016-09-05] MEDS: methylPREDNISolone 4 MG TABLET PO SCH (09:17)
[2016-09-05] MEDS: PANTOPRAZOLE 40 MG TABLET PO SCH (09:18)
[2016-09-05] MEDS: OLANZapine ODT 5 MG TABLET TL SCH (09:18)
[2016-09-05] MEDS: CIPROFLOXACIN 250 MG TABLET PO SCH (09:18)
[2016-09-05] MEDS: NYSTATIN POWDER 15 GM TOP SCH (09:18)
[2016-09-05] MEDS: ESCITALOPRAM 10 MG TABLET PO SCH (09:18)
[2016-09-05] MEDS: METOPROLOL TARTRATE 25 MG TABLET PO SCH (09:19)
[2016-09-05] MEDS: CHLORHEXIDINE GLUCONATE 15 ML UDC PO SCH (09:22)
[2016-09-05 11:42] VITALS: BP 119/70
--- NOTE | 2016-09-05 12:04 | Discharge Plan ---
Discharge Plan Disposition: 50 Hospice/Home DC/Xfer Condition: Poor Diet: Regular Activity Restrictions: Activity as Tolerated Weight Bearing: No Weight No Smoking: If you smoke, Please STOP! Call for help. Follow-up with: Shashank Galarza MD [Primary Care Provider] - 2 Weeks
[2016-09-05] MEDS: MAG HYDROX/AL HYDROX/SIMETH 30 ML UDC PO PRN (12:12)
--- NOTE | 2016-09-06 03:42 | DISCHARGE SUMMARY ---
DATE OF ADMISSION: 08/28/2016 DATE OF DISCHARGE: 09/05/2016 PRIMARY CARE PHYSICIAN: Janes Galarza MD. ADMISSION DIAGNOSES 1. Acute encephalopathy. 2. Urinary tract infection. 3. Abdominal pain. 4. Hypokalemia. 5. Chronic pain. 6. Clostridium difficile colitis. 7. Diabetes. 8. Obstructive sleep apnea, on CPAP. DISCHARGE DIAGNOSES 1. Acute encephalopathy, improved. 2. Urinary tract infection, on antibiotics, full course completed. 3. Abdominal pain with gastroesophageal reflux disease. 4. Hypokalemia, improved. 5. Chronic pain, controlled with medication. 6. Clostridium difficile colitis, completed antibiotic course. 7. Diabetes with control. 8. Obstructive sleep apnea, on CPAP. CONSULTATIONS: None. SPECIAL PROCEDURES CT of the head, impression: Stable atrophy. No evidence of hemorrhage or mass affect. Stable mastoid effusions and sphenoid sinus disease. Abdominal/pelvic CT, impression: 1. Stable mild cardiomegaly. 2. Cholelithiasis. 3. Stable nonspecific wall thickening of the medial cecum with stable 1.8 x 1.5 x 1.2 spiculated lesion/node in the adjacent mesentery. Differential between malignant versus inflammatory process. HOSPITAL COURSE AND MANAGEMENT: See copy of the history and physical for presentation to hospital, emergency department evaluation, and hospitalist's plan. SUMMARY: The patient is a 51-year-old female with a past medical history significant for unspecified autoimmune connective tissue disorder with resulted recurrent angioedema, morbid obesity, metabolic syndrome, type 2 diabetes, hyperlipidemia, GERD, osteoporosis, multiple compression fractures, acute pain, fibromyalgia, neurogenic bladder with chronic indwelling Oseguera catheter, recurrent UTIs, colostomy placed for complications of diverticulitis and small bowel obstruction, migraines, depression, anxiety, OCD, claustrophobia, obstructive sleep apnea on CPAP, asthma, hypothyroidism, chronic anemia, history of DVT presented to the emergency department with a chief complaint of generalized weakness. The patient was seen in the emergency department, initially quite lethargic, difficult to arouse, became more alert. The patient had a urine that was positive for infection. The patient was admitted for the acute encephalopathy and the diagnoses noted above, as well as a urinary tract infection. The patient's continued hospital, the patient was very lethargic and when awake at times became combative for a period of time. The patient was placed into the Intensive Care Unit because she developed acute respiratory failure with hypercapnia, was believed that this was secondary to her not having the CPAP used overnight and she was off her oxygen. Developed a PCO2 of 86 with a pH of 7.25. After being on BiPAP and then CPAP at night, she improved. The patient's urinary infection, she grew out of her urine a Staph epi susceptible to clindamycin, was treated for 7 days. The patient's hypokalemia was replaced as was the hypophosphatemia and hypomagnesemia. There was a delicate balance between getting lethargic from too much pain medicine and getting combative on narcotic withdrawals. The patient's A1c was done, was 5.3, so insulin and diabetic diet were discontinued. The patient's mentation improved the day before discharge. Family conferences the last 3 days of hospitalization were focused on her many chronic conditions and poor quality of life and it was decided that she would be best served by discontinuing high intensity medical interventions and transitioning to comfort care. The patient was very eager to return home. This was then accomplished on 09/05. PHYSICAL EXAMINATION ON DAY OF DISCHARGE VITAL SIGNS: Temperature 37.1, 86, 119/70, 20. She had a room air sat of 89-92, so she was to be discharged to home without oxygen given her total sedentary lifestyle. The patient is to use the CPAP machine at night. EYES: EOMI within normal limits, PERRL, nonicteric. MOUTH AND THROAT: Mucous membranes are moist. No other pathology noted. NECK: No lymphadenopathy. No thyromegaly. CHEST WALL: Nontender, symmetric. LUNGS: Clear, good air movement. HEART: Sinus rhythm. No murmur. ABDOMEN: Massively thick abdominal wall, nontender. The patient was complaining of some heartburn and was going to get medication at that time. EXTREMITIES: Bilateral edema. NEUROLOGICAL: Cognitive improved. Motor very poor. Tone, is able to move legs some and has movement of feet and toes. VASCULAR: No distal pulses felt; however, no cyanosis noted. LABORATORY DATA TWO DAYS BEFORE DISCHARGE: White count 9.7, 10 and 31 hemoglobin and hematocrit, platelets 276. Sodium 145, potassium 3.1, chloride 101. CO2 is 36, BUN 5, creatinine 0.3. The patient's glucose is up to 234, calcium is 8.0. She has an albumin of 3.1. She has a Staph epidermitis growing on the urine culture. The Clostridium difficile test was negative, as was Campylobacter. Blood cultures were negative after 5 days. ALLERGIES AT DISCHARGE 1. LATEX. 2. NITROFURANTOIN. MEDICATIONS FOR HOME 1. Methadone 12.5 mg q.i.d. 2. Flonase 1 spray twice a day. 3. Albuterol 2.5 inhaled every 6 hours as needed. 4. Epinephrine in syringe to be used p.r.n. for angioedema. 5. DSS 100 mg daily. 6. Acetaminophen 1000 mg every 4 hours as needed. 7. Simethicone 180 mg daily. 8. Saline mist 1 spray t.i.d. p.r.n. 9. Lexapro 20 mg daily. 10. Doxepin 25 mg at bedtime. 11. Potassium 99 mg daily. 12. Nystatin 1 applicator topical b.i.d. 13. Vitamin B complex 1 a day. 14. Albuterol inhaler as needed q.6 hours. 15. Oxycodone 30 mg suspension q.3 hours, moderate pain. 16. Multivitamin 1 a day. 17. Metoprolol 12.5 b.i.d. 18. Diphenhydramine 50 mg at bedtime. 19. Metoclopramide 10 mg q.i.d. as needed. 20. Valium 5 mg q.i.d. p.r.n. 21. Methylprednisolone 4 mg b.i.d. 22. Diphenhydramine 25 mg every 6 hours as needed. 23. Ondansetron 4 mg ODT every 4 hours as needed. The patient is to follow up with Dr. Galarza and hospice is to meet the patient for admission the day following her discharge. TIME SPENT IN DISCHARGE ACTIVITY: 40 minutes including collaboration with palliative care, nursing, case management. The patient was examined on the day of discharge. JOB #: [id number] EXT JOB #:[id number] DARA
== END 2016-09-05 12:25 | disposition home or self-care (01) | DRG 698 ==
LOC: EDUNIT# → ED 12:44 → MS 15:59 → ICU 08-31 10:42
PROVIDERS: ADMIT Internal Medicine; ATTEND Internal Medicine
DX: T83.511A Infection and inflammatory reaction due to indwelling urethral catheter, initial encounter (principal); G93.40 Encephalopathy, unspecified; J96.02 Acute respiratory failure with hypercapnia; E24.2 Drug-induced Cushing's syndrome; Z68.42 Body mass index [BMI] 45.0-49.9, adult; E87.2 Acidosis; F11.23 Opioid dependence with withdrawal; N39.0 Urinary tract infection, site not specified; B95.7 Other staphylococcus as the cause of diseases classified elsewhere; K21.9 Gastro-esophageal reflux disease without esophagitis; E87.6 Hypokalemia; G89.4 Chronic pain syndrome; E11.9 Type 2 diabetes mellitus without complications; G47.33 Obstructive sleep apnea (adult) (pediatric); E86.0 Dehydration; E83.39 Other disorders of phosphorus metabolism; E83.42 Hypomagnesemia; E66.01 Morbid (severe) obesity due to excess calories; Z96.0 Presence of urogenital implants; M35.9 Systemic involvement of connective tissue, unspecified; E88.81 Metabolic syndrome and other insulin resistance; E78.5 Hyperlipidemia, unspecified; M80.80XD Other osteoporosis with current pathological fracture, unspecified site, subsequent encounter for fracture with routine healing; T38.0X5D Adverse effect of glucocorticoids and synthetic analogues, subsequent encounter; M79.7 Fibromyalgia; N31.9 Neuromuscular dysfunction of bladder, unspecified; G43.909 Migraine, unspecified, not intractable, without status migrainosus; F43.21 Adjustment disorder with depressed mood; F32.9 Major depressive disorder, single episode, unspecified; F41.9 Anxiety disorder, unspecified; F42.9 Obsessive-compulsive disorder, unspecified; F40.240 Claustrophobia; T40.2X5A Adverse effect of other opioids, initial encounter; Y92.230 Patient room in hospital as the place of occurrence of the external cause; J45.909 Unspecified asthma, uncomplicated; E03.9 Hypothyroidism, unspecified; D64.9 Anemia, unspecified; Z51.5 Encounter for palliative care; Z66 Do not resuscitate; Z86.718 Personal history of other venous thrombosis and embolism; Z93.3 Colostomy status; Z78.1 Physical restraint status; Z86.14 Personal history of Methicillin resistant Staphylococcus aureus infection; Z87.01 Personal history of pneumonia (recurrent); Z86.73 Personal history of transient ischemic attack (TIA), and cerebral infarction without residual deficits; Z79.82 Long term (current) use of aspirin; Z79.4 Long term (current) use of insulin; Z79.52 Long term (current) use of systemic steroids; Z86.19 Personal history of other infectious and parasitic diseases; Z74.01 Bed confinement status; Z86.69 Personal history of other diseases of the nervous system and sense organs; Z86.79 Personal history of other diseases of the circulatory system
CPT/HCPCS: 36415; 36600; 70450; 71010; 74177; 80053; 81001; 81003; 82803; 83036; 83605; 83630; 83690; 83735; 84100; 84443; 85025; 87040; 87045; 87046; 87077; 87086; 87150; 87493; 94640; 94660; 96360; 96361; 99232; 99233; 99284; 99285

== ENCOUNTER 2016-09-05 12:35 | Outpatient (CLI) | payer MEDICAID | END 2016-09-05 12:36 | disposition home or self-care (01) | LOC: EMS 12:35 | PROVIDERS: ATTEND Surgery | DX: R41.0 Disorientation, unspecified (principal); Z74.01 Bed confinement status | CPT/HCPCS: A0425; A0428 ==